=== PATIENT | female | born 1940 | race Caucasian/White ===

== ENCOUNTER 2016-11-02 18:49 | Inpatient (IN) | payer OTHER, MEDICARE ==
[2016-11-02] VITALS (8 sets, daily range): BP systolic 82–135; BP diastolic 52–63; PULSE 75–100; RESP 15–21; TEMP 98.5–98.8; O2SAT 98–100
[~2016-11-02] VITALS: Ht 153.7 cm; Wt 48.5 kg
[~2016-11-02 18:49] MED LIST: APIX2.5T PO; FOSA70TA PO; LEFL1TAB3 PO; METO-309 PO; MOBI15TA PO; PANT40TA3 PO; PRED5TAB PO; TRAM50TA PO
[2016-11-02] MEDS ORDERED: DILTIAZEM HCL 25 MG/5 ML VIAL IV ONE (19:30)
[2016-11-02] MEDS ORDERED: SODIUM CHLORID 0.9% 500 ML INJ 500 ML IV ONE (19:30)
[2016-11-02] MEDS ORDERED: SODIUM CHLORIDE 0.9% FLUSH 10 ML FLUSH IVF PRN (19:30)
--- NOTE | 2016-11-02 20:02 | RADRPT ---
EXAM DATE/TIME: 11/02/2016 19:59 [facility] COMPARISON: CHEST SINGLE AP, April 19, 2016, 10:52. INDICATIONS : Chest pain, palpitations. MEDICAL HISTORY : None. SURGICAL HISTORY : None. ENCOUNTER: Initial ACUITY: 1 day PAIN SCORE: 0/10 LOCATION: Bilateral chest FINDINGS: A single view of the chest demonstrates the lungs to be symmetrically aerated without evidence of mas s, infiltrate or effusion. The cardiomediastinal contours are unremarkable. Osseous structures are intact. There are multiple overlying electrocardiogram leads. CONCLUSION: No acute disease. Justo Simon MD on November 02, 2016 at 19:59 Board Certified Radiologist. This report was verified electronically.
[2016-11-02 20:03] LABS: APTT (PATIENT) 25.2 SEC (24.3-30.1); AUTOMATED NEUTROPHIL # 1.8 TH/MM3 (1.8-7.7); BASOPHIL % 1.1 % (0.0-2.0); EOSINOPHIL # 0.2 TH/MM3 (0-0.4); EOSINOPHIL % 4.1 % (0.0-4.0); HEMATOCRIT 32.2 % (35.0-46.0); HEMO FLAGS DIFF FINAL; INTERNATIONAL NORMALIZED RATIO 1.1 RATIO; LYMPH % 38.3 % (9.0-44.0); LYMPHOCYTE # 1.4 TH/MM3 (1.0-4.8); MEAN CELL VOLUME 89.5 FL (80.0-100.0); MEAN CORPUSCULAR HEMOGLOBIN 29.9 PG (27.0-34.0); MEAN CORPUSCULAR HGB CONC 33.4 % (32.0-36.0); NEUT % 49.5 % (16.0-70.0); PLATELET COUNT 148 TH/MM3 (150-450); RED CELL DISTRIBUTION WIDTH 14.8 % (11.6-17.2); WHITE BLOOD COUNT 3.6 TH/MM3 (4.0-11.0)
[2016-11-02] MEDS ORDERED: DILTIAZEM INJ 125 MG in SODIUM CHLORIDE 0.9% INJ 100 ML IV SCH ×2 (20:15→21:15)
[2016-11-02 20:16] LABS: ANION GAP 9 MEQ/L (5-15); BLOOD UREA NITROGEN 11 MG/DL (7-18); CHLORIDE 104 MEQ/L (98-107); GLOMERULAR FILTRATION RATE 73 ML/MIN (>89); MAGNESIUM 1.8 MG/DL (1.5-2.5); POTASSIUM 3.2 MEQ/L (3.5-5.1); SODIUM (NA) 139 MEQ/L (136-145)
[2016-11-02 20:21] LABS: CREATINE KINASE 53 U/L (26-192)
[2016-11-02] MEDS ORDERED: SODIUM CHLOR 0.9% 250 ML INJ 250 ML IV ONE ×2 (20:45→21:00)
[2016-11-02] MEDS ORDERED: DILTIAZEM HCL 90 MG TAB PO ONE (20:45)
[2016-11-02] MEDS: POTASSIUM CHLORIDE 20 MEQ CONTROLLED RELEASE TAB PO ONE ×2 (20:45→21:13)
--- NOTE | 2016-11-02 20:58 | PD ---
HPI Chief Complaint: Cardiac Complaint Time Seen by Provider: 19:10 Travel History International Travel<30 days: No Contact w/Intl Traveler<30days: No Traveled to known affect area: No History of Present Illness HPI 76-year-old female came to the emergency room with history of weakness for past couple weeks. Patient went to see her primary care today as her regular visit and it was noticed that her blood pressure was 75/45. Patient denies any chest pain, shortness of breath, lightheadedness or dizziness or any syncopal episode. Her heart rate was in 120s. Patient has history of atrial fibrillation in the past but has been off her Eliquis and medications as per her primary care. Her roommate is here with her who is giving additional history. Apparently she was asked by her primary care to go home and drink some fluid and return in the afternoon. When she came back her blood pressure was in the 80s systolic and heart rate was still high. Her primary care decided to send her to the emergency room. In triage patient's heart rate was in 120s again and blood pressure was in the 80s. Patient is awake and talking and answering questions appropriately. She looks very emaciated and upon asking the roommate said that she has lost a lot of weight in past 7-9 months. Her primary care has done significant outpatient workup including mammography, colonoscopy, endoscopy, blood test to find out the reason for her weight loss. So far everything has come back within normal limits. Patient weight 205 pounds about one year ago. Roommate says that her appetite has diminished significantly and she just survives on peanuts. [facility] Past Medical History Narrative Medical List of her past medical, surgical, social and family history is reviewed from the nursing note. Anemia: Yes Arthritis: Yes Asthma: No Autoimmune Disease: Yes (RA) Blood Disorders: No Anxiety: No Depression: No Heart Rhythm Problems: Yes (TACHYCARDIA) Cancer: No Cardiovascular Problems: No High Cholesterol: No Chest Pain: No Congestive Heart Failure: No COPD: No Cerebrovascular Accident: No Diabetes: No Diminished Hearing: No Endocrine: No GERD: Yes Glaucoma: No Genitourinary: No Headaches: No Hepatitis: No Hiatal Hernia: No Hypertension: No Immune Disorder: No Kidney Stones: No Musculoskeletal: Yes Neurologic: No Psychiatric: No Reproductive: No Respiratory: No Integumentary: Yes (ATOPIC DERMATITIS) Immunizations Current: No Myocardial Infarction: No Renal Failure: No Seizures: No Sickle Cell Disease: No Sleep Apnea: No Thyroid Disease: No Ulcer: No Menopausal: Yes Past Surgical History Abdominal Surgery: No AICD: No Cardiac Surgery: No Ear Surgery: No Endocrine Surgery: No Eye Surgery: Yes (KATLIN. CATARACT EXTR., KATLIN. MAC HOLE REP.) Genitourinary Surgery: No Gynecologic Surgery: Yes (hysterectomy) Hysterectomy: Yes Oral Surgery: No Pacemaker: No Thoracic Surgery: No Other Surgery: Yes Social History Alcohol Use: No Tobacco Use: No Substance Use: No Allergies-Medications (Allergen,Severity, Reaction): Coded Allergies: Keflex (Verified Allergy, Severe, RASH, 11/02/16) Septra (Verified Allergy, Severe, RASH, 11/02/16) Sulfa (Verified Allergy, Severe, RASH, 11/02/16) Codeine (Verified Adverse Reaction, Severe, NAUSEA, 11/02/16) Comments List of her allergies reviewed from the nursing note. Reported Meds & Prescriptions Reported Meds & Active Scripts Active Lopressor (Metoprolol Tartrate) 50 Mg Tab 50 Mg PO BID Reported Omeprazole 40 Mg Cap 40 Mg PO DAILY Tramadol (Tramadol HCl) 50 Mg Tab 50 Mg PO BID Leflunomide 20 Mg Tab 20 Mg PO DAILY Narrative Medication List of her home medications reviewed from the nurse's note Review of Systems Except as stated in HPI: all other systems reviewed are Neg Physical Exam Narrative GENERAL: Awake, alert, emaciated and cachectic, no obvious distress SKIN: Focused skin assessment warm/dry. HEAD: Atraumatic. Normocephalic. EYES: Pupils equal and round. No scleral icterus. No injection or drainage. ENT: No nasal bleeding or discharge. Mucous membranes pink and moist. NECK: Trachea midline. No JVD. CARDIOVASCULAR: Regular rate and rhythm. Tachycardia. No murmur appreciated. RESPIRATORY: No accessory muscle use. Clear to auscultation. Breath sounds equal bilaterally. GASTROINTESTINAL: Abdomen soft, non-tender, nondistended. Hepatic and splenic margins not palpable. MUSCULOSKELETAL: No obvious deformities. No clubbing. No cyanosis. 1+ pedal edema NEUROLOGICAL: Awake and alert. No obvious cranial nerve deficits. Motor grossly within normal limits. Normal speech. PSYCHIATRIC: Appropriate mood and affect; insight and judgment normal. Data Data Last Documented VS Orders Electrocardiogram (11/02/16 19:20) Basic Metabolic Panel (Bmp) (11/02/16 19:20) Ckmb (Isoenzyme) Profile (11/02/16 19:20) Complete Blood Count With Diff (11/02/16 19:20) Magnesium (Mg) (11/02/16 19:20) Prothrombin Time / Inr (Pt) (11/02/16 19:20) Act Partial Throm Time (Ptt) (11/02/16 19:20) Troponin I (11/02/16 19:20) Chest, Single Ap (11/02/16 19:20) Ecg Monitoring (11/02/16 19:20) Bilateral Bp Monitoring (11/02/16 19:20) Iv Access Insert/Monitor (11/02/16 19:20) Oximetry (11/02/16 19:20) Oxygen Administration (11/02/16 19:20) Sodium Chloride 0.9% Flush (Ns Flush) (11/02/16 19:30) Diltiazem Inj (Cardizem Inj) (11/02/16 19:30) Sodium Chlorid 0.9% 500 Ml Inj (Ns 500 M (11/02/16 19:30) Vital Signs (Adult) Q15MX4,Q4H (11/02/16 20:05) Project Account Manager / Telemetry FREDDY.Q8H (11/02/16 20:05) Cardiac Rhythm FREDDY.Q8H (11/02/16 20:05) Notify Dr: Other (11/02/16 20:05) Diltiazem Inj (Cardizem Inj) (11/02/16 20:15) Potassium Chloride (Kcl) (11/02/16 20:45) Sodium Chlor 0.9% 250 Ml Inj (Ns 250 Ml (11/02/16 20:45) Diltiazem (Cardizem) (11/02/16 20:45) Sodium Chlor 0.9% 250 Ml Inj (Ns 250 Ml (11/02/16 21:00) Admit Order (Ed Use Only) (11/02/16 20:58) Phosphorus (Po4) (11/02/16 19:20) Thyroid Stimulating Hormone (11/02/16 19:20) Labs MDM Medical Decision Making Medical Screen Exam Complete: Yes Emergency Medical Condition: Yes Medical Record Reviewed: Yes Interpretation(s) Twelve-lead EKG was reviewed by me. Low voltage, no comp tachycardia, normal axis. Heart rate of 122 bpm. Differential Diagnosis Atrial flutter, ACS, dehydration, electrolyte abnormalities Narrative Course 8:55 PM patient was given 15 mg of IV Cardizem bolus which brought her heart rate down to the 90s and at this point she was albert atrial fibrillation. In fact a repeat EKG was done which demonstrates that. However from then on her blood pressure has been between 75-85 systolic. Patient has received total of 5 cc of IV fluid bolus and I have ordered another 500. Patient continues to be awake and talking and does not have any other new symptoms. I have decided to admit her to the ICU given her hemodynamic instability. I spoke with Dr. Rodrigez who has accepted the case. Blood test results of back and within normal limit except for her potassium. I've ordered for placement. I spoke with the patient and let her know about the plan and she is agreeable to that. Critical Care Narrative Aggregate critical care time was 45 minutes. Time to perform other separately billable procedures was not included in the critical care time. My time did not include minutes spent treating any other patients simultaneously or on activities that did not directly contribute to the patient's treatment. The services I provided to this patient were to treat and/or prevent clinically significant deterioration that could result in: Atrial fibrillation with RVR, hypotension I provided critical care services requiring my management, as noted below: Chart data review, documentation time, medication orders and management, vital sign assessments/reviewing monitor data, ordering and reviewing lab tests, ordering and interpreting/reviewing x-rays and diagnostic studies, care of the patient and discussion of the patient with the admitting physicians. Procedures EKG Prior to Arrival: No Physician Communication Physician Communication Dr. Rodrigez Diagnosis Primary Impression: Atrial fibrillation with RVR Additional Impression: Hypotension Qualified Code: I95.9 - Hypotension, unspecified hypotension type Admitting Information Admitting Physician Requests: it Jeramie Mcnally MD Nov 02, 2016 20:58 CBC Comment DIFF FINAL Differential Comment Prothrombin Time 12.0 SEC Prothromb Time International 1.1 RATIO Ratio Activated Partial 25.2 SEC Thromboplast Time Sodium Level 139 MEQ/L Potassium Level 3.2 MEQ/L Chloride Level 104 MEQ/L Carbon Dioxide Level 26.0 MEQ/L Anion Gap 9 MEQ/L Blood Urea Nitrogen 11 MG/DL Creatinine 0.77 MG/DL Estimat Glomerular Filtration 73 ML/MIN Rate Random Glucose 76 MG/DL Calcium Level 8.6 MG/DL Magnesium Level 1.8 MG/DL Total Creatine Kinase 53 U/L Troponin I LESS THAN 0.02 NG/ML MDM Medical Decision Making Medical Screen Exam Complete: Yes Emergency Medical Condition: Yes Medical Record Reviewed: Yes Interpretation(s) Twelve-lead EKG was reviewed by me. Low voltage, no comp tachycardia, normal axis. Heart rate of 122 bpm. Differential Diagnosis Atrial flutter, ACS, dehydration, electrolyte abnormalities Narrative Course 8:55 PM patient was given 15 mg of IV Cardizem bolus which brought her heart rate down to the 90s and at this point she was albert atrial fibrillation. In fact a repeat EKG was done which demonstrates that. However from then on her blood pressure has been between 75-85 systolic. Patient has received total of 5 cc of IV fluid bolus and I have ordered another 500. Patient continues to be awake and talking and does not have any other new symptoms. I have decided to admit her to the ICU given her hemodynamic instability. I spoke with Dr. Rodrigez who has accepted the case. Blood test results of back and within normal limit except for her potassium. I've ordered for placement. I spoke with the patient and let her know about the plan and she is agreeable to that. Critical Care Narrative Aggregate critical care time was 45 minutes. Time to perform other separately billable procedures was not included in the critical care time. My time did not include minutes spent treating any other patients simultaneously or on activities that did not directly contribute to the patient's treatment. The services I provided to this patient were to treat and/or prevent clinically significant deterioration that could result in: Atrial fibrillation with RVR, hypotension I provided critical care services requiring my management, as noted below: Chart data review, documentation time, medication orders and management, vital sign assessments/reviewing monitor data, ordering and reviewing lab tests, ordering and interpreting/reviewing x-rays and diagnostic studies, care of the patient and discussion of the patient with the admitting physicians. Procedures EKG Prior to Arrival: No Physician Communication Physician Communication Dr. Rodrigez Diagnosis Primary Impression: Atrial fibrillation with RVR Additional Impression: Hypotension Qualified Code: I95.9 - Hypotension, unspecified hypotension type Admitting Information Admitting Physician Requests: it Jeramie Mcnally MD Nov 02, 2016 20:58
[2016-11-02] MEDS ORDERED: PHENYLEPHRINE INJ 80 MG in DEXTROSE 5% IN WATE 500 ML INJ 492 ML IV SCH ×2 (21:00)
[2016-11-02] MEDS ORDERED: LACTULOSE SYRUP 20 GM/30 ML CUP PO PRN (21:00)
[2016-11-02] MEDS ORDERED: CHLORHEXIDINE GLUCONATE 2 % 1 PACK (2 CLOTHS) TOP PRN (21:00)
[2016-11-02] MEDS ORDERED: MAGNESIUM SULFATE INJ 2 GM in SODIUM CHLORIDE 0.9% INJ 96 ML IV PRN (21:00)
[2016-11-02] MEDS ORDERED: MAGNESIUM OXIDE 400 MG TAB PO PRN (21:00)
[2016-11-02] MEDS ORDERED: POTASSIUM PHOSPHATE INJ 30 MMOL in SODIUM CHLOR 0.9% 250 ML INJ 250 ML IV PRN (21:00)
[2016-11-02] MEDS ORDERED: SENNOSIDES 8.6 MG TAB PO PRN (21:00)
[2016-11-02] MEDS ORDERED: BISACODYL 10 MG SUPP RECTAL PRN (21:00)
[2016-11-02] MEDS ORDERED: POTASSIUM CHLOR 20 MEQ PREMIX 100 ML IV PRN (21:00)
[2016-11-02] MEDS ORDERED: POTASSIUM CHLOR 40 MEQ PREMIX 100 ML IV PRN ×2 (21:00)
[2016-11-02] MEDS ORDERED: MAGNESIUM SULFATE INJ 4 GM in SODIUM CHLORIDE 0.9% INJ 92 ML IV PRN (21:00)
[2016-11-02] MEDS: DOCUSATE SODIUM 50 MG/SENNA 8.6 MG TAB PO SCH (21:00)
[2016-11-02] MEDS ORDERED: POTASSIUM PHOSPHATE MONOBASIC 500 MG TAB PO PRN (21:00)
[2016-11-02] MEDS ORDERED: TERBUTALINE INJ 1 MG/ML AMP SQ PRN (21:00)
[2016-11-02] MEDS ORDERED: POTASSIUM CHLORIDE 25 MEQ EFFERVESCENT TAB PO PRN (21:00)
[2016-11-02] MEDS ORDERED: POTASSIUM PHOSPHATE MONOBASIC 500 MG TAB PO/TUBE PRN (21:00)
[2016-11-02] MEDS ORDERED: MAGNESIUM HYDROXIDE SUSP 30 ML CUP PO PRN (21:00)
[2016-11-02] MEDS ORDERED: MISCELLANEOUS NURSING INFORMATION XX SCH (21:00)
[2016-11-02] MEDS ORDERED: ONDANSETRON HCL 4 MG/2 ML VIAL IV PRN (21:00)
[2016-11-02] MEDS ORDERED: SODIUM PHOSPHATE INJ 30 MMOL in SODIUM CHLOR 0.9% 250 ML INJ 240 ML IV PRN (21:00)
--- NOTE | 2016-11-02 21:18 | HHI.HP ---
HPI Service Critical Care Medicine Primary Care Physician Sb Wayne MD Admission Diagnosis A. fib with RVR, hypotension Diagnosis: Chief Complaint: Low BP. Travel History International Travel<30 Days: No Contact w/Intl Traveler <30 Da: No Traveled to Known Affected Are: No History of Present Illness Large weight loss over past 12 months. 205lbs -> 86. Referred in by Family Physician, presents with chronic a-fib, now with RVR and hypotension, largely refractory to volume at first.. I started neosynephrine gtt, added diltiazem gtt to control heat rate. Covered with stress steroids. Culture and treat for sepsis - though doubtful etiology. Hemocult stool for GI source. Past Family Social History Allergies: Coded Allergies: Keflex (Verified Allergy, Severe, RASH, 11/02/16) Septra (Verified Allergy, Severe, RASH, 11/02/16) Sulfa (Verified Allergy, Severe, RASH, 11/02/16) Codeine (Verified Adverse Reaction, Severe, NAUSEA, 11/02/16) Past Medical History Anemia: Yes Arthritis: Yes Asthma: No Autoimmune Disease: Yes (RA) Blood Disorders: No Anxiety: No Depression: No Heart Rhythm Problems: Yes (TACHYCARDIA) Cancer: No Cardiovascular Problems: No High Cholesterol: No Chest Pain: No Congestive Heart Failure: No COPD: No Cerebrovascular Accident: No Diabetes: No Diminished Hearing: No Endocrine: No GERD: Yes Glaucoma: No Genitourinary: No Headaches: No Hepatitis: No Hiatal Hernia: No Hypertension: No Immune Disorder: No Kidney Stones: No Musculoskeletal: Yes Neurologic: No Psychiatric: No Reproductive: No Respiratory: No Integumentary: Yes (ATOPIC DERMATITIS) Immunizations Current: No Myocardial Infarction: No Renal Failure: No Seizures: No Sickle Cell Disease: No Sleep Apnea: No Thyroid Disease: No Ulcer: No Menopausal: Yes Past Surgical History Abdominal Surgery: No AICD: No Cardiac Surgery: No Ear Surgery: No Endocrine Surgery: No Eye Surgery: Yes (KATLIN. CATARACT EXTR., KATLIN. MAC HOLE REP.) Genitourinary Surgery: No Gynecologic Surgery: Yes (hysterectomy) Hysterectomy: Yes Oral Surgery: No Pacemaker: No Thoracic Surgery: No Other Surgery: Yes Social History Alcohol Use: No Tobacco Use: No Substance Use: No Allergies-Medications Allergies-Medications (Allergen,Severity, Reaction): Coded Allergies: Keflex (Verified Allergy, Severe, RASH, 11/02/16) Septra (Verified Allergy, Severe, RASH, 11/02/16) Sulfa (Verified Allergy, Severe, RASH, 11/02/16) Codeine (Verified Adverse Reaction, Severe, NAUSEA, 11/02/16) Comments List of her allergies reviewed from the nursing note. Reported Meds & Prescriptions Reported Meds & Active Scripts Active Lopressor (Metoprolol Tartrate) 50 Mg Tab 50 Mg PO BID Eliquis (Apixaban) 2.5 Mg Tab 2.5 Mg PO BID Reported Fosamax (Alendronate Sodium) 70 Mg Tab 70 Mg PO CHAVIS Pantoprazole (Pantoprazole Sodium) 40 Mg Tab 40 Mg PO DAILY Tramadol (Tramadol HCl) 50 Mg Tab 50 Mg PO BID Prednisone 5 Mg Tab 5 Mg PO DAILY Mobic (Meloxicam) 15 Mg Tab 15 Mg PO DAILY Leflunomide 20 Mg Tab 20 Mg PO DAILY Physical Exam Vital Signs Vital Signs Date Time Temp Pulse Resp B/P Pulse Ox O2 Delivery O2 Flow Rate FiO2 11/02/16 21:08 100 Nasal Cannula 2.00 11/02/16 20:50 82/56 11/02/16 20:35 98.5 11/02/16 20:28 98 18 87/53 100 Nasal Cannula 2 11/02/16 20:13 98 Nasal Cannula 2 11/02/16 19:42 85 21 95/54 100 Room Air 11/02/16 19:16 100 Room Air 11/02/16 18:54 98.8 100 15 86/52 100 Physical Exam P 101 - 123, BP 82/57, R 12, Sats 100% RA, T 98. Head: Atraumatic. Neck: Supple, airway widely patent. Lungs: Clear, no wheezes or crackles. Heart: Irreg Irreg, no m,r. Neck veins flat. Abdomen: Scaphoid, no guarding. No Masses. Extremities: Warm, well perfused. 2+ katlin LE edema, chronic. Neuro: O X 3, alert, cooperative. Moves 4 limbs to command. Speech clear. Laboratory Laboratory Tests Test 11/02/16 19:20 White Blood Count 3.6 Red Blood Count 3.60 Hemoglobin 10.8 Hematocrit 32.2 Mean Corpuscular Volume 89.5 Mean Corpuscular Hemoglobin 29.9 Mean Corpuscular Hemoglobin 33.4 Concent Red Cell Distribution Width 14.8 Platelet Count 148 Mean Platelet Volume 10.9 Neutrophils (%) (Auto) 49.5 Lymphocytes (%) (Auto) 38.3 Monocytes (%) (Auto) 7.0 Eosinophils (%) (Auto) 4.1 Basophils (%) (Auto) 1.1 Neutrophils # (Auto) 1.8 Lymphocytes # (Auto) 1.4 Monocytes # (Auto) 0.3 Eosinophils # (Auto) 0.2 Basophils # (Auto) 0.0 CBC Comment DIFF FINAL Differential Comment Prothrombin Time 12.0 Prothromb Time International 1.1 Ratio Activated Partial 25.2 Thromboplast Time Sodium Level 139 Potassium Level 3.2 Chloride Level 104 Carbon Dioxide Level 26.0 Anion Gap 9 Blood Urea Nitrogen 11 Creatinine 0.77 Estimat Glomerular Filtration 73 Rate Random Glucose 76 Calcium Level 8.6 Magnesium Level 1.8 Total Creatine Kinase 53 Troponin I LESS THAN 0.02 Result Diagram: 11/02/16191911/02/161919 Assessment and Plan Assessment and Plan Assessment: 1. Circulatory Shock, 2. Atrial fibrillation with RVR. 3. Large recent weight loss. 5. ? sepsis. 6. ? adrenal insufficiency. (she has already received steroids). Plan: 1. Support MAP with neosynephrine. 2. Control heart rate with diltiazem gtt. 3. Hydrate aggressively. 4. Cultures. 5. Broad ABX coverage. 6. Electrolyte protocol. 7. Taper steroids rapidly. 8. Check prealbumin. 9. Lactic acid. Overall impression: Patient is critically ill with circulatory shock, possibly septic etiology. Immediate problem is rate control and BP support. The role of her recent > 100 lb weight loss is unclear but I suspect her immune status is compromised. Critical Care 43 mins Kobi Rodrigez MD Nov 02, 2016 21:18
[2016-11-02] MEDS ORDERED: OMEP40CA2 PO (21:22)
[2016-11-02] MEDS: PANTOPRAZOLE SODIUM 40 MG VIAL IV SCH (22:45)
[2016-11-02] MEDS: HYDROCORTISONE SOD SUCCINATE 100 MG VIAL IV PUSH SCH (22:46)
[2016-11-02] MEDS: AZTREONAM INJ 1,000 MG in SODIUM CHLORIDE 0.9% INJ 100 ML IV SCH (22:46)
[2016-11-02] MEDS: SODIUM CHLOR 0.9% 1000 ML INJ 1,000 ML IV SCH (22:47)
[2016-11-02] MEDS: LEVOFLOXACIN 500 MG PREMIX INJ 100 ML IV SCH (23:55)
[2016-11-03] VITALS (15 sets, daily range): BP systolic 83–108; BP diastolic 44–61; PULSE 67–111; RESP 14–22; TEMP 97.5–98.4; O2SAT 96–100
[2016-11-03] MEDS: CHLORHEXIDINE GLUCONATE 2 % 1 PACK (2 CLOTHS) TOP SCH (04:00)
[2016-11-03 05:53] LABS: AUTOMATED NEUTROPHIL # 2.5 TH/MM3 (1.8-7.7); BASOPHIL % 0.6 % (0.0-2.0); EOSINOPHIL % 0.3 % (0.0-4.0); HEMATOCRIT 27.5 % (35.0-46.0); HEMO FLAGS DIFF FINAL; LYMPH % 16.6 % (9.0-44.0); LYMPHOCYTE # 0.5 TH/MM3 (1.0-4.8); MEAN CELL VOLUME 89.9 FL (80.0-100.0); MEAN CORPUSCULAR HGB CONC 33.3 % (32.0-36.0); MONO % 2.2 % (0.0-8.0); NEUT % 80.3 % (16.0-70.0); PLATELET COUNT 156 TH/MM3 (150-450); RED BLOOD COUNT 3.06 MIL/MM3 (4.00-5.30); RED CELL DISTRIBUTION WIDTH 14.7 % (11.6-17.2); WHITE BLOOD COUNT 3.1 TH/MM3 (4.0-11.0)
[2016-11-03] MEDS: HYDROCORTISONE SOD SUCCINATE 100 MG VIAL IV PUSH SCH ×4 (05:56→18:00)
[2016-11-03] MEDS: AZTREONAM INJ 1,000 MG in SODIUM CHLORIDE 0.9% INJ 100 ML IV SCH ×3 (05:56→21:54)
[2016-11-03 06:29] LABS: ALKALINE PHOSPHATASE 68 U/L (45-117); ALT (GPT) 13 U/L (10-53); ANION GAP 8 MEQ/L (5-15); AST (GOT) 18 U/L (15-37); BICARBONATE 25.1 MEQ/L (21.0-32.0); BLOOD UREA NITROGEN 9 MG/DL (7-18); CHLORIDE 110 MEQ/L (98-107); GLOMERULAR FILTRATION RATE 97 ML/MIN (>89); MAGNESIUM 1.7 MG/DL (1.5-2.5); POTASSIUM 4.1 MEQ/L (3.5-5.1); SODIUM (NA) 143 MEQ/L (136-145); TOTAL BILIRUBIN ADULT 0.4 MG/DL (0.2-1.0)
--- NOTE | 2016-11-03 08:28 | HHI.CCPN ---
Subjective Remarks/Hospital Course Referred in by Family Physician, presents with chronic a-fib, now with RVR and hypotension, largely refractory to volume at first.. 11/03 Patient is awake and alert on Neosyn 40 mics. Jenninet reports 100lbs weight loss in 1-2 yrs and decrease PO intake. Objective Vital Signs Date Time Temp Pulse Resp B/P Pulse Ox O2 Delivery O2 Flow Rate FiO2 11/03/16 06:00 70 11/03/16 04:00 97.9 14 89/44 100 11/03/16 02:29 Nasal Cannula 2.00 Result Diagram: 11/03/16 0525 11/03/16 0525 Other Results Laboratory Tests Test 11/02/16 11/02/16 11/02/16 11/03/16 19:20 22:53 23:40 05:25 White Blood Count 3.6 TH/MM3 3.1 TH/MM3 Red Blood Count 3.60 MIL/MM3 3.06 MIL/MM3 Hemoglobin 10.8 GM/DL 9.2 GM/DL Hematocrit 32.2 % 27.5 % Mean Corpuscular Volume 89.5 FL 89.9 FL Mean Corpuscular Hemoglobin 29.9 PG 30.0 PG Mean Corpuscular Hemoglobin 33.4 % 33.3 % Concent Red Cell Distribution Width 14.8 % 14.7 % Platelet Count 148 TH/MM3 156 TH/MM3 Mean Platelet Volume 10.9 FL 10.4 FL Neutrophils (%) (Auto) 49.5 % 80.3 % Lymphocytes (%) (Auto) 38.3 % 16.6 % Monocytes (%) (Auto) 7.0 % 2.2 % Eosinophils (%) (Auto) 4.1 % 0.3 % Basophils (%) (Auto) 1.1 % 0.6 % Neutrophils # (Auto) 1.8 TH/MM3 2.5 TH/MM3 Lymphocytes # (Auto) 1.4 TH/MM3 0.5 TH/MM3 Monocytes # (Auto) 0.3 TH/MM3 0.1 TH/MM3 Eosinophils # (Auto) 0.2 TH/MM3 0.0 TH/MM3 Basophils # (Auto) 0.0 TH/MM3 0.0 TH/MM3 CBC Comment DIFF FINAL DIFF FINAL Differential Comment Prothrombin Time 12.0 SEC Prothromb Time International 1.1 RATIO Ratio Activated Partial 25.2 SEC Thromboplast Time Sodium Level 139 MEQ/L 143 MEQ/L Potassium Level 3.2 MEQ/L 4.1 MEQ/L Chloride Level 104 MEQ/L 110 MEQ/L Carbon Dioxide Level 26.0 MEQ/L 25.1 MEQ/L Anion Gap 9 MEQ/L 8 MEQ/L Blood Urea Nitrogen 11 MG/DL 9 MG/DL Creatinine 0.77 MG/DL 0.60 MG/DL Estimat Glomerular Filtration 73 ML/MIN 97 ML/MIN Rate Random Glucose 76 MG/DL 95 MG/DL Calcium Level 8.6 MG/DL 8.0 MG/DL Phosphorus Level 2.7 MG/DL 2.6 MG/DL Magnesium Level 1.8 MG/DL 1.7 MG/DL Total Creatine Kinase 53 U/L Troponin I LESS THAN 0.02 NG/ML Prealbumin 13 MG/DL Thyroid Stimulating Hormone 7.700 uIU/ML 3rd Gen Lactic Acid Level 0.9 mmol/L Nasal Screen MRSA (PCR) MRSA NOT DETECTED Total Bilirubin 0.4 MG/DL Aspartate Amino Transf 18 U/L (AST/SGOT) Alanine Aminotransferase 13 U/L (ALT/SGPT) Alkaline Phosphatase 68 U/L Total Protein 5.4 GM/DL Albumin 2.1 GM/DL Imaging Last Impressions Chest X-Ray 11/02/160 Signed Impressions: Service Date/Time: October 19:59 - CONCLUSION: No acute disease. Justo Simon MD Objective Remarks GENERAL: Patient is lyingin bed in NAD SKIN: Warm and dry. HEAD: Normocephalic. EYES: No scleral icterus. No injection or drainage. NECK: Supple, trachea midline. No JVD or lymphadenopathy. CARDIOVASCULAR: Regular rate and rhythm without murmurs, gallops, or rubs. RESPIRATORY: Breath sounds equal bilaterally. No accessory muscle use. GASTROINTESTINAL: Abdomen soft, non-tender, nondistended. MUSCULOSKELETAL: No cyanosis, or edema. Neuro: Awake and alert. A/P Assessment and Plan Imp: 1)Resp Insuff 2)Hypotension 3)Atrial fibrillation with RVR. 4) Large recent weight loss. 5)Anemia, Leukopenia 6)? adrenal insufficiency. (she has already received steroids). Plan: Neuro: Awake and alert Pulm: Continue with oxygen keep sat >92% Check CT chest r/o lung masses CV: Wean off Neosyn monitor HR and BP keep MAP>65mmHg Lactic acid: 0.9, continue with IVF, on stress dose steroids- HC 50mg IV Q6 Echo from 04/2016: EF 55-60% : Monitor renal function, electrolytes replacement per protocol. On NS@84ml/hr GI:On Protonix 40mg daily Check CT abd/pelvis for further workup of her significant weight loss ID: Continue with abx ( Aztreonam, Levaquin)monitor for isgns of infections ( Fever, WBC) BC 11/02: NGTD Heme: Monitor CBC Endo: SSI if needed for glycemic control. TSH: 7.7 GI prophylaxis- on Protonix 40mg daily DVT prophylaxis- Heparin SQ CCT 30 mins Deacon Ortega MD Nov 03, 2016 08:28
[2016-11-03] MEDS ORDERED: DEXTROSE 50% IN WATER 50 ML VIAL(D50) IV PRN (08:30)
[2016-11-03] MEDS ORDERED: GLUCAGON 1 MG/ML VIAL OTHER PRN (08:30)
[2016-11-03] MEDS ORDERED: DIATRIZOATE MEGLUM/DIATRIZOATE SOD 9 ML CUP PO ONE (09:00)
[2016-11-03] MEDS: INSULIN NovoLIN REGULAR SUPPLEMENTAL SCALE SQ SCH ×3 (09:00→20:10)
[2016-11-03] MEDS: DOCUSATE SODIUM 50 MG/SENNA 8.6 MG TAB PO SCH ×2 (09:39→20:08)
[2016-11-03] MEDS: PANTOPRAZOLE SODIUM 40 MG VIAL IV SCH (09:39)
[2016-11-03] MEDS: HEPARIN SODIUM - SQ 10,000 UNITS/ML VIAL SQ SCH ×2 (09:40→20:08)
[2016-11-03] MEDS: SODIUM CHLOR 0.9% 1000 ML INJ 1,000 ML IV SCH ×2 (09:43→21:50)
[2016-11-03] MEDS ORDERED: IOHEXOL 350 MG/ML 10 ML VIAL (for RAD DIAG) IV ONE (12:25)
--- NOTE | 2016-11-03 12:58 | RADRPT ---
EXAM DATE/TIME: 11/03/2016 12:15 [facility] COMPARISON: No previous studies available for comparison. INDICATIONS : 100 pound weight loss in 1-2 years IV CONTRAST: 71 cc Omnipaque 350 (iohexol) IV ; Cumulative dose for multiple exams. RADIATION DOSE: 6.38 CTDIvol (mGy) ; Combined studies - Thorax/Abdomen/Pelvis MEDICAL HISTORY : None SURGICAL HISTORY : Hysterectomy. ENCOUNTER: Initial ACUITY: >1 yr PAIN SCALE: 0/10 LOCATION: chest TECHNIQUE: Volumetric scanning of the chest was performed. Using automated exposure control and adjustment of t he mA and/or kV according to patient size, radiation dose was kept as low as reasonably achievable to obtain optimal diagnostic quality images. DICOM format image data is available electronically for review and comparison. FINDINGS: There are small bilateral pleural effusions. No focal lung consolidation. There is no hilar, mediasti nal axillary adenopathy. No pneumothorax. See abdomen CT for findings below the diaphragm. CONCLUSION: 1. Small bilateral pleural effusions. No focal lung consolidation. No adenopathy. Chavez Forbes MD on November 03, 2016 at 12:49 Board Certified Radiologist. This report was verified electronically.
--- NOTE | 2016-11-03 13:05 | RADRPT ---
EXAM DATE/TIME: 11/03/2016 12:15 [facility] COMPARISON: No previous studies available for comparison. INDICATIONS : 100 [place] weight loss in 1-2 years IV CONTRAST: 71 cc Omnipaque 350 (iohexol) IV ; Cumulative dose for multiple exams. ORAL CONTRAST: Prescribed oral contrast ingested. RADIATION DOSE: 6.38 CTDIvol (mGy) ; Combined studies - Thorax/Abdomen/Pelvis MEDICAL HISTORY : None SURGICAL HISTORY : Hysterectomy. ENCOUNTER: Initial ACUITY: >1 yr PAIN SCALE: 0/10 LOCATION: Abdominal TECHNIQUE: Volumetric scanning of the abdomen and pelvis was performed. Using automated exposure control and ad justment of the mA and/or kV according to patient size, radiation dose was kept as low as reasonably achievable to obtain optimal diagnostic quality images. DICOM format image data is available electro nically for review and comparison. FINDINGS: Small bilateral pleural effusions. Moderate diffuse anasarca is present. No acute findings in the liver, spleen, adrenals, left kidney or pancreas. Right renal cysts present. No calcified gallstones are identified. There is no bowel obstruction. No free air. There is colonic diverticulosis without evidence for dive rticulitis. There is a lucency in the left iliac bone measuring about 3.5 x 1.9 cm, probably benign. CONCLUSION: 1. Moderate to severe diffuse anasarca. Small bilateral pleural effusions. Trace free fluid in the ab domen and pelvis. 2. Colonic diverticulosis without diverticulitis. Chavez Forbes MD on November 03, 2016 at 12:56 Board Certified Radiologist. This report was verified electronically.
--- NOTE | 2016-11-03 16:23 | EKG ---
Date Performed: 11/02/2016 Time Performed: 19:16:00 PTAGE: 76 years EKG: SINUS TACHYCARDIA LOW QRS VOLTAGE IN EXTREMITY LEADS SEPTAL MYOCARDIAL INFARCTION ABNORMAL ECG PREVIOUS TRACING : 04/26/2016 05.21 Compared to previous tracing, there is now evidence of a se ptal myocardial infarction. DOCTOR: Vick Chacon Interpretating Date/Time 11/03/2016 16:23:36
--- NOTE | 2016-11-03 16:26 | EKG ---
Date Performed: 11/02/2016 Time Performed: 19:43:49 PTAGE: 76 years EKG: ATRIAL FIBRILLATION LOW QRS VOLTAGE IN EXTREMITY LEADS SEPTAL MYOCARDIAL INFARCTION ABNORMA L ECG Since PREVIOUS TRACING , no significant change noted PREVIOUS TRACIN11/02/2016 19.16 DOCTOR: Vick Chacon Interpretating Date/Time 11/03/2016 16:25:00
--- NOTE | 2016-11-03 19:14 | MB ---
cc: YOUSIF CAMPBELL M.D., RUBY ANNE E. M.D. DATE OF CONSULTATION 11/03/16 DATE OF [address] Campbell CHIEF COMPLAINT Dr. Campbell requested consultation for Mrs. Allen regarding unintentional weight loss and leukopenia. HISTORY OF PRESENT ILLNESS Mrs. Allen is a 76-year-old woman with multiple medical problems. She has a history of rheumatoid arthritis under the care of Dr. Lagos in the community. She has had admissions in the past for SVT. She came in to the emergency room on 11/02 with weakness for the past couple of weeks. She was hypotensive and her heart rate was in the 120s. She was found to have atrial fibrillation, rapid ventricular response. She was started on Van-Synephrine drip and added diltiazem drip to control the heart rate. Sepsis was considered. She is placed in the ICU. She reports a history of unintentional weight loss from 205 pounds to 86 pounds. For this reason the Hematology/Oncology was consulted. REVIEW OF SYSTEMS On review of systems Ms. Allen denies any pain in her rheumatoid arthritis symptoms. She has had fractures in the past from a fall, her left ankle and her shoulder. She has had arrhythmias in the past. She has no appetite. She feels full. She denies any nausea, vomiting. She denies any diarrheal symptoms. She is undergoing workup for the weight loss. She is under the care of her primary physician, Dr. Wayne, who coordinated consultation with Dr. Mcgovern, of gastroenterology. She has had endoscopic evaluation and revealed no particular etiology to explain her weight loss. Review of the electronic medical record shows that her weight loss is actually quite gradual. Her weight on February 2004 was 93 kg. And July of 2006 she was 97 kg and February 2011 she was 90 kilograms. On August 2003 she was 89 kilograms. In January of 2004 she was 86 kilograms. On December 2013 she was 81 kilograms. April 2014 she was 71 kg. On March 2016 she was 57 kilograms. In April 2016 she was 52 kilograms. On admission she was 43.5 kilograms. She has changed her dress sizes several times because of her weight loss. She feels that her rheumatoid arthritis medication has been effective. She is ____ methotrexate. She has osteoporosis and is on Fosamax. PAST MEDICAL HISTORY Rheumatoid arthritis, tachyarrhythmia, arthritis, unintentional weight loss, leukopenia, atopic dermatitis. PAST SURGICAL HISTORY Bilateral cataract surgery, left ankle surgery, left shoulder surgery, total abdominal hysterectomy and salpingo-oophorectomy. SOCIAL HISTORY Denies any tobacco, alcohol, illicit drug use. She lives at home with her daughter and her daughter's friend. FAMILY HISTORY Mother of old age in her mid 90s. Father of chronic lymphocytic leukemia in his mid 80s. PHYSICAL EXAMINATION VITAL SIGNS: Temperature afebrile, heart rate 80 irregular, saturation 96%. GENERAL: Ms. Allen is cachectic-appearing elderly woman. She has bitemporal wasting. Oropharynx is clear. NECK: Supple. LUNGS: Clear. CARDIOVASCULAR: Exam reveals a tachycardia. ABDOMEN: Abdomen is benign. EXTREMITIES: Lower extremity with mild asymmetry, left ankle more prominent than the right. The hands with chronic sausage digits and inflammation. She has ulnar deviation of the right hand, more prominent than the left. LABORATORY DATA Leukopenia. White blood cell count 3.6 on admission, down to 3.1. Differential is normal except for mild lymphopenia. Hemoglobin is decreased. MCV is normal. Platelet count in the lower limits of normal. ASSESSMENT/PLAN Ms. Allen is a 76-year-old woman with chronic rheumatoid arthritis which is fairly well-controlled. Her course was complicated by osteoporosis and unintentional weight loss. She has decrease in appetite. She denies any dysphasia or GI loss of nutrition. She has had GI evaluation on outpatient basis. She has had imaging study during her admission including a CT scan of the chest that shows bilateral pleural effusion. No focal lung consolidation or adenopathy. CT scan of the abdomen shows diffuse anasarca, bilateral effusion, chronic diverticulosis without diverticulitis. There was no evidence of malignancy. I suspect Ms. Allen's intentional weight loss is due to her chronic illness, mainly the rheumatoid arthritis. Her weight loss has been ongoing over a long period of time since 2003 as documented in the electronic medical records. She seems to remember that her weight loss had been more abrupt over the past year. We discussed referral with editing clerk to do a calorie count. Suspect that her caloric intake is not sufficient to her needs. So far there is no sign of leukemia. I will review the peripheral smear. She is mildly leukopenic. We will monitor her CBC. Bone marrow biopsy is deferred until persistent cytopenia is seen. She has more acute issues. She is also asymptomatic from the leukopenia. We will follow. Her questions were answered to her satisfaction. Caro Coy MD RAD/EO /6:23 PM /6:38 PM
[2016-11-03 19:32] LABS: FERRITIN 400 NG/ML (8-252)
[2016-11-04] VITALS (30 sets, daily range): BP systolic 91–116; BP diastolic 47–59; PULSE 74–118; RESP 12–32; TEMP 97.8–98.5; O2SAT 99–100
[2016-11-04] MEDS: HYDROCORTISONE SOD SUCCINATE 100 MG VIAL IV PUSH SCH ×5 (00:17→23:32)
[2016-11-04] MEDS: LEVOFLOXACIN 500 MG PREMIX INJ 100 ML IV SCH ×2 (00:18→23:32)
[2016-11-04] MEDS: INSULIN NovoLIN REGULAR SUPPLEMENTAL SCALE SQ SCH ×4 (03:00→20:34)
[2016-11-04] MEDS: CHLORHEXIDINE GLUCONATE 2 % 1 PACK (2 CLOTHS) TOP SCH (04:00)
[2016-11-04] MEDS: AZTREONAM INJ 1,000 MG in SODIUM CHLORIDE 0.9% INJ 100 ML IV SCH ×3 (06:08→20:35)
[2016-11-04 07:41] LABS: RETIC % 0.7 % (0.4-3.0); REVIEW FLAG FINAL
[2016-11-04 07:42] LABS: AUTOMATED NEUTROPHIL # 1.9 TH/MM3 (1.8-7.7); BASOPHIL % 0.3 % (0.0-2.0); EOSINOPHIL % 0.1 % (0.0-4.0); HEMATOCRIT 25.5 % (35.0-46.0); LYMPH % 16.1 % (9.0-44.0); LYMPHOCYTE # 0.4 TH/MM3 (1.0-4.8); MEAN CELL VOLUME 90.1 FL (80.0-100.0); MEAN CORPUSCULAR HEMOGLOBIN 29.9 PG (27.0-34.0); MEAN CORPUSCULAR HGB CONC 33.2 % (32.0-36.0); MONO % 3.4 % (0.0-8.0); NEUT % 80.1 % (16.0-70.0); PLATELET COUNT 114 TH/MM3 (150-450); RED BLOOD COUNT 2.83 MIL/MM3 (4.00-5.30); RED CELL DISTRIBUTION WIDTH 14.8 % (11.6-17.2); WHITE BLOOD COUNT 2.4 TH/MM3 (4.0-11.0)
[2016-11-04 07:59] LABS: BICARBONATE 23.2 MEQ/L (21.0-32.0); MAGNESIUM 1.7 MG/DL (1.5-2.5); POTASSIUM 3.6 MEQ/L (3.5-5.1)
[2016-11-04 08:29] LABS: HEMO FLAGS AUTO DIFF
[2016-11-04 08:30] LABS: ACANTHOCYTES OCC (NORMAL); OVALOCYTES 1+ (NORMAL); PLATELET ESTIMATE SMEAR LOW (NORMAL); PLATELET MORPHOLOGY NORMAL (NORMAL); SCAN/DIFF AUTO DIFF CONFIRMED
[2016-11-04] MEDS: HEPARIN SODIUM - SQ 10,000 UNITS/ML VIAL SQ SCH ×2 (08:59→20:35)
[2016-11-04] MEDS: PANTOPRAZOLE SODIUM 40 MG VIAL IV SCH (08:59)
[2016-11-04] MEDS: DOCUSATE SODIUM 50 MG/SENNA 8.6 MG TAB PO SCH ×2 (09:00→20:34)
--- NOTE | 2016-11-04 09:39 | HHI.CCPN ---
Subjective Remarks/Hospital Course Referred in by Family Physician, presents with chronic a-fib, now with RVR and hypotension, largely refractory to volume at first.. 11/03 Patient is awake and alert on Neosyn 40 mics. Patient reports 100lbs weight loss in 1-2 yrs and decrease PO intake. 11/04 No events overnight off Neosyn. Awake and alert. Afebrile. Objective Vital Signs Date Time Temp Pulse Resp B/P Pulse Ox O2 Delivery O2 Flow Rate FiO2 11/04/16 08:28 99 Nasal Cannula 2.00 11/04/16 08:00 94 11/04/16 08:00 98.0 18 109/59 Intake and Output 11/03/16 11/03/16 11/04/16 08:00 16:00 00:00 Intake Total 806 ml 1047 ml 798 ml Balance 806 ml 1047 ml 798 ml Result Diagram: 11/04/16 0622 11/04/16 0622 Other Results Laboratory Tests Test 11/04/16 06:22 White Blood Count 2.4 TH/MM3 Red Blood Count 2.83 MIL/MM3 Hemoglobin 8.5 GM/DL Hematocrit 25.5 % Mean Corpuscular Volume 90.1 FL Mean Corpuscular Hemoglobin 29.9 PG Mean Corpuscular Hemoglobin 33.2 % Concent Red Cell Distribution Width 14.8 % Platelet Count 114 TH/MM3 Mean Platelet Volume 11.2 FL Neutrophils (%) (Auto) 80.1 % Lymphocytes (%) (Auto) 16.1 % Monocytes (%) (Auto) 3.4 % Eosinophils (%) (Auto) 0.1 % Basophils (%) (Auto) 0.3 % Neutrophils # (Auto) 1.9 TH/MM3 Lymphocytes # (Auto) 0.4 TH/MM3 Monocytes # (Auto) 0.1 TH/MM3 Eosinophils # (Auto) 0.0 TH/MM3 Basophils # (Auto) 0.0 TH/MM3 CBC Comment AUTO DIFF Differential Comment AUTO DIFF CONFIRMED Platelet Estimate LOW Platelet Morphology Comment NORMAL Ovalocytes 1+ Acanthocytes OCC Blood Smear Pathologist Review Reticulocyte Count 0.7 % Absolute Reticulocyte Count 18.8 MIL/L Sodium Level 141 MEQ/L Potassium Level 3.6 MEQ/L Chloride Level 110 MEQ/L Carbon Dioxide Level 23.2 MEQ/L Anion Gap 8 MEQ/L Blood Urea Nitrogen 14 MG/DL Creatinine 0.78 MG/DL Estimat Glomerular Filtration 72 ML/MIN Rate Random Glucose 112 MG/DL Calcium Level 7.8 MG/DL Phosphorus Level 2.1 MG/DL Magnesium Level 1.7 MG/DL Lactate Dehydrogenase 150 U/L Imaging Last Impressions Chest CT 11/03/16 0000 Signed Impressions: Service Date/Time: Thursday, November 03, 2016 12:15 - CONCLUSION: 1. Small bilateral pleural effusions. No focal lung consolidation. No adenopathy. Chavez Forbes MD Abdomen/Pelvis CT 11/03/16 0000 Signed Impressions: Service Date/Time: Thursday, November 03, 2016 12:15 - CONCLUSION: 1. Moderate to severe diffuse anasarca. Small bilateral pleural effusions. Trace free fluid in the abdomen and pelvis. 2. Colonic diverticulosis without diverticulitis. Chavez Forbes MD Chest X-Ray 11/02/16 1920 Signed Impressions: Service Date/Time: October 19:59 - CONCLUSION: No acute disease. Justo Simon MD Objective Remarks GENERAL: Patient is lyingin bed in NAD SKIN: Warm and dry. HEAD: Normocephalic. EYES: No scleral icterus. No injection or drainage. NECK: Supple, trachea midline. No JVD or lymphadenopathy. CARDIOVASCULAR: Regular rate and rhythm without murmurs, gallops, or rubs. RESPIRATORY: Breath sounds equal bilaterally. No accessory muscle use. GASTROINTESTINAL: Abdomen soft, non-tender, nondistended. MUSCULOSKELETAL: No cyanosis, or edema. Neuro: Awake and alert. A/P Assessment and Plan Imp: 1)Resp Insuff 2)PAF 4) Large recent weight loss. 5)Anemia, Leukopenia 6)? adrenal insufficiency. (she has already received steroids). 7)Hx RA Plan: Neuro: Awake and alert Pulm: Continue with oxygen keep sat >92% CT chest no focal lung consolidation, no adenopathy, small effusion CV: Monitor HR and BP keep MAP>65mmHg, Off Neosyn Lactic acid: 0.9, continue with IVF, on stress dose steroids- HC 50mg IV Q6 Echo from 04/2016: EF 55-60% : Monitor renal function, electrolytes replacement per protocol. On NS@84ml/hr. Will need Phos replacement today GI:On Protonix 40mg daily. GI eval for anemia. Dietary consult for malnutrition and decrease PO intake. CT abd/pelvis no acute findings, diverticulosis no evidence of diverticulitis ID: Continue with abx ( Aztreonam, Levaquin)monitor for signs of infections ( Fever, WBC) BC 11/02: NGTD Heme: Monitor CBC, Heme is following Endo: SSI if needed for glycemic control. TSH: 7.7 GI prophylaxis- on Protonix 40mg daily DVT prophylaxis- Heparin SQ Will sign off and transfer care to [facility] Level 3 Deacon Ortega MD Nov 04, 2016 09:39
--- NOTE | 2016-11-04 11:33 | PD.ONC.PN ---
Subjective Subjective Remarks Afebrile overnight. Resting in bed in nad. No complaints. Objective Data Date Time Temp Pulse Resp B/P Pulse Ox O2 Delivery O2 Flow Rate FiO2 11/04/16 10:00 94 11/04/16 08:28 99 Nasal Cannula 2.00 11/04/16 08:00 94 11/04/16 08:00 98.0 98 18 109/59 100 11/04/16 06:00 76 11/04/16 04:00 88 11/04/16 04:00 98.0 88 17 99/54 100 11/04/16 02:00 83 11/04/16 00:00 97.9 80 23 91/54 100 11/04/16 00:00 80 11/03/16 22:00 83 11/03/16 20:40 100 Nasal Cannula 2.00 11/03/16 20:00 86 11/03/16 20:00 97.5 86 22 108/52 99 11/03/16 18:00 75 11/03/16 16:00 80 11/03/16 16:00 98.3 111 15 92/52 100 11/03/16 14:00 72 11/03/16 12:00 98.4 84 17 94/61 98 11/03/16 12:00 83 11/04/16 11/04/16 11/04/16 07:00 15:00 23:00 Intake Total 916 ml Balance 916 ml Result Diagram: 11/04/1662111/04/16621 Laboratory Results Laboratory Tests Test 11/04/16 06:22 White Blood Count 2.4 TH/MM3 Red Blood Count 2.83 MIL/MM3 Hemoglobin 8.5 GM/DL Hematocrit 25.5 % Mean Corpuscular Volume 90.1 FL Mean Corpuscular Hemoglobin 29.9 PG Mean Corpuscular Hemoglobin 33.2 % Concent Red Cell Distribution Width 14.8 % Platelet Count 114 TH/MM3 Mean Platelet Volume 11.2 FL Neutrophils (%) (Auto) 80.1 % Lymphocytes (%) (Auto) 16.1 % Monocytes (%) (Auto) 3.4 % Eosinophils (%) (Auto) 0.1 % Basophils (%) (Auto) 0.3 % Neutrophils # (Auto) 1.9 TH/MM3 Lymphocytes # (Auto) 0.4 TH/MM3 Monocytes # (Auto) 0.1 TH/MM3 Eosinophils # (Auto) 0.0 TH/MM3 Basophils # (Auto) 0.0 TH/MM3 CBC Comment AUTO DIFF Differential Comment AUTO DIFF CONFIRMED Platelet Estimate LOW Platelet Morphology Comment NORMAL Ovalocytes 1+ Acanthocytes OCC Blood Smear Pathologist Review Reticulocyte Count 0.7 % Absolute Reticulocyte Count 18.8 MIL/L Sodium Level 141 MEQ/L Potassium Level 3.6 MEQ/L Chloride Level 110 MEQ/L Carbon Dioxide Level 23.2 MEQ/L Anion Gap 8 MEQ/L Blood Urea Nitrogen 14 MG/DL Creatinine 0.78 MG/DL Estimat Glomerular Filtration 72 ML/MIN Rate Random Glucose 112 MG/DL Calcium Level 7.8 MG/DL Phosphorus Level 2.1 MG/DL Magnesium Level 1.7 MG/DL Lactate Dehydrogenase 150 U/L Culture Results Microbiology Date/Time Procedure Status Source Growth 11/02/16 21:25 Aerobic Blood Culture - Preliminary Resulted Blood Peripheral NO GROWTH IN 2 DAYS 11/02/16 21:25 Anaerobic Blood Culture - Preliminary Resulted Blood Peripheral NO GROWTH IN 2 DAYS 11/02/16 21:30 Aerobic Blood Culture - Preliminary Resulted Blood Peripheral NO GROWTH IN 2 DAYS 11/02/16 21:30 Anaerobic Blood Culture - Preliminary Resulted Blood Peripheral NO GROWTH IN 2 DAYS Administered Medications Medications (Trade) Dose Ordered Sig/Baljinder Route PRN Reason Start Time Stop Time Status Last Admin Dose Admin Phenylephrine HCl/ Dextrose (Neosynephrine Inj/D5W 500 ml Inj) 500 ml @ 0 mls/hr TITRATE IV 11/02/16 21:00 11/02/16 23:55 Pantoprazole Sodium (Protonix Inj) 40 mg DAILY IV 11/02/16 21:00 11/04/16 08:59 Ondansetron HCl (Zofran Inj) 4 mg Q6H PRN IV NAUSEA OR VOMITING 11/02/16 21:00 11/03/16 00:45 Miscellaneous Information 1 Q361D XX 11/02/16 21:00 11/02/16 21:00 Chlorhexidine Gluconate (Chlorhexidine 2% Cloth) 3 pack Taper DAILY@04 TOP 11/03/16 04:00 10/30/17 03:59 11/04/16 04:00 Senna/Docusate Sodium (Lakeisha-Colace) 1 tab BID PO 11/02/16 21:00 11/04/16 09:00 Hydrocortisone Sodium Succinate (SoluCORTEF INJ) 50 mg Q6HR IV PUSH 11/02/16 21:00 11/04/16 06:09 Potassium Bicarb/ Potassium Chloride 50 meq 50 meq UNSCH PRN PO For Potassium 3.3 - 3.5 mEq/L 11/02/16 21:00 11/02/16 23:55 Aztreonam 1000 mg/ Sodium Chloride 100 ml @ 200 mls/hr Q8H IV 11/02/16 22:00 11/04/16 06:08 Levofloxacin/ Dextrose (Levaquin 500 Mg Premix Inj) 100 ml @ 100 mls/hr Q24H IV 11/02/16 23:00 11/04/16 00:18 Heparin Sodium (Porcine) (Heparin Inj) 5,000 units Q12HR SQ 11/03/16 09:00 11/04/16 08:59 Objective Remarks GENERAL: Frail elderly female, supine in bed, sleeping. SKIN: Warm and dry. HEAD: Normocephalic. EYES: No injection or drainage. NECK: Supple, trachea midline. CARDIOVASCULAR: +S1/S2 RESPIRATORY: anterior pacheco clear GASTROINTESTINAL: Abdomen soft, non-tender, nondistended. EXTREMITIES: No cyanosis NEUROLOGICAL: No obvious focal deficit. Awake, alert, and oriented x3 Assessment/Plan Problem List: (1) Pancytopenia Status: Acute Plan: --vitamin studies WNL --may need bone marrow biopsy --will obtain liver ultrasound to r/u hypersplenism Assessment 76y/o female with unintentional weight loss and leukopenia admitted hypotensive with afib/RVR h/o RA Plan 1. monitor CBC 2. liver u/s 3. may need bone marrow biopsy Attending Statement The exam, history, and the medical decision-making described in the above note were completed with the assistance of the mid-level provider. I reviewed and agree with the findings presented. I attest that I had a [id number] encounter with the patient on the same day, and personally performed and documented my assessment and findings in the medical record. Discussed case w/ Dr. Kingsley. Noted pancytopenia, concern for underlying bone marrow pathology. Discussed possibility of bone marrow biopsy at bedside. HR controlled. Heidy Montoya Nov 04, 2016 11:33 Caro Coy MD Nov 04, 2016 22:23
--- NOTE | 2016-11-04 16:31 | RADRPT ---
EXAM DATE/TIME: 11/04/2016 15:11 [facility] COMPARISON: CT ABDOMEN & PELVIS W CONTRAST, November 03, 2016, 12:15. INDICATIONS : Increased lab values. MEDICAL HISTORY : Gastroesophageal reflux disease. Osteoporosis. Tachycardia. Rheumatoid arthritis. Anemia. SURGICAL HISTORY : Hysterectomy. Left shoulder surgery. Left ankle surgery. ENCOUNTER: Initial ACUITY: 1 day PAIN SCORE: 0/10 LOCATION: Bilateral upper quadrant MEASUREMENTS: LIVER: 12.0 cm length COMMON DUCT: 2 mm RIGHT KIDNEY: 10.0 x 5.1 x 5.7 cm SPLEEN: 8.2 cm length FINDINGS: The gallbladder wall is thickened. A large 2.9 cm gallstone is noted within the gallbladder lumen. If there is clinical concern for acute cholecystitis a hepatobiliary scan may be helpful to confirm c ystic duct obstruction. No pericholecystic fluid or sonographic Zavala's sign is noted. The common bile duct is normal in caliber and measures 2 mm. The liver is normal in size and echogenicity. No focal hepatic mass is noted. No biliary ductal dilatation is noted. There is hepatopetal flow withi n the portal vein. The right kidney demonstrates two cysts measuring 5.1 x 4.2 x 4.7 cm in the midpo le and 2.5 x 3.0 x 2.9 cm in the lower pole. Ascites is noted. Small pleural effusions are also not ed. The spleen is unremarkable. The pancreas is unremarkable. CONCLUSION: 1. Thick-walled gallbladder containing a large stone measuring 2.9 cm. If there is clinical concern for acute cholecystitis, a hepatobiliary scan may be helpful to confirm cystic duct obstruction. 2. Tiny bilateral pleural effusions. 3. Minimal ascites. 4. Multiple right renal cysts. Ezequiel Ohara MD on November 04, 2016 at 16:18 Board Certified Radiologist. This report was verified electronically.
[2016-11-04] MEDS: ACETAMINOPHEN 325 MG TAB PO PRN (20:49)
[2016-11-05] VITALS (14 sets, daily range): BP systolic 97–111; BP diastolic 51–57; PULSE 75–105; RESP 22–24; TEMP 98.1–98.7; O2SAT 98–100
[2016-11-05] MEDS: CHLORHEXIDINE GLUCONATE 2 % 1 PACK (2 CLOTHS) TOP SCH (03:20)
[2016-11-05] MEDS: INSULIN NovoLIN REGULAR SUPPLEMENTAL SCALE SQ SCH ×4 (03:20→20:02)
[2016-11-05 05:49] LABS: AUTOMATED NEUTROPHIL # 3.3 TH/MM3 (1.8-7.7); BASOPHIL % 0.1 % (0.0-2.0); HEMATOCRIT 23.4 % (35.0-46.0); HEMO FLAGS DIFF FINAL; LYMPH % 7.5 % (9.0-44.0); LYMPHOCYTE # 0.3 TH/MM3 (1.0-4.8); MEAN CORPUSCULAR HEMOGLOBIN 30.2 PG (27.0-34.0); MEAN CORPUSCULAR HGB CONC 33.6 % (32.0-36.0); MONO % 3.6 % (0.0-8.0); NEUT % 88.8 % (16.0-70.0); PLATELET COUNT 112 TH/MM3 (150-450); RED BLOOD COUNT 2.61 MIL/MM3 (4.00-5.30); RED CELL DISTRIBUTION WIDTH 15.2 % (11.6-17.2); WHITE BLOOD COUNT 3.7 TH/MM3 (4.0-11.0)
[2016-11-05] MEDS: HYDROCORTISONE SOD SUCCINATE 100 MG VIAL IV PUSH SCH (06:13)
[2016-11-05] MEDS: AZTREONAM INJ 1,000 MG in SODIUM CHLORIDE 0.9% INJ 100 ML IV SCH (06:13)
[2016-11-05 06:17] LABS: BICARBONATE 22.9 MEQ/L (21.0-32.0); MAGNESIUM 1.7 MG/DL (1.5-2.5); POTASSIUM 3.7 MEQ/L (3.5-5.1)
[2016-11-05] MEDS: PANTOPRAZOLE SODIUM 40 MG VIAL IV SCH (09:09)
[2016-11-05] MEDS: HEPARIN SODIUM - SQ 10,000 UNITS/ML VIAL SQ SCH ×2 (09:10→20:08)
[2016-11-05] MEDS: DOCUSATE SODIUM 50 MG/SENNA 8.6 MG TAB PO SCH ×2 (09:10→20:09)
--- NOTE | 2016-11-05 09:37 | PD.ONC.PN ---
Subjective Subjective Remarks Afebrile overnight. Eating breakfast today. No obvious bleeding. Feeling better. Objective Data Date Time Temp Pulse Resp B/P Pulse Ox O2 Delivery O2 Flow Rate FiO2 11/05/16 08:35 98 Nasal Cannula 2.00 11/05/16 08:00 98.7 105 24 104/55 100 11/05/16 08:00 103 11/05/16 06:00 103 11/05/16 04:00 82 11/05/16 04:00 98.5 82 24 102/57 100 11/05/16 02:00 88 11/05/16 00:00 89 11/05/16 00:00 98.6 89 22 108/55 100 11/04/16 22:00 99 11/04/16 20:46 100 Nasal Cannula 2.00 11/04/16 20:00 98.5 118 24 100/56 100 11/04/16 20:00 118 11/04/16 18:00 94 11/04/16 16:00 98.0 115 20 116/59 99 11/04/16 16:00 94 11/04/16 14:00 94 11/04/16 12:30 84 17 97/50 100 11/04/16 12:15 83 20 100 11/04/16 12:00 79 22 93/54 100 11/04/16 12:00 94 11/04/16 12:00 97.8 81 20 97/50 99 11/04/16 11:45 89 22 100 11/04/16 11:30 84 16 95/52 100 11/04/16 11:15 81 14 100 11/04/16 11:00 74 14 104/51 100 11/04/16 10:45 75 22 100 11/04/16 10:30 81 25 93/47 100 11/04/16 10:15 117 27 100 11/04/16 10:00 78 22 100/59 100 11/04/16 10:00 94 11/04/16 09:45 82 18 100 11/05/16 11/05/16 11/05/16 07:00 15:00 23:00 Intake Total 571 ml Balance 571 ml Result Diagram: 11/05/16 0458 11/05/16 0458 Laboratory Results Laboratory Tests Test 11/05/16 04:58 White Blood Count 3.7 TH/MM3 Red Blood Count 2.61 MIL/MM3 Hemoglobin 7.9 GM/DL Hematocrit 23.4 % Mean Corpuscular Volume 90.0 FL Mean Corpuscular Hemoglobin 30.2 PG Mean Corpuscular Hemoglobin 33.6 % Concent Red Cell Distribution Width 15.2 % Platelet Count 112 TH/MM3 Mean Platelet Volume 10.7 FL Neutrophils (%) (Auto) 88.8 % Lymphocytes (%) (Auto) 7.5 % Monocytes (%) (Auto) 3.6 % Eosinophils (%) (Auto) 0.0 % Basophils (%) (Auto) 0.1 % Neutrophils # (Auto) 3.3 TH/MM3 Lymphocytes # (Auto) 0.3 TH/MM3 Monocytes # (Auto) 0.1 TH/MM3 Eosinophils # (Auto) 0.0 TH/MM3 Basophils # (Auto) 0.0 TH/MM3 CBC Comment DIFF FINAL Differential Comment Sodium Level 144 MEQ/L Potassium Level 3.7 MEQ/L Chloride Level 114 MEQ/L Carbon Dioxide Level 22.9 MEQ/L Anion Gap 7 MEQ/L Blood Urea Nitrogen 16 MG/DL Creatinine 0.77 MG/DL Estimat Glomerular Filtration 73 ML/MIN Rate Random Glucose 114 MG/DL Calcium Level 7.6 MG/DL Phosphorus Level 2.2 MG/DL Magnesium Level 1.7 MG/DL Culture Results Microbiology Date/Time Procedure Status Source Growth 11/02/16 21:25 Aerobic Blood Culture - Preliminary Resulted Blood Peripheral NO GROWTH IN 2 DAYS 11/02/16 21:25 Anaerobic Blood Culture - Preliminary Resulted Blood Peripheral NO GROWTH IN 2 DAYS 11/02/16 21:30 Aerobic Blood Culture - Preliminary Resulted Blood Peripheral NO GROWTH IN 2 DAYS 11/02/16 21:30 Anaerobic Blood Culture - Preliminary Resulted Blood Peripheral NO GROWTH IN 2 DAYS Administered Medications Medications (Trade) Dose Ordered Sig/Baljinder Route PRN Reason Start Time Stop Time Status Last Admin Dose Admin Phenylephrine HCl/ Dextrose (Neosynephrine Inj/D5W 500 ml Inj) 500 ml @ 0 mls/hr TITRATE IV 11/02/16 21:00 11/02/16 23:55 Acetaminophen (Tylenol) 650 mg Q6H PRN PO PAIN 1-10 AND/OR FEVER >101F 11/02/16 21:00 11/04/16 20:49 Pantoprazole Sodium (Protonix Inj) 40 mg DAILY IV 11/02/16 21:00 11/05/16 09:09 Ondansetron HCl (Zofran Inj) 4 mg Q6H PRN IV NAUSEA OR VOMITING 11/02/16 21:00 11/03/16 00:45 Miscellaneous Information 1 Q361D XX 11/02/16 21:00 11/02/16 21:00 Chlorhexidine Gluconate (Chlorhexidine 2% Cloth) 3 pack Taper DAILY@04 TOP 11/03/16 04:00 10/30/17 03:59 11/05/16 03:20 Senna/Docusate Sodium (Lakeisha-Colace) 1 tab BID PO 11/02/16 21:00 11/05/16 09:10 Hydrocortisone Sodium Succinate (SoluCORTEF INJ) 50 mg Q6HR IV PUSH 11/02/16 21:00 11/05/16 06:13 Potassium Bicarb/ Potassium Chloride 50 meq 50 meq UNSCH PRN PO For Potassium 3.3 - 3.5 mEq/L 11/02/16 21:00 11/02/16 23:55 Aztreonam/Sodium Chloride (Azactam Inj/NS Inj) 100 ml @ 200 mls/hr Q8H IV 11/02/16 22:00 11/05/16 06:13 Heparin Sodium (Porcine) (Heparin Inj) 5,000 units Q12HR SQ 11/03/16 09:00 11/05/16 09:10 Insulin Human Regular (NovoLIN R SUPPLEMENTAL SCALE) 1 Q6H SQ 11/03/16 09:00 11/05/16 03:20 Objective Remarks GENERAL: Thin frail female, upright in bed in nad. SKIN: Warm and dry. HEAD: Normocephalic. EYES: no injection or drainage. NECK: Supple, trachea midline. CARDIOVASCULAR: Regular rate and rhythm RESPIRATORY: Breath sounds equal bilaterally. No accessory muscle use. GASTROINTESTINAL: Abdomen soft, non-tender, nondistended. EXTREMITIES: No cyanosis NEUROLOGICAL: No obvious focal deficit. Awake, alert, and oriented x3. Assessment/Plan Problem List: (1) Pancytopenia Status: Acute Plan: --vitamin studies WNL --may need bone marrow biopsy --liver u/s shows no hepatosplenomegaly Assessment 76y/o female with unintentional weight loss and leukopenia admitted hypotensive with afib/RVR h/o RA Plan 1. monitor CBC--check H/H this afternoon 2. may need bone marrow biopsy Attending Statement The exam, history, and the medical decision-making described in the above note were completed with the assistance of the mid-level provider. I reviewed and agree with the findings presented. I attest that I had a [id number] encounter with the patient on the same day, and personally performed and documented my assessment and findings in the medical record. Eating lunch, offers no complaints, appear to have good appetite. Discussed her Arava known to cause pancytopenia. Defer BM biopsy for now, monitor blood counts- no specific therapy. Follow CBC Heidy Montoya Nov 05, 2016 09:37 Caro Coy MD Nov 05, 2016 13:11
--- NOTE | 2016-11-05 11:24 | MB ---
cc: CHUCHO RATLIFF MD, PETER KENT MD DATE OF CONSULTATION: 11/05/2016 REASON FOR CONSULTATION: Weight loss. HISTORY This is a pleasant 76-year-old female admitted November 02, after being referred by her family physician for chronic A-fib with a new rapid ventricular response and associated hypotension. The patient was admitted to the intensive care unit and treated for stabilization. She has had weight loss of about 100 pounds but it is unclear over what period of time. She was recently referred to Dr. Cm Mcgovern as an outpatient and underwent EGD and colonoscopy around October 05 of this year with some mild gastritis. The colon was unremarkable without polyps or colitis. She has been having some occasional loose stools but random biopsies were negative for microscopic colitis. Duodenal biopsies were negative for celiac sprue and gastric biopsies were negative for H. pylori. She also had an outpatient CT of her thorax, abdomen and pelvis which showed some anasarca, diverticulosis, and small pleural effusion, otherwise negative. No sign of malignancy. The patient denies any abdominal pain, fatty food intolerance. She denies heartburn, nausea, vomiting, dysphagia. She denies any significant change in bowel habits with diarrhea or constipation. No rectal bleeding or black stools. She lives with her daughter and a friend of her daughter's. They all pitch in doing the cooking but she states that she eats very little as she does not have much of an appetite. She has never been a smoker and does not drink alcohol. SOCIAL HISTORY: The patient lives at home with a daughter and daughter's friend as described above. No history of alcohol or tobacco use. She is single. PAST MEDICAL HISTORY: Remarkable for rheumatoid arthritis. Atopic dermatitis. PAST SURGICAL HISTORY: Bilateral cataract surgery. Left ankle surgery. Left shoulder surgery. Total abdominal hysterectomy. Salpingo-oophorectomy. FAMILY HISTORY: Mother in her 90s. Father of leukemia. No family history of any GI problems according to the patient. MEDICATIONS: At home: 1. Lopressor 50 milligrams twice daily. 2. Eliquis 2.5 milligrams twice daily. 3. Fosamax 70 milligrams daily. 4. Pantoprazole 40 milligrams daily. 5. Tramadol 50 milligrams twice a day. 6. Prednisone 5 milligrams daily. 7. Mobic 15 milligrams daily. 8. Leflunomide 20 mg daily. ALLERGIES: SHE IS ALLERGIC TO KEFLEX, SEPTRA, SULFA AND CODEINE. REVIEW OF SYSTEMS: Her review of systems is remarkable for arthritis pain in her hands and knees. No current chest pain or shortness of breath. No GI symptoms as described above. No urinary tract complaints. She does have poor appetite. She denies any difficulty swallowing and denies feeling sad or depressed. She is being evaluated by Dr. Coy for leukopenia. PHYSICAL EXAMINATION: Physical exam reveals a well-developed, somewhat cachectic appearing female in no acute distress. VITAL SIGNS: Her blood pressure is 104/55, pulse 103 and irregular, respirations are 24 nonlabored, temperature is 98.7 orally. HEENT: Sclerae anicteric. Dentition is poor and she is missing her upper dentures. Neck: Supple without masses. No JVD. Lungs are clear to auscultation posteriorly. Heart sounds are irregular without appreciable murmur, gallop or rub. Abdomen is soft and nontender, nondistended. No masses. No organomegaly. Negative Zavala's sign. Rectal was deferred. She had a colonoscopy about a month ago. No peripheral edema. Skin is somewhat dry and flaky but no obvious rashes. No edema. She was alert and oriented. LABORATORY DATA: Reveals a hemoglobin of 7.9 with an MCV of 90 and a normal iron of 58 and an elevated ferritin of 400. Her liver enzymes are normal. Her albumin is 2.1 and pre-albumin was low at 13. TSH is elevated to 7.7. Renal function is normal with a BUN of 11, creatinine 0.77. Her white count is 3.7 but was as low as 2.4, platelet count also low at 112,000. INR is 1.1. IMAGING STUDIES: Repeat CT of the chest, abdomen and pelvis was essentially unchanged showing diffuse anasarca, small bilateral pleural effusion, colonic diverticulosis without diverticulitis. No sign of hepatosplenomegaly or liver disease. Liver ultrasound does show a thick walled gallbladder with a large 2.9 cm gallstone but negative Zavala sign and normal size common bile duct. IMPRESSION: 1. Weight loss. No specific etiology for weight loss other than anorexia and chronic medical disease with her rheumatoid arthritis. Suspect this is mostly due to poor oral intake. Her TSH is elevated which will need further investigation. She may benefit from nutritional consultation and also an appetite stimulant such as Megace. 2. Anemia. Recent GI workup was negative. No sign of iron deficiency. Stool hemoccult has not yet been done but her recent GI workup was negative. If there was any sign of occult bleeding or iron deficiency, could consider the pill cam as an outpatient. No sign of malabsorption such a steatorrhea or diarrhea. If her weight does not improve with documented better diet and oral intake, could consider further workup such as fecal elastase. Will follow as needed, however, the patient can follow up with Dr. Mcgovern in the office after discharge. MD JAYLON Alfonso/FILIBERTO /10:11 AM /10:36 AM MTDD
--- NOTE | 2016-11-05 11:39 | HHI.PR ---
Subjective Remarks Follow-up for hypotension and pancytopenia Patient has no complaints. She remains afebrile. She denies any shortness of breathing, headache, vision changes, lightheadedness or dizziness. Patient stated that she thinks she lost a lot of weight because she has not been eating well the past year. She stated that she lives with her daughter and her friend and that they both have a lot of medical issues that are going on that affects her. She stated that she has been stressed out a lot about that and she thinks that affected her eating habits. Objective Vitals Vital Signs Date Time Temp Pulse Resp B/P Pulse Ox O2 Delivery O2 Flow Rate FiO2 11/05/16 08:35 98 Nasal Cannula 2.00 11/05/16 08:00 98.7 105 24 104/55 100 11/05/16 08:00 103 11/05/16 06:00 103 11/05/16 04:00 82 11/05/16 04:00 98.5 82 24 102/57 100 11/05/16 02:00 88 11/05/16 00:00 89 11/05/16 00:00 98.6 89 22 108/55 100 11/04/16 22:00 99 11/04/16 20:46 100 Nasal Cannula 2.00 11/04/16 20:00 98.5 118 24 100/56 100 11/04/16 20:00 118 11/04/16 18:00 94 11/04/16 16:00 98.0 115 20 116/59 99 11/04/16 16:00 94 11/04/16 14:00 94 11/04/16 12:30 84 17 97/50 100 11/04/16 12:15 83 20 100 11/04/16 12:00 79 22 93/54 100 11/04/16 12:00 94 11/04/16 12:00 97.8 81 20 97/50 99 11/04/16 11:45 89 22 100 I/O 11/04/16 11/04/16 11/04/16 11/05/16 11/05/16 11/05/16 07:00 15:00 23:00 07:00 15:00 23:00 Intake Total 916 ml 923 ml 466 ml 571 ml Balance 916 ml 923 ml 466 ml 571 ml Intake Oral 200 ml 280 ml 200 ml IV Total 716 ml 643 ml 266 ml 571 ml # Voids 4 3 2 1 # Bowel Movements 3 1 3 0 Result Diagram: 11/05/168 11/05/168 Objective Remarks GENERAL: Patient is lying in bed in NAD CARDIOVASCULAR: Regular rate and rhythm without murmurs, gallops, or rubs. RESPIRATORY: Breath sounds equal bilaterally. No accessory muscle use. GASTROINTESTINAL: Abdomen soft, non-tender, nondistended. MUSCULOSKELETAL: No cyanosis, or edema. Neuro: Awake and alert. Medications and IVs Current Medications Sodium Chloride (NS Flush) 2 ml UNSCH PRN IVF FLUSH AFTER USING IV ACCESS; Start 11/02/16 at 19:30 Diltiazem HCl 15 mg 15 mg ONCE ONCE IV Last administered on 11/02/16 19:29; Start 11/02/16 at 19:30; Stop 11/02/16 at 19:31; Status DC Sodium Chloride 500 ml @ 500 mls/hr BOLUS ONCE IV Last administered on 19:28; Start 11/02/16 at 19:30; Stop 11/02/16 at 20:29; Status DC Diltiazem HCl/ Sodium Chloride (Cardizem Inj/NS Inj) 125 ml @ 0 mls/hr TITRATE IV ; Start 11/02/16 at 20:15; Stop 11/02/16 at 21:29; Status DC Potassium Chloride 40 meq 40 meq ONCE ONCE PO Last administered on 11/02/16 21:13; Start 11/02/16 at 20:45; Stop 11/02/16 at 20:46; Status DC Sodium Chloride (NS 250 ml Inj) 250 ml @ 250 mls/hr BOLUS ONCE IV Last administered on 11/02/16 20:51; Start 11/02/16 at 20:45; Stop 11/02/16 at 21:44 ; Status DC Diltiazem HCl 90 mg 90 mg ONCE ONCE PO Last administered on 11/02/16 21:08; Start 11/02/16 at 20:45; Stop 11/02/16 at 20:46; Status DC Sodium Chloride (NS 250 ml Inj) 250 ml @ 250 mls/hr BOLUS ONCE IV Last administered on 11/02/16 20:51; Start 11/02/16 at 21:00; Stop 11/02/16 at 21:59 ; Status DC Terbutaline Sulfate 1 mg 1 mg UNSCH PRN SQ For Extravasation; Start 11/02/16 at 21:00 Phenylephrine HCl 80 mg/Dextrose 500 ml @ 0 mls/hr TITRATE IV Last administered on 11/02/16 23:55; Start 11/02/16 at 21:00 Sodium Chloride (NS 1000 ml Inj) 1,000 ml @ 84 mls/hr [id number] IV Last administered on 11/03/16 21:50; Start 11/02/16 at 22:00; Stop 11/04/16 at 09:39 ; Status DC Acetaminophen (Tylenol) 650 mg Q6H PRN PO PAIN 1-10 AND/OR FEVER >101F Last administered on 11/04/16 20:49; Start 11/02/16 at 21:00 Pantoprazole Sodium (Protonix Inj) 40 mg DAILY IV Last administered on 09:09; Start 11/02/16 at 21:00 Ondansetron HCl (Zofran Inj) 4 mg Q6H PRN IV NAUSEA OR VOMITING Last administered on 11/03/16 00:45; Start 11/02/16 at 21:00 Miscellaneous Information 1 [id number] XX Last administered on 11/02/16 21:00; Start 11/02/16 at 21:00 Chlorhexidine Gluconate (Chlorhexidine 2% Cloth) 3 pack Taper DAILY@04 TOP Last administered on 11/05/16 03:20; Start 11/03/16 at 04:00; Stop 10/30/17 at 03:59 Chlorhexidine Gluconate (Chlorhexidine 2% Cloth) 3 pack UNSCH PRN TOP HYGIENIC CARE; Start 11/02/16 at 21:00 Senna/Docusate Sodium (Lakeisha-Colace) 1 tab BID PO Last administered on 09:10; Start 11/02/16 at 21:00 Magnesium Hydroxide (Milk Of Magnesia Liq) 30 ml Q12H PRN PO MILD - MODERATE CONSTIPATION; Start 11/02/16 at 21:00 Sennosides (Senokot) 17.2 mg Q12H PRN PO MODERATE - SEVERE CONSTIPATION; Start 11/02/16 at 21:00 Bisacodyl (Dulcolax Supp) 10 mg DAILY PRN RECTAL SEVERE CONSITIPATION; Start at 21:00 Lactulose (Lactulose Liq) 30 ml DAILY PRN PO SEVERE CONSITIPATION; Start at 21:00 Hydrocortisone Sodium Succinate 50 mg 50 mg Q6HR IV PUSH Last administered on 06:13; Start 11/02/16 at 21:00 Potassium Chloride 100 ml @ 50 mls/hr Q2H PRN IV For Potassium 2.8 - 3.2 mEq/L ; Start 11/02/16 at 21:00 Potassium Chloride (KCl 20 Meq Premix Inj) 100 ml @ 50 mls/hr Q2H PRN IV For Potassium 2.8 - 3.2 mEq/L; Start 11/02/16 at 21:00 Potassium Bicarb/ Potassium Chloride 50 meq 50 meq UNSCH PRN PO For Potassium 3.3 - 3.5 mEq/L Last administered on 11/02/16 23:55; Start 11/02/16 at 21:00 Potassium Chloride 100 ml @ 25 mls/hr UNSCH PRN IV For Potassium 3.3 - 3.5 mEq /L; Start 11/02/16 at 21:00 Potassium Chloride 100 ml @ 50 mls/hr Q2H PRN IV For Potassium 3.3 - 3.5 mEq/L ; Start 11/02/16 at 21:00 Magnesium Sulfate/ Sodium Chloride (Magnesium Sulfate Inj/NS Inj) 100 ml @ 50 mls/hr UNSCH PRN IV For Magnesium 0.9 - 1.1 mg/dL; Start 11/02/16 at 21:00 Magnesium Oxide 800 mg 800 mg UNSCH PRN PO For Magnesium 1.2 - 1.6 mg/dL; Start 11/02/16 at 21:00 Magnesium Sulfate/ Sodium Chloride (Magnesium Sulfate Inj/NS Inj) 100 ml @ 50 mls/hr UNSCH PRN IV For Magnesium 1.2 - 1.6 mg/dL; Start 11/02/16 at 21:00 Potassium Phosphate 2000 mg 2,000 mg Q4H PRN PO For Phosphorus < 2.5 mg/dL; Start 11/02/16 at 21:00 Sodium Phosphate/ Sodium Chloride (Sodium Phosphate Inj/NS 250 ml Inj) 250 ml @ 42 mls/hr UNSCH PRN IV For Phosphorus < 2.5 mg/dL; Start 11/02/16 at 21:00 Potassium Phosphate 2000 mg 2,000 mg UNSCH PRN PO/TUBE SEE LABEL COMMENTS; Start 11/02/16 at 21:00 Potassium Phosphate 30 mmol/ Sodium Chloride 260 ml @ 42 mls/hr UNSCH PRN IV SEE LABEL COMMENTS; Start 11/02/16 at 21:00 Aztreonam 1000 mg/ Sodium Chloride 100 ml @ 200 mls/hr Q8H IV Last administered on 11/05/16 06:13; Start 11/02/16 at 22:00 Levofloxacin/ Dextrose 100 ml @ 100 mls/hr Q24H IV Last administered on 23:32; Start 11/02/16 at 23:00; Stop 11/05/16 at 08:42; Status DC Diltiazem HCl/ Sodium Chloride (Cardizem Inj/NS Inj) 125 ml @ 0 mls/hr TITRATE IV ; Start 11/02/16 at 21:15 Heparin Sodium (Porcine) (Heparin Inj) 5,000 units Q12HR SQ Last administered on 11/05/16 09:10; Start 11/03/16 at 09:00 Dextrose (D50w (Vial) Inj) 50 ml UNSCH PRN IV HYPOGLYCEMIA-SEE COMMENTS; Start 11/03/16 at 08:30 Glucagon (Glucagon Inj) 1 mg UNSCH PRN OTHER HYPOGLYCEMIA-SEE COMMENTS; Start 11/03/16 at 08:30 Insulin Human Regular (NovoLIN R SUPPLEMENTAL SCALE) 1 Q6H SQ Last administered on 11/05/16 03:20; Start 11/03/16 at 09:00 Diatrizoate Meglum/ Diatrizoate Sod ( Gastroview Liq) 18 ml ONCE ONCE PO Last administered on 11/03/16 09:39; Start 11/03/16 at 09:00; Stop 11/03/16 at 09:01; Status DC Iohexol 70 ml 70 ml STK-MED ONCE IV Last administered on 11/03/16 12:25; Start 11/03/16 at 12:25; Stop 11/03/16 at 12:26; Status DC Levofloxacin/ Dextrose (Levaquin 250 Mg Premix Inj) 50 ml @ 50 mls/hr Q24H IV ; Start 11/05/16 at 23:00 A/P Assessment and Plan Hypotension -Most likely secondary to decreased by mouth intake. She was given IV fluids in which her blood pressure has improved. She was also initially on Van- Synephrine in which she was able to be weaned off of. There was question of adrenal insufficiency but no cortisol level was taken. Unlikely this is due to adrenal insufficiency and most likely due to poor intake. We will discontinue hydrocortisone since she only was given 3 days worth. Off steroids. And check a cortisol level in the a.m. -Per patient she runs low. -Due to hypotension she was also treated empirically for infection. So far infectious workup is negative. We'll discontinue IV antibiotics and monitor off IV antibiotics. -Clinically patient just looks malnourished. Malnourished -Vitamin levels were obtained and were normal. -Most likely secondary to anorexia from stress. -Will add in sure to diet. Consult dietitian. Paroxysmal atrial fibrillation Pancytopenia -Most likely secondary to anorexia and poor nutrition. -Passenger Brakeman consulted. They may do a bone marrow biopsy. Will continue to monitor. -I was also consulted due to anemia. GI thinks this is more due to anorexia and poor nutrition. No sign of any GI bleed. Workup has been negative. Elevated TSH -TSH is 7.7. Patient is fatigued but it seems to be more due to being malnourished. -We will get a free T4 and determine if patient needs to be treated. PAF -Continue her current regimen. Hx RA -Resume home medication. Discharge Planning Will monitor patient off of IV medication to see if she continues to do well. She may need a bone marrow biopsy. Ladonna Arthur MD Nov 05, 2016 11:39 CT chest no focal lung consolidation, no adenopathy, small effusion CV: Monitor HR and BP keep MAP>65mmHg, Off Neosyn Lactic acid: 0.9, continue with IVF, on stress dose steroids- HC 50mg IV Q6 Echo from 04/2016: EF 55-60% : Monitor renal function, electrolytes replacement per protocol. On NS@84ml/hr. Will need Phos replacement today GI:On Protonix 40mg daily. GI eval for anemia. Dietary consult for malnutrition and decrease PO intake. CT abd/pelvis no acute findings, diverticulosis no evidence of diverticulitis ID: Continue with abx ( Aztreonam, Levaquin)monitor for signs of infections ( Fever, WBC) BC 11/02: NGTD Heme: Monitor CBC, Heme is following Endo: SSI if needed for glycemic control. TSH: 7.7 GI prophylaxis- on Protonix 40mg daily DVT prophylaxis- Heparin SQ Will sign off and transfer care to Ladonna Walter MD Nov 05, 2016 11:39
[2016-11-05 12:15] LABS: HEMATOCRIT 24.3 % (35.0-46.0); REVIEW FLAG FINAL
[2016-11-05 12:56] LABS: AUTOMATED NEUTROPHIL # 3.4 TH/MM3 (1.8-7.7); HEMO FLAGS DIFF FINAL; LYMPH % 8.2 % (9.0-44.0); LYMPHOCYTE # 0.3 TH/MM3 (1.0-4.8); MEAN CELL VOLUME 90.1 FL (80.0-100.0); MEAN CORPUSCULAR HGB CONC 33.3 % (32.0-36.0); MONO % 3.8 % (0.0-8.0); PLATELET COUNT 127 TH/MM3 (150-450); RED BLOOD COUNT 2.72 MIL/MM3 (4.00-5.30); RED CELL DISTRIBUTION WIDTH 14.7 % (11.6-17.2); WHITE BLOOD COUNT 3.8 TH/MM3 (4.0-11.0)
[2016-11-05 12:57] LABS: HEMATOCRIT 24.3 % (35.0-46.0)
[2016-11-05] MEDS ORDERED: LEVOFLOXACIN/DEXTROSE 250 MG/50 ML IV SCH (23:00)
[2016-11-06] VITALS (22 sets, daily range): BP systolic 92–118; BP diastolic 50–67; PULSE 66–130; RESP 11–26; TEMP 97.7–98.9; O2SAT 94–100
[2016-11-06 01:14] LABS: BICARBONATE 24.8 MEQ/L (21.0-32.0); POTASSIUM 3.2 MEQ/L (3.5-5.1)
[2016-11-06 01:29] LABS: CALCIUM-PROTEIN CORRECTED 8.5 MG/DL (8.5-10.1)
[2016-11-06] MEDS: INSULIN NovoLIN REGULAR SUPPLEMENTAL SCALE SQ SCH ×2 (03:00→08:29)
[2016-11-06] MEDS: CHLORHEXIDINE GLUCONATE 2 % 1 PACK (2 CLOTHS) TOP SCH (04:00)
[2016-11-06 05:53] LABS: HEMATOCRIT 23.1 % (35.0-46.0); MEAN CELL VOLUME 89.9 FL (80.0-100.0); MEAN CORPUSCULAR HEMOGLOBIN 29.8 PG (27.0-34.0); MEAN CORPUSCULAR HGB CONC 33.2 % (32.0-36.0); PLATELET COUNT 109 TH/MM3 (150-450); RED BLOOD COUNT 2.57 MIL/MM3 (4.00-5.30); REVIEW FLAG FINAL; WHITE BLOOD COUNT 2.8 TH/MM3 (4.0-11.0)
[2016-11-06 06:59] LABS: BICARBONATE 24.2 MEQ/L (21.0-32.0)
[2016-11-06 07:24] LABS: CALCIUM-PROTEIN CORRECTED 8.6 MG/DL (8.5-10.1)
--- NOTE | 2016-11-06 08:21 | HHI.GIFU ---
GI Follow-up Note Consult Follow-up Subjective: Patient laying in bed comfortably, no new complaints. No reported dark stools. Objective: PHYSICAL EXAMINATION: Vitals signs stable No fever ABDOMEN: Soft, nondistended, nontender SKIN: warm and dry CHICKEN CATCHER: alert and oriented times three. Available Data (labs, X- Rays, Procedues) : ASSESSMENT/PLAN: 1. Malnutrition/weight loss-RD note seen. Monitor intake. Nothing to add at this point. Will sign off. Pt advised to f/u with Dr Mcgovern after discharge. It was a pleasure seeing Ashley Allen. Thank you for this consult. Entered by: Benito Spain MD Nov 06, 2016 08:21
[2016-11-06] MEDS: DOCUSATE SODIUM 50 MG/SENNA 8.6 MG TAB PO SCH ×2 (08:29→20:48)
[2016-11-06] MEDS: PANTOPRAZOLE SODIUM 40 MG VIAL IV SCH (08:29)
[2016-11-06] MEDS: LEFLUNOMIDE 20 MG TAB PO SCH (08:29)
[2016-11-06] MEDS: HEPARIN SODIUM - SQ 10,000 UNITS/ML VIAL SQ SCH ×2 (08:29→20:49)
[2016-11-06] MEDS: POTASSIUM CHLOR 20 MEQ PREMIX 100 ML IV PRN ×2 (08:30→11:56)
--- NOTE | 2016-11-06 15:03 | HHI.PR ---
Subjective Remarks f/u for pancytopenia and malnutrition Patient has no complaints. Heart rates in the 110s. Denies any chest pain, palpitation, lightheadedness or dizziness. patient's nurse Blossom at the bedside. Objective Vitals Vital Signs Date Time Temp Pulse Resp B/P Pulse Ox O2 Delivery O2 Flow Rate FiO2 11/06/16 14:07 112 18 99/57 95 11/06/16 14:00 119 21 100 11/06/16 13:00 125 25 97 11/06/16 12:00 97.7 77 22 107/58 100 11/06/16 11:00 72 13 114/59 100 11/06/16 10:00 85 23 110/58 100 11/06/16 09:08 114 21 117/67 100 11/06/16 09:00 124 22 100 11/06/16 08:08 100 Nasal Cannula 2.00 11/06/16 08:00 97.8 66 11 118/58 100 11/06/16 07:00 94 13 118/61 100 11/06/16 06:00 90 11/06/16 04:00 98.7 79 24 111/59 100 11/06/16 04:00 79 11/06/16 02:00 68 11/06/16 00:00 98.3 100 26 105/58 100 11/06/16 00:00 100 11/05/16 22:00 79 11/05/16 20:00 75 11/05/16 20:00 98.7 75 24 97/51 100 11/05/16 19:44 100 Nasal Cannula 2.00 11/05/16 18:00 77 11/05/16 16:00 98.1 77 22 100/53 100 11/05/16 16:00 77 I/O 11/05/16 11/05/16 11/05/16 11/06/16 11/06/16 11/06/16 07:00 15:00 23:00 07:00 15:00 23:00 Intake Total 571 ml 750 ml 674 ml 500 ml Output Total 400 ml Balance 571 ml 350 ml 674 ml 500 ml Intake Oral 320 ml 100 ml 500 ml IV Total 571 ml 430 ml 574 ml 0 ml Output Urine Total 400 ml # Voids 1 2 1 2 # Bowel Movements 0 0 0 Result Diagram: 11/06/1651111/06/16511 Imaging Last Impressions Liver Ultrasound 11/04/16 0000 Signed Impressions: Service Date/Time: Friday, November 04, 2016 15:11 - CONCLUSION: 1. Thick-walled gallbladder containing a large stone measuring 2.9 cm. If there is clinical concern for acute cholecystitis, a hepatobiliary scan may be helpful to confirm cystic duct obstruction. 2. Tiny bilateral pleural effusions. 3. Minimal ascites. 4. Multiple right renal cysts. Ezequiel Ohara MD Chest CT 11/03/16 0000 Signed Impressions: Service Date/Time: Thursday, November 03, 2016 12:15 - CONCLUSION: 1. Small bilateral pleural effusions. No focal lung consolidation. No adenopathy. Chavez Forbes MD Abdomen/Pelvis CT 11/03/16 0000 Signed Impressions: Service Date/Time: Thursday, November 03, 2016 12:15 - CONCLUSION: 1. Moderate to severe diffuse anasarca. Small bilateral pleural effusions. Trace free fluid in the abdomen and pelvis. 2. Colonic diverticulosis without diverticulitis. Chavez Forbes MD Chest X-Ray 11/02/16 1920 Signed Impressions: Service Date/Time: October 19:59 - CONCLUSION: No acute disease. Justo Simon MD Objective Remarks GENERAL: Patient is lying in bed in NAD CARDIOVASCULAR: Regular rate and rhythm without murmurs, gallops, or rubs. RESPIRATORY: Breath sounds equal bilaterally. No accessory muscle use. GASTROINTESTINAL: Abdomen soft, non-tender, nondistended. MUSCULOSKELETAL: No cyanosis, or edema. Neuro: Awake and alert. Medications and IVs Current Medications Sodium Chloride (NS Flush) 2 ml UNSCH PRN IVF FLUSH AFTER USING IV ACCESS; Start 11/02/16 at 19:30 Diltiazem HCl 15 mg 15 mg ONCE ONCE IV Last administered on 11/02/16 19:29; Start 11/02/16 at 19:30; Stop 11/02/16 at 19:31; Status DC Sodium Chloride 500 ml @ 500 mls/hr BOLUS ONCE IV Last administered on 19:28; Start 11/02/16 at 19:30; Stop 11/02/16 at 20:29; Status DC Diltiazem HCl/ Sodium Chloride (Cardizem Inj/NS Inj) 125 ml @ 0 mls/hr TITRATE IV ; Start 11/02/16 at 20:15; Stop 11/02/16 at 21:29; Status DC Potassium Chloride 40 meq 40 meq ONCE ONCE PO Last administered on 11/02/16 21:13; Start 11/02/16 at 20:45; Stop 11/02/16 at 20:46; Status DC Sodium Chloride (NS 250 ml Inj) 250 ml @ 250 mls/hr BOLUS ONCE IV Last administered on 11/02/16 20:51; Start 11/02/16 at 20:45; Stop 11/02/16 at 21:44 ; Status DC Diltiazem HCl 90 mg 90 mg ONCE ONCE PO Last administered on 11/02/16 21:08; Start 11/02/16 at 20:45; Stop 11/02/16 at 20:46; Status DC Sodium Chloride (NS 250 ml Inj) 250 ml @ 250 mls/hr BOLUS ONCE IV Last administered on 11/02/16 20:51; Start 11/02/16 at 21:00; Stop 11/02/16 at 21:59 ; Status DC Terbutaline Sulfate 1 mg 1 mg UNSCH PRN SQ For Extravasation; Start 11/02/16 at 21:00 Phenylephrine HCl 80 mg/Dextrose 500 ml @ 0 mls/hr TITRATE IV Last administered on 11/02/16 23:55; Start 11/02/16 at 21:00 Sodium Chloride (NS 1000 ml Inj) 1,000 ml @ 84 mls/hr [id number] IV Last administered on 11/03/16 21:50; Start 11/02/16 at 22:00; Stop 11/04/16 at 09:39 ; Status DC Acetaminophen (Tylenol) 650 mg Q6H PRN PO PAIN 1-10 AND/OR FEVER >101F Last administered on 11/04/16 20:49; Start 11/02/16 at 21:00 Pantoprazole Sodium (Protonix Inj) 40 mg DAILY IV Last administered on 08:29; Start 11/02/16 at 21:00 Ondansetron HCl (Zofran Inj) 4 mg Q6H PRN IV NAUSEA OR VOMITING Last administered on 11/03/16 00:45; Start 11/02/16 at 21:00 Miscellaneous Information 1 Q361D XX Last administered on 11/02/16 21:00; Start 11/02/16 at 21:00 Chlorhexidine Gluconate (Chlorhexidine 2% Cloth) 3 pack Taper DAILY@04 TOP Last administered on 11/06/16 04:00; Start 11/03/16 at 04:00; Stop 10/30/17 at 03:59 Chlorhexidine Gluconate (Chlorhexidine 2% Cloth) 3 pack UNSCH PRN TOP HYGIENIC CARE; Start 11/02/16 at 21:00 Senna/Docusate Sodium (Lakeisha-Colace) 1 tab BID PO Last administered on 08:29; Start 11/02/16 at 21:00 Magnesium Hydroxide (Milk Of Magnesia Liq) 30 ml Q12H PRN PO MILD - MODERATE CONSTIPATION; Start 11/02/16 at 21:00 Sennosides (Senokot) 17.2 mg Q12H PRN PO MODERATE - SEVERE CONSTIPATION; Start 11/02/16 at 21:00 Bisacodyl (Dulcolax Supp) 10 mg DAILY PRN RECTAL SEVERE CONSITIPATION; Start at 21:00 Lactulose (Lactulose Liq) 30 ml DAILY PRN PO SEVERE CONSITIPATION; Start at 21:00 Hydrocortisone Sodium Succinate 50 mg 50 mg Q6HR IV PUSH Last administered on 06:13; Start 11/02/16 at 21:00; Stop 11/05/16 at 11:37; Status DC Potassium Chloride 100 ml @ 50 mls/hr Q2H PRN IV For Potassium 2.8 - 3.2 mEq/L ; Start 11/02/16 at 21:00 Potassium Chloride (KCl 20 Meq Premix Inj) 100 ml @ 50 mls/hr Q2H PRN IV For Potassium 2.8 - 3.2 mEq/L Last administered on 11/06/16 11:56; Start 11/02/16 at 21:00 Potassium Bicarb/ Potassium Chloride 50 meq 50 meq UNSCH PRN PO For Potassium 3.3 - 3.5 mEq/L Last administered on 11/02/16 23:55; Start 11/02/16 at 21:00 Potassium Chloride 100 ml @ 25 mls/hr UNSCH PRN IV For Potassium 3.3 - 3.5 mEq /L; Start 11/02/16 at 21:00 Potassium Chloride 100 ml @ 50 mls/hr Q2H PRN IV For Potassium 3.3 - 3.5 mEq/L ; Start 11/02/16 at 21:00 Magnesium Sulfate/ Sodium Chloride (Magnesium Sulfate Inj/NS Inj) 100 ml @ 50 mls/hr UNSCH PRN IV For Magnesium 0.9 - 1.1 mg/dL; Start 11/02/16 at 21:00 Magnesium Oxide 800 mg 800 mg UNSCH PRN PO For Magnesium 1.2 - 1.6 mg/dL; Start 11/02/16 at 21:00 Magnesium Sulfate/ Sodium Chloride (Magnesium Sulfate Inj/NS Inj) 100 ml @ 50 mls/hr UNSCH PRN IV For Magnesium 1.2 - 1.6 mg/dL; Start 11/02/16 at 21:00 Potassium Phosphate 2000 mg 2,000 mg Q4H PRN PO For Phosphorus < 2.5 mg/dL; Start 11/02/16 at 21:00 Sodium Phosphate/ Sodium Chloride (Sodium Phosphate Inj/NS 250 ml Inj) 250 ml @ 42 mls/hr UNSCH PRN IV For Phosphorus < 2.5 mg/dL; Start 11/02/16 at 21:00 Potassium Phosphate 2000 mg 2,000 mg UNSCH PRN PO/TUBE SEE LABEL COMMENTS; Start 11/02/16 at 21:00 Potassium Phosphate 30 mmol/ Sodium Chloride 260 ml @ 42 mls/hr UNSCH PRN IV SEE LABEL COMMENTS; Start 11/02/16 at 21:00 Aztreonam 1000 mg/ Sodium Chloride 100 ml @ 200 mls/hr Q8H IV Last administered on 11/05/16 06:13; Start 11/02/16 at 22:00; Stop 11/05/16 at 11:32 ; Status DC Levofloxacin/ Dextrose 100 ml @ 100 mls/hr Q24H IV Last administered on 23:32; Start 11/02/16 at 23:00; Stop 11/05/16 at 08:42; Status DC Diltiazem HCl/ Sodium Chloride (Cardizem Inj/NS Inj) 125 ml @ 0 mls/hr TITRATE IV ; Start 11/02/16 at 21:15 Heparin Sodium (Porcine) (Heparin Inj) 5,000 units Q12HR SQ Last administered on 11/06/16 08:29; Start 11/03/16 at 09:00 Dextrose (D50w (Vial) Inj) 50 ml UNSCH PRN IV HYPOGLYCEMIA-SEE COMMENTS; Start 11/03/16 at 08:30 Glucagon (Glucagon Inj) 1 mg UNSCH PRN OTHER HYPOGLYCEMIA-SEE COMMENTS; Start 11/03/16 at 08:30 Insulin Human Regular (NovoLIN R SUPPLEMENTAL SCALE) 1 Q6H SQ Last administered on 11/05/16 03:20; Start 11/03/16 at 09:00; Stop 11/06/16 at 10:23 ; Status DC Diatrizoate Meglum/ Diatrizoate Sod ( Gastroview Liq) 18 ml ONCE ONCE PO Last administered on 11/03/16 09:39; Start 11/03/16 at 09:00; Stop 11/03/16 at 09:01; Status DC Iohexol 70 ml 70 ml STK-MED ONCE IV Last administered on 11/03/16 12:25; Start 11/03/16 at 12:25; Stop 11/03/16 at 12:26; Status DC Levofloxacin/ Dextrose (Levaquin 250 Mg Premix Inj) 50 ml @ 50 mls/hr Q24H IV ; Start 11/05/16 at 23:00; Stop 11/05/16 at 23:00; Status DC Leflunomide (Arava) 20 mg DAILY PO Last administered on 11/06/16 08:29; Start 11/06/16 at 09:00 A/P Assessment and Plan Hypotension -Most likely secondary to decreased by mouth intake. She was given IV fluids in which her blood pressure has improved. She was also initially on Van- Synephrine in which she was able to be weaned off of. There was question of adrenal insufficiency but no cortisol level was taken. Unlikely this is due to adrenal insufficiency and most likely due to poor intake. We will discontinue hydrocortisone since she only was given 3 days worth. Off steroids. And check a cortisol level in the a.m. -Per patient she runs low. -Due to hypotension she was also treated empirically for infection. So far infectious workup is negative.continues to do well off IV antibiotics. -Clinically patient just looks malnourished. Malnourished -Vitamin levels were obtained and were normal. -Most likely secondary to anorexia from stress. -Dietitian following. Patient is having a calorie count. Will add milky shake. Pancytopenia -Most likely secondary to anorexia and poor nutrition. -[employer] Operator consulted. They may do a bone marrow biopsy. Will continue to monitor. -GI was also consulted due to anemia. GI thinks this is more due to anorexia and poor nutrition. No sign of any GI bleed. Workup has been negative. Elevated TSH -TSH is 7.7. Patient is fatigued but it seems to be more due to being malnourished. -Free T4 is normal. PAF -Continue her current regimen. -Add metoprolol since heart rate is increasing. Hx RA -continue home medication. Discharge Planning May transfer out to the [facility]. Ladonna Arthur MD Nov 06, 2016 15:03 Ladonna Arthur MD Nov 06, 2016 15:03
[2016-11-06] MEDS: METOPROLOL TARTRATE 25 MG TAB PO SCH (20:48)
--- NOTE | 2016-11-06 23:02 | PD.ONC.PN ---
Subjective Subjective Remarks Having breakfast, good appetite. Objective Data Date Time Temp Pulse Resp B/P Pulse Ox O2 Delivery O2 Flow Rate FiO2 11/06/16 20:33 98 Nasal Cannula 3.00 11/06/16 18:49 98.9 86 20 96/50 98 11/06/16 18:49 98 Nasal Cannula 2.00 11/06/16 14:07 112 18 99/57 95 11/06/16 14:00 119 21 100 11/06/16 13:00 125 25 97 11/06/16 12:00 97.7 77 22 107/58 100 11/06/16 11:00 72 13 114/59 100 11/06/16 10:00 85 23 110/58 100 11/06/16 09:08 114 21 117/67 100 11/06/16 09:00 124 22 100 11/06/16 08:08 100 Nasal Cannula 2.00 11/06/16 08:00 97.8 66 11 118/58 100 11/06/16 07:00 94 13 118/61 100 11/06/16 06:00 90 11/06/16 04:00 98.7 79 24 111/59 100 11/06/16 04:00 79 11/06/16 02:00 68 11/06/16 00:00 98.3 100 26 105/58 100 11/06/16 00:00 100 11/06/16 11/06/16 11/06/16 07:00 15:00 23:00 Intake Total 500 ml 873 ml Balance 500 ml 873 ml Result Diagram: 11/06/16 0512 11/06/16 0512 Laboratory Results Laboratory Tests Test 11/06/16 11/06/16 00:01 05:12 Sodium Level 146 MEQ/L 147 MEQ/L Potassium Level 3.2 MEQ/L 3.0 MEQ/L Chloride Level 114 MEQ/L 115 MEQ/L Carbon Dioxide Level 24.8 MEQ/L 24.2 MEQ/L Anion Gap 7 MEQ/L 8 MEQ/L Blood Urea Nitrogen 17 MG/DL 16 MG/DL Creatinine 0.66 MG/DL 0.59 MG/DL Estimat Glomerular Filtration 87 ML/MIN 99 ML/MIN Rate Random Glucose 108 MG/DL 75 MG/DL Calcium Level 7.1 MG/DL 7.1 MG/DL Protein Corrected Calcium 8.5 MG/DL 8.6 MG/DL Phosphorus Level 2.6 MG/DL Total Protein 4.6 GM/DL 4.4 GM/DL White Blood Count 2.8 TH/MM3 Red Blood Count 2.57 MIL/MM3 Hemoglobin 7.7 GM/DL Hematocrit 23.1 % Mean Corpuscular Volume 89.9 FL Mean Corpuscular Hemoglobin 29.8 PG Mean Corpuscular Hemoglobin 33.2 % Concent Red Cell Distribution Width 15.0 % Platelet Count 109 TH/MM3 Mean Platelet Volume 10.4 FL Random Cortisol 8.7 MCG/DL Administered Medications Medications (Trade) Dose Ordered Sig/Baljinder Route PRN Reason Start Time Stop Time Status Last Admin Dose Admin Phenylephrine HCl/ Dextrose (Neosynephrine Inj/D5W 500 ml Inj) 500 ml @ 0 mls/hr TITRATE IV 11/02/16 21:00 11/02/16 23:55 Acetaminophen (Tylenol) 650 mg Q6H PRN PO PAIN 1-10 AND/OR FEVER >101F 11/02/16 21:00 11/04/16 20:49 Pantoprazole Sodium (Protonix Inj) 40 mg DAILY IV 11/02/16 21:00 11/06/16 08:29 Ondansetron HCl (Zofran Inj) 4 mg Q6H PRN IV NAUSEA OR VOMITING 11/02/16 21:00 11/03/16 00:45 Miscellaneous Information 1 Q361D XX 11/02/16 21:00 11/02/16 21:00 Chlorhexidine Gluconate (Chlorhexidine 2% Cloth) 3 pack Taper DAILY@04 TOP 11/03/16 04:00 10/30/17 03:59 11/06/16 04:00 Senna/Docusate Sodium 1 tab 1 tab BID PO 11/02/16 21:00 11/06/16 20:48 Potassium Chloride (KCl 20 Meq Premix Inj) 100 ml @ 50 mls/hr Q2H PRN IV For Potassium 2.8 - 3.2 mEq/L 11/02/16 21:00 11/06/16 11:56 Potassium Bicarb/ Potassium Chloride (K-Lyte Cl Eff) 50 meq UNSCH PRN PO For Potassium 3.3 - 3.5 mEq/L 11/02/16 21:00 11/02/16 23:55 Heparin Sodium (Porcine) (Heparin Inj) 5,000 units Q12HR SQ 11/03/16 09:00 11/06/16 20:49 Leflunomide (Arava) 20 mg DAILY PO 11/06/16 09:00 11/06/16 08:29 Metoprolol Tartrate (Lopressor) 12.5 mg Q12HR PO 11/06/16 15:15 11/06/16 20:48 Objective Remarks GENERAL: Thin frail female, upright in bed in nad. SKIN: Warm and dry. HEAD: Normocephalic. EYES: no injection or drainage. NECK: Supple, trachea midline. CARDIOVASCULAR: Regular rate and rhythm RESPIRATORY: Breath sounds equal bilaterally. No accessory muscle use. GASTROINTESTINAL: Abdomen soft, non-tender, nondistended. EXTREMITIES: No cyanosis NEUROLOGICAL: No obvious focal deficit. Awake, alert, and oriented x3. Assessment/Plan Problem List: (1) Pancytopenia Status: Acute Plan: 11/06/16. Worsening pancytopenia, WBC, HGB and Platelets lower still. Consider drug effect. Discussed with pt possible need for BM biopsy evaluation. She agree. --vitamin studies WNL --may need bone marrow biopsy --liver u/s shows no hepatosplenomegaly Assessment 76y/o female with unintentional weight loss and leukopenia admitted hypotensive with afib/RVR h/o RA Plan 1. monitor CBC- 2. Consider bone marrow biopsy at bedside Caro Coy MD Nov 06, 2016 23:02
[2016-11-07] VITALS (26 sets, daily range): BP systolic 92–107; BP diastolic 50–60; PULSE 82–130; RESP 14–20; TEMP 98.2–99.1; O2SAT 2–100
[2016-11-07] MEDS: CHLORHEXIDINE GLUCONATE 2 % 1 PACK (2 CLOTHS) TOP SCH (04:00)
[2016-11-07 07:29] LABS: HEMATOCRIT 25.7 % (35.0-46.0); MEAN CELL VOLUME 91.2 FL (80.0-100.0); MEAN CORPUSCULAR HEMOGLOBIN 29.5 PG (27.0-34.0); MEAN CORPUSCULAR HGB CONC 32.4 % (32.0-36.0); PLATELET COUNT 124 TH/MM3 (150-450); RED BLOOD COUNT 2.82 MIL/MM3 (4.00-5.30); RED CELL DISTRIBUTION WIDTH 15.6 % (11.6-17.2); REVIEW FLAG FINAL; WHITE BLOOD COUNT 4.9 TH/MM3 (4.0-11.0)
[2016-11-07 07:56] LABS: BICARBONATE 25.7 MEQ/L (21.0-32.0); MAGNESIUM 1.6 MG/DL (1.5-2.5); POTASSIUM 3.8 MEQ/L (3.5-5.1)
[2016-11-07 08:08] LABS: CALCIUM-PROTEIN CORRECTED 8.9 MG/DL (8.5-10.1)
[2016-11-07] MEDS: DOCUSATE SODIUM 50 MG/SENNA 8.6 MG TAB PO SCH (09:00)
[2016-11-07] MEDS: PANTOPRAZOLE SODIUM 40 MG VIAL IV SCH (09:19)
[2016-11-07] MEDS: METOPROLOL TARTRATE 25 MG TAB PO SCH ×2 (09:19→20:20)
[2016-11-07] MEDS: LEFLUNOMIDE 20 MG TAB PO SCH (09:19)
[2016-11-07] MEDS: HEPARIN SODIUM - SQ 10,000 UNITS/ML VIAL SQ SCH ×2 (09:19→20:21)
--- NOTE | 2016-11-07 10:17 | PD.ONC.PN ---
Subjective Subjective Remarks Afebrile overnight. Patient resting in bed in nad. No overnight events. Objective Data Date Time Temp Pulse Resp B/P Pulse Ox O2 Delivery O2 Flow Rate FiO2 11/07/16 09:00 88 11/07/16 08:00 123 11/07/16 07:00 98.7 90 18 104/50 99 11/07/16 07:00 99 Nasal Cannula 2.00 11/07/16 07:00 87 11/07/16 06:00 88 11/07/16 05:00 86 11/07/16 04:00 115 11/07/16 03:00 90 11/07/16 03:00 99.1 91 14 95/55 100 11/07/16 02:00 112 11/07/16 01:00 82 11/07/16 00:00 83 11/06/16 23:00 98.5 83 14 102/57 100 11/06/16 23:00 92 11/06/16 22:00 88 11/06/16 21:00 84 11/06/16 20:33 98 Nasal Cannula 3.00 11/06/16 20:00 84 11/06/16 19:00 97 Simple Mask 2.00 11/06/16 19:00 98.5 91 14 100/62 97 11/06/16 18:49 98.9 86 20 96/50 98 11/06/16 18:49 98 Nasal Cannula 2.00 11/06/16 14:07 112 18 99/57 95 11/06/16 14:00 119 21 100 11/06/16 13:00 125 25 97 11/06/16 12:00 97.7 77 22 107/58 100 11/06/16 11:00 72 13 114/59 100 11/07/16 11/07/16 11/07/16 07:00 15:00 23:00 Intake Total 480 ml Output Total 600 ml Balance -120 ml Result Diagram: 11/07/16 0657 11/07/1657 Laboratory Results Laboratory Tests Test 11/07/16 06:57 White Blood Count 4.9 TH/MM3 Red Blood Count 2.82 MIL/MM3 Hemoglobin 8.3 GM/DL Hematocrit 25.7 % Mean Corpuscular Volume 91.2 FL Mean Corpuscular Hemoglobin 29.5 PG Mean Corpuscular Hemoglobin 32.4 % Concent Red Cell Distribution Width 15.6 % Platelet Count 124 TH/MM3 Mean Platelet Volume 10.0 FL Sodium Level 146 MEQ/L Potassium Level 3.8 MEQ/L Chloride Level 114 MEQ/L Carbon Dioxide Level 25.7 MEQ/L Anion Gap 6 MEQ/L Blood Urea Nitrogen 14 MG/DL Creatinine 0.60 MG/DL Estimat Glomerular Filtration 97 ML/MIN Rate Random Glucose 91 MG/DL Calcium Level 7.4 MG/DL Protein Corrected Calcium 8.9 MG/DL Magnesium Level 1.6 MG/DL Total Protein 4.5 GM/DL Culture Results Microbiology Date/Time Procedure Status Source Growth 11/07/16 02:55 Stool Occult Blood (RAQUEL) - Final Complete Stool Stool HEMOCCULT NEGATIVE Administered Medications Medications (Trade) Dose Ordered Sig/Baljinder Route PRN Reason Start Time Stop Time Status Last Admin Dose Admin Phenylephrine HCl/ Dextrose (Neosynephrine Inj/D5W 500 ml Inj) 500 ml @ 0 mls/hr TITRATE IV 11/02/16 21:00 11/02/16 23:55 Acetaminophen (Tylenol) 650 mg Q6H PRN PO PAIN 1-10 AND/OR FEVER >101F 11/02/16 21:00 11/04/16 20:49 Pantoprazole Sodium (Protonix Inj) 40 mg DAILY IV 11/02/16 21:00 11/07/16 09:19 Ondansetron HCl (Zofran Inj) 4 mg Q6H PRN IV NAUSEA OR VOMITING 11/02/16 21:00 11/03/16 00:45 Miscellaneous Information 1 Q361D XX 11/02/16 21:00 11/02/16 21:00 Chlorhexidine Gluconate (Chlorhexidine 2% Cloth) 3 pack Taper DAILY@04 TOP 11/03/16 04:00 10/30/17 03:59 11/06/16 04:00 Senna/Docusate Sodium 1 tab 1 tab BID PO 11/02/16 21:00 11/06/16 20:48 Potassium Chloride (KCl 20 Meq Premix Inj) 100 ml @ 50 mls/hr Q2H PRN IV For Potassium 2.8 - 3.2 mEq/L 11/02/16 21:00 11/06/16 11:56 Potassium Bicarb/ Potassium Chloride (K-Lyte Cl Eff) 50 meq UNSCH PRN PO For Potassium 3.3 - 3.5 mEq/L 11/02/16 21:00 11/02/16 23:55 Heparin Sodium (Porcine) (Heparin Inj) 5,000 units Q12HR SQ 11/03/16 09:00 11/07/16 09:19 Leflunomide (Arava) 20 mg DAILY PO 11/06/16 09:00 11/07/16 09:19 Metoprolol Tartrate (Lopressor) 12.5 mg Q12HR PO 11/06/16 15:15 11/07/16 09:19 Objective Remarks GENERAL: Thin female, supine in bed resting. SKIN: Warm and dry. HEAD: Normocephalic. EYES: no injection or drainage. NECK: Supple, trachea midline. CARDIOVASCULAR: +S1/S2 RESPIRATORY: Breath sounds equal bilaterally. No accessory muscle use. GASTROINTESTINAL: Abdomen soft, non-tender, nondistended. EXTREMITIES: No cyanosis NEUROLOGICAL: No obvious focal deficit. Awake, alert, and oriented x3. Assessment/Plan Problem List: (1) Pancytopenia Status: Acute Plan: 11/07/16. WBC WNL, hgb improved, platelets improved --vitamin studies WNL --may need bone marrow biopsy --liver u/s shows no hepatosplenomegaly Assessment 76y/o female with unintentional weight loss and leukopenia admitted hypotensive with afib/RVR h/o RA Plan 1. check CBC tomorrow 2. fs faxed to new patient referrals 3. may need bone marrow biopsy tomorrow Attending Statement The exam, history, and the medical decision-making described in the above note were completed with the assistance of the mid-level provider. I reviewed and agree with the findings presented. I attest that I had a [id number] encounter with the patient on the same day, and personally performed and documented my assessment and findings in the medical record. Pt seen and examined. c/o worsen pain in both toes. No evidence of gout. Pulses present. Small ulcer, medial L great toe. Noted WBC recovery, possible to avoid BM. Heidy Montoya Nov 07, 2016 10:17 Caro Coy MD Nov 07, 2016 20:31
--- NOTE | 2016-11-07 13:52 | HHI.PR ---
Subjective Remarks Follow-up for pancytopenia and malnutrition. Patient stated that she likes the milkshake. She stated that she is eating a lot more. Her son is at the bedside and said that she is doing well. Patient denies any shortness of breathing or cough. She remains afebrile. She has no complaints. Objective Vitals Vital Signs Date Time Temp Pulse Resp B/P Pulse Ox O2 Delivery O2 Flow Rate FiO2 11/07/16 13:00 86 11/07/16 12:00 85 11/07/16 11:00 87 11/07/16 11:00 98.2 86 18 104/54 100 11/07/16 10:44 2 Nasal Cannula 11/07/16 10:00 90 11/07/16 09:00 88 11/07/16 08:00 123 11/07/16 07:00 98.7 90 18 104/50 99 11/07/16 07:00 99 Nasal Cannula 2.00 11/07/16 07:00 87 11/07/16 06:00 88 11/07/16 05:00 86 11/07/16 04:00 115 11/07/16 03:00 90 11/07/16 03:00 99.1 91 14 95/55 100 11/07/16 02:00 112 11/07/16 01:00 82 11/07/16 00:00 83 11/06/16 23:00 98.5 83 14 102/57 100 11/06/16 23:00 92 11/06/16 22:00 88 11/06/16 21:00 84 11/06/16 20:33 98 Nasal Cannula 3.00 11/06/16 20:00 84 11/06/16 19:00 97 Simple Mask 2.00 11/06/16 19:00 98.5 91 14 100/62 97 11/06/16 18:49 98.9 86 20 96/50 98 11/06/16 18:49 98 Nasal Cannula 2.00 11/06/16 14:07 112 18 99/57 95 11/06/16 14:00 119 21 100 I/O 11/06/16 11/06/16 11/06/16 11/07/16 11/07/16 11/07/16 07:00 15:00 23:00 07:00 15:00 23:00 Intake Total 500 ml 873 ml 480 ml Output Total 600 ml Balance 500 ml 873 ml -120 ml Intake Oral 500 ml 480 ml 480 ml IV Total 0 ml 393 ml Output Urine Total 600 ml # Voids 2 2 # Bowel Movements 0 2 2 Result Diagram: 11/07/1665611/07/16656 Objective Remarks GENERAL: Patient is lying in bed in NAD CARDIOVASCULAR: Regular rate and rhythm without murmurs, gallops, or rubs. RESPIRATORY: Breath sounds equal bilaterally. No accessory muscle use. GASTROINTESTINAL: Abdomen soft, non-tender, nondistended. MUSCULOSKELETAL: No cyanosis, or edema. Neuro: Awake and alert. Medications and IVs Current Medications Sodium Chloride (NS Flush) 2 ml UNSCH PRN IVF FLUSH AFTER USING IV ACCESS; Start 11/02/16 at 19:30 Diltiazem HCl 15 mg 15 mg ONCE ONCE IV Last administered on 11/02/16 19:29; Start 11/02/16 at 19:30; Stop 11/02/16 at 19:31; Status DC Sodium Chloride 500 ml @ 500 mls/hr BOLUS ONCE IV Last administered on 19:28; Start 11/02/16 at 19:30; Stop 11/02/16 at 20:29; Status DC Diltiazem HCl/ Sodium Chloride (Cardizem Inj/NS Inj) 125 ml @ 0 mls/hr TITRATE IV ; Start 11/02/16 at 20:15; Stop 11/02/16 at 21:29; Status DC Potassium Chloride 40 meq 40 meq ONCE ONCE PO Last administered on 11/02/16 21:13; Start 11/02/16 at 20:45; Stop 11/02/16 at 20:46; Status DC Sodium Chloride (NS 250 ml Inj) 250 ml @ 250 mls/hr BOLUS ONCE IV Last administered on 11/02/16 20:51; Start 11/02/16 at 20:45; Stop 11/02/16 at 21:44 ; Status DC Diltiazem HCl 90 mg 90 mg ONCE ONCE PO Last administered on 11/02/16 21:08; Start 11/02/16 at 20:45; Stop 11/02/16 at 20:46; Status DC Sodium Chloride (NS 250 ml Inj) 250 ml @ 250 mls/hr BOLUS ONCE IV Last administered on 11/02/16 20:51; Start 11/02/16 at 21:00; Stop 11/02/16 at 21:59 ; Status DC Terbutaline Sulfate 1 mg 1 mg UNSCH PRN SQ For Extravasation; Start 11/02/16 at 21:00 Phenylephrine HCl 80 mg/Dextrose 500 ml @ 0 mls/hr TITRATE IV Last administered on 11/02/16 23:55; Start 11/02/16 at 21:00 Sodium Chloride (NS 1000 ml Inj) 1,000 ml @ 84 mls/hr [id number] IV Last administered on 11/03/16 21:50; Start 11/02/16 at 22:00; Stop 11/04/16 at 09:39 ; Status DC Acetaminophen (Tylenol) 650 mg Q6H PRN PO PAIN 1-10 AND/OR FEVER >101F Last administered on 11/04/16 20:49; Start 11/02/16 at 21:00 Pantoprazole Sodium (Protonix Inj) 40 mg DAILY IV Last administered on 09:19; Start 11/02/16 at 21:00 Ondansetron HCl (Zofran Inj) 4 mg Q6H PRN IV NAUSEA OR VOMITING Last administered on 11/03/16 00:45; Start 11/02/16 at 21:00 Miscellaneous Information 1 Q361D XX Last administered on 11/02/16 21:00; Start 11/02/16 at 21:00 Chlorhexidine Gluconate (Chlorhexidine 2% Cloth) 3 pack Taper DAILY@04 TOP Last administered on 11/06/16 04:00; Start 11/03/16 at 04:00; Stop 10/30/17 at 03:59 Chlorhexidine Gluconate (Chlorhexidine 2% Cloth) 3 pack UNSCH PRN TOP HYGIENIC CARE; Start 11/02/16 at 21:00 Senna/Docusate Sodium (Lakeisha-Colace) 1 tab BID PO Last administered on 20:48; Start 11/02/16 at 21:00; Stop 11/07/16 at 12:04; Status DC Magnesium Hydroxide (Milk Of Magnesia Liq) 30 ml Q12H PRN PO MILD - MODERATE CONSTIPATION; Start 11/02/16 at 21:00 Sennosides (Senokot) 17.2 mg Q12H PRN PO MODERATE - SEVERE CONSTIPATION; Start 11/02/16 at 21:00 Bisacodyl (Dulcolax Supp) 10 mg DAILY PRN RECTAL SEVERE CONSITIPATION; Start at 21:00 Lactulose (Lactulose Liq) 30 ml DAILY PRN PO SEVERE CONSITIPATION; Start at 21:00 Hydrocortisone Sodium Succinate 50 mg 50 mg Q6HR IV PUSH Last administered on 06:13; Start 11/02/16 at 21:00; Stop 11/05/16 at 11:37; Status DC Potassium Chloride 100 ml @ 50 mls/hr Q2H PRN IV For Potassium 2.8 - 3.2 mEq/L ; Start 11/02/16 at 21:00 Potassium Chloride (KCl 20 Meq Premix Inj) 100 ml @ 50 mls/hr Q2H PRN IV For Potassium 2.8 - 3.2 mEq/L Last administered on 11/06/16 11:56; Start 11/02/16 at 21:00 Potassium Bicarb/ Potassium Chloride 50 meq 50 meq UNSCH PRN PO For Potassium 3.3 - 3.5 mEq/L Last administered on 11/02/16 23:55; Start 11/02/16 at 21:00 Potassium Chloride 100 ml @ 25 mls/hr UNSCH PRN IV For Potassium 3.3 - 3.5 mEq /L; Start 11/02/16 at 21:00 Potassium Chloride 100 ml @ 50 mls/hr Q2H PRN IV For Potassium 3.3 - 3.5 mEq/L ; Start 11/02/16 at 21:00 Magnesium Sulfate/ Sodium Chloride (Magnesium Sulfate Inj/NS Inj) 100 ml @ 50 mls/hr UNSCH PRN IV For Magnesium 0.9 - 1.1 mg/dL; Start 11/02/16 at 21:00 Magnesium Oxide 800 mg 800 mg UNSCH PRN PO For Magnesium 1.2 - 1.6 mg/dL; Start 11/02/16 at 21:00 Magnesium Sulfate/ Sodium Chloride (Magnesium Sulfate Inj/NS Inj) 100 ml @ 50 mls/hr UNSCH PRN IV For Magnesium 1.2 - 1.6 mg/dL; Start 11/02/16 at 21:00 Potassium Phosphate 2000 mg 2,000 mg Q4H PRN PO For Phosphorus < 2.5 mg/dL; Start 11/02/16 at 21:00 Sodium Phosphate/ Sodium Chloride (Sodium Phosphate Inj/NS 250 ml Inj) 250 ml @ 42 mls/hr UNSCH PRN IV For Phosphorus < 2.5 mg/dL; Start 11/02/16 at 21:00 Potassium Phosphate 2000 mg 2,000 mg UNSCH PRN PO/TUBE SEE LABEL COMMENTS; Start 11/02/16 at 21:00 Potassium Phosphate 30 mmol/ Sodium Chloride 260 ml @ 42 mls/hr UNSCH PRN IV SEE LABEL COMMENTS; Start 11/02/16 at 21:00 Aztreonam 1000 mg/ Sodium Chloride 100 ml @ 200 mls/hr Q8H IV Last administered on 11/05/16 06:13; Start 11/02/16 at 22:00; Stop 11/05/16 at 11:32 ; Status DC Levofloxacin/ Dextrose 100 ml @ 100 mls/hr Q24H IV Last administered on 23:32; Start 11/02/16 at 23:00; Stop 11/05/16 at 08:42; Status DC Diltiazem HCl/ Sodium Chloride (Cardizem Inj/NS Inj) 125 ml @ 0 mls/hr TITRATE IV ; Start 11/02/16 at 21:15 Heparin Sodium (Porcine) (Heparin Inj) 5,000 units Q12HR SQ Last administered on 11/07/16 09:19; Start 11/03/16 at 09:00 Dextrose (D50w (Vial) Inj) 50 ml UNSCH PRN IV HYPOGLYCEMIA-SEE COMMENTS; Start 11/03/16 at 08:30 Glucagon (Glucagon Inj) 1 mg UNSCH PRN OTHER HYPOGLYCEMIA-SEE COMMENTS; Start 11/03/16 at 08:30 Insulin Human Regular (NovoLIN R SUPPLEMENTAL SCALE) 1 Q6H SQ Last administered on 11/05/16 03:20; Start 11/03/16 at 09:00; Stop 11/06/16 at 10:23 ; Status DC Diatrizoate Meglum/ Diatrizoate Sod ( Gastroview Liq) 18 ml ONCE ONCE PO Last administered on 11/03/16 09:39; Start 11/03/16 at 09:00; Stop 11/03/16 at 09:01; Status DC Iohexol 70 ml 70 ml STK-MED ONCE IV Last administered on 11/03/16 12:25; Start 11/03/16 at 12:25; Stop 11/03/16 at 12:26; Status DC Levofloxacin/ Dextrose (Levaquin 250 Mg Premix Inj) 50 ml @ 50 mls/hr Q24H IV ; Start 11/05/16 at 23:00; Stop 11/05/16 at 23:00; Status DC Leflunomide (Arava) 20 mg DAILY PO Last administered on 11/07/16 09:19; Start 11/06/16 at 09:00 Metoprolol Tartrate (Lopressor) 12.5 mg Q12HR PO Last administered on 09:19; Start 11/06/16 at 15:15 A/P Assessment and Plan Hypotension -Most likely secondary to decreased by mouth intake. She was given IV fluids in which her blood pressure has improved. She was also initially on Van- Synephrine in which she was able to be weaned off of. There was question of adrenal insufficiency but no cortisol level was taken. Unlikely this is due to adrenal insufficiency and most likely due to poor intake. We will discontinue hydrocortisone since she only was given 3 days worth. Off steroids. And check a cortisol level in the a.m. -Per patient she runs low. -Due to hypotension she was also treated empirically for infection. So far infectious workup is negative and patient was taken off antibiotics. She continues to do well off of antibiotics. -Clinically patient just looks malnourished. Malnourished -Vitamin levels were obtained and were normal. -Most likely secondary to anorexia from stress. -Dietitian following. Patient is having a calorie count. on milky shake. Pancytopenia -Most likely secondary to anorexia and poor nutrition. Improving. -Private Investigator Surveillance consulted. They may do a bone marrow biopsy tomorrow. Will continue to monitor. -GI was also consulted due to anemia. GI thinks this is more due to anorexia and poor nutrition. No sign of any GI bleed. Workup has been negative. Elevated TSH -TSH is 7.7. Patient is fatigued but it seems to be more due to being malnourished. -Free T4 is normal. PAF -Continue her current regimen. -Add metoprolol since heart rate is increasing. Hx RA -continue home medication. Discharge Planning Patient may have a bone marrow biopsy tomorrow. Ladonna Arthur MD Nov 07, 2016 13:52
[2016-11-07] MEDS: ACETAMINOPHEN 325 MG TAB PO PRN (20:21)
[2016-11-07] MEDS ORDERED: SODIUM CHLORID 0.9% 500 ML INJ 500 ML IV ONE (23:15)
[2016-11-08] VITALS (24 sets, daily range): BP systolic 99–110; BP diastolic 54–75; PULSE 78–138; RESP 14–18; TEMP 98.2–98.5; O2SAT 95–99
[2016-11-08] MEDS: CHLORHEXIDINE GLUCONATE 2 % 1 PACK (2 CLOTHS) TOP SCH (04:00)
[2016-11-08 06:37] LABS: HEMATOCRIT 22.9 % (35.0-46.0); MEAN CORPUSCULAR HEMOGLOBIN 30.8 PG (27.0-34.0); MEAN CORPUSCULAR HGB CONC 34.2 % (32.0-36.0); PLATELET COUNT 121 TH/MM3 (150-450); RED BLOOD COUNT 2.55 MIL/MM3 (4.00-5.30); RED CELL DISTRIBUTION WIDTH 15.3 % (11.6-17.2); REVIEW FLAG FINAL; WHITE BLOOD COUNT 3.9 TH/MM3 (4.0-11.0)
[2016-11-08 06:56] LABS: BICARBONATE 26.2 MEQ/L (21.0-32.0); MAGNESIUM 1.6 MG/DL (1.5-2.5); POTASSIUM 3.6 MEQ/L (3.5-5.1)
[2016-11-08] MEDS: LEFLUNOMIDE 20 MG TAB PO SCH (08:26)
[2016-11-08] MEDS: PANTOPRAZOLE SODIUM 40 MG VIAL IV SCH (08:27)
[2016-11-08] MEDS: HEPARIN SODIUM - SQ 10,000 UNITS/ML VIAL SQ SCH ×2 (08:27→21:29)
[2016-11-08] MEDS: METOPROLOL TARTRATE 25 MG TAB PO SCH ×2 (08:27→21:28)
--- NOTE | 2016-11-08 08:52 | HHI.PR ---
Subjective Remarks Follow-up for pancytopenia and anorexia Patient has improvement in her by mouth intake. In the morning she was in the 150s went back down to the 80s. Patient stated that she is asymptomatic. She denies any chest pain, shortness of breathing, palpitation or lightheadedness dizziness. She has no complaints. Objective Vitals Vital Signs Date Time Temp Pulse Resp B/P Pulse Ox O2 Delivery O2 Flow Rate FiO2 11/08/16 06:00 78 11/08/16 05:00 114 11/08/16 04:00 113 11/08/16 03:00 82 11/08/16 03:00 98.2 81 14 101/55 98 11/08/16 02:00 80 11/08/16 01:00 90 11/08/16 00:00 84 11/07/16 23:00 98.5 130 14 92/60 94 11/07/16 23:00 126 11/07/16 22:00 126 11/07/16 21:00 126 11/07/16 20:00 93 11/07/16 19:00 96 11/07/16 19:00 98.5 124 20 107/58 99 11/07/16 19:00 99 Nasal Cannula 2.00 11/07/16 18:00 106 11/07/16 17:41 100 Nasal Cannula 2.00 11/07/16 17:00 97 11/07/16 16:00 86 11/07/16 15:02 2.00 11/07/16 15:00 98.4 86 20 104/55 100 11/07/16 15:00 82 11/07/16 14:00 98 11/07/16 13:00 86 11/07/16 12:00 85 11/07/16 11:00 87 11/07/16 11:00 98.2 86 18 104/54 100 11/07/16 10:44 2 Nasal Cannula 11/07/16 10:00 90 11/07/16 09:00 88 I/O 11/07/16 11/07/16 11/07/16 11/08/16 11/08/16 11/08/16 07:00 15:00 23:00 07:00 15:00 23:00 Intake Total 480 ml 720 ml 240 ml Output Total 600 ml 300 ml Balance -120 ml 720 ml -60 ml Intake Oral 480 ml 720 ml 240 ml Output Urine Total 600 ml 300 ml # Voids 3 # Bowel Movements 2 2 Result Diagram: 11/08/16 0548 11/08/16 0540 Objective Remarks GENERAL: Patient is lying in bed in NAD CARDIOVASCULAR: Regular rate and rhythm without murmurs, gallops, or rubs. RESPIRATORY: Breath sounds equal bilaterally. No accessory muscle use. GASTROINTESTINAL: Abdomen soft, non-tender, nondistended. MUSCULOSKELETAL: No cyanosis, or edema. Neuro: Awake and alert. Medications and IVs Current Medications Sodium Chloride (NS Flush) 2 ml UNSCH PRN IVF FLUSH AFTER USING IV ACCESS; Start 11/02/16 at 19:30 Diltiazem HCl 15 mg 15 mg ONCE ONCE IV Last administered on 11/02/16 19:29; Start 11/02/16 at 19:30; Stop 11/02/16 at 19:31; Status DC Sodium Chloride 500 ml @ 500 mls/hr BOLUS ONCE IV Last administered on 19:28; Start 11/02/16 at 19:30; Stop 11/02/16 at 20:29; Status DC Diltiazem HCl/ Sodium Chloride (Cardizem Inj/NS Inj) 125 ml @ 0 mls/hr TITRATE IV ; Start 11/02/16 at 20:15; Stop 11/02/16 at 21:29; Status DC Potassium Chloride 40 meq 40 meq ONCE ONCE PO Last administered on 11/02/16 21:13; Start 11/02/16 at 20:45; Stop 11/02/16 at 20:46; Status DC Sodium Chloride (NS 250 ml Inj) 250 ml @ 250 mls/hr BOLUS ONCE IV Last administered on 11/02/16 20:51; Start 11/02/16 at 20:45; Stop 11/02/16 at 21:44 ; Status DC Diltiazem HCl 90 mg 90 mg ONCE ONCE PO Last administered on 11/02/16 21:08; Start 11/02/16 at 20:45; Stop 11/02/16 at 20:46; Status DC Sodium Chloride (NS 250 ml Inj) 250 ml @ 250 mls/hr BOLUS ONCE IV Last administered on 11/02/16 20:51; Start 11/02/16 at 21:00; Stop 11/02/16 at 21:59 ; Status DC Terbutaline Sulfate 1 mg 1 mg UNSCH PRN SQ For Extravasation; Start 11/02/16 at 21:00 Phenylephrine HCl 80 mg/Dextrose 500 ml @ 0 mls/hr TITRATE IV Last administered on 11/02/16 23:55; Start 11/02/16 at 21:00 Sodium Chloride (NS 1000 ml Inj) 1,000 ml @ 84 mls/hr [id number] IV Last administered on 11/03/16 21:50; Start 11/02/16 at 22:00; Stop 11/04/16 at 09:39 ; Status DC Acetaminophen (Tylenol) 650 mg Q6H PRN PO PAIN 1-10 AND/OR FEVER >101F Last administered on 11/07/16 20:21; Start 11/02/16 at 21:00 Pantoprazole Sodium (Protonix Inj) 40 mg DAILY IV Last administered on 08:27; Start 11/02/16 at 21:00 Ondansetron HCl (Zofran Inj) 4 mg Q6H PRN IV NAUSEA OR VOMITING Last administered on 11/03/16 00:45; Start 11/02/16 at 21:00 Miscellaneous Information 1 Q361D XX Last administered on 11/02/16 21:00; Start 11/02/16 at 21:00 Chlorhexidine Gluconate (Chlorhexidine 2% Cloth) Taper DAILY@04 TOP Last administered on 11/06/16 04:00; Start 11/03/16 at 04:00; Stop 10/30/17 at 03:59 Chlorhexidine Gluconate (Chlorhexidine 2% Cloth) 3 pack UNSCH PRN TOP HYGIENIC CARE; Start 11/02/16 at 21:00 Senna/Docusate Sodium (Lakeisha-Colace) 1 tab BID PO Last administered on 20:48; Start 11/02/16 at 21:00; Stop 11/07/16 at 12:04; Status DC Magnesium Hydroxide (Milk Of Magnesia Liq) 30 ml Q12H PRN PO MILD - MODERATE CONSTIPATION; Start 11/02/16 at 21:00 Sennosides (Senokot) 17.2 mg Q12H PRN PO MODERATE - SEVERE CONSTIPATION; Start 11/02/16 at 21:00 Bisacodyl (Dulcolax Supp) 10 mg DAILY PRN RECTAL SEVERE CONSITIPATION; Start at 21:00 Lactulose (Lactulose Liq) 30 ml DAILY PRN PO SEVERE CONSITIPATION; Start at 21:00 Hydrocortisone Sodium Succinate 50 mg 50 mg Q6HR IV PUSH Last administered on 06:13; Start 11/02/16 at 21:00; Stop 11/05/16 at 11:37; Status DC Potassium Chloride 100 ml @ 50 mls/hr Q2H PRN IV For Potassium 2.8 - 3.2 mEq/L ; Start 11/02/16 at 21:00; Stop 11/07/16 at 13:55; Status DC Potassium Chloride (KCl 20 Meq Premix Inj) 100 ml @ 50 mls/hr Q2H PRN IV For Potassium 2.8 - 3.2 mEq/L Last administered on 11/06/16 11:56; Start 11/02/16 at 21:00; Stop 11/07/16 at 13:55; Status DC Potassium Bicarb/ Potassium Chloride 50 meq 50 meq UNSCH PRN PO For Potassium 3.3 - 3.5 mEq/L Last administered on 11/02/16t 23:55; Start 11/02/16 at 21:00; Stop 11/07/16 at 13:55; Status DC Potassium Chloride 100 ml @ 25 mls/hr UNSCH PRN IV For Potassium 3.3 - 3.5 mEq /L; Start 11/02/16 at 21:00; Stop 11/07/16 at 13:55; Status DC Potassium Chloride 100 ml @ 50 mls/hr Q2H PRN IV For Potassium 3.3 - 3.5 mEq/L ; Start 11/02/16 at 21:00; Stop 11/07/16 at 13:55; Status DC Magnesium Sulfate/ Sodium Chloride (Magnesium Sulfate Inj/NS Inj) 100 ml @ 50 mls/hr UNSCH PRN IV For Magnesium 0.9 - 1.1 mg/dL; Start 11/02/16 at 21:00; Stop 11/07/16 at 13:55; Status DC Magnesium Oxide 800 mg 800 mg UNSCH PRN PO For Magnesium 1.2 - 1.6 mg/dL; Start 11/02/16 at 21:00; Stop 11/07/16 at 13:55; Status DC Magnesium Sulfate/ Sodium Chloride (Magnesium Sulfate Inj/NS Inj) 100 ml @ 50 mls/hr UNSCH PRN IV For Magnesium 1.2 - 1.6 mg/dL; Start 11/02/16 at 21:00; Stop 11/07/16 at 13:55; Status DC Potassium Phosphate 2000 mg 2,000 mg Q4H PRN PO For Phosphorus < 2.5 mg/dL; Start 11/02/16 at 21:00; Stop 11/07/16 at 13:55; Status DC Sodium Phosphate/ Sodium Chloride (Sodium Phosphate Inj/NS 250 ml Inj) 250 ml @ 42 mls/hr UNSCH PRN IV For Phosphorus < 2.5 mg/dL; Start 11/02/16 at 21:00; Stop 11/07/16 at 13:55; Status DC Potassium Phosphate 2000 mg 2,000 mg UNSCH PRN PO/TUBE SEE LABEL COMMENTS; Start 11/02/16 at 21:00; Stop 11/07/16 at 13:55; Status DC Potassium Phosphate 30 mmol/ Sodium Chloride 260 ml @ 42 mls/hr UNSCH PRN IV SEE LABEL COMMENTS; Start 11/02/16 at 21:00; Stop 11/07/16 at 13:55; Status DC Aztreonam 1000 mg/ Sodium Chloride 100 ml @ 200 mls/hr Q8H IV Last administered on 11/05/16 06:13; Start 11/02/16 at 22:00; Stop 11/05/16 at 11:32 ; Status DC Levofloxacin/ Dextrose 100 ml @ 100 mls/hr Q24H IV Last administered on 23:32; Start 11/02/16 at 23:00; Stop 11/05/16 at 08:42; Status DC Diltiazem HCl/ Sodium Chloride (Cardizem Inj/NS Inj) 125 ml @ 0 mls/hr TITRATE IV ; Start 11/02/16 at 21:15 Heparin Sodium (Porcine) (Heparin Inj) 5,000 units Q12HR SQ Last administered on 11/08/16 08:27; Start 11/03/16 at 09:00 Dextrose (D50w (Vial) Inj) 50 ml UNSCH PRN IV HYPOGLYCEMIA-SEE COMMENTS; Start 11/03/16 at 08:30 Glucagon (Glucagon Inj) 1 mg UNSCH PRN OTHER HYPOGLYCEMIA-SEE COMMENTS; Start 11/03/16 at 08:30 Insulin Human Regular (NovoLIN R SUPPLEMENTAL SCALE) 1 Q6H SQ Last administered on 11/05/16 03:20; Start 11/03/16 at 09:00; Stop 11/06/16 at 10:23 ; Status DC Diatrizoate Meglum/ Diatrizoate Sod (Md Castillo Liq) 18 ml ONCE ONCE PO Last administered on 11/03/16 09:39; Start 11/03/16 at 09:00; Stop 11/03/16 at 09:01; Status DC Iohexol 70 ml 70 ml STK-MED ONCE IV Last administered on 11/03/16 12:25; Start 11/03/16 at 12:25; Stop 11/03/16 at 12:26; Status DC Levofloxacin/ Dextrose (Levaquin 250 Mg Premix Inj) 50 ml @ 50 mls/hr Q24H IV ; Start 11/05/16 at 23:00; Stop 11/05/16 at 23:00; Status DC Leflunomide (Arava) 20 mg DAILY PO Last administered on 11/08/16 08:26; Start 11/06/16 at 09:00 Metoprolol Tartrate 12.5 mg 12.5 mg Q12HR PO Last administered on 11/08/16 08: 27; Start 11/06/16 at 15:15 Sodium Chloride (NS 500 ml Inj) 500 ml @ 500 mls/hr BOLUS ONCE IV Last administered on 11/07/16 23:15; Start 11/07/16 at 23:15; Stop 11/08/16 at 00:14 ; Status DC A/P Assessment and Plan Hypotension (RESOLVED) -Most likely secondary to decreased by mouth intake. She was given IV fluids in which her blood pressure has improved. She was also initially on Van- Synephrine in which she was able to be weaned off of. There was question of adrenal insufficiency but no cortisol level was taken. Unlikely this is due to adrenal insufficiency and most likely due to poor intake. off hydrocortisone since she only was given 3 days worth and continues to do well. -Due to hypotension she was also treated empirically for infection. So far infectious workup is negative and patient was taken off antibiotics. She continues to do well off of antibiotics. -Clinically patient just looks malnourished. Malnourished -Vitamin levels were obtained and were normal. -Most likely secondary to anorexia from stress. -IMPROVED PO intake. -Dietitian following. calorie count completed today. on milky shake. Pancytopenia -Most likely secondary to anorexia and poor nutrition. Improving. -Bindery Machine Setter consulted and wants to try to avoid BM biopsy. -GI was also consulted due to anemia. GI thinks this is more due to anorexia and poor nutrition. No sign of any GI bleed. Workup has been negative. Elevated TSH -TSH is 7.7. Patient is fatigued but it seems to be more due to being malnourished. -Free T4 is normal. PAF -Continue her current regimen. -HR is very labile and was 150s in AM. -she is on metoprolol. consult Senior Behavioral Scientist. Roland RA -continue home medication. Discharge Planning Per official court interpreter wants to try to avoid bone biopsy. Patient's heart rate very labile in the 150s this morning. Will consult newspaper delivery driver. Ladonna Arthur MD Nov 08, 2016 08:52
--- NOTE | 2016-11-08 12:50 | PD.ONC.PN ---
Subjective Subjective Remarks Afebrile overnight. Patient resting in bed. Tachycardic HR this AM. Cardiology has been consulted d/t difficulty controlling her HR. She states she feels fine. Objective Data Date Time Temp Pulse Resp B/P Pulse Ox O2 Delivery O2 Flow Rate FiO2 11/08/16 09:27 95 Nasal Cannula 2.00 11/08/16 08:00 99 Room Air 11/08/16 08:00 98.5 125 18 110/75 99 11/08/16 06:00 78 11/08/16 05:00 114 11/08/16 04:00 113 11/08/16 03:00 82 11/08/16 03:00 98.2 81 14 101/55 98 11/08/16 02:00 80 11/08/16 01:00 90 11/08/16 00:00 84 11/07/16 23:00 98.5 130 14 92/60 94 11/07/16 23:00 126 11/07/16 22:00 126 11/07/16 21:00 126 11/07/16 20:00 93 11/07/16 19:00 96 11/07/16 19:00 98.5 124 20 107/58 99 11/07/16 19:00 99 Nasal Cannula 2.00 11/07/16 18:00 106 11/07/16 17:41 100 Nasal Cannula 2.00 11/07/16 17:00 97 11/07/16 16:00 86 11/07/16 15:02 2.00 11/07/16 15:00 98.4 86 20 104/55 100 11/07/16 15:00 82 11/07/16 14:00 98 11/07/16 13:00 86 11/08/16 11/08/16 11/08/16 07:00 15:00 23:00 Intake Total 240 ml Output Total 300 ml Balance -60 ml Result Diagram: 11/08/16 0548 11/08/16 0540 Laboratory Results Laboratory Tests Test 11/08/16 11/08/16 05:40 05:48 Sodium Level 143 MEQ/L Potassium Level 3.6 MEQ/L Chloride Level 113 MEQ/L Carbon Dioxide Level 26.2 MEQ/L Anion Gap 4 MEQ/L Blood Urea Nitrogen 15 MG/DL Creatinine 0.48 MG/DL Estimat Glomerular Filtration 125 ML/MIN Rate Random Glucose 86 MG/DL Calcium Level 7.5 MG/DL Magnesium Level 1.6 MG/DL White Blood Count 3.9 TH/MM3 Red Blood Count 2.55 MIL/MM3 Hemoglobin 7.8 GM/DL Hematocrit 22.9 % Mean Corpuscular Volume 90.0 FL Mean Corpuscular Hemoglobin 30.8 PG Mean Corpuscular Hemoglobin 34.2 % Concent Red Cell Distribution Width 15.3 % Platelet Count 121 TH/MM3 Mean Platelet Volume 10.2 FL Culture Results Microbiology Date/Time Procedure Status Source Growth 11/07/16 02:55 Stool Occult Blood (RAQUEL) - Final Complete Stool Stool HEMOCCULT NEGATIVE Administered Medications Medications (Trade) Dose Ordered Sig/Baljinder Route PRN Reason Start Time Stop Time Status Last Admin Dose Admin Phenylephrine HCl/ Dextrose (Neosynephrine Inj/D5W 500 ml Inj) 500 ml @ 0 mls/hr TITRATE IV 11/02/16 21:00 11/02/16 23:55 Acetaminophen (Tylenol) 650 mg Q6H PRN PO PAIN 1-10 AND/OR FEVER >101F 11/02/16 21:00 11/07/16 20:21 Pantoprazole Sodium (Protonix Inj) 40 mg DAILY IV 11/02/16 21:00 11/08/16 08:27 Ondansetron HCl (Zofran Inj) 4 mg Q6H PRN IV NAUSEA OR VOMITING 11/02/16 21:00 11/03/16 00:45 Miscellaneous Information 1 Q361D XX 11/02/16 21:00 11/02/16 21:00 Chlorhexidine Gluconate (Chlorhexidine 2% Cloth) Taper DAILY@04 TOP 11/03/16 04:00 10/30/17 03:59 11/06/16 04:00 Heparin Sodium (Porcine) (Heparin Inj) 5,000 units Q12HR SQ 11/03/16 09:00 11/08/16 08:27 Leflunomide (Arava) 20 mg DAILY PO 11/06/16 09:00 11/08/16 08:26 Metoprolol Tartrate (Lopressor) 12.5 mg Q12HR PO 11/06/16 15:15 11/08/16 08:27 Objective Remarks GENERAL: Thin female, lying in bed in nad. SKIN: Warm and dry. HEAD: Normocephalic. EYES: no injection or drainage. NECK: Supple, trachea midline. CARDIOVASCULAR: +S1/S2, tachy RESPIRATORY: Breath sounds equal bilaterally. No accessory muscle use. GASTROINTESTINAL: Abdomen soft, non-tender, nondistended. EXTREMITIES: No cyanosis NEUROLOGICAL: awake and alert, normal speech. moving all extremities. Assessment/Plan Problem List: (1) Pancytopenia Status: Acute Plan: 11/08/16. counts seem to be at baseline. --vitamin studies WNL --may need bone marrow biopsy --liver u/s shows no hepatosplenomegaly Assessment 76y/o female with unintentional weight loss and leukopenia admitted hypotensive with afib/RVR h/o RA Plan 1. monitor CBC 2. follow up in clinic once discharged. Attending Statement The exam, history, and the medical decision-making described in the above note were completed with the assistance of the mid-level provider. I reviewed and agree with the findings presented. I attest that I had a [id number] encounter with the patient on the same day, and personally performed and documented my assessment and findings in the medical record. Seen by podiatry. Painful toes still present. Noted some improvement in WBC. Still anemic and thrombocytopenic. Will two cell lines affected, recommend bone marrow biopsy. Discussed risks and benefits. Pt agree. Heidy Montoya Nov 08, 2016 12:50 Caro Coy MD Nov 09, 2016 08:41
[2016-11-08 13:27] LABS: BICARBONATE 27.1 MEQ/L (21.0-32.0); MAGNESIUM 1.6 MG/DL (1.5-2.5); POTASSIUM 3.8 MEQ/L (3.5-5.1)
--- NOTE | 2016-11-08 20:19 | MB ---
cc: NITO DUDLEY DPM DATE OF CONSULTATION 11/08/2016 REASON FOR CONSULTATION Bilateral hallux pain. HISTORY OF PRESENT ILLNESS This is a pleasant 76-year-old female who apparently was admitted for hypotension and atrial fibrillation with RVR. The patient is currently seen bedside. She says she is feeling much better. She admits that she has had intermittent foot pain although she is a poor historian and she is not sure how long. She is able to ambulate with only some difficulty. She is a known rheumatoid patient. PAST MEDICAL HISTORY Positive for: 1. Rheumatoid arthritis. 2. Tachy arrhythmia. 3. Arthritis. 4. Weight loss. 5. Leukopenia. 6. Atopic dermatitis. PAST SURGICAL HISTORY 1. Cataract surgery. 2. Ankle surgery. 3. Shoulder. 4. Total abdominal hysterectomy. SOCIAL HISTORY Denies tobacco or habits. She lives at home with her daughter and friend. ALLERGIES CODEINE, KEFLEX, SEPTRA, SULFA. MEDICATIONS Inpatient medications reviewed. No antibiotics listed. PHYSICAL EXAMINATION VITAL SIGNS: Temperature is 98.3, pulse 96, blood pressure 103/53. GENERAL: She is sating 96% on room air. GENERAL: This is an alert and oriented female seen bedside. She is resting comfortably. She was sleeping when I arrived to the room. EXTREMITIES: Upon examining the bilateral lower extremities she has chronic contractures of the hallux and lesser digits. There is a distinct red ruborous presentation of the distal phalanx at the bilateral hallux. This appears to be blanchable erythema. There is no obvious signs of abscess, cellulitis. There is slight tenderness upon palpating this area. The nails noted to be thickened, elongated, but no obvious signs of ingrown toenail or acute infection. Pulses are decreased however, palpable. The feet appear to be warm. Sensation is fully intact to light touch and deep pressure. There is noted to be diffuse muscle atrophy the foot and of limb, however, the patient is capable of dorsiflexion, plantar flexion, inversion and eversion. ASSESSMENT/PLAN Bilateral hallux superficial abrasion likely to poorly fitting sock wear. Upon relieving the patient's bedding to examine the feet she had double socks on. The inner layer of the sock was noted to be a home sock, her personal sock and you could tell at the distal aspect of the sock that the toe was starting to rub a hole in the cotton. I educated the patient on the need for socks that are wider in the toe box. I recommended only wearing the hospital sock which was yellow and had much more room. The patient is in need of routine foot care which is more appropriately done in the outpatient basis. I have no problem following her once discharged. No plans for debridement or procedure. Thank you for this consultation. MONICA Lira/DAVID /5:54 PM /8:10 PM
--- NOTE | 2016-11-08 22:57 | EKG ---
Date Performed: 11/08/2016 Time Performed: 08:23:04 PTAGE: 76 years EKG: Sinus rhythm Possible septal infarct - age undetermined Lateral T wave changes are nonspecific Low QRS voltages i n limb leads Abnormal ECG Compared to prior tracing no significant change DOCTOR: Pavan Damon Interpretating Date/Time 11/08/2016 22:55:35
[2016-11-09] VITALS (26 sets, daily range): BP systolic 93–117; BP diastolic 49–62; PULSE 88–126; RESP 18–20; TEMP 98.6–99.1; O2SAT 96–99
[2016-11-09] MEDS: CHLORHEXIDINE GLUCONATE 2 % 1 PACK (2 CLOTHS) TOP SCH (04:00)
[2016-11-09 08:46] LABS: AUTOMATED NEUTROPHIL # 2.8 TH/MM3 (1.8-7.7); BASOPHIL % 0.7 % (0.0-2.0); EOSINOPHIL # 0.3 TH/MM3 (0-0.4); EOSINOPHIL % 5.7 % (0.0-4.0); HEMATOCRIT 24.1 % (35.0-46.0); HEMO FLAGS DIFF FINAL; LYMPHOCYTE # 1.1 TH/MM3 (1.0-4.8); MEAN CELL VOLUME 91.5 FL (80.0-100.0); MEAN CORPUSCULAR HEMOGLOBIN 29.4 PG (27.0-34.0); MEAN CORPUSCULAR HGB CONC 32.1 % (32.0-36.0); MONO % 9.1 % (0.0-8.0); NEUT % 61.5 % (16.0-70.0); PLATELET COUNT 128 TH/MM3 (150-450); RED BLOOD COUNT 2.63 MIL/MM3 (4.00-5.30); RED CELL DISTRIBUTION WIDTH 15.4 % (11.6-17.2); WHITE BLOOD COUNT 4.6 TH/MM3 (4.0-11.0)
--- NOTE | 2016-11-09 09:25 | HHI.PR ---
Subjective Remarks Follow-up for tachycardia and malnutrition Patient did well with her calorie count. She has no complaints. No events overnight. Patient stated that she needs assistance going to the restroom. She stated that she is not able to ambulate on her own. Objective Vitals Vital Signs Date Time Temp Pulse Resp B/P Pulse Ox O2 Delivery O2 Flow Rate FiO2 11/09/16 08:00 98.7 97 20 102/54 97 11/09/16 08:00 97 Room Air 11/09/16 07:00 96 11/09/16 05:00 92 11/09/16 04:00 99.1 94 18 117/56 96 11/09/16 04:00 92 11/09/16 03:00 100 11/09/16 02:00 102 11/09/16 01:00 104 11/09/16 00:00 104 11/09/16 00:00 98.6 99 18 94/50 96 11/08/16 22:00 104 11/08/16 21:00 104 11/08/16 20:00 99 Room Air 11/08/16 20:00 102 11/08/16 20:00 98.3 98 18 104/55 98 11/08/16 19:21 98 21 11/08/16 18:00 100 11/08/16 17:00 98 11/08/16 16:00 98.3 96 18 103/54 96 11/08/16 16:00 98 11/08/16 15:00 96 11/08/16 14:00 96 11/08/16 13:00 88 11/08/16 12:00 90 11/08/16 12:00 98.2 87 18 99/55 97 11/08/16 11:00 84 11/08/16 10:00 88 11/08/16 09:27 95 Nasal Cannula 2.00 I/O 11/08/16 11/08/16 11/08/16 11/09/16 11/09/16 11/09/16 07:00 15:00 23:00 07:00 15:00 23:00 Intake Total 240 ml 600 ml 480 ml Output Total 300 ml 350 ml Balance -60 ml 600 ml 130 ml Intake Oral 240 ml 600 ml 480 ml Output Urine Total 300 ml 350 ml # Voids 4 # Bowel Movements 3 1 Result Diagram: 11/09/16 0808 11/08/16 1220 Objective Remarks GENERAL: Patient is lying in bed in NAD CARDIOVASCULAR: Regular rate and rhythm without murmurs, gallops, or rubs. RESPIRATORY: Breath sounds equal bilaterally. No accessory muscle use. GASTROINTESTINAL: Abdomen soft, non-tender, nondistended. MUSCULOSKELETAL: No cyanosis, or edema. Neuro: Awake and alert. Medications and IVs Current Medications Sodium Chloride (NS Flush) 2 ml UNSCH PRN IVF FLUSH AFTER USING IV ACCESS; Start 11/02/16 at 19:30 Diltiazem HCl 15 mg 15 mg ONCE ONCE IV Last administered on 11/02/16 19:29; Start 11/02/16 at 19:30; Stop 11/02/16 at 19:31; Status DC Sodium Chloride 500 ml @ 500 mls/hr BOLUS ONCE IV Last administered on 19:28; Start 11/02/16 at 19:30; Stop 11/02/16 at 20:29; Status DC Diltiazem HCl/ Sodium Chloride (Cardizem Inj/NS Inj) 125 ml @ 0 mls/hr TITRATE IV ; Start 11/02/16 at 20:15; Stop 11/02/16 at 21:29; Status DC Potassium Chloride 40 meq 40 meq ONCE ONCE PO Last administered on 11/02/16 21:13; Start 11/02/16 at 20:45; Stop 11/02/16 at 20:46; Status DC Sodium Chloride (NS 250 ml Inj) 250 ml @ 250 mls/hr BOLUS ONCE IV Last administered on 11/02/16 20:51; Start 11/02/16 at 20:45; Stop 11/02/16 at 21:44 ; Status DC Diltiazem HCl 90 mg 90 mg ONCE ONCE PO Last administered on 11/02/16 21:08; Start 11/02/16 at 20:45; Stop 11/02/16 at 20:46; Status DC Sodium Chloride (NS 250 ml Inj) 250 ml @ 250 mls/hr BOLUS ONCE IV Last administered on 11/02/16 20:51; Start 11/02/16 at 21:00; Stop 11/02/16 at 21:59 ; Status DC Terbutaline Sulfate 1 mg 1 mg UNSCH PRN SQ For Extravasation; Start 11/02/16 at 21:00 Phenylephrine HCl 80 mg/Dextrose 500 ml @ 0 mls/hr TITRATE IV Last administered on 11/02/16 23:55; Start 11/02/16 at 21:00 Sodium Chloride (NS 1000 ml Inj) 1,000 ml @ 84 mls/hr [id number] IV Last administered on 11/03/16 21:50; Start 11/02/16 at 22:00; Stop 11/04/16 at 09:39 ; Status DC Acetaminophen (Tylenol) 650 mg Q6H PRN PO PAIN 1-10 AND/OR FEVER >101F Last administered on 11/07/16 20:21; Start 11/02/16 at 21:00 Pantoprazole Sodium (Protonix Inj) 40 mg DAILY IV Last administered on 08:27; Start 11/02/16 at 21:00 Ondansetron HCl (Zofran Inj) 4 mg Q6H PRN IV NAUSEA OR VOMITING Last administered on 11/03/16 00:45; Start 11/02/16 at 21:00 Miscellaneous Information 1 Q361D XX Last administered on 11/02/16 21:00; Start 11/02/16 at 21:00 Chlorhexidine Gluconate (Chlorhexidine 2% Cloth) Taper DAILY@04 TOP Last administered on 11/06/16 04:00; Start 11/03/16 at 04:00; Stop 10/30/17 at 03:59 Chlorhexidine Gluconate (Chlorhexidine 2% Cloth) 3 pack UNSCH PRN TOP HYGIENIC CARE; Start 11/02/16 at 21:00 Senna/Docusate Sodium (Lakeisha-Colace) 1 tab BID PO Last administered on 20:48; Start 11/02/16 at 21:00; Stop 11/07/16 at 12:04; Status DC Magnesium Hydroxide (Milk Of Magnesia Liq) 30 ml Q12H PRN PO MILD - MODERATE CONSTIPATION; Start 11/02/16 at 21:00 Sennosides (Senokot) 17.2 mg Q12H PRN PO MODERATE - SEVERE CONSTIPATION; Start 11/02/16 at 21:00 Bisacodyl (Dulcolax Supp) 10 mg DAILY PRN RECTAL SEVERE CONSITIPATION; Start at 21:00 Lactulose (Lactulose Liq) 30 ml DAILY PRN PO SEVERE CONSITIPATION; Start at 21:00 Hydrocortisone Sodium Succinate 50 mg 50 mg Q6HR IV PUSH Last administered on 06:13; Start 11/02/16 at 21:00; Stop 11/05/16 at 11:37; Status DC Potassium Chloride 100 ml @ 50 mls/hr Q2H PRN IV For Potassium 2.8 - 3.2 mEq/L ; Start 11/02/16 at 21:00; Stop 11/07/16 at 13:55; Status DC Potassium Chloride (KCl 20 Meq Premix Inj) 100 ml @ 50 mls/hr Q2H PRN IV For Potassium 2.8 - 3.2 mEq/L Last administered on 11/06/16 11:56; Start 11/02/16 at 21:00; Stop 11/07/16 at 13:55; Status DC Potassium Bicarb/ Potassium Chloride 50 meq 50 meq UNSCH PRN PO For Potassium 3.3 - 3.5 mEq/L Last administered on 11/02/16 23:55; Start 11/02/16 at 21:00; Stop 11/07/16 at 13:55; Status DC Potassium Chloride 100 ml @ 25 mls/hr UNSCH PRN IV For Potassium 3.3 - 3.5 mEq /L; Start 11/02/16 at 21:00; Stop 11/07/16 at 13:55; Status DC Potassium Chloride 100 ml @ 50 mls/hr Q2H PRN IV For Potassium 3.3 - 3.5 mEq/L ; Start 11/02/16 at 21:00; Stop 11/07/16 at 13:55; Status DC Magnesium Sulfate/ Sodium Chloride (Magnesium Sulfate Inj/NS Inj) 100 ml @ 50 mls/hr UNSCH PRN IV For Magnesium 0.9 - 1.1 mg/dL; Start 11/02/16 at 21:00; Stop 11/07/16 at 13:55; Status DC Magnesium Oxide 800 mg 800 mg UNSCH PRN PO For Magnesium 1.2 - 1.6 mg/dL; Start 11/02/16 at 21:00; Stop 11/07/16 at 13:55; Status DC Magnesium Sulfate/ Sodium Chloride (Magnesium Sulfate Inj/NS Inj) 100 ml @ 50 mls/hr UNSCH PRN IV For Magnesium 1.2 - 1.6 mg/dL; Start 11/02/16 at 21:00; Stop 11/07/16 at 13:55; Status DC Potassium Phosphate 2000 mg 2,000 mg Q4H PRN PO For Phosphorus < 2.5 mg/dL; Start 11/02/16 at 21:00; Stop 11/07/16 at 13:55; Status DC Sodium Phosphate/ Sodium Chloride (Sodium Phosphate Inj/NS 250 ml Inj) 250 ml @ 42 mls/hr UNSCH PRN IV For Phosphorus < 2.5 mg/dL; Start 11/02/16 at 21:00; Stop 11/07/16 at 13:55; Status DC Potassium Phosphate 2000 mg 2,000 mg UNSCH PRN PO/TUBE SEE LABEL COMMENTS; Start 11/02/16 at 21:00; Stop 11/07/16 at 13:55; Status DC Potassium Phosphate 30 mmol/ Sodium Chloride 260 ml @ 42 mls/hr UNSCH PRN IV SEE LABEL COMMENTS; Start 11/02/16 at 21:00; Stop 11/07/16 at 13:55; Status DC Aztreonam 1000 mg/ Sodium Chloride 100 ml @ 200 mls/hr Q8H IV Last administered on 11/05/16 06:13; Start 11/02/16 at 22:00; Stop 11/05/16 at 11:32 ; Status DC Levofloxacin/ Dextrose 100 ml @ 100 mls/hr Q24H IV Last administered on 23:32; Start 11/02/16 at 23:00; Stop 11/05/16 at 08:42; Status DC Diltiazem HCl/ Sodium Chloride (Cardizem Inj/NS Inj) 125 ml @ 0 mls/hr TITRATE IV ; Start 11/02/16 at 21:15 Heparin Sodium (Porcine) (Heparin Inj) 5,000 units Q12HR SQ Last administered on 11/08/16 21:29; Start 11/03/16 at 09:00 Dextrose (D50w (Vial) Inj) 50 ml UNSCH PRN IV HYPOGLYCEMIA-SEE COMMENTS; Start 11/03/16 at 08:30 Glucagon (Glucagon Inj) 1 mg UNSCH PRN OTHER HYPOGLYCEMIA-SEE COMMENTS; Start 11/03/16 at 08:30 Insulin Human Regular (NovoLIN R SUPPLEMENTAL SCALE) 1 Q6H SQ Last administered on 11/05/16 03:20; Start 11/03/16 at 09:00; Stop 11/06/16 at 10:23 ; Status DC Diatrizoate Meglum/ Diatrizoate Sod ( Gastroileana Liq) 18 ml ONCE ONCE PO Last administered on 11/03/16 09:39; Start 11/03/16 at 09:00; Stop 11/03/16 at 09:01; Status DC Iohexol 70 ml 70 ml STK-MED ONCE IV Last administered on 11/03/16 12:25; Start 11/03/16 at 12:25; Stop 11/03/16 at 12:26; Status DC Levofloxacin/ Dextrose (Levaquin 250 Mg Premix Inj) 50 ml @ 50 mls/hr Q24H IV ; Start 11/05/16 at 23:00; Stop 11/05/16 at 23:00; Status DC Leflunomide (Arava) 20 mg DAILY PO Last administered on 11/08/16 08:26; Start 11/06/16 at 09:00 Metoprolol Tartrate 12.5 mg 12.5 mg Q12HR PO Last administered on 11/08/16 21: 28; Start 11/06/16 at 15:15 Sodium Chloride (NS 500 ml Inj) 500 ml @ 500 mls/hr BOLUS ONCE IV Last administered on 11/07/16 23:15; Start 11/07/16 at 23:15; Stop 11/08/16 at 00:14 ; Status DC A/P Assessment and Plan Hypotension (RESOLVED) -Most likely secondary to decreased by mouth intake. She was given IV fluids in which her blood pressure has improved. She was also initially on Van- Synephrine in which she was able to be weaned off of. There was question of adrenal insufficiency but no cortisol level was taken. Unlikely this is due to adrenal insufficiency and most likely due to poor intake. off hydrocortisone since she only was given 3 days worth and continues to do well. -Due to hypotension she was also treated empirically for infection. So far infectious workup is negative and patient was taken off antibiotics. She continues to do well off of antibiotics. -Clinically patient just looks malnourished. Malnourished -Vitamin levels were obtained and were normal. -Most likely secondary to anorexia from stress. -IMPROVED PO intake. -Dietitian following and calorie count was done. Patient is getting adequate oral intake. Recommended regular diet with milky shakes, chocolate. Pancytopenia -Most likely secondary to anorexia and poor nutrition. Improving. -Laundry Agent consulted and wants to try to avoid BM biopsy. -GI was also consulted due to anemia. GI thinks this is more due to anorexia and poor nutrition. No sign of any GI bleed. Workup has been negative. Elevated TSH -TSH is 7.7. Patient is fatigued but it seems to be more due to being malnourished. -Free T4 is normal. PAF -Continue her current regimen. -HR is very labile and was 150s in AM. -she is on metoprolol. -Pending violin maker hand consult from yesterday. Dealt with patient's nurse to call violin maker hand. Hx RA -continue home medication. Discharge Planning Pending violin maker hand consult. Patient also will need to be evaluated with physical therapist for placement. Ladonna Arthur MD Nov 09, 2016 09:25
[2016-11-09] MEDS: LEFLUNOMIDE 20 MG TAB PO SCH (09:32)
[2016-11-09] MEDS: METOPROLOL TARTRATE 25 MG TAB PO SCH ×2 (09:32→20:43)
[2016-11-09] MEDS: HEPARIN SODIUM - SQ 10,000 UNITS/ML VIAL SQ SCH ×2 (09:33→20:44)
[2016-11-09] MEDS: PANTOPRAZOLE SODIUM 40 MG VIAL IV SCH (09:33)
[2016-11-09] MEDS: ACETAMINOPHEN 325 MG TAB PO PRN (11:47)
[2016-11-09] MEDS ORDERED: LIDOCAINE HCL 2% PF SOLN 10 ML VIAL INFIL ONE (13:00)
[2016-11-09] MEDS ORDERED: LIDOCAINE HCL 1% PF 10 ML VIAL INFIL ONE (13:00)
--- NOTE | 2016-11-09 13:16 | PD.ONC.PN ---
Subjective Subjective Remarks Afebrile overnight. Patient resting in room. No complaints. Objective Data Date Time Temp Pulse Resp B/P Pulse Ox O2 Delivery O2 Flow Rate FiO2 11/09/16 11:00 99.1 91 20 93/49 96 11/09/16 09:37 96 11/09/16 08:00 98.7 97 20 102/54 97 11/09/16 08:00 97 Room Air 11/09/16 07:00 96 11/09/16 05:00 92 11/09/16 04:00 99.1 94 18 117/56 96 11/09/16 04:00 92 11/09/16 03:00 100 11/09/16 02:00 102 11/09/16 01:00 104 11/09/16 00:00 104 11/09/16 00:00 98.6 99 18 94/50 96 11/08/16 22:00 104 11/08/16 21:00 104 11/08/16 20:00 99 Room Air 11/08/16 20:00 102 11/08/16 20:00 98.3 98 18 104/55 98 11/08/16 19:21 98 21 11/08/16 18:00 100 11/08/16 17:00 98 11/08/16 16:00 98.3 96 18 103/54 96 11/08/16 16:00 98 11/08/16 15:00 96 11/08/16 14:00 96 11/09/16 11/09/16 11/09/16 07:00 15:00 23:00 Intake Total 480 ml Output Total 350 ml Balance 130 ml Result Diagram: 11/09/16 0808 11/08/16 1220 Laboratory Results Laboratory Tests Test 11/09/16 08:08 White Blood Count 4.6 TH/MM3 Red Blood Count 2.63 MIL/MM3 Hemoglobin 7.7 GM/DL Hematocrit 24.1 % Mean Corpuscular Volume 91.5 FL Mean Corpuscular Hemoglobin 29.4 PG Mean Corpuscular Hemoglobin 32.1 % Concent Red Cell Distribution Width 15.4 % Platelet Count 128 TH/MM3 Mean Platelet Volume 10.4 FL Neutrophils (%) (Auto) 61.5 % Lymphocytes (%) (Auto) 23.0 % Monocytes (%) (Auto) 9.1 % Eosinophils (%) (Auto) 5.7 % Basophils (%) (Auto) 0.7 % Neutrophils # (Auto) 2.8 TH/MM3 Lymphocytes # (Auto) 1.1 TH/MM3 Monocytes # (Auto) 0.4 TH/MM3 Eosinophils # (Auto) 0.3 TH/MM3 Basophils # (Auto) 0.0 TH/MM3 CBC Comment DIFF FINAL Differential Comment Culture Results Microbiology Date/Time Procedure Status Source Growth 11/07/16 02:55 Stool Occult Blood (RAQUEL) - Final Complete Stool Stool HEMOCCULT NEGATIVE Administered Medications Medications (Trade) Dose Ordered Sig/Baljinder Route PRN Reason Start Time Stop Time Status Last Admin Dose Admin Phenylephrine HCl/ Dextrose (Neosynephrine Inj/D5W 500 ml Inj) 500 ml @ 0 mls/hr TITRATE IV 11/02/16 21:00 11/02/16 23:55 Acetaminophen (Tylenol) 650 mg Q6H PRN PO PAIN 1-10 AND/OR FEVER >101F 11/02/16 21:00 11/09/16 11:47 Pantoprazole Sodium (Protonix Inj) 40 mg DAILY IV 11/02/16 21:00 11/09/16 09:33 Ondansetron HCl (Zofran Inj) 4 mg Q6H PRN IV NAUSEA OR VOMITING 11/02/16 21:00 11/03/16 00:45 Miscellaneous Information 1 Q361D XX 11/02/16 21:00 11/02/16 21:00 Chlorhexidine Gluconate (Chlorhexidine 2% Cloth) Taper DAILY@04 TOP 11/03/16 04:00 10/30/17 03:59 11/06/16 04:00 Heparin Sodium (Porcine) (Heparin Inj) 5,000 units Q12HR SQ 11/03/16 09:00 11/09/16 09:33 Leflunomide (Arava) 20 mg DAILY PO 11/06/16 09:00 11/09/16 09:32 Metoprolol Tartrate (Lopressor) 12.5 mg Q12HR PO 11/06/16 15:15 11/09/16 09:32 Objective Remarks GENERAL: Elderly female, lying in bed in nad. SKIN: Warm and dry. HEAD: Atraumatic. Normocephalic. NECK: Trachea midline. MUSCULOSKELETAL: Extremities without clubbing, cyanosis, or edema. No obvious deformities. NEUROLOGICAL: Awake and alert. normal speech. moving all extremities. Assessment/Plan Problem List: (1) Pancytopenia Status: Acute Plan: 11/09/16. bone marrow biopsy today. monitor CBC --vitamin studies WNL --may need bone marrow biopsy --liver u/s shows no hepatosplenomegaly Assessment 76y/o female with unintentional weight loss and leukopenia admitted hypotensive with afib/RVR h/o RA Plan 1. monitor CBC 2. clear for discharge 3. follow up in clinic once discharged Attending Statement The exam, history, and the medical decision-making described in the above note were completed with the assistance of the mid-level provider. I reviewed and agree with the findings presented. I attest that I had a [id number] encounter with the patient on the same day, and personally performed and documented my assessment and findings in the medical record. Pt seen and examined. Discussed risks and benefits of BMBx. Tolerated procedure well. Good hemostasis. Recommendations pending response. Procedure Note Procedure Procedure: Bone marrow Aspiration and Biopsy Procedure Performed by: Caro Coy MD and Heidy Montoya PA-C Risks and benefits of the procedure were discussed with the patient. Consent was obtained and signed by the patient. The patient was given Ativan 0.5mg PO as pre-medication. The patient was placed in the right lateral decubitus position. Sterile technique was followed. The site was prepped with Betadine and sterilely draped. Approximately 10 cc 2% lidocaine was used for local anesthesia. Bone marrow aspiration and biopsy were obtained from the left posterior iliac crest. The patient tolerated the procedure without complications and with minimal pain. Heidy Montoya Nov 09, 2016 13:15 Caro Coy MD Nov 09, 2016 16:27
[2016-11-09] MEDS ORDERED: LORazepam 0.5 MG TAB PO ONE (13:45)
[2016-11-09 14:17] LABS: BONE MARROW PROCESSING COMPLETE; IRON STAIN DONE; JENNER GIEMSA STAIN DONE
--- NOTE | 2016-11-09 16:02 | MB ---
cc: MAMTA COLLINS DO DATE OF CONSULTATION: 11/09/2016 REASON FOR CONSULTATION: Atrial fibrillation with rapid ventricular response. HISTORY OF PRESENT ILLNESS Ashley Allen is a pleasant 76-year-old female who originally presented on November 02, 2016 to [facility] for a history of weakness for the past couple weeks. She was seeing her primary care physician for her regular visit and she was noted to have a blood pressure of 75/45. She was asked to go home, drink plenty of fluid and then return in the afternoon. When she arrived back her blood pressure was still in the 80s systolically and her heart rate was 120 and so she was sent to the emergency room. She denies chest pain, shortness of breath, lightheadedness or dizziness at that time. She previously had ablation for atrial fibrillation was placed on Eliquis but that has since been stopped by her primary care physician. Of note the patient previously weighed 205 pounds around 1 year ago but now weighs. On 108 pounds. It appears that her primary care physician has been doing an outpatient workup to look for causes of her weight loss including a mammogram, colonoscopy, endoscopy, etc. When presenting to the emergency room she was found to have an elevated heart rate and there was a concern for atrial fibrillation with rapid ventricular response as she has a history of this. She was admitted to the ICU. Since that time her lab work has been followed, showing pancytopenia which is relatively new since her previous hospitalization in April. Because of this they were planning a bone mineral biopsy today. I was asked to see Miss Allen for her presumed atrial fibrillation. In seeing her she is currently hemodynamically stable, sitting comfortably in bed. PAST MEDICAL HISTORY: 1. Atrial fibrillation 2. AV NRT 3. Rheumatoid arthritis 4. Arthritis 5. Unintentional weight loss. 6. Leukopenia. 7. Atopic dermatitis. PAST SURGICAL HISTORY 1. Atrial fibrillation ablation (April 2016) with radiofrequency ablation including pulmonary vein isolation, posterior wall ablation, mitral line creation. 2. Bilateral cataract surgery. 3. Left ankle surgery. 4. Left shoulder surgery. 5. Total abdominal hysterectomy 6. Salpingo-oophorectomy. ALLERGIES 1. Codeine 2. Keflex 3. Septra 4. Sulfa. MEDICATIONS 1. Metoprolol tartrate 50 mg b.i.d. 2. Leflunomide 20 mg daily 3. Tramadol 50 mg b.i.d. 4. Omeprazole 40 mg daily. 5. Previously on Eliquis upon discharge in April 2016 but has since been stopped by her primary care physician most likely due to anemia and thrombocytopenia. FAMILY HISTORY Mother of old age in her 90s. Father of chronic lymphocytic leukemia in his mid 80s. SOCIAL HISTORY Denies tobacco, alcohol or illicit drug abuse. She lives at home and the daughter and daughter's friend. She has had significant weight loss as documented above. REVIEW OF SYSTEMS 14-systems were reviewed including osteopathic pertinent positives and negatives above otherwise negative. PHYSICAL EXAMINATION VITAL SIGNS: Temperature 99.1, heart rate 91, blood pressure 102/54. respirations 20, pulse ox 97% on room air. IN GENERAL: The patient appears Cachexic and frail. Alert awake and oriented x3. No acute distress. HEAD, EYES, EARS, NOSE, AND THROAT: Extraocular muscles intact. Mucous membranes moist. NECK: The neck is supple. No JVD at 45 degrees. No carotid bruits heard bilaterally. Carotid upstroke is brisk in nature. HEART: The heart is regular rate and rhythm. Positive first and second heart sounds with no murmurs, gallops or rubs. LUNGS: Clear to auscultation bilaterally. No wheezes, rales or rhonchi. ABDOMEN: Soft, nontender, nondistended. No organomegaly noted. EXTREMITIES: The extremities show no clubbing, cyanosis or edema. NEUROLOGICALLY: No focal deficits. SKIN: The skin is warm, dry and intact. OSTEOPATHICALLY: No kyphoscoliosis, Osteopathic ally, mild kyphoscoliosis, no lordosis or paraspinal tender points. RY FINDINGS bin 7.7, hematocrit 24.1, platelets 128. Potassium 3.8, BUN 13, creatinine 0.54. Electrocardiogram (November 08, 2016 at 0823) sinus rhythm, possible septal infarct age indeterminate, nonspecific ST-T wave changes. IMPRESSION 1. Possible atrial fibrillation on arrival versus other Supraventricular tachycardia. 2. Overall hypotension which is mostly resolved, possibly secondary to decreased oral intake. 3. Malnutrition. 4. Unintentional weight loss. 5. Pancytopenia. 6. Elevated thyroid stimulating hormone. 7. History rheumatoid arthritis. RECOMMENDATIONS 1. Miss Allen appeared to have presented with tachycardia which was thought to be atrial fibrillation although review of EKG shows probably some atrial activity and may be some other supraventricular tachycardia. Since that time she has been relatively stable with sinus rhythm, although she does have some episodes with tachyarrhythmia. 2. She is currently on metoprolol tartrate to try to help control these tachyarrhythmias. 3. Further workup of pancytopenia per hematology oncology including a bone marrow biopsy. 4. As far as anticoagulation for possible atrial fibrillation. It is difficult as I have no definitive evidence of atrial fibrillation as well as her current anemia which is still being worked up. Her hemoglobin is currently 7.7 and a relative thrombocytopenia I would avoid it. 5. Further recommendations will be made based on the hospital course. Thank you for allowing me to see Ashley Allen, if there are any questions please do not hesitate to call. Mamta Collins DO VGP/mh /2:07 PM /3:37 PM
--- NOTE | 2016-11-09 16:26 | PD.WCN.NOT ---
Wound Consult Description: Patient seen on 2nd floor [facility] for evaluation of possible pressure injury to buttock area. Patient turned to R side with assistance of RAMIRO Florez to reveal diffuse resolving partial thickness skin loss to R and L buttock that are moisture related. Patient also assessed with resolving partial thickness fissure to medial gluteal cleft that is also moisture related. Buttock area left open to air, and applied thick layer of Calazime barrier cream. No pressure related injuries are seen at this time. Communicated with: RAMIRO Florez and Christine PITT for Hepas. Recommendation: Recommend to leave buttock area open to air and apply thick layer of Calazime barrier cream. Please continue to turn patient every 2 hours or PRN for comfort. Additional Information: Patient is currently on alternating pressure with Manisha bed Lexi Hernandez [facility] Nov 09, 2016 16:26
[2016-11-10] VITALS (27 sets, daily range): BP systolic 99–120; BP diastolic 51–68; PULSE 87–142; RESP 20; TEMP 98.3–99.1; O2SAT 97–99
[2016-11-10] MEDS ORDERED: PILL SPLITTER OTHER PRN (00:15)
[2016-11-10] MEDS ORDERED: METOPROLOL TARTRATE 25 MG TAB PO ONE (00:15)
[2016-11-10] MEDS: CHLORHEXIDINE GLUCONATE 2 % 1 PACK (2 CLOTHS) TOP SCH (04:00)
[2016-11-10] MEDS: HEPARIN SODIUM - SQ 10,000 UNITS/ML VIAL SQ SCH ×2 (08:43→21:03)
[2016-11-10] MEDS: METOPROLOL TARTRATE 25 MG TAB PO SCH ×2 (08:44→21:02)
[2016-11-10] MEDS: LEFLUNOMIDE 20 MG TAB PO SCH (08:44)
[2016-11-10] MEDS: PANTOPRAZOLE SODIUM 40 MG VIAL IV SCH (08:44)
--- NOTE | 2016-11-10 09:49 | PD.ONC.PN ---
Subjective Subjective Remarks Afebrile overnight. Patient resting in bed in nad. She denies pain at site of bone marrow biopsy. Ate breakfast. Objective Data Date Time Temp Pulse Resp B/P Pulse Ox O2 Delivery O2 Flow Rate FiO2 11/10/16 07:45 98 Room Air 11/10/16 07:45 99.1 127 20 101/59 98 11/10/16 07:00 130 11/10/16 06:00 140 11/10/16 05:00 128 11/10/16 04:00 126 11/10/16 03:03 98.4 124 20 108/66 99 11/10/16 03:00 126 11/10/16 02:54 99 11/10/16 02:00 120 11/10/16 01:00 138 11/10/16 00:00 120 11/09/16 23:30 98.7 125 20 104/62 99 11/09/16 23:00 126 11/09/16 22:00 126 11/09/16 21:00 126 11/09/16 20:00 126 11/09/16 19:50 96 Room Air 11/09/16 19:50 98.7 98 20 104/58 99 11/09/16 19:00 96 11/09/16 18:00 104 11/09/16 17:00 96 11/09/16 16:00 98 11/09/16 15:00 96 11/09/16 15:00 98.9 99 20 98/57 99 11/09/16 14:00 92 11/09/16 13:00 94 11/09/16 12:47 18 11/09/16 12:00 88 11/09/16 11:00 94 11/09/16 11:00 99.1 91 20 93/49 96 11/09/16 10:00 92 11/10/16 11/10/16 11/10/16 07:00 15:00 23:00 Intake Total 480 ml Output Total 750 ml Balance -270 ml Result Diagram: 11/09/16 0808 11/08/16 1220 Laboratory Results Laboratory Tests Test 11/09/16 20:24 Prealbumin 19 MG/DL Administered Medications Medications (Trade) Dose Ordered Sig/Baljinder Route PRN Reason Start Time Stop Time Status Last Admin Dose Admin Phenylephrine HCl/ Dextrose (Neosynephrine Inj/D5W 500 ml Inj) 500 ml @ 0 mls/hr TITRATE IV 11/02/16 21:00 11/02/16 23:55 Acetaminophen (Tylenol) 650 mg Q6H PRN PO PAIN 1-10 AND/OR FEVER >101F 11/02/16 21:00 11/09/16 11:47 Pantoprazole Sodium (Protonix Inj) 40 mg DAILY IV 11/02/16 21:00 11/10/16 08:44 Ondansetron HCl (Zofran Inj) 4 mg Q6H PRN IV NAUSEA OR VOMITING 11/02/16 21:00 11/03/16 00:45 Miscellaneous Information 1 Q361D XX 11/02/16 21:00 11/02/16 21:00 Chlorhexidine Gluconate (Chlorhexidine 2% Cloth) Taper DAILY@04 TOP 11/03/16 04:00 10/30/17 03:59 11/06/16 04:00 Sennosides (Senokot) 17.2 mg Q12H PRN PO MODERATE - SEVERE CONSTIPATION 11/02/16 21:00 11/09/16 23:14 Heparin Sodium (Porcine) (Heparin Inj) 5,000 units Q12HR SQ 11/03/16 09:00 11/10/16 08:43 Leflunomide (Arava) 20 mg DAILY PO 11/06/16 09:00 11/10/16 08:44 Metoprolol Tartrate (Lopressor) 12.5 mg Q12HR PO 11/06/16 15:15 11/10/16 08:44 Objective Remarks GENERAL: Pleasant elderly female, supine in bed in [facility]. SKIN: Warm and dry. 3mm wound, left hip, bandage c/d/i. no hematoma or ecchymoses. HEAD: Normocephalic. EYES: no injection or drainage. NECK: Supple, trachea midline. CARDIOVASCULAR: +S1/S2 RESPIRATORY: Breath sounds equal bilaterally. No accessory muscle use. GASTROINTESTINAL: Abdomen soft, non-tender, nondistended. EXTREMITIES: No cyanosis NEUROLOGICAL: awake and alert, normal speech. moving all extremities. Assessment/Plan Problem List: (1) Pancytopenia Status: Acute Plan: 11/10/16. await pathology from bone marrow biopsy, check CBC today --vitamin studies WNL --may need bone marrow biopsy --liver u/s shows no hepatosplenomegaly fs faxed Assessment 76y/o female with unintentional weight loss and leukopenia admitted hypotensive with afib/RVR h/o RA Plan 1. monitor CBC 2. can follow up in clinic for results of bone marrow biopsy. patient clear for discharge Attending Statement Discussed above. Continue follow results BM biopsy. Heidy Montoya Nov 10, 2016 09:49 Caro Coy MD Nov 11, 2016 10:05
--- NOTE | 2016-11-10 11:37 | PD.CARD.PN ---
Subjective Subjective Remarks Some episodes of SVT, appears regular in nature No complaints, no chest pain, no shortness of breath Objective Medications Current Medications Medications (Trade) Dose Ordered Sig/Baljinder Route Start Time Stop Time Status Last Admin (NS Flush) 2 ml UNSCH PRN IVF 11/02/16 19:30 Terbutaline Sulfate 1 mg 1 mg UNSCH PRN SQ 11/02/16 21:00 (Neosynephrine Inj/D5W 500 ml Inj) 500 ml @ 0 mls/hr TITRATE IV 11/02/16 21:00 11/02/16 23:55 (Tylenol) 650 mg Q6H PRN PO 11/02/16 21:00 11/09/16 11:47 (Protonix Inj) 40 mg DAILY IV 11/02/16 21:00 11/10/16 08:44 (Zofran Inj) 4 mg Q6H PRN IV 11/02/16 21:00 11/03/16 00:45 Miscellaneous Information 1 Q361D XX 11/02/16 21:00 11/02/16 21:00 (Chlorhexidine 2% Cloth) Taper DAILY@04 TOP 11/03/16 04:00 10/30/17 03:59 11/06/16 04:00 (Chlorhexidine 2% Cloth) 3 pack UNSCH PRN TOP 11/02/16 21:00 (Milk Of Magnesia Liq) 30 ml Q12H PRN PO 11/02/16 21:00 (Senokot) 17.2 mg Q12H PRN PO 11/02/16 21:00 11/09/16 23:14 (Dulcolax Supp) 10 mg DAILY PRN RECTAL 11/02/16 21:00 Lactulose 30 ml 30 ml DAILY PRN PO 11/02/16 21:00 (Cardizem Inj/NS Inj) 125 ml @ 0 mls/hr TITRATE IV 11/02/16 21:15 (Heparin Inj) 5,000 units Q12HR SQ 11/03/16 09:00 11/10/16 08:43 (D50w (Vial) Inj) 50 ml UNSCH PRN IV 11/03/16 08:30 (Glucagon Inj) 1 mg UNSCH PRN OTHER 11/03/16 08:30 (Arava) 20 mg DAILY PO 11/06/16 09:00 11/10/16 08:44 (Lopressor) 12.5 mg Q12HR PO 11/06/16 15:15 11/10/16 08:44 (Pill Splitter) 1 ea UNSCH PRN OTHER 11/10/16 00:15 Vital Signs / I&O Vital Signs Date Time Temp Pulse Resp B/P Pulse Ox O2 Delivery O2 Flow Rate FiO2 11/10/16 11:00 87 11/10/16 11:00 98.4 89 20 99/51 99 11/10/16 10:00 90 11/10/16 09:00 106 11/10/16 08:00 126 11/10/16 07:45 98 Room Air 11/10/16 07:45 99.1 127 20 101/59 98 11/10/16 07:00 130 11/10/16 06:00 140 11/10/16 05:00 128 11/10/16 04:00 126 11/10/16 03:03 98.4 124 20 108/66 99 11/10/16 03:00 126 11/10/16 02:54 99 11/10/16 02:00 120 11/10/16 01:00 138 11/10/16 00:00 120 11/09/16 23:30 98.7 125 20 104/62 99 11/09/16 23:00 126 11/09/16 22:00 126 11/09/16 21:00 126 11/09/16 20:00 126 11/09/16 19:50 96 Room Air 11/09/16 19:50 98.7 98 20 104/58 99 11/09/16 19:00 96 11/09/16 18:00 104 11/09/16 17:00 96 11/09/16 16:00 98 11/09/16 15:00 96 11/09/16 15:00 98.9 99 20 98/57 99 11/09/16 14:00 92 11/09/16 13:00 94 11/09/16 12:47 18 11/09/16 12:00 88 I/O 11/09/16 11/09/16 11/09/16 11/10/16 11/10/16 11/10/16 07:00 15:00 23:00 07:00 15:00 23:00 Intake Total 480 ml 480 ml 480 ml Output Total 350 ml 700 ml 750 ml Balance 130 ml -220 ml -270 ml Intake Oral 480 ml 480 ml 480 ml Output Urine Total 350 ml 700 ml 750 ml # Bowel Movements 1 3 1 Physical Exam GENERAL: NAD, AAO, overall sick and cachectic appearing SKIN: Warm and dry. HEAD: Atraumatic. Normocephalic. EYES: Pupils equal and round. No scleral icterus. No injection or drainage. ENT: No nasal bleeding or discharge. Mucous membranes pink and moist. NECK: Trachea midline. No JVD. CARDIOVASCULAR: Regular rate and rhythm. RESPIRATORY: No accessory muscle use. Clear to auscultation. Breath sounds equal bilaterally. GASTROINTESTINAL: Abdomen soft, non-tender, nondistended. Hepatic and splenic margins not palpable. MUSCULOSKELETAL: Extremities without clubbing, cyanosis, or edema. No obvious deformities. NEUROLOGICAL: Awake and alert. No obvious cranial nerve deficits. Motor grossly within normal limits. Five out of 5 muscle strength in the arms and legs. Normal speech. PSYCHIATRIC: Appropriate mood and affect; insight and judgment normal. Laboratory Laboratory Tests Test 11/09/16 20:24 Prealbumin 19 MG/DL Assessment and Plan Problem List: (1) Supraventricular tachycardia (2) Hypotension (3) Pancytopenia (4) Rheumatoid arthritis Assessment and Plan 1) Regular SVT on admission... now mostly sinus tachycardia which is somewhat better after restarting her BB 2) Blood pressure is borderline, but appears from previous admission that SBP ~ 100-110 3) Will attempt to increase Lopressor to 25mg BID 4) If stable in the morning, can be discharged from a cardiovascular standpoint If concern, Dr. Younger/Blake will be covering this weekend for me Problem Qualifiers (1) Hypotension: Qualified Code: I95.9 - Hypotension, unspecified hypotension type Tremayne Moreno DO Nov 10, 2016 11:37
--- NOTE | 2016-11-10 11:57 | HHI.PR ---
Subjective Remarks Follow-up for SVT Patient heart rate this morning was 130. She is asymptomatic. Denies any chest pain, shortness of breathing, palpitation , lightheadedness dizziness. Patient stated that she did not feel steady on her feet. I d/w her nurse and per nurse patient needs assistance with all care. Objective Vitals Vital Signs Date Time Temp Pulse Resp B/P Pulse Ox O2 Delivery O2 Flow Rate FiO2 11/10/16 11:00 87 11/10/16 11:00 98.4 89 20 99/51 99 11/10/16 10:00 90 11/10/16 09:00 106 11/10/16 08:00 126 11/10/16 07:45 98 Room Air 11/10/16 07:45 99.1 127 20 101/59 98 11/10/16 07:00 130 11/10/16 06:00 140 11/10/16 05:00 128 11/10/16 04:00 126 11/10/16 03:03 98.4 124 20 108/66 99 11/10/16 03:00 126 11/10/16 02:54 99 11/10/16 02:00 120 11/10/16 01:00 138 11/10/16 00:00 120 11/09/16 23:30 98.7 125 20 104/62 99 11/09/16 23:00 126 11/09/16 22:00 126 11/09/16 21:00 126 11/09/16 20:00 126 11/09/16 19:50 96 Room Air 11/09/16 19:50 98.7 98 20 104/58 99 11/09/16 19:00 96 11/09/16 18:00 104 11/09/16 17:00 96 11/09/16 16:00 98 11/09/16 15:00 96 11/09/16 15:00 98.9 99 20 98/57 99 11/09/16 14:00 92 11/09/16 13:00 94 11/09/16 12:47 18 11/09/16 12:00 88 I/O 11/09/16 11/09/16 11/09/16 11/10/16 11/10/16 11/10/16 07:00 15:00 23:00 07:00 15:00 23:00 Intake Total 480 ml 480 ml 480 ml Output Total 350 ml 700 ml 750 ml Balance 130 ml -220 ml -270 ml Intake Oral 480 ml 480 ml 480 ml Output Urine Total 350 ml 700 ml 750 ml # Bowel Movements 1 3 1 Result Diagram: 11/09/16 0808 11/08/16 1220 Objective Remarks GENERAL: Patient is lying in bed in NAD CARDIOVASCULAR: Regular rate and rhythm without murmurs, gallops, or rubs. RESPIRATORY: Breath sounds equal bilaterally. No accessory muscle use. GASTROINTESTINAL: Abdomen soft, non-tender, nondistended. MUSCULOSKELETAL: No cyanosis, or edema. Neuro: Awake and alert. Medications and IVs Current Medications Sodium Chloride (NS Flush) 2 ml UNSCH PRN IVF FLUSH AFTER USING IV ACCESS; Start 11/02/16 at 19:30 Diltiazem HCl 15 mg 15 mg ONCE ONCE IV Last administered on 11/02/16 19:29; Start 11/02/16 at 19:30; Stop 11/02/16 at 19:31; Status DC Sodium Chloride 500 ml @ 500 mls/hr BOLUS ONCE IV Last administered on 19:28; Start 11/02/16 at 19:30; Stop 11/02/16 at 20:29; Status DC Diltiazem HCl/ Sodium Chloride (Cardizem Inj/NS Inj) 125 ml @ 0 mls/hr TITRATE IV ; Start 11/02/16 at 20:15; Stop 11/02/16 at 21:29; Status DC Potassium Chloride 40 meq 40 meq ONCE ONCE PO Last administered on 11/02/16 21:13; Start 11/02/16 at 20:45; Stop 11/02/16 at 20:46; Status DC Sodium Chloride (NS 250 ml Inj) 250 ml @ 250 mls/hr BOLUS ONCE IV Last administered on 11/02/16 20:51; Start 11/02/16 at 20:45; Stop 11/02/16 at 21:44 ; Status DC Diltiazem HCl 90 mg 90 mg ONCE ONCE PO Last administered on 11/02/16 21:08; Start 11/02/16 at 20:45; Stop 11/02/16 at 20:46; Status DC Sodium Chloride (NS 250 ml Inj) 250 ml @ 250 mls/hr BOLUS ONCE IV Last administered on 11/02/16 20:51; Start 11/02/16 at 21:00; Stop 11/02/16 at 21:59 ; Status DC Terbutaline Sulfate 1 mg 1 mg UNSCH PRN SQ For Extravasation; Start 11/02/16 at 21:00 Phenylephrine HCl 80 mg/Dextrose 500 ml @ 0 mls/hr TITRATE IV Last administered on 11/02/16 23:55; Start 11/02/16 at 21:00 Sodium Chloride (NS 1000 ml Inj) 1,000 ml @ 84 mls/hr [id number] IV Last administered on 11/03/16 21:50; Start 11/02/16 at 22:00; Stop 11/04/16 at 09:39 ; Status DC Acetaminophen (Tylenol) 650 mg Q6H PRN PO PAIN 1-10 AND/OR FEVER >101F Last administered on 11/09/16 11:47; Start 11/02/16 at 21:00 Pantoprazole Sodium (Protonix Inj) 40 mg DAILY IV Last administered on 08:44; Start 11/02/16 at 21:00 Ondansetron HCl (Zofran Inj) 4 mg Q6H PRN IV NAUSEA OR VOMITING Last administered on 11/03/16 00:45; Start 11/02/16 at 21:00 Miscellaneous Information 1 Q361D XX Last administered on 11/02/16 21:00; Start 11/02/16 at 21:00 Chlorhexidine Gluconate (Chlorhexidine 2% Cloth) Taper DAILY@04 TOP Last administered on 11/06/16 04:00; Start 11/03/16 at 04:00; Stop 10/30/17 at 03:59 Chlorhexidine Gluconate (Chlorhexidine 2% Cloth) 3 pack UNSCH PRN TOP HYGIENIC CARE; Start 11/02/16 at 21:00 Senna/Docusate Sodium ([place]akeisha-Colace) 1 tab BID PO Last administered on 20:48; Start 11/02/16 at 21:00; Stop 11/07/16 at 12:04; Status DC Magnesium Hydroxide (Milk Of Magnesia Liq) 30 ml Q12H PRN PO MILD - MODERATE CONSTIPATION; Start 11/02/16 at 21:00 Sennosides (Senokot) 17.2 mg Q12H PRN PO MODERATE - SEVERE CONSTIPATION Last administered on 11/09/16 23:14; Start 11/02/16 at 21:00 Bisacodyl (Dulcolax Supp) 10 mg DAILY PRN RECTAL SEVERE CONSITIPATION; Start at 21:00 Lactulose (Lactulose Liq) 30 ml DAILY PRN PO SEVERE CONSITIPATION; Start at 21:00 Hydrocortisone Sodium Succinate 50 mg 50 mg Q6HR IV PUSH Last administered on 06:13; Start 11/02/16 at 21:00; Stop 11/05/16 at 11:37; Status DC Potassium Chloride 100 ml @ 50 mls/hr Q2H PRN IV For Potassium 2.8 - 3.2 mEq/L ; Start 11/02/16 at 21:00; Stop 11/07/16 at 13:55; Status DC Potassium Chloride (KCl 20 Meq Premix Inj) 100 ml @ 50 mls/hr Q2H PRN IV For Potassium 2.8 - 3.2 mEq/L Last administered on 11/06/16 11:56; Start 11/02/16 at 21:00; Stop 11/07/16 at 13:55; Status DC Potassium Bicarb/ Potassium Chloride 50 meq 50 meq UNSCH PRN PO For Potassium 3.3 - 3.5 mEq/L Last administered on 11/02/16 23:55; Start 11/02/16 at 21:00; Stop 11/07/16 at 13:55; Status DC Potassium Chloride 100 ml @ 25 mls/hr UNSCH PRN IV For Potassium 3.3 - 3.5 mEq /L; Start 11/02/16 at 21:00; Stop 11/07/16 at 13:55; Status DC Potassium Chloride 100 ml @ 50 mls/hr Q2H PRN IV For Potassium 3.3 - 3.5 mEq/L ; Start 11/02/16 at 21:00; Stop 11/07/16 at 13:55; Status DC Magnesium Sulfate/ Sodium Chloride (Magnesium Sulfate Inj/NS Inj) 100 ml @ 50 mls/hr UNSCH PRN IV For Magnesium 0.9 - 1.1 mg/dL; Start 11/02/16 at 21:00; Stop 11/07/16 at 13:55; Status DC Magnesium Oxide 800 mg 800 mg UNSCH PRN PO For Magnesium 1.2 - 1.6 mg/dL; Start 11/02/16 at 21:00; Stop 11/07/16 at 13:55; Status DC Magnesium Sulfate/ Sodium Chloride (Magnesium Sulfate Inj/NS Inj) 100 ml @ 50 mls/hr UNSCH PRN IV For Magnesium 1.2 - 1.6 mg/dL; Start 11/02/16 at 21:00; Stop 11/07/16 at 13:55; Status DC Potassium Phosphate 2000 mg 2,000 mg Q4H PRN PO For Phosphorus < 2.5 mg/dL; Start 11/02/16 at 21:00; Stop 11/07/16 at 13:55; Status DC Sodium Phosphate/ Sodium Chloride (Sodium Phosphate Inj/NS 250 ml Inj) 250 ml @ 42 mls/hr UNSCH PRN IV For Phosphorus < 2.5 mg/dL; Start 11/02/16 at 21:00; Stop 11/07/16 at 13:55; Status DC Potassium Phosphate 2000 mg 2,000 mg UNSCH PRN PO/TUBE SEE LABEL COMMENTS; Start 11/02/16 at 21:00; Stop 11/07/16 at 13:55; Status DC Potassium Phosphate 30 mmol/ Sodium Chloride 260 ml @ 42 mls/hr UNSCH PRN IV SEE LABEL COMMENTS; Start 11/02/16 at 21:00; Stop 11/07/16 at 13:55; Status DC Aztreonam 1000 mg/ Sodium Chloride 100 ml @ 200 mls/hr Q8H IV Last administered on 11/05/16 06:13; Start 11/02/16 at 22:00; Stop 11/05/16 at 11:32 ; Status DC Levofloxacin/ Dextrose 100 ml @ 100 mls/hr Q24H IV Last administered on 23:32; Start 11/02/16 at 23:00; Stop 11/05/16 at 08:42; Status DC Diltiazem HCl/ Sodium Chloride (Cardizem Inj/NS Inj) 125 ml @ 0 mls/hr TITRATE IV ; Start 11/02/16 at 21:15 Heparin Sodium (Porcine) (Heparin Inj) 5,000 units Q12HR SQ Last administered on 11/10/16 08:43; Start 11/03/16 at 09:00 Dextrose (D50w (Vial) Inj) 50 ml UNSCH PRN IV HYPOGLYCEMIA-SEE COMMENTS; Start 11/03/16 at 08:30 Glucagon (Glucagon Inj) 1 mg UNSCH PRN OTHER HYPOGLYCEMIA-SEE COMMENTS; Start 11/03/16 at 08:30 Insulin Human Regular (NovoLIN R SUPPLEMENTAL SCALE) 1 Q6H SQ Last administered on 11/05/16 03:20; Start 11/03/16 at 09:00; Stop 11/06/16 at 10:23 ; Status DC Diatrizoate Meglum/ Diatrizoate Sod ( Gastroview Liq) 18 ml ONCE ONCE PO Last administered on 11/03/16 09:39; Start 11/03/16 at 09:00; Stop 11/03/16 at 09:01; Status DC Iohexol 70 ml 70 ml STK-MED ONCE IV Last administered on 11/03/16 12:25; Start 11/03/16 at 12:25; Stop 11/03/16 at 12:26; Status DC Levofloxacin/ Dextrose (Levaquin 250 Mg Premix Inj) 50 ml @ 50 mls/hr Q24H IV ; Start 11/05/16 at 23:00; Stop 11/05/16 at 23:00; Status DC Leflunomide (Arava) 20 mg DAILY PO Last administered on 11/10/16 08:44; Start 11/06/16 at 09:00 Metoprolol Tartrate 12.5 mg 12.5 mg Q12HR PO Last administered on 11/10/16 08: 44; Start 11/06/16 at 15:15; Stop 11/10/16 at 11:42; Status DC Sodium Chloride (NS 500 ml Inj) 500 ml @ 500 mls/hr BOLUS ONCE IV Last administered on 11/07/16 23:15; Start 11/07/16 at 23:15; Stop 11/08/16 at 00:14 ; Status DC Lidocaine HCl (Xylocaine-Mpf 1% Inj) 10 ml ONCE ONCE INFIL ; Start 11/09/16 at 13:00; Stop 11/09/16 at 13:01; Status DC Lidocaine HCl (Xylocaine-Mpf 2% Inj) 10 ml ONCE ONCE INFIL ; Start 11/09/16 at 13:00; Stop 11/09/16 at 13:01; Status DC Lorazepam (Ativan) 0.5 mg ONCE ONCE PO Last administered on 11/09/16 13:45; Start 11/09/16 at 13:45; Stop 11/09/16 at 13:46; Status DC Metoprolol Tartrate (Lopressor) 12.5 mg NOW ONCE PO Last administered on 00:18; Start 11/10/16 at 00:15; Stop 11/10/16 at 00:16; Status DC Miscellaneous (Pill Splitter) 1 ea UNSCH PRN OTHER SEE LABEL COMMENTS; Start at 00:15 Metoprolol Tartrate (Lopressor) 25 mg Q12HR PO ; Start 11/10/16 at 21:00 A/P Assessment and Plan SVT -Physician Obstetrician is following. -Metoprolol increased today. If patient does well on current dose of metoprolol can be discharged tomorrow. Hypotension (RESOLVED) -Most likely secondary to decreased by mouth intake. She was given IV fluids in which her blood pressure has improved. She was also initially on Van- Synephrine in which she was able to be weaned off of. There was question of adrenal insufficiency but no cortisol level was taken. Unlikely this is due to adrenal insufficiency and most likely due to poor intake. off hydrocortisone since she only was given 3 days worth and continues to do well. -Due to hypotension she was also treated empirically for infection. So far infectious workup is negative and patient was taken off antibiotics. She continues to do well off of antibiotics. -Clinically patient just looks malnourished. Malnourished -Vitamin levels were obtained and were normal. -Most likely secondary to anorexia from stress. -IMPROVED PO intake. -Dietitian following and calorie count was done. Patient is getting adequate oral intake. Recommended regular diet with milky shakes, chocolate. Pancytopenia -Most likely secondary to anorexia and poor nutrition. Improving. -Certified Performance Technologist consulted and stated patient can have bone marrow biopsy done as outpatient. Patient is cleared from a hematology standpoint. -GI was also consulted due to anemia. GI thinks this is more due to anorexia and poor nutrition. No sign of any GI bleed. Workup has been negative. Elevated TSH -TSH is 7.7. Patient is fatigued but it seems to be more due to being malnourished. -Free T4 is normal. Hx RA -continue home medication. Discharge Planning If heart rate is better controlled with changes in medication possible discharge tomorrow to SNF. d/w patient's nurse and case management. Ladonna Arthur MD Nov 10, 2016 11:57
[2016-11-10 14:02] LABS: AUTOMATED NEUTROPHIL # 2.6 TH/MM3 (1.8-7.7); BASOPHIL % 0.8 % (0.0-2.0); EOSINOPHIL # 0.2 TH/MM3 (0-0.4); EOSINOPHIL % 5.7 % (0.0-4.0); HEMATOCRIT 27.1 % (35.0-46.0); HEMO FLAGS DIFF FINAL; LYMPH % 23.6 % (9.0-44.0); MEAN CELL VOLUME 91.9 FL (80.0-100.0); MEAN CORPUSCULAR HEMOGLOBIN 30.3 PG (27.0-34.0); MEAN CORPUSCULAR HGB CONC 32.9 % (32.0-36.0); MONO % 10.7 % (0.0-8.0); NEUT % 59.2 % (16.0-70.0); PLATELET COUNT 164 TH/MM3 (150-450); RED BLOOD COUNT 2.95 MIL/MM3 (4.00-5.30); RED CELL DISTRIBUTION WIDTH 15.4 % (11.6-17.2); WHITE BLOOD COUNT 4.3 TH/MM3 (4.0-11.0)
[2016-11-11] VITALS (18 sets, daily range): BP systolic 86–102; BP diastolic 53–64; PULSE 81–125; RESP 18; TEMP 97.9–98.6; O2SAT 95–100
[2016-11-11] MEDS: CHLORHEXIDINE GLUCONATE 2 % 1 PACK (2 CLOTHS) TOP SCH (04:00)
[2016-11-11] MEDS: HEPARIN SODIUM - SQ 10,000 UNITS/ML VIAL SQ SCH (08:48)
[2016-11-11] MEDS: PANTOPRAZOLE SODIUM 40 MG VIAL IV SCH (08:48)
[2016-11-11] MEDS: LEFLUNOMIDE 20 MG TAB PO SCH (08:48)
[2016-11-11] MEDS: METOPROLOL TARTRATE 25 MG TAB PO SCH (08:49)
--- NOTE | 2016-11-11 08:53 | HHI.FF ---
Face to Face Verification Diagnosis: (1) SVT (supraventricular tachycardia) Physical Therapy Order: Evaluate and Treat I have seen patient Ashley Allen on 11/11/16. My clinical findings support the need for the requested home health care services because: Ltd mobility - disease progression Limited ability to care for self I certify that my clinical findings support that this patient is homebound because: Unsteady gait/balance Bernardo Hung MD Nov 11, 2016 08:53
[2016-11-11] MEDS ORDERED: METO25TA3 PO (09:07)
--- NOTE | 2016-11-11 09:09 | HHI.DS ---
cc: Sb Wayne MD Discharge Summary Admission Date Nov 02, 2016 at 21:02 Discharge Date: Nov 11, 2016 Admitting Diagnosis A. fib with RVR, hypotension (1) SVT (supraventricular tachycardia) ICD Code: I47.1 Diagnosis: Principal Procedures None Brief History - From Admission Per admitting physician: Large weight loss over past 12 months. 205lbs -> 86. Referred in by Family Physician, presents with chronic a-fib, now with RVR and hypotension, largely refractory to volume at first.. I started neosynephrine gtt, added diltiazem gtt to control heat rate. Covered with stress steroids. Culture and treat for sepsis - though doubtful etiology. Hemocult stool for GI source. CBC/BMP: 11/10/16 1352 11/08/16 1220 Significant Findings Laboratory Tests Test 11/08/16 11/09/16 11/09/16 11/10/16 12:20 08:08 20:24 13:52 Chloride Level 112 MEQ/L (98-107) Calcium Level 8.1 MG/DL (8.5-10.1) Red Blood Count 2.63 MIL/MM3 2.95 MIL/MM3 (4.00-5.30) (4.00-5.30) Hemoglobin 7.7 GM/DL 8.9 GM/DL (11.6-15.3) (11.6-15.3) Hematocrit 24.1 % 27.1 % (35.0-46.0) (35.0-46.0) Platelet Count 128 TH/MM3 (150-450) Monocytes (%) (Auto) 9.1 % (0.0-8.0) 10.7 % (0.0-8.0) Eosinophils (%) (Auto) 5.7 % (0.0-4.0) 5.7 % (0.0-4.0) Prealbumin 19 MG/DL (20-40) PE at Discharge Not in distress. CARDIOVASCULAR: Regular rate and rhythm without murmurs, gallops, or rubs. RESPIRATORY: Breath sounds equal bilaterally. No accessory muscle use. GASTROINTESTINAL: Abdomen soft, non-tender, nondistended. MUSCULOSKELETAL: No cyanosis, or edema. Neuro: Awake and alert. Pt update on day of discharge No overnight events, heart rate is controlled, patient is in sinus rhythm. Denies any chest pain, headache, nausea or vomiting. Hospital Course This is a 76-year-old female who presented to [facility] for weakness, weight loss , atrial fibrillation and pancytopenia. Patient was initially admitted to the intensive care unit under the deputy juvenile officer service with hypotension. Patient received pressors initially. Please refer to the notes from intensive care regarding details of patient's stay in the ICU. When patient was better, patient was transferred to regular medical surgical floor and transferred to the hospitalist service. Hypotension was thought to be secondary to hypovolemia. Patient initially received Van-Synephrine for which patient was weaned off. Patient was initially started on steroids but it did not look like patient had adrenal insufficiency hence this was discontinued. Patient also pancytopenia for which hematology was consulted. Patient also had SVT hence glass ribbon machine operator was consulted. Per cardiology, patient will continue metoprolol but dose was decreased because of hypotension. Patient was also more nor shift , vitamin levels were obtained and were normal. By mouth intake improved while patient was in the hospital. For patient's pancytopenia, likely secondary to anorexia and poor nutrition. There was also consulted but no signs of GI bleed and previous workup was negative. The plan is for bone marrow biopsy as outpatient, patient cleared by hematology for discharge to follow up with them in a week or 2. Patient will be discharged home with home health care. Pt Condition on Discharge: Good Discharge Disposition: Disch w/ Home Health Serv Discharge Time: > 30 minutes Discharge Instructions DIET: Follow Instructions for: Heart Healthy Diet Activities you can perform: Regular-No Restrictions Follow up Referrals: Oncology - 1 Week with Caro Coy MD New Medications: Metoprolol Tartrate (Metoprolol Tartrate) 25 Mg Tab 25 MG PO Q12HR SVT #60 TAB Continued Medications: Leflunomide (Leflunomide) 20 Mg Tab 20 MG PO DAILY TAB Omeprazole (Omeprazole) 40 Mg Cap 40 MG PO DAILY #30 Ref 0 CAP Tramadol (Tramadol) 50 Mg Tab 50 MG PO BID PAIN Ref 0 TAB Discontinued Medications: Metoprolol Tartrate (Lopressor) 50 Mg Tab 50 MG PO BID arrythmia #62 TAB Bernardo Hung MD Nov 11, 2016 09:09
--- NOTE | 2016-11-11 09:25 | PD.CARD.PN ---
Subjective Subjective Remarks The patient denies chest pain, shortness of breath, palpitations, GI symptoms or bleeding. Telemetry has a lot of artifact but I suspect it is atrial flutter /atrial tachycardia with 2 to one AV block and borderline rate control. Objective Medications Reviewed Vital Signs / I&O Vital Signs Date Time Temp Pulse Resp B/P Pulse Ox O2 Delivery O2 Flow Rate FiO2 11/11/16 06:00 89 11/11/16 05:00 100 11/11/16 04:00 88 11/11/16 04:00 Room Air 11/11/16 04:00 98.6 88 18 102/64 95 11/11/16 03:00 120 11/11/16 02:00 90 11/11/16 01:00 120 11/11/16 00:00 117 11/11/16 00:00 98.1 117 18 86/57 96 11/11/16 00:00 Room Air 11/10/16 23:00 110 11/10/16 22:00 97 11/10/16 21:00 142 11/10/16 20:00 Room Air 11/10/16 20:00 98.4 90 20 116/67 97 11/10/16 20:00 90 11/10/16 18:00 88 11/10/16 17:00 126 11/10/16 16:00 128 11/10/16 16:00 98.3 89 20 120/68 99 11/10/16 15:00 126 11/10/16 14:00 116 11/10/16 13:00 130 11/10/16 12:00 120 11/10/16 11:00 87 11/10/16 11:00 98.4 89 20 99/51 99 11/10/16 10:00 90 I/O 11/10/16 11/10/16 11/10/16 11/11/16 11/11/16 11/11/16 07:00 15:00 23:00 07:00 15:00 23:00 Intake Total 480 ml 600 ml 490 ml Output Total 750 ml 800 ml Balance -270 ml 600 ml -310 ml Intake Oral 480 ml 600 ml 480 ml IV Total 10 ml Output Urine Total 750 ml 800 ml # Voids 4 # Bowel Movements 1 1 2 Physical Exam GENERAL: Cachectic patient in no apparent distress. SKIN: Warm and dry. NECK: JVD normal - less than or equal to 5 cm H20. CARDIOVASCULAR: Regular rate and rhythm without murmurs, gallops, or rubs. RESPIRATORY: Normal breath sounds - equal bilaterally. No accessory muscle use. No wheezes, rales or rubs. PERIPHERY: No cyanosis, or edema. Laboratory Laboratory Tests Test 11/10/16 13:52 White Blood Count 4.3 TH/MM3 Red Blood Count 2.95 MIL/MM3 Hemoglobin 8.9 GM/DL Hematocrit 27.1 % Mean Corpuscular Volume 91.9 FL Mean Corpuscular Hemoglobin 30.3 PG Mean Corpuscular Hemoglobin 32.9 % Concent Red Cell Distribution Width 15.4 % Platelet Count 164 TH/MM3 Mean Platelet Volume 9.5 FL Neutrophils (%) (Auto) 59.2 % Lymphocytes (%) (Auto) 23.6 % Monocytes (%) (Auto) 10.7 % Eosinophils (%) (Auto) 5.7 % Basophils (%) (Auto) 0.8 % Neutrophils # (Auto) 2.6 TH/MM3 Lymphocytes # (Auto) 1.0 TH/MM3 Monocytes # (Auto) 0.5 TH/MM3 Eosinophils # (Auto) 0.2 TH/MM3 Basophils # (Auto) 0.0 TH/MM3 CBC Comment DIFF FINAL Differential Comment Imaging Reviewed Assessment and Plan Assessment and Plan Problems: Probable atrial flutter/tachycardia Hypotension Malnutrition Pancytopenia Rheumatoid arthritis Recommendations: Continue present dose of beta blockers I do not think she is a candidate for full anticoagulation. I have nothing more to add. We will be available if needed and she will need to follow-up with Dr. Moreno. Elieser Younger MD Nov 11, 2016 09:25
--- NOTE | 2016-11-11 11:47 | HHI.FF ---
Face to Face Verification Diagnosis: (1) SVT (supraventricular tachycardia) Physical Therapy Order: Evaluate and Treat Home Health Nursing Order: Signs/symptoms of disease process Nursing assessment with vital signs I have seen patient Ashley Allen on 11/11/16. My clinical findings support the need for the requested home health care services because: Limited ability to care for self I certify that my clinical findings support that this patient is homebound because: Unsteady gait/balance Bernardo Hung MD Nov 11, 2016 11:47
== END 2016-11-11 16:24 | disposition home health service (06) | DRG 641 ==
LOC: NEPE 18:49 → NEDA 21:02 → HIME 23:20 → HCIS 11-06 18:46
PROVIDERS: ADMIT Surgery Surgical Critical Care; ATTEND Hospitalist
PROC: 07DR3ZX Extraction of Iliac Bone Marrow, Percutaneous Approach, Diagnostic (ICD-10-PCS; principal; 2016-11-09)
DX: E86.1 Hypovolemia (principal); D61.818 Other pancytopenia; E46 Unspecified protein-calorie malnutrition; I95.89 Other hypotension; I48.0 Paroxysmal atrial fibrillation; R63.0 Anorexia; I47.1 Supraventricular tachycardia; I48.2 Chronic atrial fibrillation; M06.9 Rheumatoid arthritis, unspecified; R53.1 Weakness; R53.83 Other fatigue; R23.4 Changes in skin texture; R94.6 Abnormal results of thyroid function studies; S90.414A Abrasion, right lesser toe(s), initial encounter; Z68.20 Body mass index [BMI] 20.0-20.9, adult; R63.4 Abnormal weight loss; S90.415A Abrasion, left lesser toe(s), initial encounter; X58.XXXA Exposure to other specified factors, initial encounter; Z88.1 Allergy status to other antibiotic agents; Z88.5 Allergy status to narcotic agent; Z88.2 Allergy status to sulfonamides
CPT/HCPCS: 71010; 71260; 74177; 76705; 80048; 80053; 82272; 82533; 82550; 82607; 82728; 82948; 83540; 83605; 83615; 83735; 84100; 84134; 84155; 84439; 84443; 84484; 85014; 85018; 85025; 85027; 85044; 85060; 85097; 85610; 85730; 87040; 87641; 88184; 88185; 88237; 88264; 88280; 88305; 88311; 88313; 93005; 94620; 96361; 96374; C9113; G0364; J1644; J1720; J1956; J2370; J2405; J3480; J7030; J7040; J7050; J7060; Q9963; Q9967

== ENCOUNTER 2017-02-23 09:31 | Inpatient (IN) | payer OTHER, MEDICARE ==
[2017-02-23] VITALS (8 sets, daily range): BP systolic 131–138; BP diastolic 63–72; PULSE 104–125; RESP 16–18; TEMP 97.8–98.9; O2SAT 91–99
[~2017-02-23] VITALS: Ht 152.4 cm; Wt 49.7 kg
[~2017-02-23 09:31] MED LIST changes: -APIX2.5T PO; -FOSA70TA PO; -METO-309 PO; +METO25TA3 PO; -MOBI15TA PO; +OMEP40CA2 PO; -PANT40TA3 PO; -PRED5TAB PO
[2017-02-23] MEDS ORDERED: SODIUM CHLOR 0.9% 1000 ML INJ 1,000 ML IV SCH (09:56)
[2017-02-23] MEDS ORDERED: ONDANSETRON HCL 4 MG/2 ML VIAL IVP ONE (10:00)
[2017-02-23] MEDS ORDERED: SODIUM CHLORIDE 0.9% FLUSH 10 ML FLUSH IV FLUSH PRN ×2 (10:00→16:00)
[2017-02-23] MEDS ORDERED: MORPHINE SULFATE 4 MG/ML INJ IV PUSH ONE (10:00)
[2017-02-23 10:34] LABS: AUTOMATED NEUTROPHIL # 3.5 TH/MM3 (1.8-7.7); BASOPHIL # 0.1 TH/MM3 (0-0.2); BASOPHIL % 1.1 % (0.0-2.0); EOSINOPHIL # 0.1 TH/MM3 (0-0.4); EOSINOPHIL % 1.3 % (0.0-4.0); HEMATOCRIT 25.1 % (35.0-46.0); HEMO FLAGS DIFF FINAL; LYMPH % 15.5 % (9.0-44.0); LYMPHOCYTE # 0.8 TH/MM3 (1.0-4.8); MEAN CELL VOLUME 92.1 FL (80.0-100.0); MEAN CORPUSCULAR HGB CONC 32.6 % (32.0-36.0); MONO % 10.6 % (0.0-8.0); NEUT % 71.5 % (16.0-70.0); PLATELET COUNT 136 TH/MM3 (150-450); RED BLOOD COUNT 2.73 MIL/MM3 (4.00-5.30); RED CELL DISTRIBUTION WIDTH 15.5 % (11.6-17.2); WHITE BLOOD COUNT 4.9 TH/MM3 (4.0-11.0)
[2017-02-23 10:40] LABS: APTT (PATIENT) 23.1 SEC (24.3-30.1); PROTHROMBIN TIME - PATIENT 11.4 SEC (9.8-11.6)
[2017-02-23 10:59] LABS: ANION GAP 8 MEQ/L (5-15); BICARBONATE 23.2 MEQ/L (21.0-32.0); BLOOD UREA NITROGEN 12 MG/DL (7-18); CHLORIDE 106 MEQ/L (98-107); GLOMERULAR FILTRATION RATE 92 ML/MIN (>89); POTASSIUM 3.7 MEQ/L (3.5-5.1); SODIUM (NA) 137 MEQ/L (136-145)
[2017-02-23] MEDS ORDERED: IOHEXOL 350 MG/ML 10 ML VIAL (for RAD DIAG) IVCONTRAST ONE (11:45)
--- NOTE | 2017-02-23 12:02 | RADRPT ---
EXAM DATE/TIME: 02/23/2017 11:28 [facility] COMPARISON: US ABDOMEN - LIVER, November 04, 2016, 15:11. CT ABDOMEN & PELVIS W CONTRAST, November 03, 2016, 12:15. INDICATIONS : Epigastric pain. IV CONTRAST: 96 cc Omnipaque 350 (iohexol) IV ORAL CONTRAST: No oral contrast ingested. RADIATION DOSE: 9.96 CTDIvol (mGy) MEDICAL HISTORY : None SURGICAL HISTORY : Hysterectomy. ENCOUNTER: Initial ACUITY: 1 day PAIN SCALE: 4/10 LOCATION: Bilateral abdominal TECHNIQUE: Volumetric scanning of the abdomen and pelvis was performed. Using automated exposure control and ad justment of the mA and/or kV according to patient size, radiation dose was kept as low as reasonably achievable to obtain optimal diagnostic quality images. DICOM format image data is available electro nically for review and comparison. FINDINGS: LOWER LUNGS: Small bilateral pleural effusions. The right is larger than the left. The effusions are larger from t he prior study. There is associated passive atelectasis. LIVER: Homogeneous density without lesion. Periportal edema noted. There is no dilation of the biliary tree . A large rim calcified gallstone is seen within a distended gallbladder. Fluid is seen surrounding t he gallbladder. There is thickening of the wall. SPLEEN: Normal size without lesion. PANCREAS: Within normal limits. KIDNEYS: Normal in size and shape. There is no mass, stone or hydronephrosis. Right renal cyst. The largest m easures 5.4 cm in diameter. ADRENAL GLANDS: Within normal limits. VASCULAR: There is no aortic aneurysm. BOWEL/MESENTERY: The stomach, small bowel, and colon demonstrate no acute abnormality. There is no free intraperitone al air. Colonic diverticulosis most pronounced within the sigmoid colon. No acute inflammation. Trace amount ascites. ABDOMINAL WALL: Within normal limits. RETROPERITONEUM: There is no lymphadenopathy. BLADDER: No wall thickening or mass. REPRODUCTIVE: Within normal limits. INGUINAL: There is no lymphadenopathy or hernia. MUSCULOSKELETAL: A degenerative lumbar spine. CONCLUSION: 1. Distended gallbladder with thickening of the wall and pericholecystic fluid with large stone. This is worrisome for acute cholecystitis. 2. Periportal edema is seen involving the liver. This can be associated with aggressive crystalloid t herapy. 3. Sigmoid diverticulosis without acute inflammation. 4. Small volume ascites. Jay Brady Jr., MD on February 23, 2017 at 11:55 Board Certified Radiologist. This report was verified electronically.
[2017-02-23 12:43] LABS: INDIRECT BILIRUBIN 0.3 MG/DL (0.0-0.8); TOTAL BILIRUBIN ADULT 0.4 MG/DL (0.2-1.0)
[2017-02-23] MEDS ORDERED: CIPROFLOXACIN 400 MG PREMIX 200 ML IV ONE (14:15)
[2017-02-23] MEDS ORDERED: metroNIDAZOLE 500 MG INJ 100 ML IV ONE (14:15)
--- NOTE | 2017-02-23 14:17 | EKG ---
Date Performed: 02/23/2017 Time Performed: 09:43:34 PTAGE: 76 years EKG: SINUS TACHYCARDIA WITH FIRST DEGREE AV BLOCK LOW QRS VOLTAGE SEPTAL MYOCARDIAL INFARCTION A BNORMAL ECG PREVIOUS TRACING : 11/08/2016 08.23 No change from previous tracing noted DOCTOR: Zoran Beckwith Interpretating Date/Time 02/23/2017 14:16:36
--- NOTE | 2017-02-23 15:53 | PD ---
HPI Chief Complaint: Abdominal Pain Time Seen by Provider: 09:45 Travel History International Travel<30 days: No Contact w/Intl Traveler<30days: No Traveled to known affect area: No History of Present Illness HPI Patient is a 76 year old female who comes in complaining of abdominal pain. She says the pain started last night and got worse today. She's had some nausea , but no vomiting. She denies fever or chills. She localizes the pain to her epigastric area. She says she has never had pain like this before. She says she had some eggs and corn beef past yesterday afternoon, this was last thing that she has eaten. She denies chest pain or shortness of breath. She denies any dysuria. She denies any pain in her back. PFSH Past Medical History Anemia: Yes Arthritis: Yes Asthma: No Autoimmune Disease: Yes (RA) Blood Disorders: No Anxiety: No Depression: No Heart Rhythm Problems: Yes (TACHYCARDIA) Cancer: No High Cholesterol: No Chest Pain: No Congestive Heart Failure: No COPD: No Cerebrovascular Accident: No Diabetes: No Diminished Hearing: No Endocrine: No GERD: Yes Glaucoma: No Headaches: No Hepatitis: No Hiatal Hernia: No Hypertension: No Immune Disorder: No Kidney Stones: No Medical other: Yes (RA) Musculoskeletal: Yes Integumentary: Yes (ATOPIC DERMATITIS) Immunizations Current: No Myocardial Infarction: No Tetanus Vaccination: < 5 Years Influenza Vaccination: Yes ?: Not Menopausal: Yes : 2 Para: 2 Past Surgical History Abdominal Surgery: No AICD: No Cardiac Surgery: No Ear Surgery: No Endocrine Surgery: No Eye Surgery: Yes (KATLIN. CATARACT EXTR., KATLIN. MAC HOLE REP.) Genitourinary Surgery: No Gynecologic Surgery: Yes (hysterectomy) Hysterectomy: Yes Oral Surgery: No Pacemaker: No Thoracic Surgery: No Other Surgery: Yes Social History Alcohol Use: No Tobacco Use: No Substance Use: No Allergies-Medications (Allergen,Severity, Reaction): Coded Allergies: Sulfa (Sulfonamide Antibiotics) (Verified Allergy, Severe, RASH, 02/23/17) cephalexin (Verified Allergy, Severe, RASH, 02/23/17) sulfamethoxazole (Verified Allergy, Severe, RASH, 02/23/17) trimethoprim (Verified Allergy, Severe, RASH, 02/23/17) codeine (Verified Adverse Reaction, Severe, NAUSEA, 02/23/17) Reported Meds & Prescriptions Reported Meds & Active Scripts Active Metoprolol Tartrate 25 Mg Tab 25 Mg PO Q12HR Reported Omeprazole 40 Mg Cap 40 Mg PO DAILY Tramadol (Tramadol HCl) 50 Mg Tab 50 Mg PO BID Leflunomide 20 Mg Tab 20 Mg PO DAILY Review of Systems Except as stated in HPI: all other systems reviewed are Neg General / Constitutional: No: Fever, Chills Eyes: No: Blurred Vision HENT: No: Headaches, Lightheadedness Cardiovascular: No: Chest Pain or Discomfort Respiratory: No: Shortness of Breath Gastrointestinal: Positive: Nausea, Abdominal Pain, No: Vomiting Genitourinary: No: Dysuria Musculoskeletal: No: Edema, Pain Skin: No Rash, No Change in Pigmentation Neurologic: No: Weakness, Dizziness Physical Exam Narrative GENERAL: Awake and alert, in no acute distress. SKIN: Focused skin assessment warm/dry. HEAD: Atraumatic. Normocephalic. EYES: Pupils equal and round. No scleral icterus. ENT: Mucous membranes pink and moist. NECK: Trachea midline. No JVD. CARDIOVASCULAR: Tachycardia. No murmur appreciated. RESPIRATORY: No accessory muscle use. Clear to auscultation. Breath sounds equal bilaterally. GASTROINTESTINAL: Abdomen soft, nondistended. Tender to palpation of the epigastric area as well as the right upper quadrant. No rebound or guarding. MUSCULOSKELETAL: No obvious deformities. No clubbing. No cyanosis. No edema. NEUROLOGICAL: Awake and alert. No obvious cranial nerve deficits. Motor grossly within normal limits. Normal speech. PSYCHIATRIC: Appropriate mood and affect; insight and judgment normal. Data Data Last Documented VS Vital Signs Date Time Temp Pulse Resp B/P (MAP) Pulse Ox O2 Delivery O2 Flow Rate FiO2 02/23/17 14:13 97.8 107 18 137/72 (93) 98 Room Air Orders Orders Basic Metabolic Panel (Bmp) (02/23/17 09:56) Complete Blood Count With Diff (02/23/17 09:56) Lipase (02/23/17 09:56) Lactic Acid (02/23/17 09:56) Prothrombin Time / Inr (Pt) (02/23/17 09:56) Act Partial Throm Time (Ptt) (02/23/17 09:56) Urinalysis - C+S If Indicated (02/23/17 09:56) Ct Abd/Pel W Iv Contrast(Rout) (02/23/17 09:56) Iv Access Insert/Monitor (02/23/17 09:56) Ecg Monitoring (02/23/17 09:56) Oximetry (02/23/17 09:56) Morphine Inj (Morphine Inj) (02/23/17 10:00) Ondansetron Inj (Zofran Inj) (02/23/17 10:00) Sodium Chlor 0.9% 1000 Ml Inj (Ns 1000 M (02/23/17 09:56) Sodium Chloride 0.9% Flush (Ns Flush) (02/23/17 10:00) Electrocardiogram (02/23/17 09:56) Troponin I (02/23/17 09:56) Iohexol 350 Inj (Omnipaque 350 Inj) (02/23/17 11:45) Hepatic Functional Panel (02/23/17 12:06) Ciprofloxacin 400 Mg Premix (Cipro 400 M (02/23/17 14:15) Metronidazole 500 Mg Inj (Flagyl 500 Mg (02/23/17 14:15) Us Abdomen Gallbladder (02/23/17 ) Admit Order (Ed Use Only) (02/23/17 ) Vital Signs (Adult) Q4H (02/23/17 14:40) Activity Oob With Assistance (02/23/17 14:40) Labs Laboratory Tests Test 02/23/17 10:00 02/23/17 10:15 White Blood Count 4.9 TH/MM3 Red Blood Count 2.73 MIL/MM3 Hemoglobin 8.2 GM/DL Hematocrit 25.1 % Mean Corpuscular Volume 92.1 FL Mean Corpuscular Hemoglobin 30.0 PG Mean Corpuscular Hemoglobin Concent 32.6 % Red Cell Distribution Width 15.5 % Platelet Count 136 TH/MM3 Mean Platelet Volume 9.7 FL Neutrophils (%) (Auto) 71.5 % Lymphocytes (%) (Auto) 15.5 % Monocytes (%) (Auto) 10.6 % Eosinophils (%) (Auto) 1.3 % Basophils (%) (Auto) 1.1 % Neutrophils # (Auto) 3.5 TH/MM3 Lymphocytes # (Auto) 0.8 TH/MM3 Monocytes # (Auto) 0.5 TH/MM3 Eosinophils # (Auto) 0.1 TH/MM3 Basophils # (Auto) 0.1 TH/MM3 CBC Comment DIFF FINAL Differential Comment Prothrombin Time 11.4 SEC Prothromb Time International Ratio 1.0 RATIO Activated Partial Thromboplast Time 23.1 SEC Blood Urea Nitrogen 12 MG/DL Creatinine 0.63 MG/DL Random Glucose 113 MG/DL Calcium Level 8.6 MG/DL Sodium Level 137 MEQ/L Potassium Level 3.7 MEQ/L Chloride Level 106 MEQ/L Carbon Dioxide Level 23.2 MEQ/L Anion Gap 8 MEQ/L Estimat Glomerular Filtration Rate 92 ML/MIN Total Bilirubin 0.4 MG/DL Direct Bilirubin 0.1 MG/DL Indirect Bilirubin 0.3 MG/DL Aspartate Amino Transf (AST/SGOT) 20 U/L Alanine Aminotransferase (ALT/SGPT) 14 U/L Alkaline Phosphatase 93 U/L Troponin I LESS THAN 0.02 NG/ML Total Protein 6.1 GM/DL Albumin 2.8 GM/DL Lipase 56 U/L Lactic Acid Level 1.3 mmol/L MDM Medical Decision Making Medical Screen Exam Complete: Yes Emergency Medical Condition: Yes Medical Record Reviewed: Yes Interpretation(s) ECG shows atrial flutter with RVR 111. Differential Diagnosis Gastritis versus pancreatitis versus ACS versus cholecystitis versus cholelithiasis Narrative Course Patient is a 76-year-old female who comes in complaining of abdominal pain. Exam shows tenderness to the right upper quadrant epigastric area. IV established, labs sent. Labs show hemoglobin of 8.2, which is around her baseline from when she has been here before. CT abdomen and pelvis performed shows possible cholecystitis. Last 24 hours Impressions Abdomen/Pelvis CT 02/23/17 0956 Signed Impressions: Service Date/Time: Thursday, February 23, 2017 11:28 - CONCLUSION: 1. Distended gallbladder with thickening of the wall and pericholecystic fluid with large stone. This is worrisome for acute cholecystitis. 2. Periportal edema is seen involving the liver. This can be associated with aggressive crystalloid therapy. 3. Sigmoid diverticulosis without acute inflammation. 4. Small volume ascites. Jay Brady Jr., MD Patient given morphine for pain. Given IV fluids. Given Zofran. Given Cipro and Flagyl. I spoke with Dr. Weber of surgery who will consult on the patient. Patient will be admitted to medicine for further management. Diagnosis Primary Impression: Cholecystitis Additional Impression: Anemia Qualified Codes: D64.9 - Anemia, unspecified Admitting Information Admitting Physician Requests: Admit Condition: Stable Luly Lovell MD Feb 23, 2017 15:53
[2017-02-23] MEDS ORDERED: ACETAMINOPHEN 325 MG TAB PO PRN (16:00)
[2017-02-23] MEDS ORDERED: MAGNESIUM HYDROXIDE SUSP 30 ML CUP PO PRN (16:00)
[2017-02-23] MEDS ORDERED: LACTULOSE SYRUP 20 GM/30 ML CUP PO PRN (16:00)
[2017-02-23] MEDS ORDERED: ONDANSETRON HCL 4 MG/2 ML VIAL IVP PRN (16:00)
[2017-02-23] MEDS ORDERED: BISACODYL 10 MG SUPP RECTAL PRN (16:00)
[2017-02-23] MEDS ORDERED: SENNOSIDES 8.6 MG TAB PO PRN (16:00)
[2017-02-23] MEDS ORDERED: NALOXONE HCL 0.4 MG/ML AMP IV PUSH PRN (16:00)
--- NOTE | 2017-02-23 16:35 | HHI.HP ---
[facility] Service [facility] Hospitalists Primary Care Physician Sb Wayne MD Admission Diagnosis cholecystitis Diagnoses: Chief Complaint: Abdominal pain Travel History International Travel<30 Days: No Contact w/Intl Traveler <30 Da: No Traveled to Known Affected Are: No History of Present Illness This is a 76-year-old female with past medical history of atrial fibrillation not on chronic anti-correlation who presents to [facility] complaining of abdominal pain. The patient states that the abdominal pain started last night, suddenly was localized in the epigastric region. The patient states that the pain progressively got worst associated with nausea but no vomiting. The patient states that she had eaten some eggs and call me if prior to the pain starting. The patient denies any aggravating or elevating factors. The patient described the pain as constant, located in the epigastric region. The patient otherwise denies any chest pain, short of breath, area, dysuria, fevers or chills. Review of Systems As per history of present illness, other systems reviewed by me and negative Past Family Social History Past Medical History Rheumatoid arthritis Atrial fibrillation not on anticoagulation. Past Surgical History Hysterectomy Reported Medications Reported Meds & Active Scripts Active Metoprolol Tartrate 25 Mg Tab 25 Mg PO Q12HR Reported Omeprazole 40 Mg Cap 40 Mg PO DAILY Tramadol (Tramadol HCl) 50 Mg Tab 50 Mg PO BID Leflunomide 20 Mg Tab 20 Mg PO DAILY Allergies: Coded Allergies: Sulfa (Sulfonamide Antibiotics) (Verified Allergy, Severe, RASH, 02/23/17) cephalexin (Verified Allergy, Severe, RASH, 02/23/17) sulfamethoxazole (Verified Allergy, Severe, RASH, 02/23/17) trimethoprim (Verified Allergy, Severe, RASH, 02/23/17) codeine (Verified Adverse Reaction, Severe, NAUSEA, 02/23/17) Active Ordered Medications Current Medications Medications (Trade) Dose Ordered Sig/Baljinder Route Start Time Stop Time Status Last Admin (NS Flush) 2 ml UNSCH PRN IV FLUSH 02/23/17 16:00 (NS Flush) 2 ml BID IV FLUSH 02/23/17 21:00 (Tylenol) 650 mg Q4H PRN PO 02/23/17 16:00 (Zofran Inj) 4 mg Q6H PRN IVP 02/23/17 16:00 (Heparin Inj) 5,000 units Q8H SQ 02/23/17 18:00 02/23/17 17:35 (Narcan Inj) 0.4 mg UNSCH PRN IV PUSH 02/23/17 16:00 (Lakeisha-Colace) 1 tab BID PO 02/23/17 21:00 (Milk Of Magnesia Liq) 30 ml Q12H PRN PO 02/23/17 16:00 (Senokot) 17.2 mg Q12H PRN PO 02/23/17 16:00 (Dulcolax Supp) 10 mg DAILY PRN RECTAL 02/23/17 16:00 (Lactulose Liq) 30 ml DAILY PRN PO 02/23/17 16:00 Ciprofloxacin/ Dextrose 200 ml @ 200 mls/hr Q12H IV 02/24/17 03:00 Metronidazole 100 ml @ 100 mls/hr Q8H IV 02/23/17 22:00 Sodium Chloride 1,000 ml @ 84 mls/hr [id number] IV 02/23/17 17:00 02/23/17 17:36 (Morphine Inj) 2 mg Q3H PRN IM 02/23/17 16:45 (Morphine Inj) 4 mg Q3H PRN IV PUSH 02/23/17 16:45 Family History Patient states her daughter has diabetes mellitus. Social History Patient denies smoking, drinking alcohol. The patient is . Physical Exam Vital Signs Vital Signs Date Time Temp Pulse Resp B/P (MAP) Pulse Ox O2 Delivery O2 Flow Rate FiO2 02/23/17 15:43 97.8 111 18 131/68 (89) 97 Room Air 02/23/17 14:13 97.8 107 18 137/72 (93) 98 Room Air 02/23/17 11:56 97.8 104 18 134/71 (92) 97 Room Air 02/23/17 10:10 17 02/23/17 10:01 17 99 Room Air 02/23/17 09:47 16 02/23/17 09:37 97.9 111 16 136/63 (87) 98 Physical Exam GENERAL: This a very thin, well-developed, elderly frail female, nonacute distress. SKIN: No rashes, ecchymoses or lesions. Cool and dry. HEAD: Atraumatic. Normocephalic. No temporal or scalp tenderness. EYES: Pupils equal round and reactive. Extraocular motions intact. No scleral icterus. No injection or drainage. ENT: Nose without bleeding, purulent drainage or septal hematoma. Throat without erythema, tonsillar hypertrophy or exudate. Uvula midline. Airway patent. NECK: Trachea midline. No JVD or lymphadenopathy. Supple, nontender, no meningeal signs. CARDIOVASCULAR: Regular rate and rhythm without murmurs, gallops, or rubs. RESPIRATORY: Clear to auscultation. Breath sounds equal bilaterally. No wheezes , rales, or rhonchi. GASTROINTESTINAL: Abdomen soft, tender to palpation of right upper quadrant, nondistended. No hepato-splenomegaly, or palpable masses. No guarding. MUSCULOSKELETAL: Extremities without clubbing, cyanosis, or edema. No joint tenderness, effusion, or edema noted. No calf tenderness. Negative Homans sign bilaterally. NEUROLOGICAL: Awake and alert. Cranial nerves II through XII intact. Motor and sensory grossly within normal limits. Five out of 5 muscle strength in all muscle groups. Normal speech. Laboratory Laboratory Tests Test 02/23/17 10:00 02/23/17 10:15 White Blood Count 4.9 Red Blood Count 2.73 Hemoglobin 8.2 Hematocrit 25.1 Mean Corpuscular Volume 92.1 Mean Corpuscular Hemoglobin 30.0 Mean Corpuscular Hemoglobin Concent 32.6 Red Cell Distribution Width 15.5 Platelet Count 136 Mean Platelet Volume 9.7 Neutrophils (%) (Auto) 71.5 Lymphocytes (%) (Auto) 15.5 Monocytes (%) (Auto) 10.6 Eosinophils (%) (Auto) 1.3 Basophils (%) (Auto) 1.1 Neutrophils # (Auto) 3.5 Lymphocytes # (Auto) 0.8 Monocytes # (Auto) 0.5 Eosinophils # (Auto) 0.1 Basophils # (Auto) 0.1 CBC Comment DIFF FINAL Differential Comment Prothrombin Time 11.4 Prothromb Time International Ratio 1.0 Activated Partial Thromboplast Time 23.1 Blood Urea Nitrogen 12 Creatinine 0.63 Random Glucose 113 Calcium Level 8.6 Sodium Level 137 Potassium Level 3.7 Chloride Level 106 Carbon Dioxide Level 23.2 Anion Gap 8 Estimat Glomerular Filtration Rate 92 Total Bilirubin 0.4 Direct Bilirubin 0.1 Indirect Bilirubin 0.3 Aspartate Amino Transf (AST/SGOT) 20 Alanine Aminotransferase (ALT/SGPT) 14 Alkaline Phosphatase 93 Troponin I LESS THAN 0.02 Total Protein 6.1 Albumin 2.8 Lipase 56 Lactic Acid Level 1.3 Result Diagram: 02/23/17 1000 02/23/17 1000 Imaging Last Impressions Abdomen/Pelvis CT 02/23/17 0956 Signed Impressions: Service Date/Time: Thursday, February 23, 2017 11:28 - CONCLUSION: 1. Distended gallbladder with thickening of the wall and pericholecystic fluid with large stone. This is worrisome for acute cholecystitis. 2. Periportal edema is seen involving the liver. This can be associated with aggressive crystalloid therapy. 3. Sigmoid diverticulosis without acute inflammation. 4. Small volume ascites. Jay Brady Jr., MD Gall Bladder Ultrasound 02/23/17 0000 Signed Impressions: Service Date/Time: Thursday, February 23, 2017 15:05 - CONCLUSION: 1. Cholelithiasis with gallbladder wall thickening with pericholecystic characteristic of acute cholecystitis. 2. A small right sided effusion is present. Gregorio Ramirez MD Caprini VTE Risk Assessment Caprini VTE Risk Assessment: Mod/High Risk (score >= 2) Caprini Risk Assessment Model Point Value = 1 Point Value = 2 Point Value = 3 Point Value = 5 Age 41-60 Minor surgery BMI > 25 kg/m2 Swollen legs Varicose veins or History of unexplained or recurrent spontaneous Oral contraceptives or hormone replacement Sepsis (< 1 month) Serious lung disease, including pneumonia (< 1 month) Abnormal pulmonary function Acute myocardial infarction Congestive heart failure (< 1 month) History of inflammatory bowel disease Medical patient at bed rest Age 61-74 Arthroscopic surgery Major open surgery (> 45 min) Laparoscopic surgery (> 45 min) Malignancy Confined to bed (> 72 hours) Immobilizing plaster cast Central venous access Age >= 75 History of VTE Family history of VTE Factor V Leiden Prothrombin [id number] Lupus anticoagulant Anticardiolipin antibodies Elevated serum homocysteine Heparin-induced thrombocytopenia Other congenital or acquired thrombophilia Stroke (< 1 month) Elective arthroplasty Hip, pelvis, or leg fracture Acute spinal cord injury (< 1 month) Prophylaxis Regimen Total Risk Factor Score Risk Level Prophylaxis Regimen 0-1 Low Early ambulation 2 Moderate Order ONE of the following: *Sequential Compression Device (SCD) *Heparin 5000 units SQ BID 3-4 Higher Order ONE of the following medications: *Heparin 5000 units SQ TID *Enoxaparin/Lovenox 40 mg SQ daily (WT < 150 kg, CrCl > 30 mL/min) *Enoxaparin/Lovenox 30 mg SQ daily (WT < 150 kg, CrCl > 10-29 mL/min) *Enoxaparin/Lovenox 30 mg SQ BID (WT < 150 kg, CrCl > 30 mL/min) AND/OR *Sequential Compression Device (SCD) 5 or more Highest Order ONE of the following medications: *Heparin 5000 units SQ TID (Preferred with Epidurals) *Enoxaparin/Lovenox 40 mg SQ daily (WT < 150 kg, CrCl > 30 mL/min) *Enoxaparin/Lovenox 30 mg SQ daily (WT < 150 kg, CrCl > 10-29 mL/min) *Enoxaparin/Lovenox 30 mg SQ BID (WT < 150 kg, CrCl > 30 mL/min) AND *Sequential Compression Device (SCD) Assessment and Plan Problem List: (1) Acute cholecystitis ICD Code: K81.0 - Acute cholecystitis (2) Abdominal pain ICD Code: R10.9 - Unspecified abdominal pain (3) Atrial fibrillation ICD Code: I48.91 - Unspecified atrial fibrillation (4) Anemia ICD Code: D64.9 - Anemia, unspecified Status: Acute Assessment and Plan 76-year-old female who presents with abdominal pain and CT of the abdomen and pelvis with signs of acute cholecystitis. Patient is hemodynamically stable, awake and alert and afebrile. Admit the patient to the medical floor, keep nothing by mouth and patient seen by surgery We'll start the patient IV fluids in the form of normal saline Continue IV ciprofloxacin and Flagyl. 1 dose of each was given in the emergency department. Pain control with IV morphine Continue beta yehuda for atrial fibrillation Continue leflunomide for rheumatoid arthritis PPI for GI prophylaxis DVT prophylaxis: We'll not start on chemoprophylaxis until the patient is seen by surgeon. If no surgery then we'll start the patient heparin subcutaneously. Patient seems to have chronic anemia with no signs of bleeding. Continue to monitor CBC. Discussed Condition With ED physician, Dr. Weber from general surgery, patient Physician Certification 2 Midnight Certification Type: Admission for Inpatient Services Order for Inpatient Services The services are ordered in accordance with Medicare regulations or non- Medicare payer requirements, as applicable. In the case of services not specified as inpatient-only, they are appropriately provided as inpatient services in accordance with the 2-midnight benchmark. Estimated LOS (days): 3 days is the estimated time the patient will need to remain in the hospital, assuming treatment plan goals are met and no additional complications. Post-Hospital Plan: Not yet determined Problem Qualifiers (1) Anemia: Qualified Codes: D64.9 - Anemia, unspecified Pantera James MD Feb 23, 2017 16:35
--- NOTE | 2017-02-23 16:37 | RADRPT ---
EXAM DATE/TIME: 02/23/2017 15:05 [facility] COMPARISON: CT ABDOMEN & PELVIS W CONTRAST, February 23, 2017, 11:28. INDICATIONS : Right upper quadrant pain. MEDICAL HISTORY : Gastroesophageal reflux disease. Rheumatoid arthritis. Glasses. Tachycardia. Arthritis. Osteoporosi s. Anemia. SURGICAL HISTORY : Hysterectomy. Bilateral cataract surgery. Left shoulder surgery. Left ankle surgery. ENCOUNTER: Subsequent ACUITY: 1 day PAIN SCORE: 2/10 LOCATION: Right upper quadrant MEASUREMENTS: LIVER: 13.0 cm length COMMON DUCT: 3 mm RIGHT KIDNEY: 11.7 x 3.7 x 4.9 cm FINDINGS: A small right sided effusion is present. There is cholelithiasis with gallbladder wall thickening and paracolic cystic fluid characteristic of acute cholecystitis. There are simple cysts on the right th e largest measuring 5 cm. The pancreas demonstrates no evidence of mass and there is no dilatation of the pancreatic duct. CONCLUSION: 1. Cholelithiasis with gallbladder wall thickening with pericholecystic characteristic of acute radha cystitis. 2. A small right sided effusion is present. Gregorio Ramirez MD on February 23, 2017 at 15:47 Board Certified Radiologist. This report was verified electronically.
[2017-02-23] MEDS ORDERED: MORPHINE SULFATE 2 MG/ML INJ IM PRN (16:45)
[2017-02-23] MEDS ORDERED: MORPHINE SULFATE 4 MG/ML INJ IV PUSH PRN (16:45)
[2017-02-23 16:48] LABS: BLOOD, URINE NEG (NEG); COMMENT (UR) CULT NOT INDICATED; CULTURE IF INDICATED CULT NOT INDICATED; GLUCOSE,URINE NEG (NEG); KETONE, URINE NEG (NEG); NITRITE,URINE NEG (NEG); PH, URINE 7.5 (5.0-8.5); URINE COLOR LIGHT-YELLOW (YELLW/STRAW)
--- NOTE | 2017-02-23 17:10 | PD.CONS ---
HPI Service General Surgery Consult Requested By Dr. Lovell Reason for Consult Acute cholecystitis Primary Care Physician Sb Wayne MD History of Present Illness 76 yo F with epigastric and RUQ abdominal pain since last night associated with nausea. She has a large gallstone seen on imaging since at least 2003. She has had significant weight loss over the last 18 mths. She also has pancytopenia with unknown etiology as far as I can tell. She was to f/u with hematology as outpatient but has not been able to yet. CT a/p today showed very thickened gallbladder wall consistent with acute cholecystitis. She was on eliquis in the past for a fib but is not now. PSH includes hysterectomy. Review of Systems Constitutional: COMPLAINS OF: Weight loss, DENIES: Fever, Chills Eyes: DENIES: Eye inflammation, Eye pain Respiratory: DENIES: Cough, Wheezing Cardiovascular: DENIES: Chest pain, Palpitations Gastrointestinal: COMPLAINS OF: Abdominal pain, Nausea Integumentary: DENIES: Pruritus, Rash Neurologic: DENIES: Localized weakness, Seizures Past Family Social History Past Medical History Anemia Atrial fib Past Surgical History Hysterectomy Reported Medications Reported Meds & Active Scripts Active Metoprolol Tartrate 25 Mg Tab 25 Mg PO Q12HR Reported Omeprazole 40 Mg Cap 40 Mg PO DAILY Tramadol (Tramadol HCl) 50 Mg Tab 50 Mg PO BID Leflunomide 20 Mg Tab 20 Mg PO DAILY Allergies: Coded Allergies: Sulfa (Sulfonamide Antibiotics) (Verified Allergy, Severe, RASH, 02/23/17) cephalexin (Verified Allergy, Severe, RASH, 02/23/17) sulfamethoxazole (Verified Allergy, Severe, RASH, 02/23/17) trimethoprim (Verified Allergy, Severe, RASH, 02/23/17) codeine (Verified Adverse Reaction, Severe, NAUSEA, 02/23/17) Active Ordered Medications Current Medications Medications (Trade) Dose Ordered Sig/Baljinder Route Start Time Stop Time Status Last Admin (NS Flush) 2 ml UNSCH PRN IV FLUSH 02/23/17 16:00 (NS Flush) 2 ml BID IV FLUSH 02/23/17 21:00 (Tylenol) 650 mg Q4H PRN PO 02/23/17 16:00 UNV (Zofran Inj) 4 mg Q6H PRN IVP 02/23/17 16:00 (Heparin Inj) 5,000 units Q8H SQ 02/23/17 16:00 UNV (Narcan Inj) 0.4 mg UNSCH PRN IV PUSH 02/23/17 16:00 (Lakeisha-Colace) 1 tab BID PO 02/23/17 21:00 (Milk Of Magnesia Liq) 30 ml Q12H PRN PO 02/23/17 16:00 (Senokot) 17.2 mg Q12H PRN PO 02/23/17 16:00 (Dulcolax Supp) 10 mg DAILY PRN RECTAL 02/23/17 16:00 (Lactulose Liq) 30 ml DAILY PRN PO 02/23/17 16:00 Ciprofloxacin/ Dextrose 200 ml @ 200 mls/hr Q12H IV 02/23/17 16:45 UNV Metronidazole 100 ml @ 100 mls/hr Q8H IV 02/23/17 16:45 UNV Sodium Chloride 1,000 ml @ 84 mls/hr [id number] IV 02/23/17 16:45 UNV (Morphine Inj) 2 mg Q3H PRN IM 02/23/17 16:45 UNV (Morphine Inj) 4 mg Q3H PRN IV PUSH 02/23/17 16:45 UNV Family History noncontributory Social History NO ETOH tobacco or drug use. Lives at home with her daughter who she helps care for. Physical Exam Vital Signs Vital Signs Date Time Temp Pulse Resp B/P (MAP) Pulse Ox O2 Delivery O2 Flow Rate FiO2 02/23/17 15:43 97.8 111 18 131/68 (89) 97 Room Air 02/23/17 14:13 97.8 107 18 137/72 (93) 98 Room Air 02/23/17 11:56 97.8 104 18 134/71 (92) 97 Room Air 02/23/17 10:10 17 02/23/17 10:01 17 99 Room Air 02/23/17 09:47 16 02/23/17 09:37 97.9 111 16 136/63 (87) 98 Physical Exam GENERAL: Awake and alert. No acute distress. Cooperative. Thin and frail. HEAD: Normocephalic. Atraumatic. NECK: Trachea midline. CHEST: Lungs clear to auscultation bilaterally with no wheezing or rhonchi. No respiratory distress. CARDIOVASCULAR: Tachycardic ABDOMEN: Scaphoid abdomen. Mild right upper quadrant and epigastric tenderness to palpation. Positive Zavala sign. EXTREMITIES: No cyanosis or edema. SKIN: Warm, dry, nonjaundiced. Laboratory Laboratory Tests Test 02/23/17 10:00 02/23/17 10:15 02/23/17 15:40 White Blood Count 4.9 Red Blood Count 2.73 Hemoglobin 8.2 Hematocrit 25.1 Mean Corpuscular Volume 92.1 Mean Corpuscular Hemoglobin 30.0 Mean Corpuscular Hemoglobin Concent 32.6 Red Cell Distribution Width 15.5 Platelet Count 136 Mean Platelet Volume 9.7 Neutrophils (%) (Auto) 71.5 Lymphocytes (%) (Auto) 15.5 Monocytes (%) (Auto) 10.6 Eosinophils (%) (Auto) 1.3 Basophils (%) (Auto) 1.1 Neutrophils # (Auto) 3.5 Lymphocytes # (Auto) 0.8 Monocytes # (Auto) 0.5 Eosinophils # (Auto) 0.1 Basophils # (Auto) 0.1 CBC Comment DIFF FINAL Differential Comment Prothrombin Time 11.4 Prothromb Time International Ratio 1.0 Activated Partial Thromboplast Time 23.1 Blood Urea Nitrogen 12 Creatinine 0.63 Random Glucose 113 Calcium Level 8.6 Sodium Level 137 Potassium Level 3.7 Chloride Level 106 Carbon Dioxide Level 23.2 Anion Gap 8 Estimat Glomerular Filtration Rate 92 Total Bilirubin 0.4 Direct Bilirubin 0.1 Indirect Bilirubin 0.3 Aspartate Amino Transf (AST/SGOT) 20 Alanine Aminotransferase (ALT/SGPT) 14 Alkaline Phosphatase 93 Troponin I LESS THAN 0.02 Total Protein 6.1 Albumin 2.8 Lipase 56 Lactic Acid Level 1.3 Urine Color LIGHT-YELLOW Urine Turbidity CLEAR Urine pH 7.5 Urine Specific Patriot 1.038 Urine Protein NEG Urine Glucose (UA) NEG Urine Ketones NEG Urine Occult Blood NEG Urine Nitrite NEG Urine Bilirubin NEG Urine Urobilinogen LESS THAN 2.0 Urine Leukocyte Esterase NEG Urine WBC 1 Microscopic Urinalysis Comment CULT NOT INDICATED Result Diagram: 02/23/17 1000 02/23/17 1000 Imaging Last Impressions Abdomen/Pelvis CT 02/23/17 0956 Signed Impressions: Service Date/Time: Thursday, February 23, 2017 11:28 - CONCLUSION: 1. Distended gallbladder with thickening of the wall and pericholecystic fluid with large stone. This is worrisome for acute cholecystitis. 2. Periportal edema is seen involving the liver. This can be associated with aggressive crystalloid therapy. 3. Sigmoid diverticulosis without acute inflammation. 4. Small volume ascites. Jay Brady Jr., MD Gall Bladder Ultrasound 02/23/17 0000 Signed Impressions: Service Date/Time: Thursday, February 23, 2017 15:05 - CONCLUSION: 1. Cholelithiasis with gallbladder wall thickening with pericholecystic characteristic of acute cholecystitis. 2. A small right sided effusion is present. Gregorio Ramirez MD Assessment and Plan Assessment and Plan 76-year-old female with acute cholecystitis. History of pancytopenia and weight loss. She is very stable with a normal white blood count. She has mild to moderate pain. I think laparoscopic cholecystectomy would be difficult with the amount of inflammation and in addition somewhat higher risk due to her frailty and apparent malnourishment. I would like to attempt treatment with IV antibiotics only for a few days and see if she will improve and can be discharged on outpatient antibiotics. If she doesn't improve by early next week we could request a cholecystostomy tube from interventional radiology. Michael Weber MD Feb 23, 2017 17:10
[2017-02-23] MEDS: HEPARIN SODIUM - SQ 10,000 UNITS/ML VIAL SQ SCH (17:35)
[2017-02-23] MEDS: SODIUM CHLOR 0.9% 1000 ML INJ 1,000 ML IV SCH (17:36)
[2017-02-23] MEDS: SODIUM CHLORIDE 0.9% FLUSH 10 ML FLUSH IV FLUSH SCH (21:00)
[2017-02-23] MEDS: DOCUSATE SODIUM 50 MG/SENNA 8.6 MG TAB PO SCH (21:27)
[2017-02-23] MEDS: METOPROLOL TARTRATE 25 MG TAB PO SCH (21:27)
[2017-02-23] MEDS: metroNIDAZOLE 500 MG INJ 100 ML IV SCH (21:29)
[2017-02-24] VITALS (8 sets, daily range): BP systolic 100–135; BP diastolic 51–75; PULSE 82–115; RESP 15–20; TEMP 97.5–100.3; O2SAT 94–96
[2017-02-24] MEDS: HEPARIN SODIUM - SQ 10,000 UNITS/ML VIAL SQ SCH ×3 (01:23→17:57)
[2017-02-24] MEDS: CIPROFLOXACIN 400 MG PREMIX 200 ML IV SCH ×2 (03:24→14:07)
[2017-02-24] MEDS: metroNIDAZOLE 500 MG INJ 100 ML IV SCH ×3 (06:21→22:12)
[2017-02-24] MEDS: SODIUM CHLOR 0.9% 1000 ML INJ 1,000 ML IV SCH ×2 (06:24→16:50)
[2017-02-24 08:21] LABS: AUTOMATED NEUTROPHIL # 4.6 TH/MM3 (1.8-7.7); BASOPHIL % 0.8 % (0.0-2.0); EOSINOPHIL % 0.2 % (0.0-4.0); HEMATOCRIT 25.3 % (35.0-46.0); HEMO FLAGS DIFF FINAL; LYMPH % 11.7 % (9.0-44.0); LYMPHOCYTE # 0.7 TH/MM3 (1.0-4.8); MEAN CELL VOLUME 91.9 FL (80.0-100.0); MEAN CORPUSCULAR HEMOGLOBIN 30.3 PG (27.0-34.0); MEAN CORPUSCULAR HGB CONC 32.9 % (32.0-36.0); MONO % 9.9 % (0.0-8.0); NEUT % 77.4 % (16.0-70.0); PLATELET COUNT 127 TH/MM3 (150-450); RED BLOOD COUNT 2.75 MIL/MM3 (4.00-5.30); RED CELL DISTRIBUTION WIDTH 15.4 % (11.6-17.2); WHITE BLOOD COUNT 5.9 TH/MM3 (4.0-11.0)
[2017-02-24 08:56] LABS: ALKALINE PHOSPHATASE 89 U/L (45-117); ALT (GPT) 13 U/L (10-53); ANION GAP 8 MEQ/L (5-15); AST (GOT) 18 U/L (15-37); BICARBONATE 22.9 MEQ/L (21.0-32.0); BLOOD UREA NITROGEN 11 MG/DL (7-18); CHLORIDE 107 MEQ/L (98-107); GLOMERULAR FILTRATION RATE 84 ML/MIN (>89); POTASSIUM 3.5 MEQ/L (3.5-5.1); SODIUM (NA) 138 MEQ/L (136-145); TOTAL BILIRUBIN ADULT 0.6 MG/DL (0.2-1.0)
[2017-02-24] MEDS: SODIUM CHLORIDE 0.9% FLUSH 10 ML FLUSH IV FLUSH SCH ×2 (09:00→21:00)
[2017-02-24] MEDS: LEFLUNOMIDE 20 MG TAB PO SCH (09:00)
[2017-02-24] MEDS: PANTOPRAZOLE SOD 40 MG DELAYED RELEASE TAB PO SCH (09:52)
[2017-02-24] MEDS: METOPROLOL TARTRATE 25 MG TAB PO SCH ×2 (09:52→21:00)
[2017-02-24] MEDS: DOCUSATE SODIUM 50 MG/SENNA 8.6 MG TAB PO SCH ×2 (09:52→21:00)
--- NOTE | 2017-02-24 11:29 | HHI.PR ---
Subjective Remarks patient states abdominal pain is much improved denies nausea or vomiting denies cp/sob low grade fever last night - tmax 100.3 Objective Vitals Vital Signs Date Time Temp Pulse Resp B/P (MAP) Pulse Ox O2 Delivery O2 Flow Rate FiO2 02/24/17 08:00 100.3 91 15 110/63 (79) 96 02/24/17 08:00 96 02/24/17 04:45 98.0 86 17 130/75 (93) 95 02/24/17 00:15 97.5 115 18 135/65 (88) 94 02/23/17 22:30 124 02/23/17 21:00 98.1 125 17 138/70 (92) 94 02/23/17 17:42 98.9 117 16 131/63 (85) 91 02/23/17 15:43 97.8 111 18 131/68 (89) 97 Room Air 02/23/17 14:13 97.8 107 18 137/72 (93) 98 Room Air 02/23/17 11:56 97.8 104 18 134/71 (92) 97 Room Air I/O 02/23/17 02/23/17 02/23/17 02/24/17 02/24/17 02/24/17 07:00 15:00 23:00 07:00 15:00 23:00 Intake Total 1000 ml 350 ml 1600 ml Balance 1000 ml 350 ml 1600 ml Intake Oral 150 ml 400 ml IV Total 1000 ml 200 ml 1200 ml # Voids 0 1 # Bowel Movements 0 0 Result Diagram: 02/24/17 0550 02/24/17 0550 Imaging Last Impressions Abdomen/Pelvis CT 02/23/17 0956 Signed Impressions: Service Date/Time: Thursday, February 23, 2017 11:28 - CONCLUSION: 1. Distended gallbladder with thickening of the wall and pericholecystic fluid with large stone. This is worrisome for acute cholecystitis. 2. Periportal edema is seen involving the liver. This can be associated with aggressive crystalloid therapy. 3. Sigmoid diverticulosis without acute inflammation. 4. Small volume ascites. Jay Brady Jr., MD Gall Bladder Ultrasound 02/23/17 0000 Signed Impressions: Service Date/Time: Thursday, February 23, 2017 15:05 - CONCLUSION: 1. Cholelithiasis with gallbladder wall thickening with pericholecystic characteristic of acute cholecystitis. 2. A small right sided effusion is present. Gregorio Ramirez MD Objective Remarks AAOx3 Clear lungs BL NAD S1S2 irrgularly irregular, no MRG abdomen soft, mildly tender to palpation of RUQ no edema in extremities Medications and IVs Current Medications Medications (Trade) Dose Ordered Sig/Baljinder Route Start Time Stop Time Status Last Admin (NS Flush) 2 ml UNSCH PRN IV FLUSH 02/23/17 16:00 (NS Flush) 2 ml BID IV FLUSH 02/23/17 21:00 02/23/17 21:00 (Tylenol) 650 mg Q4H PRN PO 02/23/17 16:00 (Zofran Inj) 4 mg Q6H PRN IVP 02/23/17 16:00 (Heparin Inj) 5,000 units Q8H SQ 02/23/17 18:00 02/24/17 09:52 (Narcan Inj) 0.4 mg UNSCH PRN IV PUSH 02/23/17 16:00 (Lakeisha-Colace) 1 tab BID PO 02/23/17 21:00 02/24/17 09:52 (Milk Of Magnesia Liq) 30 ml Q12H PRN PO 02/23/17 16:00 (Senokot) 17.2 mg Q12H PRN PO 02/23/17 16:00 (Dulcolax Supp) 10 mg DAILY PRN RECTAL 02/23/17 16:00 (Lactulose Liq) 30 ml DAILY PRN PO 02/23/17 16:00 Ciprofloxacin/ Dextrose 200 ml @ 200 mls/hr Q12H IV 02/24/17 03:00 02/24/17 03:24 Metronidazole 100 ml @ 100 mls/hr Q8H IV 02/23/17 22:00 02/24/17 06:21 Sodium Chloride 1,000 ml @ 84 mls/hr [id number] IV 02/23/17 17:00 02/24/17 06:24 (Morphine Inj) 2 mg Q3H PRN IM 02/23/17 16:45 (Morphine Inj) 4 mg Q3H PRN IV PUSH 02/23/17 16:45 (Lopressor) 25 mg Q12HR PO 02/23/17 21:00 02/24/17 09:52 (Arava) 20 mg DAILY PO 02/24/17 09:00 02/24/17 09:00 (Protonix) 40 mg DAILY PO 02/24/17 09:00 02/24/17 09:52 A/P Problem List: (1) Acute cholecystitis ICD Code: K81.0 - Acute cholecystitis Plan: The patient was admitted to the medical floor Gen. surgery consulted, appreciate recommendations Patient started on clear liquid diet since conservative management with IV antibiotics and pain control recommended. Continue IV ciprofloxacin and IV Flagyl and continue to monitor abdominal exam Times diet as per general surgery recommendations I will discontinue IV fluids. (2) Abdominal pain ICD Code: R10.9 - Unspecified abdominal pain Plan: Continue morphine as needed for pain control. (3) Atrial fibrillation ICD Code: I48.91 - Unspecified atrial fibrillation Plan: Rate is controlled. Continue metoprolol tartrate. (4) Anemia ICD Code: D64.9 - Anemia, unspecified Status: Acute Plan: Anemia seems to be chronic. Hemoglobin stable. Continue to monitor CBC. I will check iron studies and stool Hemoccult. (5) Thrombocytopenia ICD Code: D69.6 - Thrombocytopenia, unspecified Plan: Platelets are slowly trending down. 1:30 6K on admission, today 120 7K. Likely secondary and reactive to acute infection. Continue to monitor platelets. (6) Moderate protein-calorie malnutrition ICD Code: E44.0 - Moderate protein-calorie malnutrition Plan: Patient with a BMI of 19.8. And an albumin of 2.8. I will order a dietitian consultation to optimize nutrition. Assessment and Plan GI prophylaxis: Continue PPI. DVT plexus: Continue heparin subcutaneously. Discharge Planning Pending clinical improvement and general surgery clearance. Continue to monitor in the medical floor. Patient will need home health PT. Problem Qualifiers (1) Atrial fibrillation: Qualified Codes: I48.2 - Chronic atrial fibrillation (2) Anemia: Qualified Codes: D64.9 - Anemia, unspecified Pantera James MD Feb 24, 2017 11:29
--- NOTE | 2017-02-24 11:43 | HHI.PR ---
Subjective Subjective Notes She is not having pain today. She is tolerating clears. Very low grade temp 100.3 overnight. Objective Vitals/I&O Vital Signs Date Time Temp Pulse Resp B/P (MAP) Pulse Ox O2 Delivery O2 Flow Rate FiO2 02/24/17 08:00 100.3 91 15 110/63 (79) 96 02/23/17 15:43 Room [facility] Labs Laboratory Tests Test 02/23/17 15:40 02/24/17 05:50 Urine Color LIGHT-YELLOW Urine Turbidity CLEAR Urine pH 7.5 Urine Specific [place] 1.038 Urine Protein NEG Urine Glucose (UA) NEG Urine Ketones NEG Urine Occult Blood NEG Urine Nitrite NEG Urine Bilirubin NEG Urine Urobilinogen LESS THAN 2.0 Urine Leukocyte Esterase NEG Urine WBC 1 Microscopic Urinalysis Comment CULT NOT INDICATED White Blood Count 5.9 Red Blood Count 2.75 Hemoglobin 8.3 Hematocrit 25.3 Mean Corpuscular Volume 91.9 Mean Corpuscular Hemoglobin 30.3 Mean Corpuscular Hemoglobin Concent 32.9 Red Cell Distribution Width 15.4 Platelet Count 127 Mean Platelet Volume 9.9 Neutrophils (%) (Auto) 77.4 Lymphocytes (%) (Auto) 11.7 Monocytes (%) (Auto) 9.9 Eosinophils (%) (Auto) 0.2 Basophils (%) (Auto) 0.8 Neutrophils # (Auto) 4.6 Lymphocytes # (Auto) 0.7 Monocytes # (Auto) 0.6 Eosinophils # (Auto) 0.0 Basophils # (Auto) 0.0 CBC Comment DIFF FINAL Differential Comment Blood Urea Nitrogen 11 Creatinine 0.68 Random Glucose 83 Total Protein 5.3 Albumin 2.2 Calcium Level 7.5 Alkaline Phosphatase 89 Aspartate Amino Transf (AST/SGOT) 18 Alanine Aminotransferase (ALT/SGPT) 13 Total Bilirubin 0.6 Sodium Level 138 Potassium Level 3.5 Chloride Level 107 Carbon Dioxide Level 22.9 Anion Gap 8 Estimat Glomerular Filtration Rate 84 Radiology Last Impressions Abdomen/Pelvis CT 02/23/17 0956 Signed Impressions: Service Date/Time: Thursday, February 23, 2017 11:28 - CONCLUSION: 1. Distended gallbladder with thickening of the wall and pericholecystic fluid with large stone. This is worrisome for acute cholecystitis. 2. Periportal edema is seen involving the liver. This can be associated with aggressive crystalloid therapy. 3. Sigmoid diverticulosis without acute inflammation. 4. Small volume ascites. Jay Brady Jr., MD Gall Bladder Ultrasound 02/23/17 0000 Signed Impressions: Service Date/Time: Thursday, February 23, 2017 15:05 - CONCLUSION: 1. Cholelithiasis with gallbladder wall thickening with pericholecystic characteristic of acute cholecystitis. 2. A small right sided effusion is present. Gregorio Ramirez MD Narrative Exam NAD Abd: soft, nontender, nondistended A/P Assessment and Plan 76 yo F with acute cholecystitis, malnutrition Overall pain is improved. Continue IV antibiotic treatment. Advance diet. D/w Dr. Zaragoza. Michael Weber MD Feb 24, 2017 11:43
[2017-02-25] VITALS (8 sets, daily range): BP systolic 94–118; BP diastolic 46–58; PULSE 75–119; RESP 16–24; TEMP 97.6–99.5; O2SAT 94–97
[2017-02-25] MEDS: HEPARIN SODIUM - SQ 10,000 UNITS/ML VIAL SQ SCH ×3 (02:16→16:17)
[2017-02-25] MEDS: CIPROFLOXACIN 400 MG PREMIX 200 ML IV SCH (02:17)
[2017-02-25] MEDS: SODIUM CHLOR 0.9% 1000 ML INJ 1,000 ML IV SCH ×2 (02:17→13:05)
[2017-02-25] MEDS: metroNIDAZOLE 500 MG INJ 100 ML IV SCH ×2 (06:03→13:05)
[2017-02-25] MEDS: LEFLUNOMIDE 20 MG TAB PO SCH (08:14)
[2017-02-25] MEDS: METOPROLOL TARTRATE 25 MG TAB PO SCH (08:14)
[2017-02-25] MEDS: PANTOPRAZOLE SOD 40 MG DELAYED RELEASE TAB PO SCH (08:14)
[2017-02-25] MEDS: SODIUM CHLORIDE 0.9% FLUSH 10 ML FLUSH IV FLUSH SCH ×2 (08:14→20:49)
[2017-02-25] MEDS: DOCUSATE SODIUM 50 MG/SENNA 8.6 MG TAB PO SCH ×2 (08:14→20:49)
[2017-02-25 08:37] LABS: AUTOMATED NEUTROPHIL # 5.1 TH/MM3 (1.8-7.7); BASOPHIL % 0.5 % (0.0-2.0); EOSINOPHIL # 0.1 TH/MM3 (0-0.4); EOSINOPHIL % 1.3 % (0.0-4.0); HEMATOCRIT 26.3 % (35.0-46.0); HEMO FLAGS DIFF FINAL; LYMPHOCYTE # 0.8 TH/MM3 (1.0-4.8); MEAN CELL VOLUME 91.5 FL (80.0-100.0); MEAN CORPUSCULAR HEMOGLOBIN 30.4 PG (27.0-34.0); MEAN CORPUSCULAR HGB CONC 33.2 % (32.0-36.0); MONO % 9.6 % (0.0-8.0); NEUT % 76.6 % (16.0-70.0); PLATELET COUNT 155 TH/MM3 (150-450); RED BLOOD COUNT 2.87 MIL/MM3 (4.00-5.30); RED CELL DISTRIBUTION WIDTH 15.7 % (11.6-17.2); WHITE BLOOD COUNT 6.6 TH/MM3 (4.0-11.0)
[2017-02-25 08:58] LABS: ANION GAP 9 MEQ/L (5-15); AST (GOT) 10 U/L (15-37); BICARBONATE 21.4 MEQ/L (21.0-32.0); BLOOD UREA NITROGEN 9 MG/DL (7-18); CHLORIDE 109 MEQ/L (98-107); GLOMERULAR FILTRATION RATE 92 ML/MIN (>89); MAGNESIUM 1.8 MG/DL (1.5-2.5); POTASSIUM 3.1 MEQ/L (3.5-5.1); SODIUM (NA) 139 MEQ/L (136-145)
[2017-02-25 09:00] LABS: ALT (GPT) 9 U/L (10-53)
[2017-02-25 09:02] LABS: ALKALINE PHOSPHATASE 71 U/L (45-117); TOTAL BILIRUBIN ADULT 0.5 MG/DL (0.2-1.0)
--- NOTE | 2017-02-25 13:41 | HHI.PR ---
Subjective Subjective Notes She is tolerating some diet. She has less pain. BP is a little marginal. Objective Vitals/I&O Vital Signs Date Time Temp Pulse Resp B/P (MAP) Pulse Ox O2 Delivery O2 Flow Rate FiO2 02/25/17 12:00 98.7 75 18 94/46 (62) 97 02/23/17 15:43 Room Air Labs Laboratory Tests Test 02/25/17 08:18 White Blood Count 6.6 Red Blood Count 2.87 Hemoglobin 8.7 Hematocrit 26.3 Mean Corpuscular Volume 91.5 Mean Corpuscular Hemoglobin 30.4 Mean Corpuscular Hemoglobin Concent 33.2 Red Cell Distribution Width 15.7 Platelet Count 155 Mean Platelet Volume 8.9 Neutrophils (%) (Auto) 76.6 Lymphocytes (%) (Auto) 12.0 Monocytes (%) (Auto) 9.6 Eosinophils (%) (Auto) 1.3 Basophils (%) (Auto) 0.5 Neutrophils # (Auto) 5.1 Lymphocytes # (Auto) 0.8 Monocytes # (Auto) 0.6 Eosinophils # (Auto) 0.1 Basophils # (Auto) 0.0 CBC Comment DIFF FINAL Differential Comment Blood Urea Nitrogen 9 Creatinine 0.63 Random Glucose 83 Total Protein 5.1 Albumin 2.1 Calcium Level 8.0 Phosphorus Level 1.4 Magnesium Level 1.8 Alkaline Phosphatase 71 Aspartate Amino Transf (AST/SGOT) 10 Alanine Aminotransferase (ALT/SGPT) 9 Total Bilirubin 0.5 Sodium Level 139 Potassium Level 3.1 Chloride Level 109 Carbon Dioxide Level 21.4 Anion Gap 9 Estimat Glomerular Filtration Rate 92 Radiology Last Impressions Abdomen/Pelvis CT 02/23/17 0956 Signed Impressions: Service Date/Time: Thursday, February 23, 2017 11:28 - CONCLUSION: 1. Distended gallbladder with thickening of the wall and pericholecystic fluid with large stone. This is worrisome for acute cholecystitis. 2. Periportal edema is seen involving the liver. This can be associated with aggressive crystalloid therapy. 3. Sigmoid diverticulosis without acute inflammation. 4. Small volume ascites. Jay Brady Jr., MD Gall Bladder Ultrasound 02/23/17 0000 Signed Impressions: Service Date/Time: Thursday, February 23, 2017 15:05 - CONCLUSION: 1. Cholelithiasis with gallbladder wall thickening with pericholecystic characteristic of acute cholecystitis. 2. A small right sided effusion is present. Gregorio Ramirez MD Narrative Exam NAD Abd: soft, mod RUQ ttp, nondistended A/P Assessment and Plan 76 yo F with acute cholecystitis, malnutrition. She is stable. Cont low fat diet. Change antibiotics to PO. Michael Weber MD Feb 25, 2017 13:41
[2017-02-25] MEDS: metroNIDAZOLE 500 MG TAB PO SCH ×2 (14:00→20:49)
--- NOTE | 2017-02-25 15:30 | HHI.PR ---
Subjective Remarks abdominal pain is much improved patient is tolerating diet Denies nausea or vomiting denies abdominal pain afebrile but still tachycardic Objective Vitals Vital Signs Date Time Temp Pulse Resp B/P (MAP) Pulse Ox O2 Delivery O2 Flow Rate FiO2 02/25/17 12:00 98.7 75 18 94/46 (62) 97 02/25/17 10:10 110 02/25/17 08:00 98.0 119 18 113/54 (73) 96 02/25/17 05:44 98.4 108 18 101/56 (71) 94 02/25/17 00:50 16 02/25/17 00:46 99.5 110 24 98/51 (67) 95 02/24/17 21:11 99.5 82 20 100/51 (67) 95 02/24/17 21:00 113 02/24/17 16:00 97.7 101 19 108/61 (77) 96 02/24/17 15:52 114 I/O 02/24/17 02/24/17 02/24/17 02/25/17 02/25/17 02/25/17 07:00 15:00 23:00 07:00 15:00 23:00 Intake Total 1600 ml 880 ml 200 ml 400 ml 100 ml Output Total 600 ml Balance 1600 ml 880 ml -400 ml 400 ml 100 ml Intake Oral 400 ml 780 ml IV Total 1200 ml 100 ml 200 ml 400 ml 100 ml Output Urine Total 600 ml # Voids 1 3 1 1 # Bowel Movements 0 1 3 Result Diagram: 02/25/1718 02/25/1718 Objective Remarks AAOx3 Clear lungs BL NAD S1S2 irrgularly irregular, no MRG abdomen soft, mildly tender to palpation of RUQ no edema in extremities Medications and IVs Current Medications Medications (Trade) Dose Ordered Sig/Baljinder Route Start Time Stop Time Status Last Admin (NS Flush) 2 ml UNSCH PRN IV FLUSH 02/23/17 16:00 (NS Flush) 2 ml BID IV FLUSH 02/23/17 21:00 02/25/17 20:49 (Tylenol) 650 mg Q4H PRN PO 02/23/17 16:00 (Zofran Inj) 4 mg Q6H PRN IVP 02/23/17 16:00 (Heparin Inj) 5,000 units Q8H SQ 02/23/17 18:00 02/25/17 16:17 (Narcan Inj) 0.4 mg UNSCH PRN IV PUSH 02/23/17 16:00 (Lakeisha-Colace) 1 tab BID PO 02/23/17 21:00 02/25/17 20:49 (Milk Of Magnesia Liq) 30 ml Q12H PRN PO 02/23/17 16:00 (Senokot) 17.2 mg Q12H PRN PO 02/23/17 16:00 (Dulcolax Supp) 10 mg DAILY PRN RECTAL 02/23/17 16:00 (Lactulose Liq) 30 ml DAILY PRN PO 02/23/17 16:00 Sodium Chloride 1,000 ml @ 84 mls/hr [id number] IV 02/23/17 17:00 02/25/17 13:05 (Morphine Inj) 2 mg Q3H PRN IM 02/23/17 16:45 (Morphine Inj) 4 mg Q3H PRN IV PUSH 02/23/17 16:45 (Lopressor) 25 mg Q12HR PO 02/23/17 21:00 Future Hold 02/25/17 08:14 (Arava) 20 mg DAILY PO 02/24/17 09:00 02/25/17 08:14 (Protonix) 40 mg DAILY PO 02/24/17 09:00 02/25/17 08:14 (Cipro) 500 mg Q12HR PO 02/25/17 21:00 02/25/17 20:49 (Flagyl) 500 mg Q8HR PO 02/25/17 14:00 02/25/17 20:49 A/P Problem List: (1) Acute cholecystitis ICD Code: K81.0 - Acute cholecystitis Plan: The patient was admitted to the medical floor Gen. surgery consulted, appreciate recommendations Low fat diet as per general surgery IV antibiotics discontinued and changed to po per surgery (2) Abdominal pain ICD Code: R10.9 - Unspecified abdominal pain Plan: Continue morphine as needed for pain control. (3) Atrial fibrillation ICD Code: I48.91 - Unspecified atrial fibrillation Plan: Rate is controlled. Hold metoprolol tartrate due to marginal bp. (4) Anemia ICD Code: D64.9 - Anemia, unspecified Status: Acute Plan: Anemia seems to be chronic. Hemoglobin stable. Continue to monitor CBC. I will check iron studies and stool Hemoccult. (5) Thrombocytopenia ICD Code: D69.6 - Thrombocytopenia, unspecified Plan: Platelets now within normal range. Likely reactive. (6) Moderate protein-calorie malnutrition ICD Code: E44.0 - Moderate protein-calorie malnutrition Plan: Patient with a BMI of 19.8. And an albumin of 2.8. I will order a dietitian consultation to optimize nutrition. Dietitian recommended Ensure plus TID. Assessment and Plan GI prophylaxis: Continue PPI. DVT plexus: Continue heparin subcutaneously. Discharge Planning Pending clinical improvement and general surgery clearance. Continue to monitor in the medical floor. Patient will need home health PT. Problem Qualifiers (1) Atrial fibrillation: Qualified Codes: I48.2 - Chronic atrial fibrillation (2) Anemia: Qualified Codes: D64.9 - Anemia, unspecified Pantera James MD Feb 25, 2017 15:30
[2017-02-25] MEDS: CIPROFLOXACIN 500 MG TAB PO SCH (20:49)
[2017-02-25] MEDS ORDERED: POTASSIUM CHLORIDE 10 MEQ CONTROLLED RELEASE TAB PO ONE (22:00)
[2017-02-26] VITALS (8 sets, daily range): BP systolic 110–116; BP diastolic 53–64; PULSE 69–122; RESP 16–20; TEMP 97.8–100.6; O2SAT 92–98
[2017-02-26] MEDS: SODIUM CHLOR 0.9% 1000 ML INJ 1,000 ML IV SCH (01:21)
[2017-02-26] MEDS: HEPARIN SODIUM - SQ 10,000 UNITS/ML VIAL SQ SCH ×3 (01:22→17:25)
[2017-02-26] MEDS: metroNIDAZOLE 500 MG TAB PO SCH ×3 (06:36→21:18)
[2017-02-26 07:32] LABS: FERRITIN 335 NG/ML (8-252); TRANSFERRIN IRON PROFILE 106 MG/DL (200-360)
[2017-02-26] MEDS: SODIUM CHLORIDE 0.9% FLUSH 10 ML FLUSH IV FLUSH SCH ×2 (07:56→21:18)
[2017-02-26] MEDS: DOCUSATE SODIUM 50 MG/SENNA 8.6 MG TAB PO SCH ×2 (07:57→21:18)
[2017-02-26] MEDS: PANTOPRAZOLE SOD 40 MG DELAYED RELEASE TAB PO SCH (07:57)
[2017-02-26] MEDS: CIPROFLOXACIN 500 MG TAB PO SCH ×2 (07:57→21:18)
[2017-02-26] MEDS: LEFLUNOMIDE 20 MG TAB PO SCH (07:57)
--- NOTE | 2017-02-26 10:45 | HHI.PR ---
Subjective Remarks Patient states she feels sore in the RUQ and epigastric region denies cp/sob patient tolerating diet Patient still had a low grade temp of 100.6 F Objective Vitals Vital Signs Date Time Temp Pulse Resp B/P (MAP) Pulse Ox O2 Delivery O2 Flow Rate FiO2 02/26/17 08:39 110 02/26/17 08:00 98.6 112 16 115/64 (81) 95 02/26/17 05:33 100.6 110 20 115/58 (77) 92 02/26/17 02:42 111 02/26/17 01:33 98.9 122 20 116/56 (76) 92 02/25/17 21:00 97.6 109 18 103/58 (73) 96 02/25/17 16:00 98.0 106 17 118/57 (77) 97 02/25/17 12:00 98.7 75 18 94/46 (62) 97 I/O 02/25/17 02/25/17 02/25/17 02/26/17 02/26/17 02/26/17 07:00 15:00 23:00 07:00 15:00 23:00 Intake Total 400 ml 680 ml 647 ml 1192 ml Balance 400 ml 680 ml 647 ml 1192 ml Intake Oral 580 ml IV Total 400 ml 100 ml 647 ml 1192 ml # Voids 1 2 1 # Bowel Movements 1 1 Result Diagram: 02/25/17 0818 02/25/17 0818 Imaging Last Impressions Abdomen/Pelvis CT 02/23/17 0956 Signed Impressions: Service Date/Time: Thursday, February 23, 2017 11:28 - CONCLUSION: 1. Distended gallbladder with thickening of the wall and pericholecystic fluid with large stone. This is worrisome for acute cholecystitis. 2. Periportal edema is seen involving the liver. This can be associated with aggressive crystalloid therapy. 3. Sigmoid diverticulosis without acute inflammation. 4. Small volume ascites. Jay Brady Jr., MD Gall Bladder Ultrasound 02/23/17 0000 Signed Impressions: Service Date/Time: Thursday, February 23, 2017 15:05 - CONCLUSION: 1. Cholelithiasis with gallbladder wall thickening with pericholecystic characteristic of acute cholecystitis. 2. A small right sided effusion is present. Gregorio Ramirez MD Objective Remarks AAOx3 Clear lungs BL NAD S1S2 irrgularly irregular, no MRG abdomen soft, mildly tender to palpation of RUQ no edema in extremities Medications and IVs Current Medications Medications (Trade) Dose Ordered Sig/Baljinder Route Start Time Stop Time Status Last Admin (NS Flush) 2 ml UNSCH PRN IV FLUSH 02/23/17 16:00 (NS Flush) 2 ml BID IV FLUSH 02/23/17 21:00 02/25/17 20:49 (Tylenol) 650 mg Q4H PRN PO 02/23/17 16:00 (Zofran Inj) 4 mg Q6H PRN IVP 02/23/17 16:00 (Heparin Inj) 5,000 units Q8H SQ 02/23/17 18:00 02/26/17 08:00 (Narcan Inj) 0.4 mg UNSCH PRN IV PUSH 02/23/17 16:00 (Lakeisha-Colace) 1 tab BID PO 02/23/17 21:00 02/26/17 07:57 (Milk Of Magnesia Liq) 30 ml Q12H PRN PO 02/23/17 16:00 (Senokot) 17.2 mg Q12H PRN PO 02/23/17 16:00 (Dulcolax Supp) 10 mg DAILY PRN RECTAL 02/23/17 16:00 (Lactulose Liq) 30 ml DAILY PRN PO 02/23/17 16:00 Sodium Chloride 1,000 ml @ 84 mls/hr [id number] IV 02/23/17 17:00 02/26/17 01:21 (Morphine Inj) 2 mg Q3H PRN IM 02/23/17 16:45 (Morphine Inj) 4 mg Q3H PRN IV PUSH 02/23/17 16:45 (Lopressor) 25 mg Q12HR PO 02/23/17 21:00 Future Hold 02/25/17 08:14 (Arava) 20 mg DAILY PO 02/24/17 09:00 02/26/17 07:57 (Protonix) 40 mg DAILY PO 02/24/17 09:00 02/26/17 07:57 (Cipro) 500 mg Q12HR PO 02/25/17 21:00 02/26/17 07:57 (Flagyl) 500 mg Q8HR PO 02/25/17 14:00 02/26/17 06:36 Urinary Catheter: No Vascular Central Line Catheter: No A/P Problem List: (1) Acute cholecystitis ICD Code: K81.0 - Acute cholecystitis Plan: The patient was admitted to the medical floor Gen. surgery consulted, appreciate recommendations Low fat diet as per general surgery IV antibiotics discontinued and changed to po per surgery 02/26 repeat gallbladder ultrasound to see if any improvement. Fu surgery recommendations. (2) Abdominal pain ICD Code: R10.9 - Unspecified abdominal pain Plan: Continue morphine as needed for pain control. (3) Atrial fibrillation ICD Code: I48.91 - Unspecified atrial fibrillation Plan: Rate is controlled. Hold metoprolol tartrate due to marginal bp. 02/26 resume Metorpolol at a lower dose of 1.2 mg po bid. (4) Anemia ICD Code: D64.9 - Anemia, unspecified Status: Acute Plan: Anemia seems to be chronic. Hemoglobin stable. Continue to monitor CBC. 02/26 iron studies consistent with anemia of chronic disease - however ferritin is an acute phase reactant. Will check for occult blood in the stool and will start the patient on oral iron sulfate. (5) Thrombocytopenia ICD Code: D69.6 - Thrombocytopenia, unspecified Status: Resolved Plan: Platelets now within normal range. Likely reactive. (6) Moderate protein-calorie malnutrition ICD Code: E44.0 - Moderate protein-calorie malnutrition Status: Acute Plan: Patient with a BMI of 19.8. And an albumin of 2.8. I will order a dietitian consultation to optimize nutrition. Dietitian recommended Ensure plus TID. Assessment and Plan GI prophylaxis: Continue PPI. DVT plexus: Continue heparin subcutaneously. Discharge Planning Pending clinical improvement and general surgery clearance. Continue to monitor in the medical floor. Patient will need home health PT. Problem Qualifiers (1) Atrial fibrillation: Qualified Codes: I48.2 - Chronic atrial fibrillation (2) Anemia: Qualified Codes: D64.9 - Anemia, unspecified Pantera James MD Feb 26, 2017 10:44
--- NOTE | 2017-02-26 13:34 | HHI.PR ---
Subjective Subjective Notes No complaints. She is tolerating diet. Tm 100.6. Objective Vitals/I&O Vital Signs Date Time Temp Pulse Resp B/P (MAP) Pulse Ox O2 Delivery O2 Flow Rate FiO2 02/26/17 08:39 110 02/26/17 08:00 98.6 16 115/64 (81) 95 02/23/17 15:43 Room Air Labs Laboratory Tests Test 02/26/17 05:11 Iron Level 15 Total Iron Binding Capacity 148 Percent Iron Saturation 10.1 Ferritin 335 Radiology Last Impressions Abdomen/Pelvis CT 02/23/17 0956 Signed Impressions: Service Date/Time: Thursday, February 23, 2017 11:28 - CONCLUSION: 1. Distended gallbladder with thickening of the wall and pericholecystic fluid with large stone. This is worrisome for acute cholecystitis. 2. Periportal edema is seen involving the liver. This can be associated with aggressive crystalloid therapy. 3. Sigmoid diverticulosis without acute inflammation. 4. Small volume ascites. Jay Brady Jr., MD Gall Bladder Ultrasound 02/23/17 0000 Signed Impressions: Service Date/Time: Thursday, February 23, 2017 15:05 - CONCLUSION: 1. Cholelithiasis with gallbladder wall thickening with pericholecystic characteristic of acute cholecystitis. 2. A small right sided effusion is present. Gregorio Ramirez MD Narrative Exam NAD Abd: soft, mod RUQ ttp, nondistended A/P Assessment and Plan 76 yo F with acute cholecystitis, malnutrition. She is stable. Cont low fat diet. PO antibiotics. Michael Weber MD Feb 26, 2017 13:34
[2017-02-26 14:02] LABS: AUTOMATED NEUTROPHIL # 4.4 TH/MM3 (1.8-7.7); BASOPHIL # 0.1 TH/MM3 (0-0.2); EOSINOPHIL # 0.1 TH/MM3 (0-0.4); EOSINOPHIL % 1.6 % (0.0-4.0); HEMATOCRIT 25.4 % (35.0-46.0); HEMO FLAGS DIFF FINAL; LYMPH % 11.5 % (9.0-44.0); LYMPHOCYTE # 0.7 TH/MM3 (1.0-4.8); MEAN CELL VOLUME 91.7 FL (80.0-100.0); MEAN CORPUSCULAR HEMOGLOBIN 30.1 PG (27.0-34.0); MEAN CORPUSCULAR HGB CONC 32.9 % (32.0-36.0); MONO % 12.7 % (0.0-8.0); NEUT % 73.2 % (16.0-70.0); PLATELET COUNT 149 TH/MM3 (150-450); RED BLOOD COUNT 2.76 MIL/MM3 (4.00-5.30); RED CELL DISTRIBUTION WIDTH 15.9 % (11.6-17.2)
[2017-02-26 14:25] LABS: ANION GAP 8 MEQ/L (5-15); AST (GOT) 9 U/L (15-37); BLOOD UREA NITROGEN 10 MG/DL (7-18); CHLORIDE 112 MEQ/L (98-107); GLOMERULAR FILTRATION RATE 105 ML/MIN (>89); POTASSIUM 3.3 MEQ/L (3.5-5.1); SODIUM (NA) 141 MEQ/L (136-145)
[2017-02-26 14:31] LABS: ALKALINE PHOSPHATASE 59 U/L (45-117); ALT (GPT) 7 U/L (10-53); TOTAL BILIRUBIN ADULT 0.3 MG/DL (0.2-1.0)
--- NOTE | 2017-02-26 15:25 | RADRPT ---
EXAM DATE/TIME: 02/26/2017 14:28 [facility] COMPARISON: US ABDOMEN - GALLBLADDER, February 23, 2017, 15:05. INDICATIONS : Cholecystitis, right upper quadrant pain. MEDICAL HISTORY : Gastroesophageal reflux disease. Rheumatoid arthritis. Glasses. Tachycardia. Arthritis. Osteoporosis. Anemia. SURGICAL HISTORY : Hysterectomy. Bilateral cataract surgery. Left shoulder surgery. Left ankle surgery. ENCOUNTER: Subsequent ACUITY: 1 week PAIN SCORE: 3/10 LOCATION: Right upper quadrant MEASUREMENTS: LIVER: 14.1 cm length COMMON DUCT: 5 mm RIGHT KIDNEY: 10.8 x 4.9 x 5.7 cm FINDINGS: LIVER: Normal echotexture without focal lesion or ductal dilatation. COMMON DUCT: No intraluminal mass or stone visualized. A trace amount of free fluid is seen. GALLBLADDER: Considerable wall thickening of the gallbladder observed which measures 12 mm in maximum thickness. P ericholecystic fluid is seen. A solitary large stone and multiple small stones are seen within the ga llbladder which is well distended. PANCREAS: The visualized portions are within normal limits. RIGHT KIDNEY: No evidence of hydronephrosis, stone, or mass.Right renal cysts observed. The largest measures 5.8 cm . Small right effusion. CONCLUSION: 1. Findings consistent with acute cholecystitis. 2. Trace amount ascitic fluid. 3. Small right effusion. Jay Brady Jr., MD on February 26, 2017 at 15:17 Board Certified Radiologist. This report was verified electronically.
[2017-02-27] VITALS: BP 120/59; PULSE 116; RESP 18; TEMP 99.2; O2SAT 95
[2017-02-27 02:02] VITALS: PULSE 115
[2017-02-27] MEDS: HEPARIN SODIUM - SQ 10,000 UNITS/ML VIAL SQ SCH ×2 (02:09→09:22)
[2017-02-27 04:00] VITALS: BP 128/57; PULSE 117; RESP 18; TEMP 98.7; O2SAT 95
[2017-02-27] MEDS: metroNIDAZOLE 500 MG TAB PO SCH ×2 (05:16→13:13)
[2017-02-27 07:08] LABS: AUTOMATED NEUTROPHIL # 3.7 TH/MM3 (1.8-7.7); BASOPHIL % 0.4 % (0.0-2.0); EOSINOPHIL # 0.2 TH/MM3 (0-0.4); EOSINOPHIL % 3.9 % (0.0-4.0); HEMATOCRIT 24.6 % (35.0-46.0); HEMO FLAGS DIFF FINAL; LYMPHOCYTE # 0.9 TH/MM3 (1.0-4.8); MEAN CELL VOLUME 90.3 FL (80.0-100.0); MEAN CORPUSCULAR HEMOGLOBIN 30.6 PG (27.0-34.0); MEAN CORPUSCULAR HGB CONC 33.9 % (32.0-36.0); MONO % 9.8 % (0.0-8.0); NEUT % 68.9 % (16.0-70.0); PLATELET COUNT 168 TH/MM3 (150-450); RED BLOOD COUNT 2.72 MIL/MM3 (4.00-5.30); RED CELL DISTRIBUTION WIDTH 15.6 % (11.6-17.2); WHITE BLOOD COUNT 5.3 TH/MM3 (4.0-11.0)
[2017-02-27 07:42] LABS: ALT (GPT) 8 U/L (10-53); ANION GAP 10 MEQ/L (5-15); AST (GOT) 10 U/L (15-37); BICARBONATE 19.5 MEQ/L (21.0-32.0); BLOOD UREA NITROGEN 10 MG/DL (7-18); CHLORIDE 112 MEQ/L (98-107); GLOMERULAR FILTRATION RATE 103 ML/MIN (>89); MAGNESIUM 1.7 MG/DL (1.5-2.5); POTASSIUM 3.3 MEQ/L (3.5-5.1); SODIUM (NA) 141 MEQ/L (136-145)
[2017-02-27 07:45] LABS: ALKALINE PHOSPHATASE 58 U/L (45-117); TOTAL BILIRUBIN ADULT 0.4 MG/DL (0.2-1.0)
[2017-02-27 08:00] VITALS: BP 113/61; PULSE 124; PULSE 70; RESP 20; TEMP 98.3; O2SAT 95
[2017-02-27] MEDS: LEFLUNOMIDE 20 MG TAB PO SCH (09:00)
[2017-02-27] MEDS: SODIUM CHLORIDE 0.9% FLUSH 10 ML FLUSH IV FLUSH SCH (09:23)
[2017-02-27] MEDS: PANTOPRAZOLE SOD 40 MG DELAYED RELEASE TAB PO SCH (09:23)
[2017-02-27] MEDS: DOCUSATE SODIUM 50 MG/SENNA 8.6 MG TAB PO SCH (09:23)
[2017-02-27] MEDS: CIPROFLOXACIN 500 MG TAB PO SCH (09:23)
[2017-02-27] MEDS ORDERED: POTASSIUM CHLORIDE 20 MEQ CONTROLLED RELEASE TAB PO ONE (11:00)
[2017-02-27] MEDS ORDERED: METOPROLOL TARTRATE 25 MG TAB PO SCH (11:00)
--- NOTE | 2017-02-27 11:01 | HHI.PR ---
Subjective Remarks Follow-up visit acute cholecystitis, A. fib, anemia, protein calorie malnutrition. Patient seen and examined today. Patient laying in bed. Reports she is doing well. States that she is tolerating her diet without any nausea or vomiting or any abdominal pain or discomfort. Denies SOB/ dyspnea. Denies chest pain, palpitations, headaches, dizziness. Denies fevers, chills, diarrhea. Denies dysuria. Objective Vitals Vital Signs Date Time Temp Pulse Resp B/P (MAP) Pulse Ox O2 Delivery O2 Flow Rate FiO2 02/27/17 08:00 98.3 124 20 113/61 (78) 95 02/27/17 04:00 98.7 117 18 128/57 (80) 95 02/27/17 02:02 115 02/27/17 00:00 99.2 116 18 120/59 (79) 95 02/26/17 20:00 98.2 116 18 110/53 (72) 97 02/26/17 16:00 98.9 107 16 116/58 (77) 94 02/26/17 12:00 97.9 110 16 115/57 (76) 98 I/O 02/26/17 02/26/17 02/26/17 02/27/17 02/27/17 02/27/17 07:00 15:00 23:00 07:00 15:00 23:00 Intake Total 1192 ml 334 ml Balance 1192 ml 334 ml IV Total 1192 ml 334 ml # Voids 1 2 # Bowel Movements 1 Result Diagram: 02/27/17 0524 02/27/17 0524 Imaging Last Impressions Gall Bladder Ultrasound 02/26/17 0000 Signed Impressions: Service Date/Time: Sunday, February 26, 2017 14:28 - CONCLUSION: 1. Findings consistent with acute cholecystitis. 2. Trace amount ascitic fluid. 3. Small right effusion. Jay Brady Jr., MD Abdomen/Pelvis CT 02/23/17 0956 Signed Impressions: Service Date/Time: Thursday, February 23, 2017 11:28 - CONCLUSION: 1. Distended gallbladder with thickening of the wall and pericholecystic fluid with large stone. This is worrisome for acute cholecystitis. 2. Periportal edema is seen involving the liver. This can be associated with aggressive crystalloid therapy. 3. Sigmoid diverticulosis without acute inflammation. 4. Small volume ascites. Jay Brady Jr., MD Objective Remarks GENERAL: This is a thin lady appearing, well-developed patient, in no apparent distress. SKIN: Warm and dry. Bilateral lower extremity dry skin. HEENT: Normocephalic. Pupils equal round and reactive. Nose without bleeding. Airway patent. NECK: Trachea midline. Supple. CARDIOVASCULAR: Regular rate and rhythm without murmurs, gallops, or rubs. RESPIRATORY: Clear to auscultation. Breath sounds equal bilaterally. No wheezes , rales, or rhonchi. GASTROINTESTINAL: Abdomen soft, non-tender. Bowel Sounds normoactive x4. MUSCULOSKELETAL: Extremities without clubbing, cyanosis, or edema. NEUROLOGICAL: Awake and alert. Oriented to place, person. No focal neuro deficit. Moves all extremities. Normal speech. A/P Problem List: (1) Acute cholecystitis ICD Code: K81.0 - Acute cholecystitis (2) Abdominal pain ICD Code: R10.9 - Unspecified abdominal pain (3) Atrial fibrillation ICD Code: I48.91 - Unspecified atrial fibrillation (4) Anemia ICD Code: D64.9 - Anemia, unspecified Status: Acute (5) Thrombocytopenia ICD Code: D69.6 - Thrombocytopenia, unspecified Status: Resolved (6) Moderate protein-calorie malnutrition ICD Code: E44.0 - Moderate protein-calorie malnutrition Status: Acute Assessment and Plan Patient is a 76-year-old female with primary medical history of atrial fibrillation not on chronic anticoagulation who came in to the hospital for complaints of abdominal pain. Acute cholecystitis RUQ pain - CT of the abdomen and pelvis showed 1. Distended gallbladder with thickening of the wall and pericholecystic fluid with large stone. This is worrisome for acute cholecystitis. 2. Periportal edema is seen involving the liver. This can be associated with aggressive crystalloid therapy. 3. Sigmoid diverticulosis without acute inflammation. - Repeat US of the abdomen showed 1. Findings consistent with acute cholecystitis. 2. Trace amount of ascitic fluid. 3. Small right effusion. - Repeat US consistent with prior readings. - Continue with low-fat diet as recommended by general surgery - Patient is not tolerating by mouth diet without any abdominal pain or cramping. No fevers overnight - Continue with Cipro and Flagyl by mouth - Plan to DC home today if Gen. surgery will clear patient. Atrial fibrillation, chronic - Not on any anticoagulation - Metoprolol for rate control, restart at lower dose 12.5BID, hold parameters Anemia, chronic disease - Hemoglobin stable. - Iron supplement Moderate protein calorie malnutrition - Continue ensure supplementation Hypokalemia - Replacement DVT prop heparin subcutaneous GI prop pantoprazole Status with patient, charge nurse, Dr. Zaragoza Discharge Planning Plan to DC home today pending surgical clearance. Problem Qualifiers (1) Atrial fibrillation: Qualified Codes: I48.2 - Chronic atrial fibrillation (2) Anemia: Qualified Codes: D64.9 - Anemia, unspecified Juan Reyes [facility] Feb 27, 2017 11:01
[2017-02-27] MEDS ORDERED: METO25TA3 PO (11:06)
[2017-02-27] MEDS ORDERED: CIPR-9 PO (11:06)
[2017-02-27] MEDS ORDERED: METR-1 PO (11:06)
[2017-02-27 12:00] VITALS: BP 113/53; PULSE 70; RESP 20; TEMP 97.9; O2SAT 98
--- NOTE | 2017-02-27 15:07 | HHI.DS ---
Discharge Summary Admission Date Feb 23, 2017 at 16:36 Discharge Date: Feb 27, 2017 Admitting Diagnosis cholecystitis (1) Acute cholecystitis ICD Code: K81.0 - Acute cholecystitis (2) Abdominal pain ICD Code: R10.9 - Unspecified abdominal pain (3) Atrial fibrillation ICD Code: I48.91 - Unspecified atrial fibrillation (4) Anemia ICD Code: D64.9 - Anemia, unspecified Status: Acute (5) Thrombocytopenia ICD Code: D69.6 - Thrombocytopenia, unspecified Status: Resolved (6) Moderate protein-calorie malnutrition ICD Code: E44.0 - Moderate protein-calorie malnutrition Status: Acute Brief History - From Admission This is a 76-year-old female with past medical history of atrial fibrillation not on chronic anti-correlation who presents to [facility] complaining of abdominal pain. The patient states that the abdominal pain started last night, suddenly was localized in the epigastric region. The patient states that the pain progressively got worst associated with nausea but no vomiting. The patient states that she had eaten some eggs and call me if prior to the pain starting. The patient denies any aggravating or elevating factors. The patient described the pain as constant, located in the epigastric region. The patient otherwise denies any chest pain, short of breath, area, dysuria, fevers or chills. CBC/BMP: 02/27/17 0524 02/27/17 0524 Significant Findings Laboratory Tests Test 02/25/17 08:18 02/26/17 05:11 02/26/17 13:10 02/27/17 05:24 Red Blood Count 2.87 MIL/MM3 (4.00-5.30) 2.76 MIL/MM3 (4.00-5.30) 2.72 MIL/MM3 (4.00-5.30) Hemoglobin 8.7 GM/DL (11.6-15.3) 8.3 GM/DL (11.6-15.3) 8.3 GM/DL (11.6-15.3) Hematocrit 26.3 % (35.0-46.0) 25.4 % (35.0-46.0) 24.6 % (35.0-46.0) Neutrophils (%) (Auto) 76.6 % (16.0-70.0) 73.2 % (16.0-70.0) Monocytes (%) (Auto) 9.6 % (0.0-8.0) 12.7 % (0.0-8.0) 9.8 % (0.0-8.0) Lymphocytes # (Auto) 0.8 TH/MM3 (1.0-4.8) 0.7 TH/MM3 (1.0-4.8) 0.9 TH/MM3 (1.0-4.8) Total Protein 5.1 GM/DL (6.4-8.2) 4.8 GM/DL (6.4-8.2) 5.2 GM/DL (6.4-8.2) Albumin 2.1 GM/DL (3.4-5.0) 2.1 GM/DL (3.4-5.0) 2.3 GM/DL (3.4-5.0) Calcium Level 8.0 MG/DL (8.5-10.1) 7.8 MG/DL (8.5-10.1) 7.9 MG/DL (8.5-10.1) Phosphorus Level 1.4 MG/DL (2.5-4.9) 1.0 MG/DL (2.5-4.9) Aspartate Amino Transf (AST/SGOT) 10 U/L (15-37) 9 U/L (15-37) 10 U/L (15-37) Alanine Aminotransferase (ALT/SGPT) 9 U/L (10-53) 7 U/L (10-53) 8 U/L (10-53) Potassium Level 3.1 MEQ/L (3.5-5.1) 3.3 MEQ/L (3.5-5.1) 3.3 MEQ/L (3.5-5.1) Chloride Level 109 MEQ/L (98-107) 112 MEQ/L (98-107) 112 MEQ/L (98-107) Iron Level 15 MCG/DL (50-170) Total Iron Binding Capacity 148 MCG/DL (250-450) Percent Iron Saturation 10.1 % (20-50) Ferritin 335 NG/ML (8-252) Platelet Count 149 TH/MM3 (150-450) Carbon Dioxide Level 19.5 MEQ/L (21.0-32.0) Imaging Last Impressions Gall Bladder Ultrasound 02/26/17 0000 Signed Impressions: Service Date/Time: Sunday, February 26, 2017 14:28 - CONCLUSION: 1. Findings consistent with acute cholecystitis. 2. Trace amount ascitic fluid. 3. Small right effusion. Jay Brady Jr., MD Abdomen/Pelvis CT 02/23/17 0956 Signed Impressions: Service Date/Time: Thursday, February 23, 2017 11:28 - CONCLUSION: 1. Distended gallbladder with thickening of the wall and pericholecystic fluid with large stone. This is worrisome for acute cholecystitis. 2. Periportal edema is seen involving the liver. This can be associated with aggressive crystalloid therapy. 3. Sigmoid diverticulosis without acute inflammation. 4. Small volume ascites. Jay Brady Jr., MD PE at Discharge GENERAL: This is a thin lady appearing, well-developed patient, in no apparent distress. SKIN: Warm and dry. Bilateral lower extremity dry skin. HEENT: Normocephalic. Pupils equal round and reactive. Nose without bleeding. Airway patent. NECK: Trachea midline. Supple. CARDIOVASCULAR: Regular rate and rhythm without murmurs, gallops, or rubs. RESPIRATORY: Clear to auscultation. Breath sounds equal bilaterally. No wheezes , rales, or rhonchi. GASTROINTESTINAL: Abdomen soft, non-tender. Bowel Sounds normoactive x4. MUSCULOSKELETAL: Extremities without clubbing, cyanosis, or edema. NEUROLOGICAL: Awake and alert. Oriented to place, person. No focal neuro deficit. Moves all extremities. Normal speech. Pt Condition on Discharge: Good Discharge Disposition: Discharge Home Discharge Time: <= 30 minutes Discharge Instructions DIET: Follow Instructions for: Heart Healthy Diet Activities you can perform: Regular-No Restrictions Pantera James MD Feb 27, 2017 15:07
--- NOTE | 2017-02-27 16:15 | HHI.PR ---
Subjective Subjective Notes Denies abdominal pain. No fevers. Objective Vitals/I&O Vital Signs Date Time Temp Pulse Resp B/P (MAP) Pulse Ox O2 Delivery O2 Flow Rate FiO2 02/27/17 12:00 97.9 70 20 113/53 (73) 98 02/23/17 15:43 Room Air Labs Laboratory Tests Test 02/27/17 05:24 White Blood Count 5.3 Red Blood Count 2.72 Hemoglobin 8.3 Hematocrit 24.6 Mean Corpuscular Volume 90.3 Mean Corpuscular Hemoglobin 30.6 Mean Corpuscular Hemoglobin Concent 33.9 Red Cell Distribution Width 15.6 Platelet Count 168 Mean Platelet Volume 9.6 Neutrophils (%) (Auto) 68.9 Lymphocytes (%) (Auto) 17.0 Monocytes (%) (Auto) 9.8 Eosinophils (%) (Auto) 3.9 Basophils (%) (Auto) 0.4 Neutrophils # (Auto) 3.7 Lymphocytes # (Auto) 0.9 Monocytes # (Auto) 0.5 Eosinophils # (Auto) 0.2 Basophils # (Auto) 0.0 CBC Comment DIFF FINAL Differential Comment Blood Urea Nitrogen 10 Creatinine 0.57 Random Glucose 78 Total Protein 5.2 Albumin 2.3 Calcium Level 7.9 Phosphorus Level 1.0 Magnesium Level 1.7 Alkaline Phosphatase 58 Aspartate Amino Transf (AST/SGOT) 10 Alanine Aminotransferase (ALT/SGPT) 8 Total Bilirubin 0.4 Sodium Level 141 Potassium Level 3.3 Chloride Level 112 Carbon Dioxide Level 19.5 Anion Gap 10 Estimat Glomerular Filtration Rate 103 Radiology Last Impressions Abdomen/Pelvis CT 02/23/17 0956 Signed Impressions: Service Date/Time: Thursday, February 23, 2017 11:28 - CONCLUSION: 1. Distended gallbladder with thickening of the wall and pericholecystic fluid with large stone. This is worrisome for acute cholecystitis. 2. Periportal edema is seen involving the liver. This can be associated with aggressive crystalloid therapy. 3. Sigmoid diverticulosis without acute inflammation. 4. Small volume ascites. Jay Brady Jr., MD Gall Bladder Ultrasound 02/23/17 0000 Signed Impressions: Service Date/Time: Thursday, February 23, 2017 15:05 - CONCLUSION: 1. Cholelithiasis with gallbladder wall thickening with pericholecystic characteristic of acute cholecystitis. 2. A small right sided effusion is present. Gregorio Ramirez MD Narrative Exam NAD Abd: soft, mild RUQ ttp, nondistended A/P Assessment and Plan 76 yo F with acute cholecystitis, malnutrition. Clear for dc from my standpoint. Cipro/flagyl rx. F/u with me in two weeks. I advised she call if any pain, fevers, etc. Michael Weber MD Feb 27, 2017 16:15
== END 2017-02-27 16:59 | disposition home or self-care (01) | DRG 445 ==
LOC: NEPC 09:31 → NEDA 14:43 → INTOOBSV 14:43 → OBSVTOIN 16:36 → N05A 16:38
PROVIDERS: ADMIT Hospitalist; ATTEND Hospitalist
DX: K80.00 Calculus of gallbladder with acute cholecystitis without obstruction (principal); E44.0 Moderate protein-calorie malnutrition; D69.6 Thrombocytopenia, unspecified; I48.2 Chronic atrial fibrillation; R18.8 Other ascites; D63.8 Anemia in other chronic diseases classified elsewhere; E87.6 Hypokalemia; Z68.1 Body mass index [BMI] 19.9 or less, adult; K21.9 Gastro-esophageal reflux disease without esophagitis; K57.30 Diverticulosis of large intestine without perforation or abscess without bleeding; M06.9 Rheumatoid arthritis, unspecified; K82.8 Other specified diseases of gallbladder; M19.90 Unspecified osteoarthritis, unspecified site; R00.0 Tachycardia, unspecified; L20.9 Atopic dermatitis, unspecified
CPT/HCPCS: 74177; 76705; 80048; 80053; 80076; 81001; 82728; 83540; 83550; 83605; 83690; 83735; 84100; 84484; 85025; 85610; 85730; 93005; 96361; 96365; 96375; J0744; J1644; J2270; J2405; J7030; Q9967

== ENCOUNTER 2017-03-14 11:20 | Inpatient (IN) | payer OTHER, MEDICARE ==
[~2017-03-14] VITALS: Ht 154.9 cm; Wt 41.0 kg
[~2017-03-14 11:20] MED LIST changes: +CIPR-9 PO; +METR-1 PO
[2017-03-14 11:22] VITALS: BP 95/51; TEMP 98.5
[2017-03-14 11:48] VITALS: BP 105/56; PULSE 118; RESP 16; O2SAT 100
[2017-03-14] MEDS ORDERED: SODIUM CHLOR 0.9% 1000 ML INJ 1,000 ML IV SCH (12:03)
[2017-03-14] MEDS ORDERED: ONDANSETRON HCL 4 MG/2 ML VIAL IVP ONE (12:15)
[2017-03-14] MEDS ORDERED: SODIUM CHLORIDE 0.9% FLUSH 10 ML FLUSH IV FLUSH PRN ×2 (12:15→17:15)
--- NOTE | 2017-03-14 12:18 | PD ---
HPI Chief Complaint: Abdominal Pain Time Seen by Provider: 11:43 Travel History International Travel<30 days: No Contact w/Intl Traveler<30days: No Traveled to known affect area: No History of Present Illness HPI This 76-year-old woman who presents to the emergency room complaining of abdominal pain. She has a history of anemia, and A. fib, was recently admitted to the hospital for acute cholecystitis. She is here with antibiotics only given. Age and frailty, and seemed to improve significantly. She was discharged from the hospital on 02 March doing very well. She was doing well until last night when she started getting diffuse mid mid to lower abdominal pain. No nausea no vomiting. No definite fevers. No change in her stools. History Past Medical History Narrative Medical Anemia A. fib Recent cholecystitis treated medically Menopausal: Yes : 2 Para: 2 Social History Alcohol Use: No Tobacco Use: No Allergies-Medications (Allergen,Severity, Reaction): Coded Allergies: Sulfa (Sulfonamide Antibiotics) (Verified Allergy, Severe, RASH, 03/14/17) cephalexin (Verified Allergy, Severe, RASH, 03/14/17) sulfamethoxazole (Verified Allergy, Severe, RASH, 03/14/17) trimethoprim (Verified Allergy, Severe, RASH, 03/14/17) codeine (Verified Adverse Reaction, Severe, NAUSEA, 03/14/17) Reported Meds & Prescriptions Reported Meds & Active Scripts Active Metoprolol Tartrate 25 Mg Tab 12.5 Mg PO Q12HR Reported Omeprazole 40 Mg Cap 20 Mg PO DAILY Tramadol (Tramadol HCl) 50 Mg Tab 50 Mg PO BID Leflunomide 20 Mg Tab 20 Mg PO DAILY Review of Systems Except as stated in HPI: all other systems reviewed are Neg Physical Exam Narrative GENERAL: 76 year-old woman, no acute distress. Frail and thin. SKIN: Decreased skin turgor. HEAD: Atraumatic. Normocephalic. CARDIOVASCULAR: Regular rate and rhythm. No murmur appreciated. RESPIRATORY: No accessory muscle use. Clear to auscultation. Breath sounds equal bilaterally. GASTROINTESTINAL: Abdomen flat and soft. There is mild diffuse abdominal tenderness, more in the left lower quadrant. Negative Zavala's. MUSCULOSKELETAL: No obvious deformities. No edema. NEUROLOGICAL: Awake and alert. No obvious cranial nerve deficits. Motor grossly within normal limits. Normal speech. Data Data Last Documented VS Vital Signs Date Time Temp Pulse Resp B/P (MAP) Pulse Ox O2 Delivery O2 Flow Rate FiO2 03/14/17 16:53 107 16 122/59 (80) 100 Room Air 03/14/17 11:22 98.5 Orders Orders Complete Blood Count With Diff (03/14/17 12:03) Comprehensive Metabolic Panel (03/14/17 12:03) Lipase (03/14/17 12:03) Lactic Acid (03/14/17 12:03) Urinalysis - C+S If Indicated (03/14/17 12:03) Ct Abd/Pel W Iv Contrast(Rout) (03/14/17 12:03) Iv Access Insert/Monitor (03/14/17 12:03) Ecg Monitoring (03/14/17 12:03) Oximetry (03/14/17 12:03) Ondansetron Inj (Zofran Inj) (03/14/17 12:15) Sodium Chlor 0.9% 1000 Ml Inj (Ns 1000 M (03/14/17 12:03) Sodium Chloride 0.9% Flush (Ns Flush) (03/14/17 12:15) Cath For Specimen (03/14/17 13:40) Iohexol 350 Inj (Omnipaque 350 Inj) (03/14/17 15:03) Admit Order (Ed Use Only) (03/14/17 ) Vital Signs (Adult) Q4H (03/14/17 16:58) Diet Npo (03/14/17 Dinner) Activity Bed Rest (03/14/17 16:58) Notify Dr: Other (03/14/17 16:58) Labs Laboratory Tests Test 03/14/17 12:07 03/14/17 13:45 03/14/17 14:05 White Blood Count 9.3 TH/MM3 Red Blood Count 3.24 MIL/MM3 Hemoglobin 10.0 GM/DL Hematocrit 29.5 % Mean Corpuscular Volume 91.2 FL Mean Corpuscular Hemoglobin 30.8 PG Mean Corpuscular Hemoglobin Concent 33.8 % Red Cell Distribution Width 15.1 % Platelet Count 205 TH/MM3 Mean Platelet Volume 10.5 FL Neutrophils (%) (Auto) 84.0 % Lymphocytes (%) (Auto) 10.2 % Monocytes (%) (Auto) 4.8 % Eosinophils (%) (Auto) 0.5 % Basophils (%) (Auto) 0.5 % Neutrophils # (Auto) 7.8 TH/MM3 Lymphocytes # (Auto) 0.9 TH/MM3 Monocytes # (Auto) 0.4 TH/MM3 Eosinophils # (Auto) 0.0 TH/MM3 Basophils # (Auto) 0.1 TH/MM3 CBC Comment DIFF FINAL Differential Comment Lactic Acid Level 1.1 mmol/L Urine Color YELLOW Urine Turbidity CLEAR Urine pH 5.5 Urine Specific Desdemona 1.011 Urine Protein NEG mg/dL Urine Glucose (UA) NEG mg/dL Urine Ketones NEG mg/dL Urine Occult Blood NEG Urine Nitrite NEG Urine Bilirubin NEG Urine Urobilinogen LESS THAN 2.0 MG/DL Urine Leukocyte Esterase NEG Urine RBC LESS THAN 1 /hpf Microscopic Urinalysis Comment CATH-CULT NOT IND Blood Urea Nitrogen 8 MG/DL Creatinine 0.66 MG/DL Random Glucose 69 MG/DL Total Protein 6.4 GM/DL Albumin 2.4 GM/DL Calcium Level 7.7 MG/DL Alkaline Phosphatase 61 U/L Aspartate Amino Transf (AST/SGOT) 20 U/L Alanine Aminotransferase (ALT/SGPT) 10 U/L Total Bilirubin 0.7 MG/DL Sodium Level 137 MEQ/L Potassium Level 3.9 MEQ/L Chloride Level 107 MEQ/L Carbon Dioxide Level 23.4 MEQ/L Anion Gap 7 MEQ/L Estimat Glomerular Filtration Rate 87 ML/MIN Lipase 51 U/L MDM Medical Decision Making Medical Screen Exam Complete: Yes Emergency Medical Condition: Yes Interpretation(s) LABS: CBC remarkable for mild anemia. CMP is generally unremarkable. Lactate 1.1 Lipase is [address] abdomen and pelvis: Thick walled stone containing gallbladder. Clinical correlation is recommended to rule out cholecystitis. Minimal ascites and abdomen pelvis. Uncomfortable due to diverticulosis. Differential Diagnosis Diverticulitis, colitis, cholecystitis, perforation, abscess, other Narrative Course Medical decision-making INITIAL: 76-year-old woman presents emergent department with abdominal pain. She is frail. She looks overall well. She had recent cholecystitis and was treated medically. Abdominal pain and tenderness seems to be more in the lower abdomen. We'll check labs, urine, CT, reassess. : FRAIL 76-YEAR-OLD WITH ABDOMINAL PAIN, ABNORMAL APPEARING GALLBLADDER RECENT DIAGNOSIS OF CHOLECYSTITIS. SHE IS TENDER THROUGHOUT THE ABDOMEN BUT NOT FOCALLY OVER THE GALLBLADDER. DIFFICULT TO TELL THIS IS A SOURCE OF HER SYMPTOMS ARE NOT BUT SEEMS LIKELY. I SPOKE WITH DR. REED, THE SURGEON, WILL COME AND EVALUATE THE PATIENT. WE'LL READMIT THE PATIENT TO MEDICINE. I SPOKE WITH DR. BURNETT PALPABLE ADMIT THE PATIENT. Diagnosis Primary Impression: Acute cholecystitis Jerry Woodruff MD Mar 14, 2017 12:18
[2017-03-14 13:23] LABS: AUTOMATED NEUTROPHIL # 7.8 TH/MM3 (1.8-7.7); BASOPHIL # 0.1 TH/MM3 (0-0.2); BASOPHIL % 0.5 % (0.0-2.0); EOSINOPHIL % 0.5 % (0.0-4.0); HEMATOCRIT 29.5 % (35.0-46.0); LYMPH % 10.2 % (9.0-44.0); LYMPHOCYTE # 0.9 TH/MM3 (1.0-4.8); MEAN CELL VOLUME 91.2 FL (80.0-100.0); MEAN CORPUSCULAR HEMOGLOBIN 30.8 PG (27.0-34.0); MEAN CORPUSCULAR HGB CONC 33.8 % (32.0-36.0); MEAN PLATELET VOLUME 10.5 FL (7.0-11.0); MONO % 4.8 % (0.0-8.0); MONOCYTE # 0.4 TH/MM3 (0-0.9); PLATELET COUNT 205 TH/MM3 (150-450); RED BLOOD COUNT 3.24 MIL/MM3 (4.00-5.30); RED CELL DISTRIBUTION WIDTH 15.1 % (11.6-17.2); WHITE BLOOD COUNT 9.3 TH/MM3 (4.0-11.0)
[2017-03-14 13:54] LABS: ALKALINE PHOSPHATASE 61 U/L (45-117); ALT (GPT) 10 U/L (10-53); TOTAL BILIRUBIN ADULT 0.7 MG/DL (0.2-1.0); TOTAL PROTEIN 6.4 GM/DL (6.4-8.2)
[2017-03-14 14:13] VITALS: BP 104/56; PULSE 125; RESP 16; O2SAT 99
[2017-03-14 14:29] LABS: BILIRUBIN, URINE NEG (NEG); BLOOD, URINE NEG (NEG); GLUCOSE,URINE NEG (NEG); KETONE, URINE NEG (NEG); NITRITE,URINE NEG (NEG); PH, URINE 5.5 (5.0-8.5); URINE COLOR YELLOW (YELLW/STRAW); URINE LEUKOCYTE ESTERASE NEG (NEG)
[2017-03-14 14:42] LABS: ALBUMIN 2.4 GM/DL (3.4-5.0); AST (GOT) 20 U/L (15-37); BICARBONATE 23.4 MEQ/L (21.0-32.0); BLOOD UREA NITROGEN 8 MG/DL (7-18); CALCIUM 7.7 MG/DL (8.5-10.1); CHLORIDE 107 MEQ/L (98-107); CREATININE 0.66 MG/DL (0.50-1.00); GLOMERULAR FILTRATION RATE 87 ML/MIN (>89); GLUCOSE,RANDOM 69 MG/DL (74-106); LIPASE 51 U/L (73-393); SODIUM (NA) 137 MEQ/L (136-145)
[2017-03-14] MEDS ORDERED: IOHEXOL 350 MG/ML 10 ML VIAL (for RAD DIAG) IVCONTRAST ONE (15:03)
--- NOTE | 2017-03-14 16:21 | RADRPT ---
EXAM DATE/TIME: 03/14/2017 14:50 [facility] COMPARISON: CT ABDOMEN & PELVIS W CONTRAST, March 07, 2011, 22:11. CT ABDOMEN & PELVIS W CONTRAST, November 03 17, 12:15. CT ABDOMEN & PELVIS W CONTRAST, February 23, 2017, 11:28. INDICATIONS : Left upper quadrant pain since last night, treated for cholecystitis 2 weeks ago IV CONTRAST: 85 cc Omnipaque 350 (iohexol) IV ORAL CONTRAST: No oral contrast ingested. RADIATION DOSE: 6.64 CTDIvol (mGy) MEDICAL HISTORY : Rheumatoid arthritis. Cardiovascular disease SURGICAL HISTORY : None. ENCOUNTER: Initial ACUITY: 1 day PAIN SCALE: 7/10 LOCATION: Left upper quadrant TECHNIQUE: Volumetric scanning of the abdomen and pelvis was performed. Using automated exposure control and ad justment of the mA and/or kV according to patient size, radiation dose was kept as low as reasonably achievable to obtain optimal diagnostic quality images. DICOM format image data is available electro nically for review and comparison. FINDINGS: A tiny right pleural effusion is noted. The visualized lung bases are otherwise clear. Minimal asci tip is noted throughout the abdomen and pelvis. The gallbladder contains gallstones and its wall is minimally thickened. Clinical correlation is recommended to rule out acute cholecystitis. No biliar y ductal dilatation is noted. No focal hepatic mass is noted. The spleen is normal. The pancreas i s unremarkable. The adrenal glands are normal bilaterally. There are stable right renal cysts. No solid renal mass is noted. No hydronephrosis is noted. The abdominal aorta is calcified but is not aneurysmally dilated. The inferior vena cava is normal. Uncomplicated colonic diverticulosis is not ed. No acute diverticulitis is noted. The urinary bladder is unremarkable. Degenerative changes an d scoliosis of the thoracolumbar spine are noted. Moderate compression deformity is noted involving L3 of indeterminate age. There is evidence of a lytic lesion involving the left iliac crest which is indeterminate. CONCLUSION: 1. Thick-walled, stone-containing gallbladder. Clinical correlation is recommended to rule out radha cystitis. 2. Minimal ascites throughout the abdomen and pelvis. 3. Uncomplicated colonic diverticulosis. 4. Tiny right pleural effusion. 5. Stable right renal cyst. 6. Degenerative changes and scoliosis of the thoracolumbar spine. 7. Moderate compression deformity involving the L3 of indeterminate age. 8. Lytic lesion involving the left iliac crest which is indeterminate. Ezequiel Ohara MD on March 14, 2017 at 16:04 Board Certified Radiologist. This report was verified electronically.
[2017-03-14 16:53] VITALS: BP 122/59; PULSE 107; RESP 16; O2SAT 100
--- NOTE | 2017-03-14 17:07 | HHI.HP ---
HPI Service [facility] Primary Care Physician Sb Wayne MD Admission Diagnosis acute cholecystitis Diagnoses: Chief Complaint: Abdominal pain Travel History International Travel<30 Days: No Contact w/Intl Traveler <30 Da: No Traveled to Known Affected Are: No History of Present Illness 76 Y/O female with history of afib, anemia, cholelithiasis presents to the ED with abdominal pain. Patient had a recent admission for cholecystitis and was treated medically with antibiotics. She dill well after discharge until last night when she started to experience severe diffuse abdominal pain. She denies any nausea. No fevers or chills. She had a soft bowel movement last night but no diarrhea. Review of Systems Constitutional: DENIES: Fever, Chills Gastrointestinal: COMPLAINS OF: Abdominal pain, DENIES: Black stools, Nausea, Vomiting Except as stated in HPI: all other systems reviewed are Neg Past Family Social History Past Medical History a-fib anemia cholelithiasis. Past Surgical History Hysterectomy Reported Medications Reported Meds & Active Scripts Active Metoprolol Tartrate 25 Mg Tab 12.5 Mg PO Q12HR Reported Omeprazole 40 Mg Cap 20 Mg PO DAILY Tramadol (Tramadol HCl) 50 Mg Tab 50 Mg PO BID Leflunomide 20 Mg Tab 20 Mg PO DAILY Allergies: Coded Allergies: Sulfa (Sulfonamide Antibiotics) (Verified Allergy, Severe, RASH, 03/14/17) cephalexin (Verified Allergy, Severe, RASH, 03/14/17) sulfamethoxazole (Verified Allergy, Severe, RASH, 03/14/17) trimethoprim (Verified Allergy, Severe, RASH, 03/14/17) codeine (Verified Adverse Reaction, Severe, NAUSEA, 03/14/17) Family History Reviewed and is noncontributory. Social History No tobacco or alcohol use. Physical Exam Vital Signs Vital Signs Date Time Temp Pulse Resp B/P (MAP) Pulse Ox O2 Delivery O2 Flow Rate FiO2 03/14/17 16:53 107 16 122/59 (80) 100 Room Air 03/14/17 14:13 125 16 104/56 (72) 99 Room Air 03/14/17 11:48 118 16 105/56 (72) 100 Room Air 03/14/17 11:22 98.5 95/51 (66) Room Air Physical Exam GENERAL: Elderly and frail female in no acute distress SKIN: No rashes, ecchymoses or lesions. Cool and dry. HEAD: Atraumatic. Normocephalic. EYES: Pupils equal round and reactive. No injection or drainage. ENT: Nose without drainage. Uvula midline. Airway patent. NECK: Trachea midline. No JVD or lymphadenopathy. Supple, nontender, no meningeal signs. CARDIOVASCULAR: Regular rate and rhythm without murmurs, gallops, or rubs. RESPIRATORY: Clear to auscultation. Breath sounds equal bilaterally. No wheezes , rales, or rhonchi. GASTROINTESTINAL: Abdomen soft, diffusely tender to deep palpation. No Zavala signs. MUSCULOSKELETAL: Extremities without clubbing, cyanosis, or edema. No joint tenderness, effusion, or edema noted. No calf tenderness. Negative Homans sign bilaterally. NEUROLOGICAL: Awake and alert. Cranial nerves II through XII intact. Motor and sensory grossly within normal limits. Five out of 5 muscle strength in all muscle groups. Normal speech. Laboratory Laboratory Tests Test 03/14/17 12:07 03/14/17 13:45 03/14/17 14:05 White Blood Count 9.3 Red Blood Count 3.24 Hemoglobin 10.0 Hematocrit 29.5 Mean Corpuscular Volume 91.2 Mean Corpuscular Hemoglobin 30.8 Mean Corpuscular Hemoglobin Concent 33.8 Red Cell Distribution Width 15.1 Platelet Count 205 Mean Platelet Volume 10.5 Neutrophils (%) (Auto) 84.0 Lymphocytes (%) (Auto) 10.2 Monocytes (%) (Auto) 4.8 Eosinophils (%) (Auto) 0.5 Basophils (%) (Auto) 0.5 Neutrophils # (Auto) 7.8 Lymphocytes # (Auto) 0.9 Monocytes # (Auto) 0.4 Eosinophils # (Auto) 0.0 Basophils # (Auto) 0.1 CBC Comment DIFF FINAL Differential Comment Lactic Acid Level 1.1 Urine Color YELLOW Urine Turbidity CLEAR Urine pH 5.5 Urine Specific [place] 1.011 Urine Protein NEG Urine Glucose (UA) NEG Urine Ketones NEG Urine Occult Blood NEG Urine Nitrite NEG Urine Bilirubin NEG Urine Urobilinogen LESS THAN 2.0 Urine Leukocyte Esterase NEG Urine RBC LESS THAN 1 Microscopic Urinalysis Comment CATH-CULT NOT IND Blood Urea Nitrogen 8 Creatinine 0.66 Random Glucose 69 Total Protein 6.4 Albumin 2.4 Calcium Level 7.7 Alkaline Phosphatase 61 Aspartate Amino Transf (AST/SGOT) 20 Alanine Aminotransferase (ALT/SGPT) 10 Total Bilirubin 0.7 Sodium Level 137 Potassium Level 3.9 Chloride Level 107 Carbon Dioxide Level 23.4 Anion Gap 7 Estimat Glomerular Filtration Rate 87 Lipase 51 Result Diagram: 03/14/17 1207 03/14/[address] report: 1. Thick-walled, stone-containing gallbladder. Clinical correlation is recommended to rule out cholecystitis. 2. Minimal ascites throughout the abdomen and pelvis. 3. Uncomplicated colonic diverticulosis. 4. Tiny right pleural effusion. 5. Stable right renal cyst. 6. Degenerative changes and scoliosis of the thoracolumbar spine. 7. Moderate compression deformity involving the L3 of indeterminate age. 8. Lytic lesion involving the left iliac crest which is indeterminate. Caprini VTE Risk Assessment Caprini VTE Risk Assessment: Mod/High Risk (score >= 2) Caprini Risk Assessment Model Point Value = 1 Point Value = 2 Point Value = 3 Point Value = 5 Age 41-60 Minor surgery BMI > 25 kg/m2 Swollen legs Varicose veins or History of unexplained or recurrent spontaneous Oral contraceptives or hormone replacement Sepsis (< 1 month) Serious lung disease, including pneumonia (< 1 month) Abnormal pulmonary function Acute myocardial infarction Congestive heart failure (< 1 month) History of inflammatory bowel disease Medical patient at bed rest Age 61-74 Arthroscopic surgery Major open surgery (> 45 min) Laparoscopic surgery (> 45 min) Malignancy Confined to bed (> 72 hours) Immobilizing plaster cast Central venous access Age >= 75 History of VTE Family history of VTE Factor V Leiden Prothrombin [id number] Lupus anticoagulant Anticardiolipin antibodies Elevated serum homocysteine Heparin-induced thrombocytopenia Other congenital or acquired thrombophilia Stroke (< 1 month) Elective arthroplasty Hip, pelvis, or leg fracture Acute spinal cord injury (< 1 month) Prophylaxis Regimen Total Risk Factor Score Risk Level Prophylaxis Regimen 0-1 Low Early ambulation 2 Moderate Order ONE of the following: *Sequential Compression Device (SCD) *Heparin 5000 units SQ BID 3-4 Higher Order ONE of the following medications: *Heparin 5000 units SQ TID *Enoxaparin/Lovenox 40 mg SQ daily (WT < 150 kg, CrCl > 30 mL/min) *Enoxaparin/Lovenox 30 mg SQ daily (WT < 150 kg, CrCl > 10-29 mL/min) *Enoxaparin/Lovenox 30 mg SQ BID (WT < 150 kg, CrCl > 30 mL/min) AND/OR *Sequential Compression Device (SCD) 5 or more Highest Order ONE of the following medications: *Heparin 5000 units SQ TID (Preferred with Epidurals) *Enoxaparin/Lovenox 40 mg SQ daily (WT < 150 kg, CrCl > 30 mL/min) *Enoxaparin/Lovenox 30 mg SQ daily (WT < 150 kg, CrCl > 10-29 mL/min) *Enoxaparin/Lovenox 30 mg SQ BID (WT < 150 kg, CrCl > 30 mL/min) AND *Sequential Compression Device (SCD) Assessment and Plan Problem List: (1) Cholelithiasis ICD Code: K80.20 - Calculus of gallbladder without cholecystitis without obstruction (2) Abdominal pain ICD Code: R10.9 - Unspecified abdominal pain (3) Atrial fibrillation ICD Code: I48.91 - Unspecified atrial fibrillation Assessment and Plan 76 Y/O female with history of cholecystitis a couple of weeks ago treated medically returned with abdominal pain. CT scan shows gallstone. Rule out cholecystitis. Abdominal pain/cholelithiasis: - Exam not consistent with cholecystitis. No fevers, no leukocytosis - Consult General surgery for assistance - Continue with supportive care, IVF, pain control. Afib: Continue Metoprolol. Patient is not on anticoagulation. Reasons unclear. Will need to address with her if no procedures are planned. Anemia, chronic disease - Hemoglobin stable. - Continue to follow Moderate protein calorie malnutrition - Will need supplements. Discussed Condition With Dr. Woodruff Physician Certification 2 Midnight Certification Type: Admission for Inpatient Services Order for Inpatient Services The services are ordered in accordance with Medicare regulations or non- Medicare payer requirements, as applicable. In the case of services not specified as inpatient-only, they are appropriately provided as inpatient services in accordance with the 2-midnight benchmark. Estimated LOS (days): 3 days is the estimated time the patient will need to remain in the hospital, assuming treatment plan goals are met and no additional complications. Post-Hospital Plan: Not yet determined aKtelin Weinstein MD Mar 14, 2017 17:07
[2017-03-14] MEDS ORDERED: NALOXONE HCL 0.4 MG/ML AMP IV PUSH PRN (17:15)
[2017-03-14] MEDS ORDERED: ACETAMINOPHEN 325 MG TAB PO PRN (17:15)
[2017-03-14] MEDS ORDERED: SENNOSIDES 8.6 MG TAB PO PRN (17:15)
[2017-03-14] MEDS ORDERED: LACTULOSE SYRUP 20 GM/30 ML CUP PO PRN (17:15)
[2017-03-14] MEDS ORDERED: MAGNESIUM HYDROXIDE SUSP 30 ML CUP PO PRN (17:15)
[2017-03-14] MEDS ORDERED: BISACODYL 10 MG SUPP RECTAL PRN (17:15)
[2017-03-14] MEDS ORDERED: MORPHINE SULFATE 2 MG/ML INJ IV PUSH PRN (17:15)
[2017-03-14] MEDS ORDERED: ONDANSETRON HCL 4 MG/2 ML VIAL IVP PRN (17:15)
[2017-03-14] MEDS ORDERED: DEXTROSE 50% IN WATER 50 ML VIAL(D50) ONE (17:32)
[2017-03-14] MEDS ORDERED: PILL SPLITTER OTHER PRN (17:45)
[2017-03-14] MEDS: D5-1/2 NS + KCL 20 MEQ INJ 1,000 ML IV SCH (17:55)
[2017-03-14] MEDS ORDERED: DEXTROSE 50% IN WATER 50 ML VIAL(D50) IV PUSH PRN (18:00)
[2017-03-14] MEDS ORDERED: GLUCAGON 1 MG/ML VIAL OTHER PRN (18:00)
[2017-03-14 18:49] VITALS: BP 99/52; PULSE 85; RESP 18; TEMP 96.8; O2SAT 99
[2017-03-14 19:00] VITALS: BP 116/58; PULSE 81; RESP 17; TEMP 96.5; O2SAT 100
--- NOTE | 2017-03-14 21:02 | PD.CONS ---
HPI Service General surgery Consult Requested By Dr. Weinstein Reason for Consult Cholecystitis Primary Care Physician Sb Wayne MD History of Present Illness Mrs. Allen is a 76-year-old female known to me from recent admission in mid February at which time she was treated nonoperatively with antibiotics for cholecystitis. She states that she did well after discharge until she had recurrence of abdominal pain yesterday. The pain is in the bilateral mid and lower abdomen. She actually is denying right upper quadrant pain. She denies nausea vomiting diarrhea or constipation. Really her only current complaint is the pain. During the last visit she had related significant weight loss over the last 18 months. She is thin and appears to have protein calorie malnutrition which is also consistent with her albumin is 2.4. Review of Systems Constitutional: COMPLAINS OF: Weight loss, DENIES: Fever, Chills Eyes: DENIES: Eye inflammation, Eye pain Respiratory: DENIES: Cough, Shortness of breath Cardiovascular: DENIES: Chest pain, Palpitations Gastrointestinal: COMPLAINS OF: Abdominal pain, DENIES: Diarrhea, Nausea, Vomiting Neurologic: DENIES: Paresthesias, Seizures Past Family Social History Past Medical History Anemia Atrial fibrillation Past Surgical History Hysterectomy Reported Medications Reported Meds & Active Scripts Active Metoprolol Tartrate 25 Mg Tab 12.5 Mg PO Q12HR Reported Omeprazole 40 Mg Cap 20 Mg PO DAILY Tramadol (Tramadol HCl) 50 Mg Tab 50 Mg PO BID Leflunomide 20 Mg Tab 20 Mg PO DAILY Allergies: Coded Allergies: Sulfa (Sulfonamide Antibiotics) (Verified Allergy, Severe, RASH, 03/14/17) cephalexin (Verified Allergy, Severe, RASH, 03/14/17) sulfamethoxazole (Verified Allergy, Severe, RASH, 03/14/17) trimethoprim (Verified Allergy, Severe, RASH, 03/14/17) codeine (Verified Adverse Reaction, Severe, NAUSEA, 03/14/17) Active Ordered Medications Current Medications Medications (Trade) Dose Ordered Sig/Baljinder Route Start Time Stop Time Status Last Admin (NS Flush) 2 ml UNSCH PRN IV FLUSH 03/14/17 12:15 (Lopressor) 12.5 mg Q12HR PO 03/14/17 21:00 Patient Own Medication PT OWN MED: (Leflunomide 20 ... DAILY PO 03/15/17 09:00 Future Hold (Protonix) 20 mg DAILY PO 03/15/17 09:00 Potassium Chloride/Dextrose/ Sod Cl 1,000 ml @ 100 mls/hr Q10H IV 03/14/17 18:00 03/14/17 17:55 (NS Flush) 2 ml UNSCH PRN IV FLUSH 03/14/17 17:15 (NS Flush) 2 ml BID IV FLUSH 03/14/17 21:00 (Tylenol) 650 mg Q4H PRN PO 03/14/17 17:15 (Zofran Inj) 4 mg Q6H PRN IVP 03/14/17 17:15 (Narcan Inj) 0.4 mg UNSCH PRN IV PUSH 03/14/17 17:15 (Milk Of Magnesia Liq) 30 ml Q12H PRN PO 03/14/17 17:15 (Senokot) 17.2 mg Q12H PRN PO 03/14/17 17:15 (Dulcolax Supp) 10 mg DAILY PRN RECTAL 03/14/17 17:15 (Lactulose Liq) 30 ml DAILY PRN PO 03/14/17 17:15 ([place] 5-325 Mg) 1 tab Q4H PRN PO 03/14/17 17:15 (Morphine Inj) 2 mg Q3H PRN IV PUSH 03/14/17 17:15 (Pill Splitter) 1 ea UNSCH PRN OTHER 03/14/17 17:45 (D50w (Vial) Inj) 50 ml UNSCH PRN IV PUSH 03/14/17 18:00 03/14/17 17:54 (Glucagon Inj) 1 mg UNSCH PRN OTHER 03/14/17 18:00 Family History Noncontributory Social History NO ETOH tobacco or drug use. Lives at home with her daughter who she helps care for. Physical Exam Vital Signs Vital Signs Date Time Temp Pulse Resp B/P (MAP) Pulse Ox O2 Delivery O2 Flow Rate FiO2 03/14/17 19:00 96.5 81 17 116/58 (77) 100 03/14/17 18:49 96.8 85 18 99/52 (68) 99 03/14/17 17:24 03/14/17 16:53 107 16 122/59 (80) 100 Room Air 03/14/17 14:13 125 16 104/56 (72) 99 Room Air 03/14/17 11:48 118 16 105/56 (72) 100 Room Air 03/14/17 11:22 98.5 95/51 (66) Room Air Physical Exam GENERAL: Awake and alert. No acute distress. Cooperative. Thin and frail. HEAD: Normocephalic. Atraumatic. CHEST: Nonlabored breathing. No respiratory distress. CARDIOVASCULAR: Regular rate and rhythm. ABDOMEN: Bilateral lower abdominal pain worse in the left lower quadrant. No tenderness in the right upper quadrant. Negative Zavala sign. EXTREMITIES: No cyanosis or edema. SKIN: Warm, dry, nonjaundiced. Laboratory Laboratory Tests Test 03/14/17 12:07 03/14/17 13:45 03/14/17 14:05 White Blood Count 9.3 Red Blood Count 3.24 Hemoglobin 10.0 Hematocrit 29.5 Mean Corpuscular Volume 91.2 Mean Corpuscular Hemoglobin 30.8 Mean Corpuscular Hemoglobin Concent 33.8 Red Cell Distribution Width 15.1 Platelet Count 205 Mean Platelet Volume 10.5 Neutrophils (%) (Auto) 84.0 Lymphocytes (%) (Auto) 10.2 Monocytes (%) (Auto) 4.8 Eosinophils (%) (Auto) 0.5 Basophils (%) (Auto) 0.5 Neutrophils # (Auto) 7.8 Lymphocytes # (Auto) 0.9 Monocytes # (Auto) 0.4 Eosinophils # (Auto) 0.0 Basophils # (Auto) 0.1 CBC Comment DIFF FINAL Differential Comment Lactic Acid Level 1.1 Urine Color YELLOW Urine Turbidity CLEAR Urine pH 5.5 Urine Specific [place] 1.011 Urine Protein NEG Urine Glucose (UA) NEG Urine Ketones NEG Urine Occult Blood NEG Urine Nitrite NEG Urine Bilirubin NEG Urine Urobilinogen LESS THAN 2.0 Urine Leukocyte Esterase NEG Urine RBC LESS THAN 1 Microscopic Urinalysis Comment CATH-CULT NOT IND Blood Urea Nitrogen 8 Creatinine 0.66 Random Glucose 69 Total Protein 6.4 Albumin 2.4 Calcium Level 7.7 Alkaline Phosphatase 61 Aspartate Amino Transf (AST/SGOT) 20 Alanine Aminotransferase (ALT/SGPT) 10 Total Bilirubin 0.7 Sodium Level 137 Potassium Level 3.9 Chloride Level 107 Carbon Dioxide Level 23.4 Anion Gap 7 Estimat Glomerular Filtration Rate 87 Lipase 51 Result Diagram: 03/14/17 1207 03/14/17 1405 Assessment and Plan Assessment and Plan 76-year-old male with acute onset of bilateral lower abdominal pain yesterday. Large gallstone and imaging studies consistent with acute cholecystitis. Protein calorie malnutrition and 18 month history of weight loss. Her exam actually does not appear to be consistent with acute cholecystitis despite imaging findings. I reviewed the CT images and discussed with Dr. Simon of radiology and it appears she may have some thickening of her sigmoid colon. She may have colitis although she has not had diarrhea. I have started her on Levaquin and Flagyl which will cover cholecystitis or colitis. I would like to ask gastroenterology to see her. She may benefit from repeat CT of the abdomen and pelvis with oral contrast or possibly colonoscopic evaluation. Regarding the gallbladder, if another etiology of pain is not found I'll recommend cholecystostomy tube due to the amount of gallbladder wall thickening and her overall condition. Michael Weber MD Mar 14, 2017 21:02
[2017-03-14] MEDS: METOPROLOL TARTRATE 25 MG TAB PO SCH (22:07)
[2017-03-14] MEDS: SODIUM CHLORIDE 0.9% FLUSH 10 ML FLUSH IV FLUSH SCH (22:08)
[2017-03-14] MEDS: metroNIDAZOLE 500 MG INJ 100 ML IV SCH (22:08)
[2017-03-14] MEDS ORDERED: LEVOFLOXACIN 750 MG PREMIX INJ 150 ML IV SCH (23:00)
[2017-03-15] VITALS (9 sets, daily range): BP systolic 89–110; BP diastolic 50–60; PULSE 81–109; RESP 15–20; TEMP 96.2–97.7; O2SAT 93–100
[2017-03-15] MEDS: D5-1/2 NS + KCL 20 MEQ INJ 1,000 ML IV SCH ×3 (04:00→17:04)
[2017-03-15] MEDS: metroNIDAZOLE 500 MG INJ 100 ML IV SCH ×4 (04:20→20:42)
[2017-03-15 07:58] LABS: AUTOMATED NEUTROPHIL # 5.6 TH/MM3 (1.8-7.7); BASOPHIL % 0.7 % (0.0-2.0); EOSINOPHIL # 0.2 TH/MM3 (0-0.4); EOSINOPHIL % 2.7 % (0.0-4.0); HEMATOCRIT 25.5 % (35.0-46.0); HEMOGLOBIN 8.5 GM/DL (11.6-15.3); LYMPH % 9.9 % (9.0-44.0); LYMPHOCYTE # 0.7 TH/MM3 (1.0-4.8); MEAN CELL VOLUME 90.5 FL (80.0-100.0); MEAN CORPUSCULAR HGB CONC 33.2 % (32.0-36.0); MEAN PLATELET VOLUME 9.2 FL (7.0-11.0); MONO % 5.4 % (0.0-8.0); MONOCYTE # 0.4 TH/MM3 (0-0.9); NEUT % 81.3 % (16.0-70.0); PLATELET COUNT 145 TH/MM3 (150-450); RED BLOOD COUNT 2.82 MIL/MM3 (4.00-5.30); RED CELL DISTRIBUTION WIDTH 14.9 % (11.6-17.2); WHITE BLOOD COUNT 6.8 TH/MM3 (4.0-11.0)
[2017-03-15 08:13] LABS: BICARBONATE 24.9 MEQ/L (21.0-32.0); CALCIUM 7.6 MG/DL (8.5-10.1); CREATININE 0.57 MG/DL (0.50-1.00)
[2017-03-15] MEDS: METOPROLOL TARTRATE 25 MG TAB PO SCH ×2 (08:36→20:35)
[2017-03-15] MEDS: PANTOPRAZOLE SOD 20 MG DELAYED RELEASE TAB PO SCH (08:36)
[2017-03-15] MEDS: ACETAMINOPHEN/HYDROcodone 325 MG/5 MG TAB PO PRN ×2 (08:39→17:01)
[2017-03-15] MEDS: SODIUM CHLORIDE 0.9% FLUSH 10 ML FLUSH IV FLUSH SCH ×2 (08:39→20:35)
[2017-03-15] MEDS ORDERED: LEFLUNOMIDE 20 MG PO SCH (09:00)
--- NOTE | 2017-03-15 10:01 | PD.CONS ---
HPI History of Present Illness This is a 76 year old female who presented to the emergency room for evaluation of abdominal pain. She was recently hospitalized from 02/23/17-02/27/17 for acute cholecystitis. She was evaluated by general surgery (Dr. Weber) and treated with conservative treatment- low fat diet and antibiotics and responded well to treatment and was discharged on 02/27/17. She then returned to the emergency room on 03/14/17 for abdominal pain. She reports that she started having mid/lower abdominal pain earlier this week/over the weekend. She states that it is a constant dull ache that seems to be worse on her left side. She cannot identify any aggravating or alleviating factors. She denies any nausea or vomiting, fevers or chills, or diarrhea. She does report that she has had a decreased appetite and has lost about 100 lbs over the past 2 years. She reports that she just does not get hungry like she used to and does not eat as much. She denies any melena or hematochezia. CT Scan abdomen and pelvis with contrast (03/14/17)----> thick walled, stone-containing gallbladder. Clinical correlation is recommended to rule out cholecystitis, minimal ascites throughout the abdomen and pelvis, uncomplicated colonic diverticulosis, tiny right pleural effusion, stable right renal cyst, degenerative changes and scoliosis of the thoracolumbar spine, moderate compression deformity involving the L3 of indeterminate age, lytic lesion involving the left iliac crest which is indeterminate. However, Dr. Weber and Dr. Simon from radiology then reviewed the CT imaging and it appears that she may have some thickening of her sigmoid colon. She was started on Levaquin and Flagyl and GI has been consulted for further evaluation and treatment. The patient reports that she had a colonoscopy about a year ago maybe in [place]. I did look in our outpatient records and she was scheduled for a colonoscopy in 2003, but cancelled because her mother was sick at the time. (Crystal Parks) PFSH Past Medical History Cholelithiasis Cholecystitis Atrial fibrillation Anemia Past Surgical History Hysterectomy Left ankle ORIF (Crystal Parks) Coded Allergies: Sulfa (Sulfonamide Antibiotics) (Verified Allergy, Severe, RASH, 03/14/17) cephalexin (Verified Allergy, Severe, RASH, 03/14/17) sulfamethoxazole (Verified Allergy, Severe, RASH, 03/14/17) trimethoprim (Verified Allergy, Severe, RASH, 03/14/17) codeine (Verified Adverse Reaction, Severe, NAUSEA, 03/14/17) Medications Allergies Coded Allergies Type Severity Reaction Last Updated Verified Sulfa (Sulfonamide Antibiotics) Allergy Severe RASH 03/14/17 Yes cephalexin Allergy Severe RASH 03/14/17 Yes sulfamethoxazole Allergy Severe RASH 03/14/17 Yes trimethoprim Allergy Severe RASH 03/14/17 Yes codeine Adverse Reaction Severe NAUSEA 03/14/17 Yes Active Scripts Medications Dose Route/Sig Max Daily Dose Days Date Category Metoprolol Tartrate 25 Mg Tab 12.5 Mg PO Q12HR 02/27/17 Rx Omeprazole 40 Mg Cap 20 Mg PO DAILY 11/02/16 Reported Tramadol (Tramadol HCl) 50 Mg Tab 50 Mg PO BID 04/08/16 Reported Leflunomide 20 Mg Tab 20 Mg PO DAILY 04/08/16 Reported Family History Father had leukemia Social History Denies tobacco, etoh, or illicit drug use (Crystal Parks) Review of Systems Constitutional: COMPLAINS OF: Fatigue, Weight loss, DENIES: Fever, Chills Respiratory: DENIES: Cough Cardiovascular: DENIES: Chest pain Gastrointestinal: COMPLAINS OF: Abdominal pain, Anorexia, DENIES: Black stools , Bloody stools, Constipation, Diarrhea, Nausea, Vomiting, Swelling of Abdomen, Heartburn, Hematemesis Integumentary: DENIES: Abnormal pigmentation Hematologic/lymphatic: DENIES: Bruising Neurologic: DENIES: Headache Psychiatric: DENIES: Confusion (Crystal Parks) GI Exam Vitals I&O Vital Signs Date Time Temp Pulse Resp B/P (MAP) Pulse Ox O2 Delivery O2 Flow Rate FiO2 03/15/17 04:00 96.2 85 16 89/50 (63) 100 03/15/17 00:00 97.1 106 15 103/57 (72) 100 03/14/17 19:00 96.5 81 17 116/58 (77) 100 03/14/17 18:49 96.8 85 18 99/52 (68) 99 03/14/17 17:24 03/14/17 16:53 107 16 122/59 (80) 100 Room Air 03/14/17 14:13 125 16 104/56 (72) 99 Room Air 03/14/17 11:48 118 16 105/56 (72) 100 Room Air 03/14/17 11:22 98.5 95/51 (66) Room Air I/O 03/14/17 03/14/17 03/14/17 03/15/17 03/15/17 03/15/17 07:00 15:00 23:00 07:00 15:00 23:00 Intake Total 1000 ml 480 ml 300 ml Balance 1000 ml 480 ml 300 ml Intake Oral 480 ml 300 ml IV Total 1000 ml # Voids 2 5 # Bowel Movements 0 7 Imaging Last Impressions Abdomen/Pelvis CT 03/14/17 1203 Signed Impressions: Service Date/Time: Tuesday, March 14, 2017 14:50 - CONCLUSION: 1. Thick-walled, stone-containing gallbladder. Clinical correlation is recommended to rule out cholecystitis. 2. Minimal ascites throughout the abdomen and pelvis. 3. Uncomplicated colonic diverticulosis. 4. Tiny right pleural effusion. 5. Stable right renal cyst. 6. Degenerative changes and scoliosis of the thoracolumbar spine. 7. Moderate compression deformity involving the L3 of indeterminate age. 8. Lytic lesion involving the left iliac crest which is indeterminate. Ezequiel Ohara MD Laboratory Test 03/14/17 12:07 03/14/17 13:45 03/14/17 14:05 03/15/17 07:06 White Blood Count 9.3 TH/MM3 6.8 TH/MM3 Red Blood Count 3.24 MIL/MM3 2.82 MIL/MM3 Hemoglobin 10.0 GM/DL 8.5 GM/DL Hematocrit 29.5 % 25.5 % Mean Corpuscular Volume 91.2 FL 90.5 FL Mean Corpuscular Hemoglobin 30.8 PG 30.0 PG Mean Corpuscular Hemoglobin Concent 33.8 % 33.2 % Red Cell Distribution Width 15.1 % 14.9 % Platelet Count 205 TH/MM3 145 TH/MM3 Mean Platelet Volume 10.5 FL 9.2 FL Neutrophils (%) (Auto) 84.0 % 81.3 % Lymphocytes (%) (Auto) 10.2 % 9.9 % Monocytes (%) (Auto) 4.8 % 5.4 % Eosinophils (%) (Auto) 0.5 % 2.7 % Basophils (%) (Auto) 0.5 % 0.7 % Neutrophils # (Auto) 7.8 TH/MM3 5.6 TH/MM3 Lymphocytes # (Auto) 0.9 TH/MM3 0.7 TH/MM3 Monocytes # (Auto) 0.4 TH/MM3 0.4 TH/MM3 Eosinophils # (Auto) 0.0 TH/MM3 0.2 TH/MM3 Basophils # (Auto) 0.1 TH/MM3 0.0 TH/MM3 CBC Comment DIFF FINAL DIFF FINAL Differential Comment Lactic Acid Level 1.1 mmol/L Urine Color YELLOW Urine Turbidity CLEAR Urine pH 5.5 Urine Specific [place] 1.011 Urine Protein NEG mg/dL Urine Glucose (UA) NEG mg/dL Urine Ketones NEG mg/dL Urine Occult Blood NEG Urine Nitrite NEG Urine Bilirubin NEG Urine Urobilinogen LESS THAN 2.0 MG/DL Urine Leukocyte Esterase NEG Urine RBC LESS THAN 1 /hpf Microscopic Urinalysis Comment CATH-CULT NOT IND Blood Urea Nitrogen 8 MG/DL Creatinine 0.66 MG/DL Random Glucose 69 MG/DL Total Protein 6.4 GM/DL Albumin 2.4 GM/DL Calcium Level 7.7 MG/DL Alkaline Phosphatase 61 U/L Aspartate Amino Transf (AST/SGOT) 20 U/L Alanine Aminotransferase (ALT/SGPT) 10 U/L Total Bilirubin 0.7 MG/DL Sodium Level 137 MEQ/L Potassium Level 3.9 MEQ/L Chloride Level 107 MEQ/L Carbon Dioxide Level 23.4 MEQ/L Anion Gap 7 MEQ/L Estimat Glomerular Filtration Rate 87 ML/MIN Lipase 51 U/L Test 03/15/17 07:36 Blood Urea Nitrogen 7 MG/DL Creatinine 0.57 MG/DL Random Glucose 84 MG/DL Calcium Level 7.6 MG/DL Sodium Level 138 MEQ/L Potassium Level 3.8 MEQ/L Chloride Level 106 MEQ/L Carbon Dioxide Level 24.9 MEQ/L Anion Gap 7 MEQ/L Estimat Glomerular Filtration Rate 103 ML/MIN Physical Examination HEENT:Normocephalic; atraumatic; no jaundice. CHEST: CTA CARDIAC: RRR ABDOMEN: Soft, nondistended, mild to moderate tenderness lower/mid abdomen L > R, no hepatosplenomegaly; bowel sounds are present in all four quadrants. EXTREMITIES: No clubbing, cyanosis, or edema. SKIN: Normal; no rash; no jaundice. ASH COLLECTOR: No focal deficits; alert and oriented times three. (Crystal Parks) Assessment and Plan Plan ASSESSMENT: - Abdominal pain, ? left sided colitis. Pt was recently hospitalized for cholecystitis and treated with abx (responded well) but then started having a dull ache in lower/mid abdomen, worse on left side. She denies any other symptoms such as fever, chills, n/v, or diarrhea. CT Scan abdomen and pelvis with contrast (03/14/17)----> thick walled, stone-containing gallbladder. Clinical correlation is recommended to rule out cholecystitis, minimal ascites throughout the abdomen and pelvis, uncomplicated colonic diverticulosis, tiny right pleural effusion, stable right renal cyst, degenerative changes and scoliosis of the thoracolumbar spine, moderate compression deformity involving the L3 of indeterminate age, lytic lesion involving the left iliac crest which is indeterminate. However, Dr. Weber and Dr. Simon from radiology then reviewed the CT imaging and it appears that she may have some thickening of her sigmoid colon. The patient reports that she had a colonoscopy about a year ago maybe in [place]. I did look in our outpatient records and she was scheduled for a colonoscopy in 2003, but cancelled because her mother was sick at the time. Amanda Mohr. GS following. - Anorexia, Abnormal weight loss, Malnutrition. 100 lb weight loss over past year. There is some questionable thickening sigmoid colon. - Anemia with drop in hgb. 10.0/29.5----> 9.5/25.5. No obvious active bleeding. - Cholelithiasis, recent cholecystitis. Recently hospitalized from 02/23/17- for acute cholecystitis. She was evaluated by GS and treated with conservative treatment- low fat diet and antibiotics and responded well to treatment and was discharged on 02/27/17. - Atrial fibrillation, not on blood thinners. PLAN: - Plan for egd/colonoscopy in am - Obtain consents - Clear liquids - NPO after MN - Joycelyn prep - Cont. Onur Patel - CBC, BMP in am - If any diarrhea, will need CDiff PCR sent- had loose stool, nurse sent CDiff - Supportive care - Further recommendations to follow based on results of above - Pt seen and examined by Dr. Luo and myself and this note is written on his behalf (Parks,Crystal Larisa [employer]W [employer]ER) Physician Comments Seen and examined, plan discussed with patient and agreed to proceed with EGD/ Colonoscopy. Further recommendations to follow pending above findings. (Phoenix Luo MD) Crystal Parks Mar 15, 2017 10:01 Phoenix Luo MD Mar 15, 2017 13:59
--- NOTE | 2017-03-15 10:04 | HHI.PR ---
Subjective Remarks Patient reports she is feeling okay. Abdominal pain is slightly better. No nausea or vomiting. Objective Vitals Vital Signs Date Time Temp Pulse Resp B/P (MAP) Pulse Ox O2 Delivery O2 Flow Rate FiO2 03/15/17 08:00 97.6 109 20 96/58 (71) 98 03/15/17 04:00 96.2 85 16 89/50 (63) 100 03/15/17 00:00 97.1 106 15 103/57 (72) 100 03/14/17 19:00 96.5 81 17 116/58 (77) 100 03/14/17 18:49 96.8 85 18 99/52 (68) 99 03/14/17 17:24 03/14/17 16:53 107 16 122/59 (80) 100 Room Air 03/14/17 14:13 125 16 104/56 (72) 99 Room Air 03/14/17 11:48 118 16 105/56 (72) 100 Room Air 03/14/17 11:22 98.5 95/51 (66) Room Air I/O 03/14/17 03/14/17 03/14/17 03/15/17 03/15/17 03/15/17 07:00 15:00 23:00 07:00 15:00 23:00 Intake Total 1000 ml 480 ml 300 ml Balance 1000 ml 480 ml 300 ml Intake Oral 480 ml 300 ml IV Total 1000 ml # Voids 2 5 # Bowel Movements 0 7 Result Diagram: 03/15/17 0706 03/15/17 0736 Imaging Last Impressions Abdomen/Pelvis CT 03/14/17 1203 Signed Impressions: Service Date/Time: Tuesday, March 14, 2017 14:50 - CONCLUSION: 1. Thick-walled, stone-containing gallbladder. Clinical correlation is recommended to rule out cholecystitis. 2. Minimal ascites throughout the abdomen and pelvis. 3. Uncomplicated colonic diverticulosis. 4. Tiny right pleural effusion. 5. Stable right renal cyst. 6. Degenerative changes and scoliosis of the thoracolumbar spine. 7. Moderate compression deformity involving the L3 of indeterminate age. 8. Lytic lesion involving the left iliac crest which is indeterminate. Ezequiel Ohara MD Objective Remarks GENERAL: Cachectic-looking, elderly female CARDIOVASCULAR: Normal rate and regular rhythm without murmurs, gallops, or rubs. RESPIRATORY: Good respiratory efforts. Breath sounds equal and clear to auscultation bilaterally. GASTROINTESTINAL: Abdomen soft, non-distended. Diffusely tender to palpation. Normal active bowel sounds. MUSCULOSKELETAL: Extremities without cyanosis, or edema. NEURO: Alert & Oriented x4 to person, place, time, situation. Moves all ext x4 PSYCH: Appropriate mood and affect. A/P Problem List: (1) Cholelithiasis ICD Code: K80.20 - Calculus of gallbladder without cholecystitis without obstruction (2) Abdominal pain ICD Code: R10.9 - Unspecified abdominal pain (3) Atrial fibrillation ICD Code: I48.91 - Unspecified atrial fibrillation Assessment and Plan 76 Y/O female with history of cholecystitis a couple of weeks ago treated medically returned with abdominal pain. CT scan shows gallstone. Rule out cholecystitis. Abdominal pain/cholelithiasis: - Exam not consistent with cholecystitis. No fevers, no leukocytosis -Appreciate general surgery following. Imaging was reviewed with radiologist. Per surgery, need to consider colitis. Patient was started on Levaquin and Flagyl empirically. GI consulted. -Appreciate GI assistance. Plan for colonoscopy. - Continue supportive care with IV fluid, pain control. A-fib: Continue Metoprolol. Patient is not on anticoagulation. Reasons unclear. Will need to address with her after all procedures. Anemia, chronic disease - Hemoglobin dropped.? GI source - Continue to follow - GI planning for endoscopy. Moderate protein calorie malnutrition - Will need supplements. Katelin Weinstein MD Mar 15, 2017 10:04
--- NOTE | 2017-03-15 10:54 | HHI.PR ---
Subjective Subjective Notes She feels somewhat better this am. Denies RUQ pain. Lower abdominal pain improved. Objective Vitals/I&O Vital Signs Date Time Temp Pulse Resp B/P (MAP) Pulse Ox O2 Delivery O2 Flow Rate FiO2 03/15/17 08:00 97.6 109 20 96/58 (71) 98 03/14/17 16:53 Room Air Labs Laboratory Tests Test 03/14/17 12:07 03/14/17 13:45 03/14/17 14:05 03/15/17 07:06 White Blood Count 9.3 6.8 Red Blood Count 3.24 2.82 Hemoglobin 10.0 8.5 Hematocrit 29.5 25.5 Mean Corpuscular Volume 91.2 90.5 Mean Corpuscular Hemoglobin 30.8 30.0 Mean Corpuscular Hemoglobin Concent 33.8 33.2 Red Cell Distribution Width 15.1 14.9 Platelet Count 205 145 Mean Platelet Volume 10.5 9.2 Neutrophils (%) (Auto) 84.0 81.3 Lymphocytes (%) (Auto) 10.2 9.9 Monocytes (%) (Auto) 4.8 5.4 Eosinophils (%) (Auto) 0.5 2.7 Basophils (%) (Auto) 0.5 0.7 Neutrophils # (Auto) 7.8 5.6 Lymphocytes # (Auto) 0.9 0.7 Monocytes # (Auto) 0.4 0.4 Eosinophils # (Auto) 0.0 0.2 Basophils # (Auto) 0.1 0.0 CBC Comment DIFF FINAL DIFF FINAL Differential Comment Lactic Acid Level 1.1 Urine Color YELLOW Urine Turbidity CLEAR Urine pH 5.5 Urine Specific [place] 1.011 Urine Protein NEG Urine Glucose (UA) NEG Urine Ketones NEG Urine Occult Blood NEG Urine Nitrite NEG Urine Bilirubin NEG Urine Urobilinogen LESS THAN 2.0 Urine Leukocyte Esterase NEG Urine RBC LESS THAN 1 Microscopic Urinalysis Comment CATH-CULT NOT IND Blood Urea Nitrogen 8 Creatinine 0.66 Random Glucose 69 Total Protein 6.4 Albumin 2.4 Calcium Level 7.7 Alkaline Phosphatase 61 Aspartate Amino Transf (AST/SGOT) 20 Alanine Aminotransferase (ALT/SGPT) 10 Total Bilirubin 0.7 Sodium Level 137 Potassium Level 3.9 Chloride Level 107 Carbon Dioxide Level 23.4 Anion Gap 7 Estimat Glomerular Filtration Rate 87 Lipase 51 Test 03/15/17 07:36 Blood Urea Nitrogen 7 Creatinine 0.57 Random Glucose 84 Calcium Level 7.6 Sodium Level 138 Potassium Level 3.8 Chloride Level 106 Carbon Dioxide Level 24.9 Anion Gap 7 Estimat Glomerular Filtration Rate 103 Narrative Exam NAD Abd: mild RUQ tenderness to deep palpation, moderate LLQ ttp A/P Assessment and Plan 76 yo F with abnormal gallbladder on imaging, lower abdominal pain, recent significant weight loss. Appreciate GI seeing her. Plan is for EGD/colonoscopy in am. Continue IV antibiotics. Due to minimal RUQ pain will hold off on any invasive procedure for gallbladder findings on imaging. Michael Weber MD Mar 15, 2017 10:54
[2017-03-15] MEDS ORDERED: PEG (High)/E-LYTE SOLN 4000 ML BTL PO ONE (16:00)
[2017-03-16] MEDS ORDERED: LACTATED RINGER'S 1000 ML IV PRN (01:15)
[2017-03-16] MEDS ORDERED: CHLORHEXIDINE GLUCONATE 2 % 1 PACK (2 CLOTHS) TOPICAL PRN (01:15)
[2017-03-16] MEDS ORDERED: POVIDONE IODINE 5% (ANTISEPSIS KIT) 4 APPLICATIONS EACH NARE PRN (01:15)
[2017-03-16] MEDS: metroNIDAZOLE 500 MG INJ 100 ML IV SCH ×4 (03:34→20:16)
[2017-03-16] MEDS: D5-1/2 NS + KCL 20 MEQ INJ 1,000 ML IV SCH ×3 (03:34→20:17)
[2017-03-16 04:07] VITALS: BP 106/56; PULSE 112; RESP 16; TEMP 97.5; O2SAT 98
[2017-03-16 07:22] LABS: AUTOMATED NEUTROPHIL # 2.9 TH/MM3 (1.8-7.7); BASOPHIL # 0.1 TH/MM3 (0-0.2); BASOPHIL % 1.2 % (0.0-2.0); EOSINOPHIL # 0.2 TH/MM3 (0-0.4); EOSINOPHIL % 4.2 % (0.0-4.0); HEMATOCRIT 25.7 % (35.0-46.0); HEMOGLOBIN 8.6 GM/DL (11.6-15.3); LYMPH % 19.8 % (9.0-44.0); LYMPHOCYTE # 0.8 TH/MM3 (1.0-4.8); MEAN CELL VOLUME 90.4 FL (80.0-100.0); MEAN CORPUSCULAR HEMOGLOBIN 30.3 PG (27.0-34.0); MEAN CORPUSCULAR HGB CONC 33.6 % (32.0-36.0); MONO % 8.2 % (0.0-8.0); MONOCYTE # 0.4 TH/MM3 (0-0.9); NEUT % 66.6 % (16.0-70.0); PLATELET COUNT 141 TH/MM3 (150-450); RED BLOOD COUNT 2.84 MIL/MM3 (4.00-5.30); RED CELL DISTRIBUTION WIDTH 14.6 % (11.6-17.2); WHITE BLOOD COUNT 4.3 TH/MM3 (4.0-11.0)
[2017-03-16 07:37] LABS: AST (GOT) 14 U/L (15-37); BICARBONATE 24.5 MEQ/L (21.0-32.0); BLOOD UREA NITROGEN 5 MG/DL (7-18); CALCIUM 7.8 MG/DL (8.5-10.1); CHLORIDE 110 MEQ/L (98-107); GLOMERULAR FILTRATION RATE 97 ML/MIN (>89); GLUCOSE,RANDOM 110 MG/DL (74-106); SODIUM (NA) 140 MEQ/L (136-145)
[2017-03-16 07:38] LABS: ALT (GPT) 7 U/L (10-53)
[2017-03-16 07:40] LABS: ALKALINE PHOSPHATASE 50 U/L (45-117); TOTAL BILIRUBIN ADULT 0.3 MG/DL (0.2-1.0); TOTAL PROTEIN 4.9 GM/DL (6.4-8.2)
[2017-03-16 08:00] VITALS: BP 99/57; PULSE 109; RESP 15; TEMP 97.6; O2SAT 100
[2017-03-16] MEDS: METOPROLOL TARTRATE 25 MG TAB PO SCH ×2 (09:00→20:16)
[2017-03-16] MEDS: SODIUM CHLORIDE 0.9% FLUSH 10 ML FLUSH IV FLUSH SCH ×2 (09:00→20:20)
[2017-03-16] MEDS: PANTOPRAZOLE SOD 20 MG DELAYED RELEASE TAB PO SCH ×3 (09:00→13:24)
--- NOTE | 2017-03-16 11:09 | HHI.PR ---
Subjective Subjective Notes She continues to feel better and denies RUQ pain. Awaiting colonoscopy today. Objective Vitals/I&O Vital Signs Date Time Temp Pulse Resp B/P (MAP) Pulse Ox O2 Delivery O2 Flow Rate FiO2 03/16/17 08:00 97.6 109 15 99/57 (71) 100 03/14/17 16:53 Room Air Labs Laboratory Tests Test 03/15/17 13:15 03/16/17 06:41 Stool C. difficile Toxin (PCR) POSITIVE Stl C. difficile Toxin Epiderm 027 PRESUMPTIVE POSITIVE White Blood Count 4.3 Red Blood Count 2.84 Hemoglobin 8.6 Hematocrit 25.7 Mean Corpuscular Volume 90.4 Mean Corpuscular Hemoglobin 30.3 Mean Corpuscular Hemoglobin Concent 33.6 Red Cell Distribution Width 14.6 Platelet Count 141 Mean Platelet Volume 10.0 Neutrophils (%) (Auto) 66.6 Lymphocytes (%) (Auto) 19.8 Monocytes (%) (Auto) 8.2 Eosinophils (%) (Auto) 4.2 Basophils (%) (Auto) 1.2 Neutrophils # (Auto) 2.9 Lymphocytes # (Auto) 0.8 Monocytes # (Auto) 0.4 Eosinophils # (Auto) 0.2 Basophils # (Auto) 0.1 CBC Comment DIFF FINAL Differential Comment Blood Urea Nitrogen 5 Creatinine 0.60 Random Glucose 110 Total Protein 4.9 Albumin 2.0 Calcium Level 7.8 Alkaline Phosphatase 50 Aspartate Amino Transf (AST/SGOT) 14 Alanine Aminotransferase (ALT/SGPT) 7 Total Bilirubin 0.3 Sodium Level 140 Potassium Level 3.9 Chloride Level 110 Carbon Dioxide Level 24.5 Anion Gap 6 Estimat Glomerular Filtration Rate 97 Narrative Exam NAD Abd: mild RUQ tenderness to deep palpation, mild LLQ ttp A/P Assessment and Plan 76 yo F with abnormal gallbladder on imaging, lower abdominal pain, recent significant weight loss. Plan is for EGD/colonoscopy today. Continue antibiotics. Will f/u results of endoscopy but most likely will recommend she follow up with me as outpatient with no need for inpatient procedure or surgery for gallbladder. Michael Weber MD Mar 16, 2017 11:09
[2017-03-16 12:00] VITALS: BP 112/59; PULSE 113; RESP 16; TEMP 96.7; O2SAT 98
--- NOTE | 2017-03-16 12:49 | GIPROC ---
[facility] [address] [facility]. [facility], [address] EGD PROCEDURE REPORT EXAM DATE: 03/16/2017 PATIENT NAME: Ashley Allen MR #: [id number] BIRTHDATE: 1940 ATTENDING: Phoenix Luo MD ORDER #: [id number] PULMONARY NURSE PRACTITIONER: Indira Baugh Wilcox-Hassen, Alice, and Irina Jacobs STATUS: inpatient INDICATIONS: The patient is a 76 yr old female here for an EGD due to abdominal pain PROCEDURE PERFORMED: EGD w/ biopsy MEDICATIONS: None and Per Anesthesia. TOPICAL ANESTHETIC: none CONSENT: The patient understands the risks and benefits of the procedure and understands that these risks include, but are not limited to: sedation, allergic reaction, infection, perforation and/or bleeding. Alternative means of evaluation and treatment include, among others: physical exam, x-rays, and/or surgical intervention. The patient elects to proceed with this endoscopic procedure. medical equipment was checked for proper function. Hand hygiene and appropriate measures for infection prevention was taken. After the risks, benefits and alternatives of the procedure were thoroughly explained, Informed consent was verified, confirmed and timeout was successfully executed by the treatment team. The patient was anesthetized with topical anesthesia and the EC-[id number] (Pedi C) endoscope was introduced through the mouth and advanced to the second portion of the duodenum. Retroflexion was performed and was normal The gastroscope was then slowly withdrawn and removed. ESOPHAGUS: The esophagus was otherwise normal. STOMACH: There was mild gastritis in the gastric antrum. Multiple biopsies were performed using cold forceps. Sample sent for histology. DUODENUM: The duodenal mucosa appeared normal in the 2nd part of the duodenum and duodenal bulb. ADVERSE EVENTS: There were no complications. IMPRESSIONS: 1. The esophagus was otherwise normal 2. There was mild gastritis in the gastric antrum; multiple biopsies were performed 3. Normal duodenal mucosa in the 2nd part of the duodenum and duodenal bulb 4. Retroflexion was performed and was normal RECOMMENDATIONS: Await biopsy results. Biopsy results will not be ready for 7-10 days. If you don't hear from us in two weeks, call our office for biopsy results. PATIENT CONDITION: stable DISPOSITION: Observation REPEAT EXAM: NONE Phoenix Luo MD eSigned: Phoenix Luo MD 03/16/2017 12:49 PM cc: PATIENT NAME: Ashley Allen Jessica MR#: [id number]
--- NOTE | 2017-03-16 12:49 | GIPROC ---
[facility] [address] [facility]. [facility], [address] EGD PROCEDURE REPORT EXAM DATE: 03/16/2017 PATIENT NAME: Ashley Allen MR #: [id number] BIRTHDATE: 1940 ATTENDING: Phoenix Luo MD ORDER #: [id number] WASTE MANAGEMENT ENGINEER: Indira Baugh Wilcox-Hassen, Alice, and Irina Jacobs STATUS: inpatient INDICATIONS: The patient is a 76 yr old female here for an EGD due to abdominal pain PROCEDURE PERFORMED: EGD w/ biopsy MEDICATIONS: None and Per Anesthesia. TOPICAL ANESTHETIC: none CONSENT: The patient understands the risks and benefits of the procedure and understands that these risks include, but are not limited to: sedation, allergic reaction, infection, perforation and/or bleeding. Alternative means of evaluation and treatment include, among others: physical exam, x-rays, and/or surgical intervention. The patient elects to proceed with this endoscopic procedure. medical equipment was checked for proper function. Hand hygiene and appropriate measures for infection prevention was taken. After the risks, benefits and alternatives of the procedure were thoroughly explained, Informed consent was verified, confirmed and timeout was successfully executed by the treatment team. The patient was anesthetized with topical anesthesia and the [id number] (Pedi C) endoscope was introduced through the mouth and advanced to the second portion of the duodenum. Retroflexion was performed and was normal The gastroscope was then slowly withdrawn and removed. ESOPHAGUS: The esophagus was otherwise normal. STOMACH: There was mild gastritis in the gastric antrum. Multiple biopsies were performed using cold forceps. Sample sent for histology. DUODENUM: The duodenal mucosa appeared normal in the 2nd part of the duodenum and duodenal bulb. ADVERSE EVENTS: There were no complications. IMPRESSIONS: 1. The esophagus was otherwise normal 2. There was mild gastritis in the gastric antrum; multiple biopsies were performed 3. Normal duodenal mucosa in the 2nd part of the duodenum and duodenal bulb 4. Retroflexion was performed and was normal RECOMMENDATIONS: Await biopsy results. Biopsy results will not be ready for 7-10 days. If you don't hear from us in two weeks, call our office for biopsy results. PATIENT CONDITION: stable DISPOSITION: Observation REPEAT EXAM: NONE Phoenix Luo MD eSigned: Phoenix Luo MD 03/16/2017 12:49 PM cc: PATIENT NAME: Ashley Allen Jessica MR#: [id number]
--- NOTE | 2017-03-16 12:49 | GIPROC ---
[facility] [address] [facility]. [facility] [place], [address] EGD PROCEDURE REPORT EXAM DATE: 03/16/2017 PATIENT NAME: Ashley Allen MR #: [id number] BIRTHDATE: 1940 ATTENDING: Phoenix Luo MD ORDER #: [id number] DESIGN INSERTER: Indira Baugh Wilcox-Hassen, Alice, and Irina Jacobs STATUS: inpatient INDICATIONS: The patient is a 76 yr old female here for an EGD due to abdominal pain PROCEDURE PERFORMED: EGD w/ biopsy MEDICATIONS: None and Per Anesthesia. TOPICAL ANESTHETIC: none CONSENT: The patient understands the risks and benefits of the procedure and understands that these risks include, but are not limited to: sedation, allergic reaction, infection, perforation and/or bleeding. Alternative means of evaluation and treatment include, among others: physical exam, x-rays, and/or surgical intervention. The patient elects to proceed with this endoscopic procedure. medical equipment was checked for proper function. Hand hygiene and appropriate measures for infection prevention was taken. After the risks, benefits and alternatives of the procedure were thoroughly explained, Informed consent was verified, confirmed and timeout was successfully executed by the treatment team. The patient was anesthetized with topical anesthesia and the EC-3490Li (Pedi C) endoscope was introduced through the mouth and advanced to the second portion of the duodenum. Retroflexion was performed and was normal The gastroscope was then slowly withdrawn and removed. ESOPHAGUS: The esophagus was otherwise normal. STOMACH: There was mild gastritis in the gastric antrum. Multiple biopsies were performed using cold forceps. Sample sent for histology. DUODENUM: The duodenal mucosa appeared normal in the 2nd part of the duodenum and duodenal bulb. ADVERSE EVENTS: There were no complications. IMPRESSIONS: 1. The esophagus was otherwise normal 2. There was mild gastritis in the gastric antrum; multiple biopsies were performed 3. Normal duodenal mucosa in the 2nd part of the duodenum and duodenal bulb 4. Retroflexion was performed and was normal RECOMMENDATIONS: Await biopsy results. Biopsy results will not be ready for 7-10 days. If you don't hear from us in two weeks, call our office for biopsy results. PATIENT CONDITION: stable DISPOSITION: Observation REPEAT EXAM: NONE Phoenix Luo MD eSigned: Phoenix Luo MD 03/16/2017 12:49 PM cc: PATIENT NAME: Ashley Allen Jessica MR#: [id number]
--- NOTE | 2017-03-16 12:53 | GIPROC ---
[facility] [address] [facility]. [facility], [address] COLONOSCOPY PROCEDURE REPORT EXAM DATE: 03/16/2017 PATIENT NAME: Ashley Allen MR #: [id number] BIRTHDATE: 1940 ENDOSCOPIST: Phoenix Luo MD ORDER #: [id number] RIVET TOSSER: Irina Jacobs Stienbarger, Terrie, and Tracy Lemus STATUS: inpatient INDICATIONS: The patient is a 76 yr old female here for a colonoscopy due to an abnormal imaging results PROCEDURE PERFORMED: Colonoscopy, diagnostic MEDICATIONS: None and Per Anesthesia. PREP QUALITY: fair PREP TYPE:GoLytely ESTIMATED BLOOD LOSS: None CONSENT: The patient understands the risks and benefits of the procedure and understands that these risks include, but are not limited to: sedation, allergic reaction, infection, perforation and/or bleeding. Alternative means of evaluation and treatment include, among others: physical exam, x-rays, and/or surgical intervention. The patient elects to proceed with this endoscopic procedure. medical equipment was checked for proper function. Hand hygiene and appropriate measures for infection prevention was taken. After the risks, benefits and alternatives of the procedure were thoroughly explained, Informed consent was verified, confirmed and timeout was successfully executed by the treatment team. A digital exam was performed and revealed no abnormalities of the rectum The Pentax EC-3490Li endoscope was introduced through the anus and advanced to the cecum, which was identified by both the appendix and ileocecal valve. The instrument was then slowly withdrawn as the colon was fully examined. COLON FINDINGS: There was moderate diverticulosis noted in the sigmoid colon with associated inflammatory changes, muscular hypertrophy and petechiae. Retroflexion was not performed due to a narrow rectal vault The scope was then completely withdrawn from the patient and the procedure terminated. PROCEDURE WITHDRAWAL TIME:8minutes ADVERSE EVENTS: There were no complications. IMPRESSIONS: 1. There was moderate diverticulosis with mild diverticulitis noted in the sigmoid colon 2. Otherwise normal colon exam RECOMMENDATIONS: High fiber diet RECALL: Return 5 years Colonoscopy Phoenix Luo MD eSigned: Phoenix Luo MD 03/16/2017 12:53 PM cc:
--- NOTE | 2017-03-16 12:53 | GIPROC ---
[facility] [address] [facility]. [facility], [address] COLONOSCOPY PROCEDURE REPORT EXAM DATE: 03/16/2017 PATIENT NAME: Ashley Allen MR #: [id number] BIRTHDATE: 1940 ENDOSCOPIST: Phoenix Luo MD ORDER #: [id number] TURBINE SUBASSEMBLER: Irina Jacobs Stienbarger, Terrie, and Tracy Lemus STATUS: inpatient INDICATIONS: The patient is a 76 yr old female here for a colonoscopy due to an abnormal imaging results PROCEDURE PERFORMED: Colonoscopy, diagnostic MEDICATIONS: None and Per Anesthesia. PREP QUALITY: fair PREP TYPE:GoLytely ESTIMATED BLOOD LOSS: None CONSENT: The patient understands the risks and benefits of the procedure and understands that these risks include, but are not limited to: sedation, allergic reaction, infection, perforation and/or bleeding. Alternative means of evaluation and treatment include, among others: physical exam, x-rays, and/or surgical intervention. The patient elects to proceed with this endoscopic procedure. medical equipment was checked for proper function. Hand hygiene and appropriate measures for infection prevention was taken. After the risks, benefits and alternatives of the procedure were thoroughly explained, Informed consent was verified, confirmed and timeout was successfully executed by the treatment team. A digital exam was performed and revealed no abnormalities of the rectum The Pentax EC-3490Li endoscope was introduced through the anus and advanced to the cecum, which was identified by both the appendix and ileocecal valve. The instrument was then slowly withdrawn as the colon was fully examined. COLON FINDINGS: There was moderate diverticulosis noted in the sigmoid colon with associated inflammatory changes, muscular hypertrophy and petechiae. Retroflexion was not performed due to a narrow rectal vault The scope was then completely withdrawn from the patient and the procedure terminated. PROCEDURE WITHDRAWAL TIME:8minutes ADVERSE EVENTS: There were no complications. IMPRESSIONS: 1. There was moderate diverticulosis with mild diverticulitis noted in the sigmoid colon 2. Otherwise normal colon exam RECOMMENDATIONS: High fiber diet RECALL: Return 5 years Colonoscopy Phoenix Luo MD eSigned: Phoenix Luo MD 03/16/2017 12:53 PM cc:
--- NOTE | 2017-03-16 12:53 | GIPROC ---
[facility] [address] [facility]. [facility], [address] COLONOSCOPY PROCEDURE REPORT EXAM DATE: 03/16/2017 PATIENT NAME: Ashley Allen MR #: [id number] BIRTHDATE: 1940 ENDOSCOPIST: Phoenix Luo MD ORDER #: [id number] CIRCUIT BREAKER SUPERVISOR: Irina Jacobs Stienbarger, Terrie, and Tracy Lemus STATUS: inpatient INDICATIONS: The patient is a 76 yr old female here for a colonoscopy due to an abnormal imaging results PROCEDURE PERFORMED: Colonoscopy, diagnostic MEDICATIONS: None and Per Anesthesia. PREP QUALITY: fair PREP TYPE:GoLytely ESTIMATED BLOOD LOSS: None CONSENT: The patient understands the risks and benefits of the procedure and understands that these risks include, but are not limited to: sedation, allergic reaction, infection, perforation and/or bleeding. Alternative means of evaluation and treatment include, among others: physical exam, x-rays, and/or surgical intervention. The patient elects to proceed with this endoscopic procedure. medical equipment was checked for proper function. Hand hygiene and appropriate measures for infection prevention was taken. After the risks, benefits and alternatives of the procedure were thoroughly explained, Informed consent was verified, confirmed and timeout was successfully executed by the treatment team. A digital exam was performed and revealed no abnormalities of the rectum The Pentax EC-3490Li endoscope was introduced through the anus and advanced to the cecum, which was identified by both the appendix and ileocecal valve. The instrument was then slowly withdrawn as the colon was fully examined. COLON FINDINGS: There was moderate diverticulosis noted in the sigmoid colon with associated inflammatory changes, muscular hypertrophy and petechiae. Retroflexion was not performed due to a narrow rectal vault The scope was then completely withdrawn from the patient and the procedure terminated. PROCEDURE WITHDRAWAL TIME:8minutes ADVERSE EVENTS: There were no complications. IMPRESSIONS: 1. There was moderate diverticulosis with mild diverticulitis noted in the sigmoid colon 2. Otherwise normal colon exam RECOMMENDATIONS: High fiber diet RECALL: Return 5 years Colonoscopy Phoenix Luo MD eSigned: Phoenix Luo MD 03/16/2017 12:53 PM cc:
--- NOTE | 2017-03-16 14:14 | HHI.PR ---
Subjective Remarks S/P colonoscopy. Abdominal pain is better. No nausea or vomiting. Objective Vitals Vital Signs Date Time Temp Pulse Resp B/P (MAP) Pulse Ox O2 Delivery O2 Flow Rate FiO2 03/16/17 12:00 96.7 113 16 112/59 (76) 98 03/16/17 08:00 97.6 109 15 99/57 (71) 100 03/16/17 04:07 97.5 112 16 106/56 (73) 98 03/15/17 23:46 96.3 100 16 109/57 (74) 93 03/15/17 20:24 96.5 81 17 104/50 (68) 97 03/15/17 19:40 90 03/15/17 16:00 97.5 83 20 110/60 (77) 98 I/O 03/15/17 03/15/17 03/15/17 03/16/17 03/16/17 03/16/17 07:00 15:00 23:00 07:00 15:00 23:00 Intake Total 300 ml 2483 ml 953 ml Balance 300 ml 2483 ml 953 ml Intake Oral 300 ml 240 ml IV Total 2243 ml 953 ml # Voids 5 4 5 # Bowel Movements 7 4 6 Result Diagram: 03/16/1764003/16/17640 Objective Remarks GENERAL: Cachectic-looking, elderly female CARDIOVASCULAR: Normal rate and regular rhythm without murmurs, gallops, or rubs. RESPIRATORY: Good respiratory efforts. Breath sounds equal and clear to auscultation bilaterally. GASTROINTESTINAL: Abdomen soft, non-distended. Mildly tender to palpation diffusely. Normal active bowel sounds. MUSCULOSKELETAL: Extremities without cyanosis, or edema. NEURO: Alert & Oriented x4 to person, place, time, situation. Moves all ext x4 PSYCH: Appropriate mood and affect. A/P Problem List: (1) Cholelithiasis ICD Code: K80.20 - Calculus of gallbladder without cholecystitis without obstruction (2) Abdominal pain ICD Code: R10.9 - Unspecified abdominal pain (3) Atrial fibrillation ICD Code: I48.91 - Unspecified atrial fibrillation Assessment and Plan 76 Y/O female with history of cholecystitis a couple of weeks ago treated medically returned with abdominal pain. CT scan shows gallstone however symptomatology not consistent with cholecystitis. Patient tested positive for C difficile. C difficile colitis. Abdominal pain/cholelithiasis: - Exam not consistent with cholecystitis. No fevers, no leukocytosis -Appreciate general surgery following. Imaging was reviewed with radiologist. Per surgery, need to consider colitis. Patient was started on Levaquin and Flagyl empirically. - GI following, s/p Colonoscopy which showed mild diverticulitis. - Continue supportive care with IV fluid, pain control. - DC Levaquin. Continue Flagyl for C diff. - Monitor for improvement. A-fib: Continue Metoprolol. Patient is not on anticoagulation. Reasons unclear. Will need to address with her after all procedures. Anemia, chronic disease - Hemoglobin dropped.? GI source - Continue to follow - S/P EGD/Colonoscopy. Gastritis s/p biopsy. Mild diverticulitis Moderate protein calorie malnutrition - Start supplements. Discharge Planning Pending clinical improvement. Katelin Weinstein MD Mar 16, 2017 14:14
[2017-03-16 16:00] VITALS: BP 117/62; PULSE 113; RESP 16; TEMP 96.4; O2SAT 100
[2017-03-16 20:00] VITALS: BP 104/53; PULSE 124; PULSE 85; PULSE 89; RESP 17; TEMP 98; O2SAT 100
[2017-03-17] VITALS (8 sets, daily range): BP systolic 100–121; BP diastolic 50–61; PULSE 76–122; RESP 17–20; TEMP 96.8–98.7; O2SAT 96–100
[2017-03-17] MEDS: metroNIDAZOLE 500 MG INJ 100 ML IV SCH ×3 (03:56→14:52)
[2017-03-17] MEDS: D5-1/2 NS + KCL 20 MEQ INJ 1,000 ML IV SCH ×3 (06:16→21:15)
[2017-03-17] MEDS: PANTOPRAZOLE SOD 20 MG DELAYED RELEASE TAB PO SCH (08:49)
[2017-03-17] MEDS: METOPROLOL TARTRATE 25 MG TAB PO SCH ×2 (08:49→21:16)
[2017-03-17] MEDS: SODIUM CHLORIDE 0.9% FLUSH 10 ML FLUSH IV FLUSH SCH ×2 (08:50→21:00)
[2017-03-17 10:04] LABS: HEMATOCRIT 27.2 % (35.0-46.0); HEMOGLOBIN 8.9 GM/DL (11.6-15.3); MEAN CORPUSCULAR HEMOGLOBIN 30.1 PG (27.0-34.0); MEAN CORPUSCULAR HGB CONC 32.7 % (32.0-36.0); MEAN PLATELET VOLUME 9.8 FL (7.0-11.0); PLATELET COUNT 128 TH/MM3 (150-450); RED BLOOD COUNT 2.95 MIL/MM3 (4.00-5.30); WHITE BLOOD COUNT 3.1 TH/MM3 (4.0-11.0)
[2017-03-17 10:37] LABS: CALCIUM 7.8 MG/DL (8.5-10.1); CREATININE 0.64 MG/DL (0.50-1.00)
--- NOTE | 2017-03-17 12:05 | HHI.PR ---
Subjective Remarks Patient reports she is feeling much better. No more abdominal pain. Diarrhea resolved. Still feel weak. Is not sure about how much strength she has. Objective Vitals Vital Signs Date Time Temp Pulse Resp B/P (MAP) Pulse Ox O2 Delivery O2 Flow Rate FiO2 03/17/17 08:00 98.4 89 19 105/52 (69) 97 03/17/17 04:00 97.9 86 17 106/50 (68) 97 03/17/17 00:00 97.2 76 17 100/50 (67) 100 03/16/17 20:00 124 03/16/17 20:00 98.0 89 17 104/53 (70) 100 03/16/17 16:00 96.4 113 16 117/62 (80) 100 03/16/17 13:00 90 20 110/57 (74) 100 03/16/17 12:45 97.8 89 20 113/56 (75) 100 I/O 03/16/17 03/16/17 03/16/17 03/17/17 03/17/17 03/17/17 07:00 15:00 23:00 07:00 15:00 23:00 Intake Total 953 ml 200 ml 1105 ml 2581 ml 220 ml Balance 953 ml 200 ml 1105 ml 2581 ml 220 ml Intake Oral 50 ml 240 ml 120 ml IV Total 953 ml 1055 ml 2341 ml 100 ml Other 200 ml # Voids 5 4 4 # Bowel Movements 6 0 2 Result Diagram: 03/17/1785403/17/17 08 Objective Remarks GENERAL: Cachectic-looking, elderly female CARDIOVASCULAR: Normal rate and regular rhythm without murmurs, gallops, or rubs. RESPIRATORY: Good respiratory efforts. Breath sounds equal and clear to auscultation bilaterally. GASTROINTESTINAL: Abdomen soft, non-distended. Nontender. Normal active bowel sounds. MUSCULOSKELETAL: Extremities without cyanosis, or edema. NEURO: Alert & Oriented x4 to person, place, time, situation. Moves all ext x4 PSYCH: Appropriate mood and affect. A/P Problem List: (1) Cholelithiasis ICD Code: K80.20 - Calculus of gallbladder without cholecystitis without obstruction (2) Abdominal pain ICD Code: R10.9 - Unspecified abdominal pain (3) Atrial fibrillation ICD Code: I48.91 - Unspecified atrial fibrillation Assessment and Plan 76 Y/O female with history of cholecystitis a couple of weeks ago treated medically returned with abdominal pain. CT scan shows gallstone however symptomatology not consistent with cholecystitis. Patient tested positive for C difficile. C difficile colitis. Abdominal pain/cholelithiasis: - Exam not consistent with cholecystitis. No fevers, no leukocytosis - GI following, s/p Colonoscopy which showed mild diverticulitis. - Continue supportive care with IV fluid, pain control. - DC Levaquin. Continue Flagyl for C diff. Change to oral. -Symptoms resolved. A-fib: Continue Metoprolol. Patient is not on anticoagulation. Reasons unclear. Will need to address with her after all procedures. Anemia, chronic disease - Hemoglobin dropped.? GI source - Continue to follow - S/P EGD/Colonoscopy. Gastritis s/p biopsy. Mild diverticulitis Physical deconditioning: Consult PT. May need SNF. Moderate protein calorie malnutrition -Continue supplements. Discharge Planning Consult physical therapy. Will need SNF. Plan to discharge tomorrow Katelin Weinstein MD Mar 17, 2017 12:05
--- NOTE | 2017-03-17 12:21 | HHI.GIFU ---
Subjective Remarks Pt resting in bed in NAD. No diarrhea yet today. Abd pain much improved. Tolerating diet. (Olivia Garces) Objective Vitals I&O Vital Signs Date Time Temp Pulse Resp B/P (MAP) Pulse Ox O2 Delivery O2 Flow Rate FiO2 03/17/17 08:00 98.4 89 19 105/52 (69) 97 03/17/17 04:00 97.9 86 17 106/50 (68) 97 03/17/17 00:00 97.2 76 17 100/50 (67) 100 03/16/17 20:00 124 03/16/17 20:00 98.0 89 17 104/53 (70) 100 03/16/17 16:00 96.4 113 16 117/62 (80) 100 03/16/17 13:00 90 20 110/57 (74) 100 03/16/17 12:45 97.8 89 20 113/56 (75) 100 I/O 03/16/17 03/16/17 03/16/17 03/17/17 03/17/17 03/17/17 07:00 15:00 23:00 07:00 15:00 23:00 Intake Total 953 ml 200 ml 1105 ml 2581 ml 220 ml Balance 953 ml 200 ml 1105 ml 2581 ml 220 ml Intake Oral 50 ml 240 ml 120 ml IV Total 953 ml 1055 ml 2341 ml 100 ml Other 200 ml # Voids 5 4 4 # Bowel Movements 6 0 2 Laboratory Laboratory Tests Test 03/17/17 08:55 White Blood Count 3.1 Red Blood Count 2.95 Hemoglobin 8.9 Hematocrit 27.2 Mean Corpuscular Volume 92.0 Mean Corpuscular Hemoglobin 30.1 Mean Corpuscular Hemoglobin Concent 32.7 Red Cell Distribution Width 15.0 Platelet Count 128 Mean Platelet Volume 9.8 Blood Urea Nitrogen 4 Creatinine 0.64 Random Glucose 108 Calcium Level 7.8 Sodium Level 138 Potassium Level 3.9 Chloride Level 109 Carbon Dioxide Level 22.0 Anion Gap 7 Estimat Glomerular Filtration Rate 90 Physical Exam HEENT: PERRL; normocephalic; atraumatic; no jaundice. CHEST: respirations even, unlabored CARDIAC: RRR ABDOMEN: Soft, nondistended, nontender; no hepatosplenomegaly; bowel sounds are present in all four quadrants. EXTREMITIES: No clubbing, cyanosis, or edema. SKIN: Normal; no rash; no jaundice. QUALITY CONTROL SYSTEMS MANAGER: No focal deficits; alert and oriented times three. (Olivia Garces) Assessment and Plan Plan ASSESSMENT: - Abdominal pain, ? left sided colitis. Pt was recently hospitalized for cholecystitis and treated with abx (responded well) but then started having a dull ache in lower/mid abdomen, worse on left side. She denies any other symptoms such as fever, chills, n/v, or diarrhea. CT Scan abdomen and pelvis with contrast (03/14/17)----> thick walled, stone-containing gallbladder. Clinical correlation is recommended to rule out cholecystitis, minimal ascites throughout the abdomen and pelvis, uncomplicated colonic diverticulosis, tiny right pleural effusion, stable right renal cyst, degenerative changes and scoliosis of the thoracolumbar spine, moderate compression deformity involving the L3 of indeterminate age, lytic lesion involving the left iliac crest which is indeterminate. However, Dr. Weber and Dr. Simon from radiology then reviewed the CT imaging and it appears that she may have some thickening of her sigmoid colon. The patient reports that she had a colonoscopy about a year ago maybe in [place]. I did look in our outpatient records and she was scheduled for a colonoscopy in 2003, but cancelled because her mother was sick at the time. Amanda Mohr. GS following. - Anorexia, Abnormal weight loss, Malnutrition. 100 lb weight loss over past year. There is some questionable thickening sigmoid colon. - Anemia with drop in hgb. 10.0/29.5----> 9.5/25.5. No obvious active bleeding. - Cholelithiasis, recent cholecystitis. Recently hospitalized from 02/23/17- for acute cholecystitis. She was evaluated by GS and treated with conservative treatment- low fat diet and antibiotics and responded well to treatment and was discharged on 02/27/17. - Atrial fibrillation, not on blood thinners. 03/17/17 -- s/p EGD/colonoscopy 03/16 showing diverticulosis, mild diverticulotis , gastritis. c diff pos, on flagyl. doing better today. path pending. HH stable. PLAN: - await path - AMANUEL - monitor labs - continue flagyl - Supportive care - Further recommendations to follow based on results of above - Pt seen and examined by Dr. Luo and myself and this note is written on his behalf (Olivia Garces) Physician Comments Seen and examined, plan as above. Will follow up with you after pathology results. (Phoenix Luo MD) Olivia Garces Mar 17, 2017 12:21 Phoenix Luo MD Mar 17, 2017 16:06
[2017-03-17] MEDS: metroNIDAZOLE 500 MG TAB PO SCH (21:15)
[2017-03-18] VITALS: BP 129/72; PULSE 120; RESP 17; TEMP 97.2; O2SAT 97
[2017-03-18 04:00] VITALS: BP 140/65; PULSE 95; RESP 17; TEMP 97.7; O2SAT 99
[2017-03-18] MEDS: D5-1/2 NS + KCL 20 MEQ INJ 1,000 ML IV SCH ×2 (04:28→10:07)
[2017-03-18] MEDS: metroNIDAZOLE 500 MG TAB PO SCH ×2 (04:28→09:26)
[2017-03-18 07:48] VITALS: BP 108/58; PULSE 115; RESP 14; TEMP 98.1; O2SAT 98
[2017-03-18] MEDS: PANTOPRAZOLE SOD 20 MG DELAYED RELEASE TAB PO SCH (09:25)
[2017-03-18] MEDS: METOPROLOL TARTRATE 25 MG TAB PO SCH (09:26)
[2017-03-18] MEDS ORDERED: METR-1 PO ×2 (11:35→16:03)
[2017-03-18] MEDS ORDERED: FAMO20TA2 PO ×2 (11:35→16:03)
--- NOTE | 2017-03-18 11:36 | HHI.DS ---
Discharge Summary Admission Date Mar 14, 2017 at 16:59 Discharge Date: Mar 18, 2017 Admitting Diagnosis acute cholecystitis (1) Cholelithiasis ICD Code: K80.20 - Calculus of gallbladder without cholecystitis without obstruction (2) Abdominal pain ICD Code: R10.9 - Unspecified abdominal pain (3) Atrial fibrillation ICD Code: I48.91 - Unspecified atrial fibrillation (4) C. difficile colitis ICD Code: A04.72 - Enterocolitis due to Clostridium difficile, not specified as recurrent Procedures None Brief History - From Admission 76 Y/O female with history of afib, anemia, cholelithiasis presents to the ED with abdominal pain. Patient had a recent admission for cholecystitis and was treated medically with antibiotics. She dill well after discharge until last night when she started to experience severe diffuse abdominal pain. She denies any nausea. No fevers or chills. She had a soft bowel movement last night but no diarrhea. CBC/BMP: 03/17/17 0855 03/17/17 0855 Significant Findings Laboratory Tests Test 03/15/17 13:15 03/16/17 06:41 03/17/17 08:55 Stool C. difficile Toxin (PCR) POSITIVE (NEGATIVE) Stl C. difficile Toxin Epiderm 027 PRESUMPTIVE POSITIVE Red Blood Count 2.84 MIL/MM3 (4.00-5.30) 2.95 MIL/MM3 (4.00-5.30) Hemoglobin 8.6 GM/DL (11.6-15.3) 8.9 GM/DL (11.6-15.3) Hematocrit 25.7 % (35.0-46.0) 27.2 % (35.0-46.0) Platelet Count 141 TH/MM3 (150-450) 128 TH/MM3 (150-450) Monocytes (%) (Auto) 8.2 % (0.0-8.0) Eosinophils (%) (Auto) 4.2 % (0.0-4.0) Lymphocytes # (Auto) 0.8 TH/MM3 (1.0-4.8) Blood Urea Nitrogen 5 MG/DL (7-18) 4 MG/DL (7-18) Random Glucose 110 MG/DL (74-106) 108 MG/DL (74-106) Total Protein 4.9 GM/DL (6.4-8.2) Albumin 2.0 GM/DL (3.4-5.0) Calcium Level 7.8 MG/DL (8.5-10.1) 7.8 MG/DL (8.5-10.1) Aspartate Amino Transf (AST/SGOT) 14 U/L (15-37) Alanine Aminotransferase (ALT/SGPT) 7 U/L (10-53) Chloride Level 110 MEQ/L (98-107) 109 MEQ/L (98-107) White Blood Count 3.1 TH/MM3 (4.0-11.0) Imaging Last Impressions Abdomen/Pelvis CT 03/14/17 1203 Signed Impressions: Service Date/Time: Sunday, March 14, 2017 14:50 - CONCLUSION: 1. Thick-walled, stone-containing gallbladder. Clinical correlation is recommended to rule out cholecystitis. 2. Minimal ascites throughout the abdomen and pelvis. 3. Uncomplicated colonic diverticulosis. 4. Tiny right pleural effusion. 5. Stable right renal cyst. 6. Degenerative changes and scoliosis of the thoracolumbar spine. 7. Moderate compression deformity involving the L3 of indeterminate age. 8. Lytic lesion involving the left iliac crest which is indeterminate. Ezequiel Ohara MD PE at Discharge GENERAL: Cachectic-looking, elderly female CARDIOVASCULAR: Normal rate and regular rhythm without murmurs, gallops, or rubs. RESPIRATORY: Good respiratory efforts. Breath sounds equal and clear to auscultation bilaterally. GASTROINTESTINAL: Abdomen soft, non-distended. Nontender. Normal active bowel sounds. MUSCULOSKELETAL: Extremities without cyanosis, or edema. NEURO: Alert & Oriented x4 to person, place, time, situation. Moves all ext x4 PSYCH: Appropriate mood and affect. Pt update on day of discharge Patient reports she is feeling much better. No abdominal pain. Eating well. No diarrhea. Hospital Course 76 Y/O female with history of cholecystitis a couple of weeks ago treated medically returned with abdominal pain. CT scan shows gallstone however symptomatology not consistent with cholecystitis. Patient tested positive for C difficile. Evaluation and treatment course detailed below: C difficile colitis. Abdominal pain/cholelithiasis: - Exam not consistent with cholecystitis. No fevers, no leukocytosis - GI following, s/p Colonoscopy which showed mild diverticulitis. - Continue supportive care with IV fluid, pain control. - DC Levaquin. Continue Flagyl for C diff. Change to oral. Patient to continue Flagyl to complete the treatment course. -Symptoms resolved. A-fib: Continue Metoprolol. Patient is not on anticoagulation. Reasons unclear. She reports she was previously on Eliquis but does not know why it's not on her med list. Resume Eliquis. Advised patient to follow-up with her core composer machine tender outpatient. Anemia, chronic disease - S/P EGD/Colonoscopy. Gastritis s/p biopsy. Mild diverticulitis - H&H remained stable. Physical deconditioning: Patient was evaluated by PT. Discharge home with home physical therapy. Moderate protein calorie malnutrition -Continue supplements. Pt Condition on Discharge: Good Discharge Disposition: Discharge to SNF Discharge Time: > 30 minutes Discharge Instructions DIET: Follow Instructions for: Heart Healthy Diet Activities you can perform: Regular-No Restrictions Follow up Referrals: PCP Follow-up - 2 Weeks New Medications: Apixaban (Eliquis) 5 Mg Tab 5 MG PO BID for Blood Clot Prevention, #60 TAB 0 Refills Famotidine (Famotidine) 20 Mg Tab 20 MG PO BID, #60 TAB 0 Refills Metronidazole (Flagyl) 500 Mg Tab 500 MG PO Q8HR, #24 TAB Changed Medications: Metoprolol Tartrate (Metoprolol Tartrate) 25 Mg Tab 25 MG PO Q12HR for Blood Pressure Management, #30 TAB (Changed from: 12.5 MG) Continued Medications: Leflunomide (Leflunomide) 20 Mg Tab 20 MG PO DAILY, TAB Discontinued Medications: Omeprazole (Omeprazole) 40 Mg Cap 20 MG PO DAILY, #30 CAP 0 Refills Tramadol (Tramadol) 50 Mg Tab 50 MG PO BID for PAIN, TAB 0 Refills Katelin Weinstein MD Mar 18, 2017 11:36
[2017-03-18 12:00] VITALS: BP 110/59; PULSE 113; RESP 16; TEMP 97.5; O2SAT 100
--- NOTE | 2017-03-18 14:37 | HHI.GIFU ---
Subjective Remarks Resting in bed in no apparent distress. Denies abdominal pain. No N/V. Tolerating diet. (Kayla Loza) Objective Vitals I&O Vital Signs Date Time Temp Pulse Resp B/P (MAP) Pulse Ox O2 Delivery O2 Flow Rate FiO2 03/18/17 12:00 97.5 113 16 110/59 (76) 100 03/18/17 07:48 98.1 115 14 108/58 (75) 98 03/18/17 04:00 97.7 95 17 140/65 (90) 99 03/18/17 00:00 97.2 120 17 129/72 (91) 97 03/17/17 20:30 97.0 122 17 116/60 (78) 98 03/17/17 20:00 121 03/17/17 20:00 96.8 122 17 107/57 (74) 96 03/17/17 16:00 98.7 116 20 121/61 (81) 99 I/O 03/17/17 03/17/17 03/17/17 03/18/17 03/18/17 03/18/17 07:00 15:00 23:00 07:00 15:00 23:00 Intake Total 2581 ml 220 ml 1760 ml 240 ml 1000 ml Output Total 600 ml 800 ml Balance 2581 ml 220 ml 1160 ml -560 ml 1000 ml Intake Oral 240 ml 120 ml 760 ml 240 ml IV Total 2341 ml 100 ml 1000 ml 1000 ml Output Urine Total 600 ml 800 ml # Voids 4 # Bowel Movements 2 0 Laboratory Laboratory Tests Test 03/16/17 06:41 03/17/17 08:55 White Blood Count 4.3 TH/MM3 3.1 TH/MM3 Red Blood Count 2.84 MIL/MM3 2.95 MIL/MM3 Hemoglobin 8.6 GM/DL 8.9 GM/DL Hematocrit 25.7 % 27.2 % Mean Corpuscular Volume 90.4 FL 92.0 FL Mean Corpuscular Hemoglobin 30.3 PG 30.1 PG Mean Corpuscular Hemoglobin Concent 33.6 % 32.7 % Red Cell Distribution Width 14.6 % 15.0 % Platelet Count 141 TH/MM3 128 TH/MM3 Mean Platelet Volume 10.0 FL 9.8 FL Neutrophils (%) (Auto) 66.6 % Lymphocytes (%) (Auto) 19.8 % Monocytes (%) (Auto) 8.2 % Eosinophils (%) (Auto) 4.2 % Basophils (%) (Auto) 1.2 % Neutrophils # (Auto) 2.9 TH/MM3 Lymphocytes # (Auto) 0.8 TH/MM3 Monocytes # (Auto) 0.4 TH/MM3 Eosinophils # (Auto) 0.2 TH/MM3 Basophils # (Auto) 0.1 TH/MM3 CBC Comment DIFF FINAL Differential Comment Blood Urea Nitrogen 5 MG/DL 4 MG/DL Creatinine 0.60 MG/DL 0.64 MG/DL Random Glucose 110 MG/DL 108 MG/DL Total Protein 4.9 GM/DL Albumin 2.0 GM/DL Calcium Level 7.8 MG/DL 7.8 MG/DL Alkaline Phosphatase 50 U/L Aspartate Amino Transf (AST/SGOT) 14 U/L Alanine Aminotransferase (ALT/SGPT) 7 U/L Total Bilirubin 0.3 MG/DL Sodium Level 140 MEQ/L 138 MEQ/L Potassium Level 3.9 MEQ/L 3.9 MEQ/L Chloride Level 110 MEQ/L 109 MEQ/L Carbon Dioxide Level 24.5 MEQ/L 22.0 MEQ/L Anion Gap 6 MEQ/L 7 MEQ/L Estimat Glomerular Filtration Rate 97 ML/MIN 90 ML/MIN Imaging Last Impressions Abdomen/Pelvis CT 03/14/17 1203 Signed Impressions: Service Date/Time: Tuesday, March 14, 2017 14:50 - CONCLUSION: 1. Thick-walled, stone-containing gallbladder. Clinical correlation is recommended to rule out cholecystitis. 2. Minimal ascites throughout the abdomen and pelvis. 3. Uncomplicated colonic diverticulosis. 4. Tiny right pleural effusion. 5. Stable right renal cyst. 6. Degenerative changes and scoliosis of the thoracolumbar spine. 7. Moderate compression deformity involving the L3 of indeterminate age. 8. Lytic lesion involving the left iliac crest which is indeterminate. Ezequiel Ohara MD Physical Exam HEENT: Normocephalic; atraumatic; no jaundice. CHEST: CTA CARDIAC: RRR ABDOMEN: Soft, nondistended, nontender; no hepatosplenomegaly; bowel sounds are present in all four quadrants. EXTREMITIES: No clubbing, cyanosis, or edema. SKIN: Normal; no rash; no jaundice. OPHTHALMOLOGY SURGICAL TECHNICIAN: No focal deficits; alert and oriented times three. (Kayla Loza Assessment and Plan Plan ASSESSMENT: - Abdominal pain, ? left sided colitis. Pt was recently hospitalized for cholecystitis and treated with abx (responded well) but then started having a dull ache in lower/mid abdomen, worse on left side. She denies any other symptoms such as fever, chills, n/v, or diarrhea. CT Scan abdomen and pelvis with contrast (03/14/17)----> thick walled, stone-containing gallbladder. Clinical correlation is recommended to rule out cholecystitis, minimal ascites throughout the abdomen and pelvis, uncomplicated colonic diverticulosis, tiny right pleural effusion, stable right renal cyst, degenerative changes and scoliosis of the thoracolumbar spine, moderate compression deformity involving the L3 of indeterminate age, lytic lesion involving the left iliac crest which is indeterminate. However, Dr. Weber and Dr. Simon from radiology then reviewed the CT imaging and it appears that she may have some thickening of her sigmoid colon. The patient reports that she had a colonoscopy about a year ago maybe in [place]. I did look in our outpatient records and she was scheduled for a colonoscopy in 2003, but cancelled because her mother was sick at the time. Amanda Mohr. [facility] following. - Anorexia, Abnormal weight loss, Malnutrition. 100 lb weight loss over past year. There is some questionable thickening sigmoid colon. - Anemia with drop in hgb. 10.0/29.5----> 9.5/25.5. No obvious active bleeding. - Cholelithiasis, recent cholecystitis. Recently hospitalized from 02/23/17- for acute cholecystitis. She was evaluated by [facility] and treated with conservative treatment- low fat diet and antibiotics and responded well to treatment and was discharged on 02/27/17. - Atrial fibrillation, not on blood thinners. 03/17/17 -- s/p EGD/colonoscopy 03/16 showing diverticulosis, mild diverticulotis , gastritis. c diff pos, on flagyl. doing better today. path pending. stable. 03/18/17--Patient is doing well. Denies abdominal pain. No nausea or vomiting. Tolerating diet. HH stable, 8.9/27.2 PLAN: - Patient okay to discharge from GI standpoint - Await pathology - AMANUEL - Monitor labs - Supportive care - Further recommendations to follow based on results of above Patient seen and examined by Dr. Luo and myself and this note is written on his behalf (Kayla Loza) Physician Comments Agree with the plan as above. Stable from GI point of view. (Phoenix Luo MD) Kayla Loza Mar 18, 2017 14:37 Phoenix Luo MD Mar 18, 2017 15:12
[2017-03-18] MEDS ORDERED: METO25TA3 PO (16:03)
--- NOTE | 2017-03-18 16:08 | HHI.FF ---
Face to Face Verification Diagnosis: (1) C. difficile colitis (2) Abdominal pain (3) Atrial fibrillation Physical Therapy Order: Evaluate and Treat, Strength and gait training Home Health Nursing Order: Medical education Nursing assessment with vital signs I have seen patient Ashley Allen on 03/18/17. My clinical findings support the need for the requested home health care services because: Need for psychosocial assistance I certify that my clinical findings support that this patient is homebound because: Unsteady gait/balance Need for psychosocial assistance Katelin Weinstein MD Mar 18, 2017 16:08
[2017-03-18] MEDS ORDERED: APIX5TAB PO (16:09)
== END 2017-03-18 16:23 | disposition home or self-care (01) | DRG 372 ==
LOC: NEPC 11:20 → NEDA 16:59 → N06B 17:29 → N07B 03-15 19:19
PROVIDERS: ADMIT Family Medicine; ATTEND Family Medicine
PROC: 0DB68ZX Excision of Stomach, Via Natural or Artificial Opening Endoscopic, Diagnostic (ICD-10-PCS; principal; 2017-03-16 08:30)
PROC: 0DJD8ZZ Inspection of Lower Intestinal Tract, Via Natural or Artificial Opening Endoscopic (ICD-10-PCS; 2017-03-16 08:30)
DX: A04.72 Enterocolitis due to Clostridium difficile, not specified as recurrent (principal); E44.0 Moderate protein-calorie malnutrition; I48.91 Unspecified atrial fibrillation; K51.50 Left sided colitis without complications; M48.56XA Collapsed vertebra, not elsewhere classified, lumbar region, initial encounter for fracture; N28.1 Cyst of kidney, acquired; Z68.1 Body mass index [BMI] 19.9 or less, adult; K57.32 Diverticulitis of large intestine without perforation or abscess without bleeding; K80.20 Calculus of gallbladder without cholecystitis without obstruction; K29.70 Gastritis, unspecified, without bleeding; M41.9 Scoliosis, unspecified; D63.8 Anemia in other chronic diseases classified elsewhere; Z88.1 Allergy status to other antibiotic agents; Z88.2 Allergy status to sulfonamides; Z88.5 Allergy status to narcotic agent
CPT/HCPCS: 74177; 80048; 80053; 81001; 82948; 83605; 83690; 85025; 85027; 87493; 88305; 96361; 96374; J1956; J2405; J3480; J7030; P9612; Q9967

== ENCOUNTER 2017-03-31 12:06 | Emergency (ER) | payer OTHER ==
[~2017-03-31] VITALS: Ht 152.4 cm; Wt 40.0 kg
[~2017-03-31 12:06] MED LIST changes: +APIX5TAB PO; -CIPR-9 PO; +FAMO20TA2 PO; -OMEP40CA2 PO; -TRAM50TA PO
[2017-03-31 12:18] VITALS: BP 110/57; TEMP 97.5
[2017-03-31] MEDS ORDERED: SODIUM CHLORID 0.9% 500 ML INJ 500 ML IV ONE (12:30)
[2017-03-31] MEDS ORDERED: LIDOCAINE HCL 1% 50 ML VIAL INFIL ONE (12:30)
[2017-03-31 12:31] VITALS: BP 110/57; PULSE 68; RESP 14; O2SAT 100
--- NOTE | 2017-03-31 12:34 | PD ---
HPI Chief Complaint: Fall Time Seen by Provider: 12:15 Travel History International Travel<30 days: No Contact w/Intl Traveler<30days: No Traveled to known affect area: No History of Present Illness HPI 76-year-old female presents via EMS for evaluation after a fall. The patient reports that this morning she tripped on her feet and fell, striking the back or head against the ground. She reports that she murmurs the entire episode and did not lose consciousness. Her roommate told paramedics that she had a syncopal event and fell but the patient very much disputes this. The patient is alert and oriented 3 and seems to be a reasonable historian. She reports that her primary care physician is Dr. Wayne. She reports mild soreness on the occipital scalp are she has a laceration. Denies any global headache, blurred vision, nausea or vomiting, chest pain or shortness of breath, neck or back pain, dizziness, weakness, lightheadedness. She reports that her last tetanus vaccination was within 5 years. The paramedics note that her heart rate was initially 170 and it appears to be a sinus tachycardia and not SVT. They gave her 700 mL of fluid and her heart rate normalized to 80. No other complaints at this time. PFSH Past Medical History Arthritis: Yes GERD: Yes Menopausal: Yes Past Surgical History Hysterectomy: Yes Joint Replacement: Yes (r shoulder and l ankle ) Social History Alcohol Use: No Tobacco Use: No Substance Use: No Allergies-Medications (Allergen,Severity, Reaction): Coded Allergies: Sulfa (Sulfonamide Antibiotics) (Verified Allergy, Unknown, 03/31/17) codeine (Verified Allergy, Unknown, 03/31/17) Reported Meds & Prescriptions Reported Meds & Active Scripts Active Reported Metronidazole 500 Mg Tab 500 Mg PO TID Famotidine 20 Mg Tab 20 Mg PO BID Leflunomide 20 Mg Tab 20 Mg PO DAILY Review of Systems Except as stated in HPI: all other systems reviewed are Neg Physical Exam Narrative GENERAL: Frail 76-year-old female who is in no acute distress. She is awake, alert, answering questions appropriately. SKIN: Warm and dry. 2 cm occipital scalp laceration noted. HEAD: Skin as noted above. Normocephalic. EYES: Pupils equal and round. No scleral icterus. No injection or drainage. ENT: No nasal bleeding or discharge. Mucous membranes pink and moist. NECK: Trachea midline. No JVD. CARDIOVASCULAR: Regular rate and rhythm. No murmur appreciated. RESPIRATORY: No accessory muscle use. Clear to auscultation. Breath sounds equal bilaterally. GASTROINTESTINAL: Abdomen soft, non-tender, nondistended. Hepatic and splenic margins not palpable. MUSCULOSKELETAL: No obvious deformities. No clubbing. No cyanosis. No edema. NEUROLOGICAL: Awake and alert. No obvious cranial nerve deficits. Motor grossly within normal limits. Normal speech. PSYCHIATRIC: Appropriate mood and affect; insight and judgment normal. Data Data Last Documented VS Vital Signs Date Time Temp Pulse Resp B/P (MAP) Pulse Ox O2 Delivery O2 Flow Rate FiO2 03/31/17 13:38 79 16 109/56 (73) 100 Room Air 03/31/17 12:18 97.5 Orders Orders Complete Blood Count With Diff (03/31/17 12:19) Comprehensive Metabolic Panel (03/31/17 12:19) Magnesium (Mg) (03/31/17 12:19) Urinalysis - C+S If Indicated (03/31/17 12:19) Ct Brain W/O Iv Contrast(Rout) (03/31/17 12:19) Blood Glucose (03/31/17 12:19) Ecg Monitoring (03/31/17 12:19) Lidocaine 1% Inj (50 Ml) (Xylocaine 1% I (03/31/17 12:30) Sodium Chlorid 0.9% 500 Ml Inj (Ns 500 M (03/31/17 12:30) Lidocaine Pf 1% Inj (Xylocaine-Mpf 1% In (03/31/17 12:36) Potassium Chloride (Kcl) (03/31/17 13:15) Oral Rehydration (03/31/17 13:01) Electrocardiogram (03/31/17 12:24) Urine Culture (03/31/17 13:40) Labs Laboratory Tests Test 03/31/17 12:30 03/31/17 13:40 White Blood Count 2.1 TH/MM3 Red Blood Count 3.18 MIL/MM3 Hemoglobin 9.2 GM/DL Hematocrit 28.5 % Mean Corpuscular Volume 89.5 FL Mean Corpuscular Hemoglobin 28.9 PG Mean Corpuscular Hemoglobin Concent 32.3 % Red Cell Distribution Width 14.4 % Platelet Count 135 TH/MM3 Mean Platelet Volume 9.9 FL Neutrophils (%) (Auto) 49.2 % Lymphocytes (%) (Auto) 34.8 % Monocytes (%) (Auto) 7.2 % Eosinophils (%) (Auto) 5.0 % Basophils (%) (Auto) 3.8 % Neutrophils # (Auto) 1.1 TH/MM3 Lymphocytes # (Auto) 0.7 TH/MM3 Monocytes # (Auto) 0.2 TH/MM3 Eosinophils # (Auto) 0.1 TH/MM3 Basophils # (Auto) 0.1 TH/MM3 CBC Comment DIFF FINAL Differential Comment Blood Urea Nitrogen 8 MG/DL Creatinine 0.60 MG/DL Random Glucose 70 MG/DL Total Protein 5.6 GM/DL Albumin 2.6 GM/DL Calcium Level 8.1 MG/DL Magnesium Level 1.7 MG/DL Alkaline Phosphatase 43 U/L Aspartate Amino Transf (AST/SGOT) 24 U/L Alanine Aminotransferase (ALT/SGPT) 11 U/L Total Bilirubin 0.4 MG/DL Sodium Level 142 MEQ/L Potassium Level 3.2 MEQ/L Chloride Level 109 MEQ/L Carbon Dioxide Level 23.0 MEQ/L Anion Gap 10 MEQ/L Estimat Glomerular Filtration Rate 97 ML/MIN Urine Color YELLOW Urine Turbidity CLEAR Urine pH 5.5 Urine Specific Addison 1.012 Urine Protein NEG mg/dL Urine Glucose (UA) NEG mg/dL Urine Ketones TRACE mg/dL Urine Occult Blood TRACE Urine Nitrite NEG Urine Bilirubin NEG Urine Urobilinogen LESS THAN 2.0 MG/DL Urine Leukocyte Esterase NEG Urine RBC 0-3 /hpf Urine WBC 0-2 /hpf Urine Calcium Oxalate Crystals OCC /hpf Urine Bacteria OCC /hpf Microscopic Urinalysis Comment CATH-CULTURE IND [facility] Medical Decision Making Medical Screen Exam Complete: Yes Emergency Medical Condition: Yes Medical Record Reviewed: Yes Differential Diagnosis Mechanical fall, closed head injury, scalp laceration, syncope, arrhythmia, electrolyte abnormality, dehydration, hypoglycemia Narrative Course The patient was placed on ECG monitoring pulse oximetry. A 12-lead EKG was obtained. Plan is for basic lab work, CT of the brain. The laceration will be repaired with ofelia, she verbally consents. The patient's lab work is been reviewed. WBC is 2.1, hemoglobin is 9.2, platelet count is 135, potassium is 3.2 and her glucose level 70. The patient' s son has arrived. He reports that over the past year she has had a generalized decline in health. She currently follows closely with her primary care physician and has routine lab work is an outpatient. She seems stable for outpatient follow-up, he is agreeable with taking her home. Procedures Procedure Narrative LACERATION LOCATION: Occipital scalp LENGTH: 2 cm NUMBER OF STITCHES/OFELIA: 4 REPAIR: The area of the laceration was prepped with Betadine and sterilely draped. The laceration was infiltrated with 1% lidocaine. The wound was copiously irrigated and explored without evidence of foreign body, tendon injury or neurovascular injury. The wound was closed using ofelia. This was a single layer repair. A sterile dressing was applied. The patient was advised to keep the dressing clean and dry. Patient tolerated the procedure well. Diagnosis Primary Impression: Scalp laceration Qualified Codes: S01.01XA - Laceration without foreign body of scalp, initial encounter Additional Impressions: Fall Qualified Codes: W19.XXXA - Unspecified fall, initial encounter Hypokalemia Additional Instructions: Wash the wound gently with soap and water and apply antibiotic cream daily. Return in approximately 10 days for staple removal. Follow-up closely with primary care physician. Med/Other Pt SpecificInfo: No Change to Meds Disposition: 01 DISCHARGE HOME Condition: Stable Norman Castellanos Mar 31, 2017 12:34
[2017-03-31] MEDS ORDERED: LIDOCAINE HCL 1% PF 30 ML VIAL ONE (12:36)
[2017-03-31 12:44] LABS: AUTOMATED NEUTROPHIL # 1.1 TH/MM3 (1.8-7.7); BASOPHIL # 0.1 TH/MM3 (0-0.2); BASOPHIL % 3.8 % (0.0-2.0); EOSINOPHIL # 0.1 TH/MM3 (0-0.4); HEMATOCRIT 28.5 % (35.0-46.0); HEMO FLAGS DIFF FINAL; LYMPH % 34.8 % (9.0-44.0); LYMPHOCYTE # 0.7 TH/MM3 (1.0-4.8); MEAN CELL VOLUME 89.5 FL (80.0-100.0); MEAN CORPUSCULAR HEMOGLOBIN 28.9 PG (27.0-34.0); MEAN CORPUSCULAR HGB CONC 32.3 % (32.0-36.0); MONO % 7.2 % (0.0-8.0); NEUT % 49.2 % (16.0-70.0); PLATELET COUNT 135 TH/MM3 (150-450); RED BLOOD COUNT 3.18 MIL/MM3 (4.00-5.30); RED CELL DISTRIBUTION WIDTH 14.4 % (11.6-17.2); WHITE BLOOD COUNT 2.1 TH/MM3 (4.0-11.0)
[2017-03-31 13:00] LABS: ALT (GPT) 11 U/L (10-53); ANION GAP 10 MEQ/L (5-15); AST (GOT) 24 U/L (15-37); BLOOD UREA NITROGEN 8 MG/DL (7-18); CHLORIDE 109 MEQ/L (98-107); GLOMERULAR FILTRATION RATE 97 ML/MIN (>89); MAGNESIUM 1.7 MG/DL (1.5-2.5); POTASSIUM 3.2 MEQ/L (3.5-5.1); SODIUM (NA) 142 MEQ/L (136-145)
[2017-03-31 13:02] LABS: ALKALINE PHOSPHATASE 43 U/L (45-117); TOTAL BILIRUBIN ADULT 0.4 MG/DL (0.2-1.0)
[2017-03-31] MEDS ORDERED: POTASSIUM CHLORIDE 20 MEQ CONTROLLED RELEASE TAB PO ONE (13:15)
--- NOTE | 2017-03-31 13:20 | RADRPT ---
EXAM DATE/TIME: 03/31/2017 12:59 [facility] COMPARISON: No previous studies available for comparison. INDICATIONS : Fall today, laceration to posterior head. RADIATION DOSE: 29.75 CTDIvol (mGy) MEDICAL HISTORY : None SURGICAL HISTORY : Hysterectomy. ENCOUNTER: Initial ACUITY: 1 day PAIN SCALE: 6/10 LOCATION: Bilateral occipital head TECHNIQUE: Multiple contiguous axial images were obtained of the head. Using automated exposure control and adj ustment of the mA and/or kV according to patient size, radiation dose was kept as low as reasonably a chievable to obtain optimal diagnostic quality images. DICOM format image data is available electro nically for review and comparison. FINDINGS: CEREBRUM: The ventricles are normal for age. No evidence of midline shift, mass lesion, hemorrhage or acute in farction. No extra-axial fluid collections are seen. POSTERIOR FOSSA: The cerebellum and brainstem are intact. The 4th ventricle is midline. The cerebellopontine angle i s unremarkable. EXTRACRANIAL: The visualized portion of the orbits is intact. SKULL: The calvaria is intact. No evidence of skull fracture. CONCLUSION: No acute intracranial findings. Maldonado Jacobs MD on March 31, 2017 at 13:17 Board Certified Radiologist. This report was verified electronically.
[2017-03-31] MEDS ORDERED: FAMO20TA2 PO (13:37)
[2017-03-31] MEDS ORDERED: LEFL1TAB3 PO (13:37)
[2017-03-31] MEDS ORDERED: METR1TAB76 PO (13:37)
[2017-03-31 13:38] VITALS: BP 109/56; PULSE 79; RESP 16; O2SAT 100
[2017-03-31 14:00] LABS: BLOOD, URINE TRACE (NEG); GLUCOSE,URINE NEG (NEG); KETONE, URINE TRACE mg/dL (NEG); NITRITE,URINE NEG (NEG); PH, URINE 5.5 (5.0-8.5); URINE COLOR YELLOW (YELLW/STRAW)
[2017-03-31 14:27] LABS: BACTERIA, URINE OCC /hpf; CALCIUM OXALATE CRYSTALS,URINE OCC /hpf; RBC, URINE 0-3 /hpf (0-3); WBC, URINE 0-2 /hpf (0-5)
[2017-03-31 14:28] LABS: COMMENT (UR) CATH-CULTURE IND; CULTURE IF INDICATED CATH CULTURE IND
[2017-03-31 15:30] VITALS: BP_SYST 111; BP_DIAS 59; BP_DIAS 61; PULSE 74; RESP 15; O2SAT 97
--- NOTE | 2017-03-31 16:10 | EKG ---
Date Performed: 03/31/2017 Time Performed: 12:24:30 PTAGE: 76 years EKG: Sinus rhythm WITH OCCASIONAL SUPRAVENTRICULAR PREMATURE COMPLEXES LOW QRS VOLTAGE IN EXTREMITY LEADS Nonspecific ST-T changes ABNORMAL ECG PREVIOUS TRACING : 03/31/2017 12.21 DOCTOR: Gregorio Bonilla Interpretating Date/Time 03/31/2017 16:09:59
[2017-03-31 17:00] VITALS: BP 109/63
== END 2017-03-31 17:00 | disposition home or self-care (01) ==
LOC: NEPC 12:06 → MERGE 12:06 → NEPC 17:00
DX: S01.01XA Laceration without foreign body of scalp, initial encounter (principal); E87.6 Hypokalemia; R94.31 Abnormal electrocardiogram [ECG] [EKG]; M19.90 Unspecified osteoarthritis, unspecified site; K21.9 Gastro-esophageal reflux disease without esophagitis; R82.90 Unspecified abnormal findings in urine; W01.198A Fall on same level from slipping, tripping and stumbling with subsequent striking against other object, initial encounter; Y93.89 Activity, other specified; Y92.009 Unspecified place in unspecified non-institutional (private) residence as the place of occurrence of the external cause
CPT/HCPCS: 12001; 70450; 80053; 81001; 83735; 85025; 87086; 93005; 96360; 99285; J7040

== ENCOUNTER 2017-04-11 14:17 | Inpatient (IN) | payer OTHER, MEDICARE ==
[2017-04-11] VITALS (9 sets, daily range): BP systolic 99–118; BP diastolic 56–87; PULSE 84–165; RESP 14–18; TEMP 97.8–98.3; O2SAT 95–100
[~2017-04-11] VITALS: Ht 157.5 cm; Wt 48.0 kg
[~2017-04-11 14:17] MED LIST changes: +METR1TAB76 PO
[2017-04-11] MEDS ORDERED: IOHEXOL 350 MG/ML 10 ML VIAL (for RAD DIAG) IVCONTRAST ONE (14:18)
--- NOTE | 2017-04-11 14:57 | RADRPT ---
EXAM DATE/TIME: 04/11/2017 14:39 [facility] COMPARISON: CT BRAIN W/O CONTRAST, April 08, 2016, 16:47. INDICATIONS : Altered mental status for one day. RADIATION DOSE: 56.35 CTDIvol (mGy) MEDICAL HISTORY : Cardiovascular disease. SURGICAL HISTORY : Hysterectomy. ENCOUNTER: Initial ACUITY: 1 day PAIN SCALE: 4/10 LOCATION: Bilateral cranial TECHNIQUE: Multiple contiguous axial images were obtained of the head. Using automated exposure control and adj ustment of the mA and/or kV according to patient size, radiation dose was kept as low as reasonably a chievable to obtain optimal diagnostic quality images. DICOM format image data is available electro nically for review and comparison. FINDINGS: CEREBRUM: The ventricles are normal for age. No evidence of midline shift, mass lesion, hemorrhage or acute in farction. No extra-axial fluid collections are seen. POSTERIOR FOSSA: The cerebellum and brainstem are intact. The 4th ventricle is midline. The cerebellopontine angle i s unremarkable. EXTRACRANIAL: The visualized portion of the orbits is intact. SKULL: The calvaria is intact. No evidence of skull fracture. CONCLUSION: No acute disease. Mendel Teague MD FACR on April 11, 2017 at 14:55 Board Certified Radiologist. This report was verified electronically.
--- NOTE | 2017-04-11 15:24 | RADRPT ---
EXAM DATE/TIME: 04/11/2017 14:57 [facility] COMPARISON: CHEST PA & LAT, May 07, 2014, 8:42. INDICATIONS : Weakness MEDICAL HISTORY : Cardiovascular disease. SURGICAL HISTORY : Hysterectomy. ENCOUNTER: Initial ACUITY: 1 day PAIN SCORE: 0/10 LOCATION: Bilateral chest FINDINGS: PA and lateral views of the chest demonstrate the lungs to be symmetrically aerated without evidence of mass, infiltrate or effusion. The cardiomediastinal contours are unremarkable. Osseous structure s are intact. CONCLUSION: Negative for an acute process. Mendel Teague MD FACR on April 11, 2017 at 15:21 Board Certified Radiologist. This report was verified electronically.
[2017-04-11 15:38] LABS: AUTOMATED NEUTROPHIL # 5.3 TH/MM3 (1.8-7.7); BASOPHIL % 0.6 % (0.0-2.0); EOSINOPHIL % 0.1 % (0.0-4.0); HEMATOCRIT 33.8 % (35.0-46.0); HEMO FLAGS DIFF FINAL; LYMPH % 7.8 % (9.0-44.0); LYMPHOCYTE # 0.5 TH/MM3 (1.0-4.8); MEAN CELL VOLUME 89.9 FL (80.0-100.0); MEAN CORPUSCULAR HEMOGLOBIN 29.6 PG (27.0-34.0); MONO % 9.2 % (0.0-8.0); NEUT % 82.3 % (16.0-70.0); PLATELET COUNT 145 TH/MM3 (150-450); RED BLOOD COUNT 3.77 MIL/MM3 (4.00-5.30); RED CELL DISTRIBUTION WIDTH 14.2 % (11.6-17.2); WHITE BLOOD COUNT 6.4 TH/MM3 (4.0-11.0)
[2017-04-11 15:47] LABS: APTT (PATIENT) 26.5 SEC (24.3-30.1); INTERNATIONAL NORMALIZED RATIO 1.3 RATIO; PROTHROMBIN TIME - PATIENT 14.2 SEC (9.8-11.6)
[2017-04-11 16:03] LABS: ANION GAP 10 MEQ/L (5-15); BICARBONATE 25.5 MEQ/L (21.0-32.0); BLOOD UREA NITROGEN 11 MG/DL (7-18); CHLORIDE 102 MEQ/L (98-107); GLOMERULAR FILTRATION RATE 67 ML/MIN (>89); MAGNESIUM 1.6 MG/DL (1.5-2.5); POTASSIUM 3.1 MEQ/L (3.5-5.1); SODIUM (NA) 137 MEQ/L (136-145)
[2017-04-11 16:07] LABS: CREATINE KINASE 138 U/L (26-192)
[2017-04-11] MEDS ORDERED: SODIUM CHLOR 0.9% 1000 ML INJ 1,000 ML IV SCH ×2 (16:12→17:15)
[2017-04-11] MEDS ORDERED: DILTIAZEM HCL 25 MG/5 ML VIAL IV PUSH ONE (16:15)
--- NOTE | 2017-04-11 16:18 | PD ---
HPI Chief Complaint: General Weakness Time Seen by Provider: 16:10 Travel History International Travel<30 days: No Contact w/Intl Traveler<30days: No Traveled to known affect area: No History of Present Illness HPI 76-year-old female presents with son for evaluation of generalized weakness. Symptoms started today. She feels generally tired and weak. She is noted to be in atrial fibrillation with RVR, rate 170. She has a history of atrial fibrillation, not on anticoagulant that she is on metoprolol per chart review. The patient is a poor historian. It is noted that the patient was admitted here in early March for abdominal pain with presumed cholecystitis. She was found have C. difficile and upon discharge she was given a 14 day course of Flagyl which she reports that she is completed. She does note a few episodes of diarrhea today as well as some left lower abdominal pain. Denies chest pain , shortness of breath, palpitations, cough or congestion, fevers or chills. She has no other complaints. According to the son she has not taken her metoprolol in over one week- he believes that someone told her to quit taking it although he does not recall who. PFSH Past Medical History Anemia: Yes Arthritis: Yes Asthma: No Autoimmune Disease: Yes (RA) Blood Disorders: No Anxiety: No Depression: No Heart Rhythm Problems: Yes (TACHYCARDIA, afib ) Cancer: No Cardiovascular Problems: Yes High Cholesterol: No Chest Pain: No Congestive Heart Failure: No COPD: No Cerebrovascular Accident: No Diabetes: No Diminished Hearing: No Endocrine: No GERD: Yes Glaucoma: No Genitourinary: No Headaches: No Hepatitis: No Hiatal Hernia: No Hypertension: No Immune Disorder: No Kidney Stones: No Musculoskeletal: Yes Neurologic: No Psychiatric: No Reproductive: No Respiratory: No Integumentary: Yes (ATOPIC DERMATITIS) Immunizations Current: No Myocardial Infarction: No Renal Failure: No Seizures: No Sickle Cell Disease: No Sleep Apnea: No Thyroid Disease: No Ulcer: No Menopausal: Yes : 2 Para: 2 Past Surgical History Abdominal Surgery: No AICD: No Cardiac Surgery: No Ear Surgery: No Endocrine Surgery: No Eye Surgery: Yes (KATLIN. CATARACT EXTR., KATLIN. MAC HOLE REP.) Genitourinary Surgery: No Gynecologic Surgery: Yes (hysterectomy) Hysterectomy: Yes Insulin Pump: No Oral Surgery: No Pacemaker: No Thoracic Surgery: No Other Surgery: Yes Social History Alcohol Use: No Tobacco Use: No Substance Use: No Allergies-Medications (Allergen,Severity, Reaction): Coded Allergies: Sulfa (Sulfonamide Antibiotics) (Verified Allergy, Severe, RASH, 04/11/17) cephalexin (Verified Allergy, Severe, RASH, 04/11/17) sulfamethoxazole (Verified Allergy, Severe, RASH, 04/11/17) trimethoprim (Verified Allergy, Severe, RASH, 04/11/17) codeine (Verified Adverse Reaction, Severe, NAUSEA, 04/11/17) Reported Meds & Prescriptions Reported Meds & Active Scripts Active Reported Omeprazole 20 Mg Tab 20 Mg PO DAILY Leflunomide 20 Mg Tab 20 Mg PO DAILY Review of Systems Except as stated in HPI: all other systems reviewed are Neg Physical Exam Narrative GENERAL: Frail elderly female in no acute distress SKIN: Warm and dry. HEAD: Atraumatic. Normocephalic. EYES: Pupils equal and round. No scleral icterus. No injection or drainage. ENT: No nasal bleeding or discharge. Mucous membranes pink and moist. NECK: Trachea midline. No JVD. CARDIOVASCULAR: Irregular rhythm, tachycardic. No murmur appreciated. RESPIRATORY: No accessory muscle use. Clear to auscultation. Breath sounds equal bilaterally. GASTROINTESTINAL: Abdomen soft, mild left lower quadrant tenderness no guarding. No right upper quadrant tenderness. MUSCULOSKELETAL: No obvious deformities. No clubbing. No cyanosis. No edema. NEUROLOGICAL: Awake and alert. No obvious cranial nerve deficits. Motor grossly within normal limits. Normal speech. PSYCHIATRIC: Appropriate mood and affect; insight and judgment normal. Data Data Last Documented VS Vital Signs Date Time Temp Pulse Resp B/P (MAP) Pulse Ox O2 Delivery O2 Flow Rate FiO2 04/11/17 17:57 120 15 110/67 (81) 97 Nasal Cannula 2.00 04/11/17 16:14 97.8 Orders Orders Electrocardiogram (04/11/17 14:35) Basic Metabolic Panel (Bmp) (04/11/17 14:35) Complete Blood Count With Diff (04/11/17 14:35) Magnesium (Mg) (04/11/17 14:35) Ckmb (Isoenzyme) Profile (04/11/17 14:35) Troponin I (04/11/17 14:35) Act Partial Throm Time (Ptt) (04/11/17 14:35) Prothrombin Time / Inr (Pt) (04/11/17 14:35) Urinalysis - C+S If Indicated (04/11/17 14:35) Chest, Pa & Lat (04/11/17 14:35) Ct Brain W/O Iv Contrast(Rout) (04/11/17 14:35) CKMB (04/11/17 15:18) CKMB% (04/11/17 15:18) Lactic Acid Sepsis Protocol (04/11/17 16:12) Blood Culture (04/11/17 16:12) Ct Abd/Pel W Iv Contrast(Rout) (04/11/17 16:12) Sodium Chlor 0.9% 1000 Ml Inj (Ns 1000 M (04/11/17 16:12) Diltiazem Inj (Cardizem Inj) (04/11/17 16:15) C Diff Toxin Pcr (04/11/17 16:12) Iohexol 350 Inj (Omnipaque 350 Inj) (04/11/17 14:18) Potassium Chloride (Kcl) (04/11/17 17:15) Sodium Chlor 0.9% 1000 Ml Inj (Ns 1000 M (04/11/17 17:15) Metoprolol Tartrate (Lopressor) (04/11/17 17:45) Potassium Chloride Powder (Kcl Powder) (04/11/17 18:15) Diltiazem Inj (Cardizem Inj) (04/11/17 18:30) Diltiazem Inj (Cardizem Inj) (04/11/17 18:15) Comprehensive Metabolic Panel (04/12/17 06:00) Free Thyroxine (T4) (04/12/17 06:00) Hemoglobin (Hgb) A1c (04/12/17 06:00) Magnesium (Mg) (04/12/17 06:00) Phosphorus (Po4) (04/12/17 06:00) Thyroid Stimulating Hormone (04/12/17 06:00) Complete Blood Count With Diff (04/12/17 06:00) Consult Cardiology (04/11/17 ) Admit Order (Ed Use Only) (04/11/17 18:51) Labs Laboratory Tests Test 04/11/17 15:18 04/11/17 16:25 White Blood Count 6.4 TH/MM3 Red Blood Count 3.77 MIL/MM3 Hemoglobin 11.2 GM/DL Hematocrit 33.8 % Mean Corpuscular Volume 89.9 FL Mean Corpuscular Hemoglobin 29.6 PG Mean Corpuscular Hemoglobin Concent 33.0 % Red Cell Distribution Width 14.2 % Platelet Count 145 TH/MM3 Mean Platelet Volume 10.3 FL Neutrophils (%) (Auto) 82.3 % Lymphocytes (%) (Auto) 7.8 % Monocytes (%) (Auto) 9.2 % Eosinophils (%) (Auto) 0.1 % Basophils (%) (Auto) 0.6 % Neutrophils # (Auto) 5.3 TH/MM3 Lymphocytes # (Auto) 0.5 TH/MM3 Monocytes # (Auto) 0.6 TH/MM3 Eosinophils # (Auto) 0.0 TH/MM3 Basophils # (Auto) 0.0 TH/MM3 CBC Comment DIFF FINAL Differential Comment Prothrombin Time 14.2 SEC Prothromb Time International Ratio 1.3 RATIO Activated Partial Thromboplast Time 26.5 SEC Blood Urea Nitrogen 11 MG/DL Creatinine 0.83 MG/DL Random Glucose 90 MG/DL Calcium Level 8.7 MG/DL Magnesium Level 1.6 MG/DL Sodium Level 137 MEQ/L Potassium Level 3.1 MEQ/L Chloride Level 102 MEQ/L Carbon Dioxide Level 25.5 MEQ/L Anion Gap 10 MEQ/L Estimat Glomerular Filtration Rate 67 ML/MIN Total Creatine Kinase 138 U/L Creatine Kinase MB 0.7 NG/ML Troponin I LESS THAN 0.02 NG/ML Lactic Acid Level 3.1 mmol/L MDM Medical Decision Making Medical Screen Exam Complete: Yes Emergency Medical Condition: Yes Medical Record Reviewed: Yes Interpretation(s) CT ABD PELVIS CONCLUSION: 1. There appear to be noncalcified gallstones in the gallbladder lumen. One of these appears quite large measuring almost 2.7 cm in diameter. In the appropriate clinical setting, findings could represent cholecystitis. 2. Colon is diffusely decompressed. This can be seen in a prolonged fasting state. 3. Small amount of ascites in the pelvis with diffuse anasarca about the trunk. Findings are nonspecific but can be seen in entities such as right heart insufficiency or nutritional state with hypoalbuminemia. 4. Stable, nonspecific 1.8 x 3.7 cm lytic lesion in the left iliac crest anteriorly. Differential Diagnosis Diverticulitis, C. difficile colitis, dehydration, electrolyte abnormality, atrial fibrillation with RVR Narrative Course The patient was placed on ECG monitoring pulse oximetry. A 12-lead EKG obtained in triage reveals atrial fibrillation with RVR, rate 168. Blood work and CT of the brain, chest x-ray were ordered triage. On examination she has focal mild left lower quadrant tenderness the abdomen and therefore CT abdomen and pelvis has been ordered as well as blood cultures, lactic acid. She will be given IV fluids, diltiazem bolus. The patient's pulse was rechecked multiple times, waxing and waning between 85 and 120. Discussed with my attending This patient may end required diltiazem drip. The patient was admitted to the [facility] to the hospitalist. Diagnosis Primary Impression: Atrial fibrillation with RVR Additional Impressions: Generalized weakness Hypokalemia Lactic acidosis Admitting Information Admitting Physician Requests: Norman Frazier Apr 11, 2017 16:18
[2017-04-11 16:19] LABS: CKMB 0.7 NG/ML (0.5-3.6)
[2017-04-11] MEDS ORDERED: OMEP20TA93 PO (16:48)
[2017-04-11] MEDS ORDERED: POTASSIUM CHLORIDE 20 MEQ CONTROLLED RELEASE TAB PO ONE (17:15)
--- NOTE | 2017-04-11 17:38 | RADRPT ---
EXAM DATE/TIME: 04/11/2017 16:42 [facility] COMPARISON: CT ABDOMEN & PELVIS W CONTRAST, March 14, 2017, 14:50. INDICATIONS : Diffuse abdomen pain for one day. IV CONTRAST: 75 cc Omnipaque 350 (iohexol) IV ORAL CONTRAST: No oral contrast ingested. RADIATION DOSE: 6.64 CTDIvol (mGy) MEDICAL HISTORY : Cardiovascular disease. SURGICAL HISTORY : Hysterectomy. ENCOUNTER: Initial ACUITY: 1 day PAIN SCALE: 4/10 LOCATION: Bilateral lower quadrant TECHNIQUE: Volumetric scanning of the abdomen and pelvis was performed. Using automated exposure control and ad justment of the mA and/or kV according to patient size, radiation dose was kept as low as reasonably achievable to obtain optimal diagnostic quality images. DICOM format image data is available electro nically for review and comparison. FINDINGS: LOWER LUNGS: The visualized lower lungs are clear. LIVER: Homogeneous density without lesion. There is no dilation of the biliary tree. There appear to be mul tiple noncalcified gallstones in the gallbladder lumen, the largest measuring upwards of 2.7 cm in di ameter. SPLEEN: Normal size without lesion. PANCREAS: Within normal limits. KIDNEYS: Normal in size and shape. There is no mass, stone or hydronephrosis. Stable, benign-appearing cyst i n the lower pole of the right kidney, the largest posteriorly measuring 5.1 cm in diameter ADRENAL GLANDS: Within normal limits. VASCULAR: There is no aortic aneurysm. BOWEL/MESENTERY: Colon is diffusely decompressed. Small amount of ascites in the deep pelvis. ABDOMINAL WALL: Diffuse anasarca in the soft tissues about the trunk and pelvis. RETROPERITONEUM: There is no lymphadenopathy. BLADDER: No wall thickening or mass. REPRODUCTIVE: Patient appears to be status post cholecystectomy. INGUINAL: There is no lymphadenopathy or hernia. MUSCULOSKELETAL: Stable 3.7 x 1.8 cm lytic lesion in the anterior aspect of the left iliac crest a. CONCLUSION: 1. There appear to be noncalcified gallstones in the gallbladder lumen. One of these appears quite la rge measuring almost 2.7 cm in diameter. In the appropriate clinical setting, findings could represen t cholecystitis. 2. Colon is diffusely decompressed. This can be seen in a prolonged fasting state. 3. Small amount of ascites in the pelvis with diffuse anasarca about the trunk. Findings are nonspeci fic but can be seen in entities such as right heart insufficiency or nutritional state with hypoalbum inemia. 4. Stable, nonspecific 1.8 x 3.7 cm lytic lesion in the left iliac crest anteriorly. Joon Barahona MD on April 11, 2017 at 17:23 Board Certified Radiologist. This report was verified electronically.
[2017-04-11] MEDS ORDERED: METOPROLOL TARTRATE 25 MG TAB PO ONE (17:45)
[2017-04-11] MEDS ORDERED: POTASSIUM CHLORIDE 20 MEQ PWD PACKET PO ONE (18:15)
[2017-04-11] MEDS ORDERED: DILTIAZEM INJ 125 MG in SODIUM CHLORIDE 0.9% INJ 100 ML IV PRN (18:15)
[2017-04-11] MEDS ORDERED: DILTIAZEM HCL 50 MG/10 ML VIAL IV PUSH ONE (18:30)
[2017-04-11 18:40] LABS: LACTIC ACID GHOST NOT REPORTABLE
[2017-04-11] MEDS ORDERED: NALOXONE HCL 0.4 MG/ML AMP IV PUSH PRN (20:15)
--- NOTE | 2017-04-11 21:17 | HHI.HP ---
HPI Service [facility] Primary Care Physician Sb Wayne MD Admission Diagnosis Atrial fibrillation with RVR, weakness, hypokalemia, lactic acidosis Diagnoses: Travel History International Travel<30 Days: No Contact w/Intl Traveler <30 Da: No Traveled to Known Affected Are: No History of Present Illness hx from patient, son at bedside, nursing staff, and review of med records son got call from health care consultant today pt was not getting up seems winded not getting out of bed when son went to see her, she seems having trouble speaking - more of weakness, not slurred speech sunday before thanksgiving had a fall, sutures taken out this sunday came to ER then pt thinks shoes caught onsomething and fell no sycnope, hit back of head sutures were placed in er, and dr guevara took it out on sunday at clinic dr guevara was seeing her as fu for hospital follow up for cdiff and possible cholecystitis- for possible radha son said on that day, pt was totally different, much stronger pt reports diarrhea which started a few days ago finished flagyl for cdiff rx a few days ago as well was here for cdiff early this month stool was black in color Review of Systems Except as stated in HPI: all other systems reviewed are Neg Past Family Social History Past Medical History afib- eliquis stopped recently by Dr Acosta per son, likely due to fall risk; not on metoprolol now at home because ran out of prescription; bp was low as well cdiff - early mar 2017 RA hx of scarlet fever as a kid heart murmur Past Surgical History hysterectomy shoulder sx 2013 ankle sx Reported Medications leflunamide tramadol protonix metoprolol on and off - now off Allergies: Coded Allergies: Sulfa (Sulfonamide Antibiotics) (Verified Allergy, Severe, RASH, 04/11/17) cephalexin (Verified Allergy, Severe, RASH, 04/11/17) sulfamethoxazole (Verified Allergy, Severe, RASH, 04/11/17) trimethoprim (Verified Allergy, Severe, RASH, 04/11/17) codeine (Verified Adverse Reaction, Severe, NAUSEA, 04/11/17) Family History none that she knows of Social History never smoked, no etoh abuse or drug abuse lives with daughter and her friend, was driving until a month ago now no longer driving, uses a walker used to work here at microbiology lab Physical Exam Vital Signs Vital Signs Date Time Temp Pulse Resp B/P (MAP) Pulse Ox O2 Delivery O2 Flow Rate FiO2 04/11/17 21:04 84 16 117/87 (97) 100 04/11/17 17:57 120 15 110/67 (81) 97 Nasal Cannula 2.00 04/11/17 16:46 98 14 98 Nasal Cannula 2.00 04/11/17 16:40 165 14 99 Nasal Cannula 2.00 04/11/17 16:40 98 14 111/62 (78) 99 Nasal Cannula 2.00 04/11/17 16:14 97.8 165 15 111/62 (78) 95 Room Air 04/11/17 14:18 97.9 99/58 (72) Room Air Physical Exam GENERAL: This is a thin lady, not in acute distress, looks weak and frail SKIN: some dried skin lesions in bilateral ear lobes HEAD: Atraumatic. Normocephalic. No temporal or scalp tenderness. EYES: . No scleral icterus. No injection or drainage. ENT: Nose without bleeding, purulent drainage or septal hematoma. Airway patent. NECK: Trachea midline. No JVD CARDIOVASCULAR: Regular rate and rhythm without murmurs, gallops, or rubs. RESPIRATORY: Clear to auscultation. Breath sounds equal bilaterally. No wheezes , rales, or rhonchi. GASTROINTESTINAL: Abdomen soft, non-tender, nondistended. No guarding. MUSCULOSKELETAL: Extremities without clubbing, cyanosis, or edema. No calf tenderness. NEUROLOGICAL: Awake and alert. Motor and sensory grossly within normal limits. Normal speech. Laboratory Laboratory Tests Test 04/11/17 15:18 04/11/17 16:25 White Blood Count 6.4 Red Blood Count 3.77 Hemoglobin 11.2 Hematocrit 33.8 Mean Corpuscular Volume 89.9 Mean Corpuscular Hemoglobin 29.6 Mean Corpuscular Hemoglobin Concent 33.0 Red Cell Distribution Width 14.2 Platelet Count 145 Mean Platelet Volume 10.3 Neutrophils (%) (Auto) 82.3 Lymphocytes (%) (Auto) 7.8 Monocytes (%) (Auto) 9.2 Eosinophils (%) (Auto) 0.1 Basophils (%) (Auto) 0.6 Neutrophils # (Auto) 5.3 Lymphocytes # (Auto) 0.5 Monocytes # (Auto) 0.6 Eosinophils # (Auto) 0.0 Basophils # (Auto) 0.0 CBC Comment DIFF FINAL Differential Comment Prothrombin Time 14.2 Prothromb Time International Ratio 1.3 Activated Partial Thromboplast Time 26.5 Blood Urea Nitrogen 11 Creatinine 0.83 Random Glucose 90 Calcium Level 8.7 Magnesium Level 1.6 Sodium Level 137 Potassium Level 3.1 Chloride Level 102 Carbon Dioxide Level 25.5 Anion Gap 10 Estimat Glomerular Filtration Rate 67 Total Creatine Kinase 138 Creatine Kinase MB 0.7 Troponin I LESS THAN 0.02 Lactic Acid Level 3.1 Date/Time Source Procedure Growth Status 04/11/17 16:25 Blood Peripheral Aerobic Blood Culture Pending Received 04/11/17 16:25 Blood Peripheral Anaerobic Blood Culture Pending Received Result Diagram: 04/11/17 1518 04/11/17 1518 Imaging Last 48 hours Impressions Abdomen/Pelvis CT 04/11/17 1612 Signed Impressions: Service Date/Time: Tuesday, April 11, 2017 16:42 - CONCLUSION: 1. There appear to be noncalcified gallstones in the gallbladder lumen. One of these appears quite large measuring almost 2.7 cm in diameter. In the appropriate clinical setting, findings could represent cholecystitis. 2. Colon is diffusely decompressed. This can be seen in a prolonged fasting state. 3. Small amount of ascites in the pelvis with diffuse anasarca about the trunk. Findings are nonspecific but can be seen in entities such as right heart insufficiency or nutritional state with hypoalbuminemia. 4. Stable, nonspecific 1.8 x 3.7 cm lytic lesion in the left iliac crest anteriorly. Joon Barahona MD Head CT 04/11/17 1435 Signed Impressions: Service Date/Time: Tuesday, April 11, 2017 14:39 - CONCLUSION: No acute disease. Mendel Teague MD FACR Chest X-Ray 04/11/17 1435 Signed Impressions: Service Date/Time: Tuesday, April 11, 2017 14:57 - CONCLUSION: Negative for an acute process. Mendel Teague MD FACR Caprini VTE Risk Assessment Caprini VTE Risk Assessment: Mod/High Risk (score >= 2) Caprini Risk Assessment Model Point Value = 1 Point Value = 2 Point Value = 3 Point Value = 5 Age 41-60 Minor surgery BMI > 25 kg/m2 Swollen legs Varicose veins or History of unexplained or recurrent spontaneous Oral contraceptives or hormone replacement Sepsis (< 1 month) Serious lung disease, including pneumonia (< 1 month) Abnormal pulmonary function Acute myocardial infarction Congestive heart failure (< 1 month) History of inflammatory bowel disease Medical patient at bed rest Age 61-74 Arthroscopic surgery Major open surgery (> 45 min) Laparoscopic surgery (> 45 min) Malignancy Confined to bed (> 72 hours) Immobilizing plaster cast Central venous access Age >= 75 History of VTE Family history of VTE Factor V Leiden Prothrombin [id number] Lupus anticoagulant Anticardiolipin antibodies Elevated serum homocysteine Heparin-induced thrombocytopenia Other congenital or acquired thrombophilia Stroke (< 1 month) Elective arthroplasty Hip, pelvis, or leg fracture Acute spinal cord injury (< 1 month) Prophylaxis Regimen Total Risk Factor Score Risk Level Prophylaxis Regimen 0-1 Low Early ambulation 2 Moderate Order ONE of the following: *Sequential Compression Device (SCD) *Heparin 5000 units SQ BID 3-4 Higher Order ONE of the following medications: *Heparin 5000 units SQ TID *Enoxaparin/Lovenox 40 mg SQ daily (WT < 150 kg, CrCl > 30 mL/min) *Enoxaparin/Lovenox 30 mg SQ daily (WT < 150 kg, CrCl > 10-29 mL/min) *Enoxaparin/Lovenox 30 mg SQ BID (WT < 150 kg, CrCl > 30 mL/min) AND/OR *Sequential Compression Device (SCD) 5 or more Highest Order ONE of the following medications: *Heparin 5000 units SQ TID (Preferred with Epidurals) *Enoxaparin/Lovenox 40 mg SQ daily (WT < 150 kg, CrCl > 30 mL/min) *Enoxaparin/Lovenox 30 mg SQ daily (WT < 150 kg, CrCl > 10-29 mL/min) *Enoxaparin/Lovenox 30 mg SQ BID (WT < 150 kg, CrCl > 30 mL/min) AND *Sequential Compression Device (SCD) Assessment and Plan Assessment and Plan Impression: dehydration - due to gi loss from diarrhea afib with labile HR diarrhea- likely ongoing cdiff cholelithiasis- with imaging possible for cholecystitis - clinical exam benign Comorbid conditions: afib- eliquis stopped recently by Dr Acosta per son, likely due to fall risk; not on metoprolol now at home because ran out of prescription; bp was low as well cdiff - early mar 2017 RA hx of scarlet fever as a kid heart murmur Plan: cdiff toxin stat pt is noted to have diarrhea on exam, foul smelling start on flagyl 500mg iv q6hrs will likely need po vanco ; await toxin studies consult ID for rec as pt is immunocompromised on leflunomide d/c cardizem drip- pt never needed it treat tachycardia with iv hydration resume home meds dvt prophylaxis with eliquis Discussed Condition With patient, her son at bedside, er provider Physician Certification 2 Midnight Certification Type: Admission for Inpatient Services Order for Inpatient Services The services are ordered in accordance with Medicare regulations or non- Medicare payer requirements, as applicable. In the case of services not specified as inpatient-only, they are appropriately provided as inpatient services in accordance with the 2-midnight benchmark. Estimated LOS (days): 2 days is the estimated time the patient will need to remain in the hospital, assuming treatment plan goals are met and no additional complications. Post-Hospital Plan: Home Carmelina Villanueva MD Apr 11, 2017 21:17
[2017-04-11] MEDS ORDERED: POTASSIUM CHLORIDE 25 MEQ EFFERVESCENT TAB PO ONE (21:30)
[2017-04-11] MEDS: SODIUM CHLORIDE 0.9% FLUSH 10 ML FLUSH IV FLUSH SCH (21:39)
[2017-04-11] MEDS ORDERED: NS + KCL 40 MEQ INJ 1,000 ML IV SCH (22:00)
[2017-04-11] MEDS: metroNIDAZOLE 500 MG INJ 100 ML IV SCH (22:26)
[2017-04-11 23:24] LABS: CREATINE KINASE 137 U/L (26-192)
[2017-04-11] MEDS ORDERED: CHLORHEXIDINE GLUCONATE 2 % 1 PACK (2 CLOTHS)(extra cloths) TOPICAL PRN (23:45)
[2017-04-12] VITALS (20 sets, daily range): BP systolic 94–123; BP diastolic 49–60; PULSE 79–117; RESP 14–43; TEMP 97.7–98.3; O2SAT 86–100
[2017-04-12] MEDS: CHLORHEXIDINE GLUCONATE 2 % 1 PACK (2 CLOTHS)(taper/protocol) TOPICAL SCH ×2 (01:07→23:23)
[2017-04-12 02:49] LABS: C. DIFF EPI 027 PRESUMPTIVE POSITIVE (NEGATIVE)
[2017-04-12] MEDS: metroNIDAZOLE 500 MG INJ 100 ML IV SCH (04:00)
[2017-04-12 05:14] LABS: ALT (GPT) LESS THAN 6 U/L (10-53); ANION GAP 9 MEQ/L (5-15); AST (GOT) 19 U/L (15-37); BICARBONATE 22.6 MEQ/L (21.0-32.0); BLOOD UREA NITROGEN 12 MG/DL (7-18); CHLORIDE 108 MEQ/L (98-107); GLOMERULAR FILTRATION RATE 112 ML/MIN (>89); MAGNESIUM 1.4 MG/DL (1.5-2.5); POTASSIUM 4.8 MEQ/L (3.5-5.1); SODIUM (NA) 140 MEQ/L (136-145)
[2017-04-12 05:38] LABS: ALKALINE PHOSPHATASE 47 U/L (45-117); CREATINE KINASE 137 U/L (26-192); FREE T4 1.13 NG/DL (0.76-1.46); TOTAL BILIRUBIN ADULT 0.5 MG/DL (0.2-1.0)
[2017-04-12] MEDS ORDERED: PT:LEFLUNOMIDE 20 MG PO SCH (09:00)
[2017-04-12] MEDS ORDERED: NON-FORMULARY DRUG (Leflunomide 20 MG) PO SCH (09:00)
--- NOTE | 2017-04-12 10:00 | HHI.PR ---
Subjective Remarks son got call from home care associate today pt was not getting up seems winded not getting out of bed when son went to see her, she seems having trouble speaking - more of weakness, not slurred speech sunday before thanksgiving had a fall, sutures taken out this sunday came to ER then pt thinks shoes caught onsomething and fell no sycnope, hit back of head sutures were placed in er, and dr guevara took it out on sunday at clinic dr guevara was seeing her as fu for hospital follow up for cdiff and possible cholecystitis- for possible radha son said on that day, pt was totally different, much stronger pt reports diarrhea which started a few days ago finished flagyl for cdiff rx a few days ago as well was here for cdiff early this month stool was black in color 04-12 POSITIVE C DIFF WILL RESTART ON VANCO NEEDS PT AND OT DW RN AND PT STATES WEIGHT LOSS OVER PAST YEAR PT AND OT NUTRITION CONSULT Objective Vitals Vital Signs Date Time Temp Pulse Resp B/P (MAP) Pulse Ox O2 Delivery O2 Flow Rate FiO2 04/12/17 06:00 116 04/12/17 04:00 81 04/12/17 04:00 98.0 81 15 120/58 (78) 100 04/12/17 02:00 85 04/12/17 00:00 86 04/11/17 23:52 100 Nasal Cannula 2.00 04/11/17 23:35 98.3 86 18 118/56 (76) 04/11/17 23:06 88 16 117/57 (77) 100 Nasal Cannula 2.00 04/11/17 21:04 84 16 117/87 (97) 100 04/11/17 17:57 120 15 110/67 (81) 97 Nasal Cannula 2.00 04/11/17 16:46 98 14 98 Nasal Cannula 2.00 04/11/17 16:40 165 14 99 Nasal Cannula 2.00 04/11/17 16:40 98 14 111/62 (78) 99 Nasal Cannula 2.00 04/11/17 16:14 97.8 165 15 111/62 (78) 95 Room Air 04/11/17 14:18 97.9 99/58 (72) Room Air I/O 04/11/17 04/11/17 04/11/17 04/12/17 04/12/17 04/12/17 07:00 15:00 23:00 07:00 15:00 23:00 Intake Total 2000 ml 650 ml Balance 2000 ml 650 ml Intake IV Total 2000 ml 650 ml # Voids 2 # Bowel Movements 2 Result Diagram: 04/11/17 1518 04/12/17 0426 Other Results Laboratory Tests Test 04/11/17 15:18 04/11/17 16:25 04/11/17 22:45 04/11/17 23:30 White Blood Count 6.4 TH/MM3 Red Blood Count 3.77 MIL/MM3 Hemoglobin 11.2 GM/DL Hematocrit 33.8 % Mean Corpuscular Volume 89.9 FL Mean Corpuscular Hemoglobin 29.6 PG Mean Corpuscular Hemoglobin Concent 33.0 % Red Cell Distribution Width 14.2 % Platelet Count 145 TH/MM3 Mean Platelet Volume 10.3 FL Neutrophils (%) (Auto) 82.3 % Lymphocytes (%) (Auto) 7.8 % Monocytes (%) (Auto) 9.2 % Eosinophils (%) (Auto) 0.1 % Basophils (%) (Auto) 0.6 % Neutrophils # (Auto) 5.3 TH/MM3 Lymphocytes # (Auto) 0.5 TH/MM3 Monocytes # (Auto) 0.6 TH/MM3 Eosinophils # (Auto) 0.0 TH/MM3 Basophils # (Auto) 0.0 TH/MM3 CBC Comment DIFF FINAL Differential Comment Prothrombin Time 14.2 SEC Prothromb Time International Ratio 1.3 RATIO Activated Partial Thromboplast Time 26.5 SEC Blood Urea Nitrogen 11 MG/DL Creatinine 0.83 MG/DL Random Glucose 90 MG/DL Calcium Level 8.7 MG/DL Magnesium Level 1.6 MG/DL Sodium Level 137 MEQ/L Potassium Level 3.1 MEQ/L Chloride Level 102 MEQ/L Carbon Dioxide Level 25.5 MEQ/L Anion Gap 10 MEQ/L Estimat Glomerular Filtration Rate 67 ML/MIN Total Creatine Kinase 138 U/L 137 U/L Creatine Kinase MB 0.7 NG/ML Troponin I LESS THAN 0.02 NG/ML LESS THAN 0.02 NG/ML Lactic Acid Level 3.1 mmol/L 0.8 mmol/L Nasal Screen MRSA (PCR) MRSA NOT DETECTED Test 04/12/17 01:38 04/12/17 04:26 Stool C. difficile Toxin (PCR) POSITIVE Stl C. difficile Toxin Epiderm 027 PRESUMPTIVE POSITIVE Blood Urea Nitrogen 12 MG/DL Creatinine 0.53 MG/DL Random Glucose 62 MG/DL Total Protein 5.7 GM/DL Albumin 2.5 GM/DL Calcium Level 7.9 MG/DL Phosphorus Level 2.3 MG/DL Magnesium Level 1.4 MG/DL Alkaline Phosphatase 47 U/L Aspartate Amino Transf (AST/SGOT) 19 U/L Alanine Aminotransferase (ALT/SGPT) LESS THAN 6 U/L Total Bilirubin 0.5 MG/DL Sodium Level 140 MEQ/L Potassium Level 4.8 MEQ/L Chloride Level 108 MEQ/L Carbon Dioxide Level 22.6 MEQ/L Anion Gap 9 MEQ/L Estimat Glomerular Filtration Rate 112 ML/MIN Lactic Acid Level 1.1 mmol/L Total Creatine Kinase 137 U/L Troponin I LESS THAN 0.02 NG/ML Free Thyroxine 1.13 NG/DL Thyroid Stimulating Hormone 3rd Gen 7.450 uIU/ML Imaging Last Impressions Abdomen/Pelvis CT 04/11/17 1612 Signed Impressions: Service Date/Time: Tuesday, April 11, 2017 16:42 - CONCLUSION: 1. There appear to be noncalcified gallstones in the gallbladder lumen. One of these appears quite large measuring almost 2.7 cm in diameter. In the appropriate clinical setting, findings could represent cholecystitis. 2. Colon is diffusely decompressed. This can be seen in a prolonged fasting state. 3. Small amount of ascites in the pelvis with diffuse anasarca about the trunk. Findings are nonspecific but can be seen in entities such as right heart insufficiency or nutritional state with hypoalbuminemia. 4. Stable, nonspecific 1.8 x 3.7 cm lytic lesion in the left iliac crest anteriorly. Joon Barahona MD Head CT 04/11/17 1435 Signed Impressions: Service Date/Time: Tuesday, April 11, 2017 14:39 - CONCLUSION: No acute disease. Mendel Teague MD FACR Chest X-Ray 04/11/17 1435 Signed Impressions: Service Date/Time: Tuesday, April 11, 2017 14:57 - CONCLUSION: Negative for an acute process. Mendel Teague MD FACR Objective Remarks GENERAL: SKIN: Warm and dry. HEAD: Atraumatic. Normocephalic. EYES: Pupils equal and round. No scleral icterus. No injection or drainage. ENT: No nasal bleeding or discharge. Mucous membranes pink and moist. NECK: Trachea midline. No JVD. CARDIOVASCULAR: Regular rate and rhythm. RESPIRATORY: No accessory muscle use. Clear to auscultation. Breath sounds equal bilaterally. GASTROINTESTINAL: Abdomen soft, non-tender, nondistended. Hepatic and splenic margins not palpable. MUSCULOSKELETAL: Extremities without clubbing, cyanosis, or edema. No obvious deformities. NEUROLOGICAL: Awake and alert. No obvious cranial nerve deficits. Motor grossly within normal limits. Five out of 5 muscle strength in the arms and legs. Normal speech. PSYCHIATRIC: Appropriate mood and affect; insight and judgment normal. Medications and IVs Current Medications Sodium Chloride 1,000 ml @ 1,000 mls/hr Q1H IV Last administered on 16:51; Start 04/11/17 at 16:12; Stop 04/11/17 at 17:11; Status DC Diltiazem HCl (Cardizem Inj) 10 mg BOLUS ONCE IV PUSH Last administered on 17:54; Start 04/11/17 at 16:15; Stop 04/11/17 at 16:18; Status DC Iohexol (Omnipaque 350 Inj) 75 ml STK-MED ONCE IVCONTRAST Last administered on 04/11/17 14:18; Start 04/11/17 at 14:18; Stop 04/11/17 at 16:51; Status DC Potassium Chloride (KCl) 40 meq ONCE ONCE PO ; Start 04/11/17 at 17:15; Stop 04/11/17 at 18:04; Status DC Sodium Chloride 1,000 ml @ 1,000 mls/hr Q1H IV Last administered on 17:56; Start 04/11/17 at 17:15; Stop 04/11/17 at 18:14; Status DC Metoprolol Tartrate (Lopressor) 25 mg ONCE ONCE PO ; Start 04/11/17 at 17:45; Stop 04/11/17 at 17:45; Status DC Potassium Chloride (KCl Powder) 40 meq ONCE ONCE PO ; Start 04/11/17 at 18:15 ; Stop 04/11/17 at 18:16; Status DC Diltiazem HCl (Cardizem Inj) 14 mg BOLUS ONCE IV PUSH ; Start 04/11/17 at 18: 30; Stop 04/11/17 at 18:31; Status DC Diltiazem HCl 125 mg/Sodium Chloride 125 ml @ 5 mls/hr TITRATE PRN IV tachycardia; Start 04/11/17 at 18:15; Stop 04/11/17 at 21:29; Status DC Sodium Chloride (NS Flush) 2 ml UNSCH PRN IV FLUSH FLUSH AFTER USING IV ACCESS ; Start 04/11/17 at 20:15 Sodium Chloride (NS Flush) 2 ml BID IV FLUSH Last administered on 04/11/17 21 :39; Start 04/11/17 at 21:00 Naloxone HCl (Narcan Inj) 0.4 mg UNSCH PRN IV PUSH SEE LABEL COMMENTS; Start 04/11/17 at 20:15 Potassium Chloride/Sodium Chloride 1,000 ml @ 84 mls/hr [id number] IV Last administered on 04/11/17 22:26; Start 04/11/17 at 22:00 Potassium Bicarb/ Potassium Chloride (K-Lyte Cl Eff) 50 meq ONCE ONCE PO Last administered on 04/11/17 22:18; Start 04/11/17 at 21:30; Stop 04/11/17 at 21:33; Status DC Non-Formulary Medication 20 mg DAILY PO ; Start 04/12/17 at 09:00; Status UNV Metronidazole 100 ml @ 100 mls/hr Q6H IV Last administered on 04/12/17 04:00 ; Start 04/11/17 at 22:00 Patient Own Medication PT OWN MED: LEFLUNOM... DAILY PO ; Start 04/12/17 at 09: 00; Status Future Hold Miscellaneous Information Patient in critical care unit? Ass... [id number] .XX ; Start 04/11/17 at 23:45 Chlorhexidine Gluconate (Chlorhexidine 2% Cloth) 3 pack DAILY@04 TOPICAL Last administered on 04/12/17 01:07; Start 04/12/17 at 04:00; Stop 04/16/17 at 04: 01 Chlorhexidine Gluconate (Chlorhexidine 2% Cloth) 3 pack UNSCH PRN TOPICAL HYGIENIC CARE; Start 04/11/17 at 23:45; Stop 04/16/17 at 23:52 A/P Assessment and Plan dehydration afib with labile HR diarrhea- likely ongoing cdiff WILL RESTART VANO ORALLY cholelithiasis- with imaging possible for cholecystitis WEIGHT LOSS UNINTENTIONAL?? CONSULT HEM/ONC PT AND OT ADD BOOST APPETITE STIMULANT Mendel Munoz DO Apr 12, 2017 10:00
[2017-04-12] MEDS ORDERED: MAGNESIUM SULFATE INJ 2 GM in SODIUM CHLORIDE 0.9% INJ 96 ML IV PRN (10:15)
[2017-04-12] MEDS ORDERED: POTASSIUM PHOSPHATE MONOBASIC 500 MG TAB PO/TUBE PRN (10:15)
[2017-04-12] MEDS ORDERED: POTASSIUM CHLOR 20 MEQ PREMIX 100 ML IV PRN ×2 (10:15)
[2017-04-12] MEDS ORDERED: POTASSIUM CHLORIDE 25 MEQ EFFERVESCENT TAB PO PRN (10:15)
[2017-04-12] MEDS ORDERED: POTASSIUM PHOSPHATE MONOBASIC 500 MG TAB PO PRN (10:15)
[2017-04-12] MEDS ORDERED: MEGESTROL ACETATE 40 MG TAB PO SCH (10:15)
[2017-04-12] MEDS ORDERED: POTASSIUM CHLOR 40 MEQ PREMIX 100 ML IV PRN ×2 (10:15)
[2017-04-12] MEDS ORDERED: MAGNESIUM SULFATE INJ 4 GM in SODIUM CHLORIDE 0.9% INJ 92 ML IV PRN (10:15)
[2017-04-12] MEDS ORDERED: POTASSIUM PHOSPHATE INJ 30 MMOL in SODIUM CHLOR 0.9% 250 ML INJ 250 ML IV PRN (10:15)
[2017-04-12] MEDS ORDERED: MAGNESIUM OXIDE 400 MG TAB PO PRN (10:15)
[2017-04-12] MEDS ORDERED: SODIUM PHOSPHATE INJ 30 MMOL in SODIUM CHLOR 0.9% 250 ML INJ 240 ML IV PRN (10:15)
[2017-04-12] MEDS ORDERED: PILL SPLITTER OTHER PRN (10:30)
[2017-04-12] MEDS: LEVOTHYROXINE SODIUM 25 MCG TAB PO SCH (10:53)
[2017-04-12] MEDS: SODIUM CHLOR 0.9% 1000 ML INJ 1,000 ML IV SCH ×2 (10:53→23:26)
[2017-04-12] MEDS: SODIUM CHLORIDE 0.9% FLUSH 10 ML FLUSH IV FLUSH SCH ×2 (10:56→21:00)
[2017-04-12 11:12] LABS: AUTOMATED NEUTROPHIL # 5.1 TH/MM3 (1.8-7.7); BASOPHIL % 0.5 % (0.0-2.0); EOSINOPHIL % 0.4 % (0.0-4.0); HEMATOCRIT 28.7 % (35.0-46.0); HEMO FLAGS DIFF FINAL; LYMPH % 6.9 % (9.0-44.0); LYMPHOCYTE # 0.4 TH/MM3 (1.0-4.8); MEAN CELL VOLUME 89.5 FL (80.0-100.0); MEAN CORPUSCULAR HEMOGLOBIN 28.8 PG (27.0-34.0); MEAN CORPUSCULAR HGB CONC 32.2 % (32.0-36.0); MONO % 10.7 % (0.0-8.0); NEUT % 81.5 % (16.0-70.0); PLATELET COUNT 105 TH/MM3 (150-450); RED BLOOD COUNT 3.21 MIL/MM3 (4.00-5.30); RED CELL DISTRIBUTION WIDTH 14.6 % (11.6-17.2); WHITE BLOOD COUNT 6.2 TH/MM3 (4.0-11.0)
[2017-04-12] MEDS: VANCOMYCIN 500 MG VIAL (FOR ORAL USE ONLY) PO SCH ×3 (12:50→21:00)
[2017-04-12] MEDS: MEGESTROL ACETATE SUSP 400 MG/10 ML CUP PO SCH ×2 (12:50→23:23)
--- NOTE | 2017-04-12 13:28 | MB ---
cc: ABIOLA PRITCHARD MD DATE OF CONSULTATION: 04/12/2017 REQUESTING PHYSICIAN: Dr. Villanueva REASON FOR CONSULTATION: Patient with recent C-Difficile earlier this month, now with recurrent diarrhea. Suspect recurrence on immunosuppressant therapy, Leflunomide at home for rheumatoid arthritis. Please evaluate and advise on further treatment. HISTORY OF PRESENT ILLNESS: This is a 76 year-old white female who presented to the emergency department with generalized weakness, she is also noted to be in atrial fibrillation with rapid ventricular rate. The patient is a poor historian. She was recently treated for C-Difficile infection earlier this month. She presented with abdominal pain on February 23, 2017 and she was given antibiotic in the form of ciprofloxacin and Flagyl and was discharged on February 27, 2017. She was again admitted on March 14, 2017 again with abdominal pain, versus acute cholecystitis and was put on Levaquin and Flagyl and the C-Difficile toxin came back positive and the Levaquin was discontinued and she was kept on Flagyl. The patient notes that she has continued to have history of diarrhea but the patient notes that she continues to have loose stools on this admission, C-Difficile toxins is still positive. The C-Difficile is a virulent strain. The patient notes that she gets a little abdominal pain at the left lower abdomen. She had a colonoscopy which showed diverticulosis during the recent hospitalization. There was no pseudomembranes or colitis reported. She has been afebrile and she denies chills, nausea or vomiting. The patient is emaciated, she weighs 36 kg's. She states that she has lost about 100 pounds over the past year. She states that she has not been eating much. She lives at home and has a daughter and her daughters friend in the home. A CT scan of the abdomen and pelvis was preformed and it showed what appears to be noncalcified gallstones in the gallbladder lumen A small amount of ascites is noted in the pelvis and diffuse anasarca about the trunk. There is also noted to be a stable nonspecific 1.8 x 3.7 cm Lytic lesion in the left iliac crest anteriorly. Her white count is 6.4. The patient tells me she was having about three bowel movements per day over the past couple of days. The patient was previously discharged on Flagyl 500 mg tablets every eight hours for a total of eight days on March 18, 2017. PAST MEDICAL HISTORY: 1. Rheumatoid arthritis 2. Atrial fibrillation 3. Hysterectomy 4. Shoulder surgery. 5. Ankle surgery. ALLERGIES SULFA CEPHALEXIN SULFAMETHIZOLE TRIMETHOPRIM CODEINE MEDICATIONS: 1. Vancomycin p.o. 2. Synthroid 3. Lopressor 4. Megace 5. Potassium SOCIAL HISTORY: No tobacco, no alcohol, no illicit drugs. FAMILY HISTORY: Noncontributory. REVIEW OF SYSTEMS Positive for low abdominal pain, diarrhea. PHYSICAL EXAMINATION: IN GENERAL: This is a very frail cathectic female in no acute distress. She is awake and alert. VITAL SIGNS: Temperature 98.0 degrees, blood pressure 120/58, heart rate 116. Respirations 16. HEAD, EYES, EARS, NOSE, AND THROAT: Head is Atraumatic, extraocular muscles intact, no icterus, no erythema. Oropharynx with mild mucosa without visible lesions. NECK: The neck is supple. No adenopathy, no swelling. LUNGS: Clear breath sounds bilateral. HEART: Rate regular without murmurs, rubs or gallops. ABDOMEN: Bowel sounds present, flat, soft, mild tenderness at the left lower quadrant on palpation. RECTUM: Rectal was not preformed. EXTREMITIES: Acute muscle wasting, no clubbing, cyanosis or edema. SKIN: No rash. NEUROLOGIC: The patient is alert and oriented, no gross focal findings. LABORATORY FINDINGS: White blood cell 6.4, platelets 145, hemoglobin 11.2, 82% neutrophils, 9% monocytes, creatinine 0.53, blood urea nitrogen 12, sodium 140, aspartate aminotransferase 19, ALT less then 6, albumin 2.5. IMPRESSION: 1. C-Difficile colitis, recurrent. 2. Patient with hyper virulent strain. 3. Patient has mostly symptoms of diarrhea. 4. White blood cell count is normal. RECOMMENDATIONS: Treat the patient with oral vancomycin and plan on doing a six week taper. The dose of vancomycin can be switched to 125 mg four times a day for six weeks taper can be given as per the schedule below. Vancomycin 125 mg p.o. four times a day for seven days followed by 125 mg p.o. q 12 hours times seven days, followed by 125 mg p.o. q 24 hours for seven days, followed by 125 mg p.o. every 48 hours for seven days and then 125 mg p.o. q 72 hours times 14 days. Please call for further infectious disease recommendations if the patient's condition worsens or further input is needed. Thank you for this consultation. Abiola Pritchard MD FD/ernestine /10:46 AM /11:06 AM
[2017-04-12] MEDS ORDERED: CYANOCOBALAMIN 1000 MCG/ML VIAL SQ ONE (15:00)
--- NOTE | 2017-04-12 15:43 | PQ ---
Physician Query Response Document PATIENT: DYANA MCKNIGHT : 1940 ADMIT DATE: 04/11/2017 6:47 PM DISCH DATE: RESPONDING PROVIDER #: ISABELA QUERY TEXT: Nutritional Deficiency Clarification There are clinical indicators and dietary consult noted in the Medical Record regarding nutritional s tatus. Please provide a nutritional diagnosis if able to further specify. such as: 1) MILD MALNUTRITION 2) MODERATE MALNUTRITION 3) SEVERE MALNUTRITION 4) NO MALNUTRITION 5) OTHER, PLEASE CLARIFY The patient's Clinical Indicators include: PER PROGRESS NOTE: WEIGHT LOSS UNINTENTIONAL?? CONSULT HEM/ONC NUTRITION CONSULT PT AND OT ADD BOOST APPETITE STIMULANT BMI=14.5 04/12/17 TOTAL PROTIEN=5.7, ALBUMIN= 2.5 Query created by: Charleen Murphy on 04/12/2017 3:06 PM RESPONSE TEXT: Severe protein calorie malnutrition with weight loss Electronically signed by: Mendel Munoz 04/12/2017 3:39 PM
[2017-04-12] MEDS ORDERED: IRON SUCROSE INJ 100 MG in SODIUM CHLORIDE 0.9% INJ 100 ML IV ONE (16:00)
[2017-04-12] MEDS: FOLIC ACID 1 MG TAB PO SCH (16:08)
--- NOTE | 2017-04-12 16:38 | MB ---
cc: GORGE RAMIREZ,LISA Tipton M.D. DATE OF CONSULTATION: 04/12/2017 DATE OF : [address] Ramirez. CHIEF COMPLAINT Dr. Ramirez requests a consultation for Mrs. Allen with pancytopenia and failure to thrive. HISTORY OF PRESENT ILLNESS Mrs. Allen is a 76-year-old woman well-known patient from a previous consultation on November 03, 2016. She had unintentional weight loss and leukopenia. She came into the emergency room hypotensive with atrial fibrillation, rapid ventricular response. Review of the electronic medical record showed gradual weight loss dating back to 2003 where she was 93 kg. On her admission in October 2016 she was 43.5 kg. Her current weight on April 12, 2017 is 36 kg. She presented to the emergency room with complaints of generalized weakness. She is noted to have atrial fibrillation, heart rate in the 170s. She was treated with Diltiazem bolus. She converted to sinus rhythm. Her course was complicated by abdominal pain in March presumed to be cholecystitis. She was diagnosed with C. difficile and was given a 14-day course of Flagyl. On admission she had a few episodes of diarrhea as well as left lower quadrant abdominal pain. On April 12, 2017 she is again C. difficile toxin positive by PCR. She is under isolation. Infectious Disease was consulted. Oral vancomycin was started. She has a hyper virulent strain. On admission her white blood cell count was normal at 9.3, hemoglobin of 10 and platelet count 205 on March 14, 2017. During the course of her hospitalization she has had progressive decrease in her platelet count to 145,000 on March 15, 105,000 on April 12, 2017, the day of the consultation. Her hemoglobin drifted down to 9.2. Differential shows mild lymphopenia. Chemistry April 12 shows a normal BUN and creatinine but her calcium is low at 7.9. Magnesium is decreased to 1.4. TSH is elevated. Her last serum B12 level was normal on November 03, 2016. Mrs. Allen reports having no appetite. She cannot get herself to eat. This is worsened by the fact that she has diarrhea from her C. difficile infection diagnosed in March. However, her weight loss predates even the C. Difficile infection. Evaluation for her anemia included bone marrow biopsy on November 09, 2016. 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 Flow cytometric analysis was negative and the cytogenetics was negative. The differential includes hypocellular myelodysplasia versus aplastic anemia. She reports things are well at home. She spends less than half the time in bed. She is able to get around at home. She lives with her daughter and her daughter's friend. She denies any headaches. No urinary complaints. She has the diarrhea as described above. She denies feeling depressed. She denies any bleeding. The rest of her review of systems is negative. PAST MEDICAL HISTORY 1. Chronic anemia. 2. Atrial fibrillation. 3. C. difficile. 4. Rheumatoid arthritis. 5. History of scarlet fever. 6. Heart murmur. 7. Hypothyroidism. PAST SURGICAL HISTORY 1. Hysterectomy. 2. Shoulder surgery. 3. Ankle surgery. FAMILY HISTORY Mother of old age at 94. Father at age 74. SOCIAL HISTORY She is a never smoker. She denies any alcohol or illicit drug use. ALLERGIES 1. SULFA. 2. KEFLEX. 3. SULFAMETHOXAZOLE. 4. TRIMETHOPRIM. 5. CODEINE. PHYSICAL EXAMINATION VITAL SIGNS: Temperature 98.3, heart rate 79, respiratory rate 43, blood pressure 117/56, saturation 100%. GENERAL: Ms. Allen is a cachectic-appearing elderly woman. HEENT: Pupils are round and reactive to light and accommodation. She has bitemporal wasting. She has very dry skin. She has red, erythematous plaques over both ears extending down to her chin and lower jaw. NECK: Supple with no adenopathy. AXILLAE: No axillary adenopathy. LUNGS: Clear anteriorly. CARDIOVASCULAR: Irregularly irregular rhythm. ABDOMEN: Scaphoid. Some tenderness to deep palpation in the lower quadrant. EXTREMITIES: Lower extremities with trace edema. LABORATORY Labs as described above. Phosphorus is low. ASSESSMENT AND PLAN Mrs. Allen is a 76-year-old woman with multiple medical problems. She has chronic inflammation from rheumatoid arthritis. She has chronic changes in both hands with ulnar deviation and all the joints. She is on chronic immunosuppressive therapy. Her course is complicated by osteoporosis. She is seen in consultation for failure to thrive and pancytopenia. She has had anemia for quite some time. We discussed the bone marrow biopsy results. Aplastic anemia is a diagnosis of exclusion. Normal cytogenetics argues against a myelodysplastic syndrome. We considered repeating a bone marrow biopsy evaluation, however, I would consider repletion of her nutritional deficiency. B12, folic acid and iron is offered first. We will see if she responds to this. We discussed an appetite stimulant with Marinol. She was agreeable to that. We will monitor closely for toxicity related to Marinol. We hope that this would improve her appetite. She reports that the problem with her weight loss and gradual one is her not wanting to eat. She denies any overt problem with eating or swallowing. She has no dysphagia or nausea. Peripheral smear will be reviewed with pathology. Serum protein electrophoresis will be checked. She does a lytic lesion in the right anterior iliac crest. Her total protein is decreased which argues against multiple myeloma. Furthermore her kidney function is normal. We will check as part of the differential. Her questions were answered to her satisfaction. Lisa Coy MD RAD/BT /3:04 PM /4:17 PM
[2017-04-12 17:33] LABS: HEMOGLOBIN A1a 1.7 %; HEMOGLOBIN A1b 1.4 %; HEMOGLOBIN Ao 86.3 %; HEMOGLOBIN LA1C 2.1 %; HEMOGLOBIN P3 3.6 %
--- NOTE | 2017-04-12 17:38 | EKG ---
Date Performed: 04/11/2017 Time Performed: 15:27:13 PTAGE: 76 years EKG: ATRIAL FIBRILLATION WITH RAPID VENTRICULAR RESPONSE MARKED LEFT AXIS DEVIATION LOW QRS VOLT AGE IN EXTREMITY LEADS ANTEROSEPTAL MYOCARDIAL INFARCTION MODERATE T-WAVE ABNORMALITY, CONSIDER LATER AL ISCHEMIA MODERATE T-WAVE ABNORMALITY, CONSIDER INFERIOR ISCHEMIA When compared to previous tracing , patient is now in a atrial Fibrillation with a rapid ventricular response. ABNORMAL ECG PREVIOUS TRACING : 02/23/2017 09.43 DOCTOR: Vick Chacon Interpretating Date/Time 04/12/2017 17:37:09
--- NOTE | 2017-04-12 17:39 | EKG ---
Date Performed: 04/11/2017 Time Performed: 21:47:29 PTAGE: 76 years EKG: ATRIAL FIBRILLATION WITH RAPID VENTRICULAR RESPONSE MARKED LEFT AXIS DEVIATION INTRAVENTRIC ULAR CONDUCTION DELAY ANTEROSEPTAL MYOCARDIAL INFARCTION When compared to previous tracing, patient c ontinues in atrial Fibrillation with a rapid ventricular response. Heart rate has slowed significantl y. ABNORMAL ECG PREVIOUS TRACING : 04/11/2017 15.27 DOCTOR: Vick Chacon Interpretating Date/Time 04/12/2017 17:38:56
[2017-04-12] MEDS: DRONABINOL 2.5 MG CAP PO SCH (21:00)
[2017-04-12] MEDS: METOPROLOL TARTRATE 25 MG TAB PO SCH (23:22)
[2017-04-13] VITALS (19 sets, daily range): BP systolic 89–119; BP diastolic 49–79; PULSE 68–120; RESP 12–47; TEMP 97.5–98.8; O2SAT 98–100
[2017-04-13 04:27] LABS: RETIC % 0.5 % (0.4-3.0); REVIEW FLAG FINAL
[2017-04-13 04:32] LABS: AUTOMATED NEUTROPHIL # 4.3 TH/MM3 (1.8-7.7); BASOPHIL % 0.6 % (0.0-2.0); EOSINOPHIL # 0.2 TH/MM3 (0-0.4); HEMATOCRIT 26.6 % (35.0-46.0); HEMO FLAGS DIFF FINAL; LYMPH % 11.8 % (9.0-44.0); LYMPHOCYTE # 0.7 TH/MM3 (1.0-4.8); MEAN CELL VOLUME 89.2 FL (80.0-100.0); MEAN CORPUSCULAR HEMOGLOBIN 29.3 PG (27.0-34.0); MEAN CORPUSCULAR HGB CONC 32.9 % (32.0-36.0); MONO % 7.8 % (0.0-8.0); NEUT % 75.8 % (16.0-70.0); PLATELET COUNT 127 TH/MM3 (150-450); RED BLOOD COUNT 2.98 MIL/MM3 (4.00-5.30); RED CELL DISTRIBUTION WIDTH 14.5 % (11.6-17.2); WHITE BLOOD COUNT 5.6 TH/MM3 (4.0-11.0)
[2017-04-13 05:07] LABS: ALKALINE PHOSPHATASE 44 U/L (45-117); ALT (GPT) LESS THAN 6 U/L (10-53); ANION GAP 7 MEQ/L (5-15); AST (GOT) 17 U/L (15-37); BICARBONATE 24.7 MEQ/L (21.0-32.0); BLOOD UREA NITROGEN 11 MG/DL (7-18); CHLORIDE 110 MEQ/L (98-107); FREE T4 1.27 NG/DL (0.76-1.46); GLOMERULAR FILTRATION RATE 122 ML/MIN (>89); LDH SERUM 97 U/L (84-246); MAGNESIUM 1.4 MG/DL (1.5-2.5); POTASSIUM 3.4 MEQ/L (3.5-5.1); SODIUM (NA) 142 MEQ/L (136-145); TOTAL BILIRUBIN ADULT 0.4 MG/DL (0.2-1.0); TOTAL PROTEIN SPE 5.1 GM/DL (6.0-7.6)
[2017-04-13] MEDS: LEVOTHYROXINE SODIUM 25 MCG TAB PO SCH (06:00)
[2017-04-13] MEDS: SODIUM CHLOR 0.9% 1000 ML INJ 1,000 ML IV SCH ×2 (06:47→21:51)
[2017-04-13] MEDS: FOLIC ACID 1 MG TAB PO SCH (08:43)
[2017-04-13] MEDS: VANCOMYCIN 500 MG VIAL (FOR ORAL USE ONLY) PO SCH ×4 (08:43→21:52)
[2017-04-13] MEDS: SODIUM CHLORIDE 0.9% FLUSH 10 ML FLUSH IV FLUSH PRN (08:43)
[2017-04-13] MEDS: METOPROLOL TARTRATE 25 MG TAB PO SCH ×2 (08:43→21:00)
[2017-04-13] MEDS: SODIUM CHLORIDE 0.9% FLUSH 10 ML FLUSH IV FLUSH SCH ×2 (08:43→21:53)
[2017-04-13 11:06] LABS: HEMOGLOBIN A1a 2.1 %; HEMOGLOBIN A1b 1.4 %; HEMOGLOBIN Ao 85.7 %; HEMOGLOBIN LA1C 2.3 %; HEMOGLOBIN P3 3.6 %
[2017-04-13] MEDS: MEGESTROL ACETATE SUSP 400 MG/10 ML CUP PO SCH (12:06)
--- NOTE | 2017-04-13 17:06 | HHI.PR ---
Subjective Remarks Patient complains of feeling tired. Mild cramping abdominal pain. She had 3 very small loose bowel movements this morning. Discussed with RN. Objective Vitals Vital Signs Date Time Temp Pulse Resp B/P (MAP) Pulse Ox O2 Delivery O2 Flow Rate FiO2 04/13/17 16:34 97.8 80 16 96/49 (65) 100 04/13/17 14:20 97.8 101 16 105/58 (74) 100 04/13/17 13:00 97 12 108/58 (75) 100 04/13/17 12:00 68 04/13/17 12:00 97.6 68 47 119/56 (77) 100 04/13/17 11:00 75 16 93/54 (67) 98 04/13/17 10:00 77 18 110/55 (73) 100 04/13/17 10:00 77 04/13/17 09:00 111 21 104/79 (87) 100 04/13/17 08:00 97.5 72 23 113/54 (73) 100 04/13/17 08:00 77 04/13/17 07:00 105 17 116/58 (77) 100 04/13/17 06:00 76 04/13/17 04:00 72 04/13/17 04:00 97.7 72 18 105/53 (70) 100 04/13/17 02:00 68 04/13/17 00:00 80 04/13/17 00:00 98.0 80 18 108/54 (72) 100 04/12/17 22:00 117 04/12/17 20:27 100 Nasal Cannula 2.00 04/12/17 20:00 85 04/12/17 20:00 97.8 85 18 111/57 (75) 100 04/12/17 18:00 88 04/12/17 17:00 83 16 112/58 (76) 100 I/O 04/12/17 04/12/17 04/12/17 04/13/17 04/13/17 04/13/17 07:00 15:00 23:00 07:00 15:00 23:00 Intake Total 650 ml 384 ml 1784 ml 1049 ml 749 ml Balance 650 ml 384 ml 1784 ml 1049 ml 749 ml Intake Oral 944 ml 120 ml IV Total 650 ml 384 ml 840 ml 929 ml 749 ml # Voids 2 4 3 2 # Bowel Movements 2 4 3 3 Result Diagram: 04/13/1732404/13/17324 Objective Remarks GENERAL: Petite cachectic appearing elderly female patient. SKIN: Warm and dry. HEAD: Normocephalic. EYES: No scleral icterus. No injection or drainage. NECK: Supple, trachea midline. No JVD or lymphadenopathy. CARDIOVASCULAR: Regular rate and rhythm without murmurs, gallops, or rubs. RESPIRATORY: Breath sounds equal bilaterally. No accessory muscle use. GASTROINTESTINAL: Abdomen soft, non-tender, nondistended. EXTREMITIES: No cyanosis, or edema. Deformities of hands due to RA. NEUROLOGICAL: Awake, alert, and oriented x 3. Non-focal. A/P Assessment and Plan -Recurrent C. difficile colitis. On vancomycin taper per infectious disease. Continue IV fluids. -Chronic pancytopenia. Has had bone marrow biopsy in the past. Unlikely to have MDS or malignancy. She is on leflunomide for rheumatoid arthritis. Receiving iron, B-12 and folate supplementation per hematology/Dr. Coy. -Rheumatoid arthritis on leflunomide, followed by Dr. Lagos as an outpatient -Severe malnutrition due to poor appetite and chronic inflammation. Continue Marinol, Megace and boost. -Atrial fibrillation. Had rapid ventricular rate in the ER, Rate is now controlled after IV fluid hydration.. Eliquis was stopped by Dr. Goldberg recently. Blood pressure trends toward low. Monitor on telemetry. -Hypothyroidism. Continue Synthroid. TSH is elevated however free T4 is normal. -Recent cholecystitis. Following with general surgery as an outpatient for possible cholecystectomy. -DVT prophylaxis with SCDs. Brii Francis MD Apr 13, 2017 17:06
--- NOTE | 2017-04-13 18:54 | PD.ONC.PN ---
Subjective Subjective Remarks Eating dinner, seem to have appetite this evening. Denies any problem swallowing. Objective Data Date Time Temp Pulse Resp B/P (MAP) Pulse Ox O2 Delivery O2 Flow Rate FiO2 04/13/17 17:40 84 04/13/17 16:34 97.8 80 16 96/49 (65) 100 04/13/17 16:00 78 04/13/17 15:00 76 04/13/17 14:20 97.8 101 16 105/58 (74) 100 04/13/17 13:00 97 12 108/58 (75) 100 04/13/17 12:00 68 04/13/17 12:00 97.6 68 47 119/56 (77) 100 04/13/17 11:00 75 16 93/54 (67) 98 04/13/17 10:00 77 18 110/55 (73) 100 04/13/17 10:00 77 04/13/17 09:00 111 21 104/79 (87) 100 04/13/17 08:00 97.5 72 23 113/54 (73) 100 04/13/17 08:00 77 04/13/17 07:00 105 17 116/58 (77) 100 04/13/17 06:00 76 04/13/17 04:00 72 04/13/17 04:00 97.7 72 18 105/53 (70) 100 04/13/17 02:00 68 04/13/17 00:00 80 04/13/17 00:00 98.0 80 18 108/54 (72) 100 04/12/17 22:00 117 04/12/17 20:27 100 Nasal Cannula 2.00 04/12/17 20:00 85 04/12/17 20:00 97.8 85 18 111/57 (75) 100 04/13/17 04/13/17 04/13/17 06:59 14:59 22:59 Intake Total 1049 ml 749 ml Balance 1049 ml 749 ml Result Diagram: 04/13/1732404/13/17 032 Laboratory Results Laboratory Tests Test 04/13/17 03:25 White Blood Count 5.6 TH/MM3 Red Blood Count 2.98 MIL/MM3 Hemoglobin 8.7 GM/DL Hematocrit 26.6 % Mean Corpuscular Volume 89.2 FL Mean Corpuscular Hemoglobin 29.3 PG Mean Corpuscular Hemoglobin Concent 32.9 % Red Cell Distribution Width 14.5 % Platelet Count 127 TH/MM3 Mean Platelet Volume 10.0 FL Neutrophils (%) (Auto) 75.8 % Lymphocytes (%) (Auto) 11.8 % Monocytes (%) (Auto) 7.8 % Eosinophils (%) (Auto) 4.0 % Basophils (%) (Auto) 0.6 % Neutrophils # (Auto) 4.3 TH/MM3 Lymphocytes # (Auto) 0.7 TH/MM3 Monocytes # (Auto) 0.4 TH/MM3 Eosinophils # (Auto) 0.2 TH/MM3 Basophils # (Auto) 0.0 TH/MM3 CBC Comment DIFF FINAL Differential Comment Blood Smear Pathologist Review Reticulocyte Count 0.5 % Absolute Reticulocyte Count 13.8 MIL/L Blood Urea Nitrogen 11 MG/DL Creatinine 0.49 MG/DL Random Glucose 91 MG/DL Total Protein 5.1 GM/DL Albumin 2.2 GM/DL Calcium Level 7.8 MG/DL Phosphorus Level 2.3 MG/DL Magnesium Level 1.4 MG/DL Alkaline Phosphatase 44 U/L Aspartate Amino Transf (AST/SGOT) 17 U/L Alanine Aminotransferase (ALT/SGPT) LESS THAN 6 U/L Lactate Dehydrogenase 97 U/L Total Bilirubin 0.4 MG/DL Sodium Level 142 MEQ/L Potassium Level 3.4 MEQ/L Chloride Level 110 MEQ/L Carbon Dioxide Level 24.7 MEQ/L Anion Gap 7 MEQ/L Estimat Glomerular Filtration Rate 122 ML/MIN Hemoglobin A1c 4.6 % Free Thyroxine 1.27 NG/DL Thyroid Stimulating Hormone 3rd Gen 8.180 uIU/ML Immunoglobulin G Total 1030 MG/DL Immunoglobulin A 246 MG/DL Immunoglobulin M 49 MG/DL Culture Results Microbiology Date/Time Source Procedure Growth Status 04/11/17 22:30 Blood Peripheral Aerobic Blood Culture - Preliminary NO GROWTH IN 2 DAYS Resulted 04/11/17 22:30 Blood Peripheral Anaerobic Blood Culture - Preliminary NO GROWTH IN 2 DAYS Resulted 04/11/17 16:25 Blood Peripheral Aerobic Blood Culture - Preliminary NO GROWTH IN 2 DAYS Resulted 04/11/17 16:25 Blood Peripheral Anaerobic Blood Culture - Preliminary NO GROWTH IN 2 DAYS Resulted Administered Medications Medications (Trade) Dose Ordered Sig/Baljinder Route PRN Reason Start Time Stop Time Status Last Admin Dose Admin Sodium Chloride (NS Flush) 2 ml UNSCH PRN IV FLUSH FLUSH AFTER USING IV ACCESS 04/11/17 20:15 04/13/17 08:43 Sodium Chloride (NS Flush) 2 ml BID IV FLUSH 04/11/17 21:00 04/13/17 08:43 Chlorhexidine Gluconate (Chlorhexidine 2% Cloth) 3 pack DAILY@04 TOPICAL 04/12/17 04:00 04/16/17 04:01 04/12/17 23:23 Vancomycin HCl (VANCOMYCIN for oral use only) 250 mg QID PO 04/12/17 13:00 04/13/17 12:06 Metoprolol Tartrate (Lopressor) 12.5 mg Q12HR PO 04/12/17 21:00 04/13/17 08:43 Levothyroxine Sodium (Synthroid) 25 mcg DAILY@0600 PO 04/12/17 10:30 04/13/17 06:00 Sodium Chloride 1,000 ml @ 84 mls/hr [id number] IV 04/12/17 10:15 04/13/17 06:47 Megestrol Acetate (Megace Liq) 400 mg Q12H PO 04/12/17 13:00 04/13/17 12:06 Folic Acid (Folate) 1 mg DAILY PO 04/12/17 15:00 04/13/17 08:43 Objective Remarks GENERAL: Cachectic elderly woman, well-developed patient. SKIN: Warm and dry. HEAD: Normocephalic. Bi temporal wasting. EYES: No scleral icterus. No injection or drainage. NECK: Supple, trachea midline. No JVD or lymphadenopathy. LYMPHATIC: No adenopathy. CARDIOVASCULAR: Regular rate and rhythm without murmurs. RESPIRATORY: Breath sounds equal bilaterally. No accessory muscle use. GASTROINTESTINAL: Abdomen soft, scaphoid non-tender. EXTREMITIES: No cyanosis, or trace ankle edema. MUSCULOSKELETAL: Atrophy muscles. NEUROLOGICAL: No obvious focal deficit. Awake, alert, and oriented x3. Assessment/Plan Problem List: (1) Pancytopenia ICD Codes: D61.818 - Other pancytopenia Status: Chronic Plan: Anemia and thrombocytopenia persist. Trial of iron, B12, folic acid. Retic count is low, inappropriately low. Consider in differential aplastic anemia vs hypoplastic myelodysplastic syndrome. No transfusion needed. Defer BM biopsy repeat until recovery from C-diff. FU as out patient regarding cytopenia. (2) Unintentional weight loss ICD Codes: R63.4 - Abnormal weight loss Status: Chronic Plan: Progressive over years. Appetite stimulant and supplement in place. Manager Water consulted for calorie count. Main complaint no appetite. Over malignancy not identified. Possible bone marrow disorder. Assessment 76 y/o woman with progressive unintentional weight loss associated with pancytopenia admitted for A fib with rapid ventricular response, complicated by C diff infection. Plan Continue support and tx for Cdiff. Rhythm back to sinus and rate controlled. Follow CBC, no transfusions needed. Repeat Bm bx as out patient. Caro Coy MD Apr 13, 2017 18:54
[2017-04-13] MEDS: DRONABINOL 2.5 MG CAP PO SCH (21:52)
[2017-04-14] VITALS (21 sets, daily range): BP systolic 90–106; BP diastolic 47–64; PULSE 72–120; RESP 14–18; TEMP 97.9–98.7; O2SAT 98–99
[2017-04-14] MEDS: MEGESTROL ACETATE SUSP 400 MG/10 ML CUP PO SCH ×2 (01:43→14:07)
[2017-04-14] MEDS: CHLORHEXIDINE GLUCONATE 2 % 1 PACK (2 CLOTHS)(taper/protocol) TOPICAL SCH (04:00)
[2017-04-14] MEDS: LEVOTHYROXINE SODIUM 25 MCG TAB PO SCH (05:42)
[2017-04-14] MEDS: SODIUM CHLORIDE 0.9% FLUSH 10 ML FLUSH IV FLUSH SCH ×2 (09:00→20:05)
[2017-04-14] MEDS: METOPROLOL TARTRATE 25 MG TAB PO SCH ×3 (09:00→20:05)
--- NOTE | 2017-04-14 09:40 | PD.ONC.PN ---
Subjective Subjective Remarks Afebrile Denies pain or shortness of breath No other acute complaints Objective Data Date Time Temp Pulse Resp B/P (MAP) Pulse Ox O2 Delivery O2 Flow Rate FiO2 04/14/17 07:00 84 04/14/17 07:00 97.9 89 14 102/50 (67) 99 04/14/17 05:00 82 04/14/17 04:00 80 04/14/17 04:00 98.4 79 16 90/47 (61) 98 04/14/17 02:00 85 04/14/17 01:00 101 04/14/17 00:00 120 04/14/17 00:00 98.6 87 16 100/51 (67) 99 04/13/17 22:00 81 04/13/17 21:00 120 04/13/17 20:00 118 04/13/17 20:00 98.8 119 16 89/51 (64) 100 04/13/17 17:40 84 04/13/17 16:34 97.8 80 16 96/49 (65) 100 04/13/17 16:00 78 04/13/17 15:00 76 04/13/17 14:20 97.8 101 16 105/58 (74) 100 04/13/17 13:00 97 12 108/58 (75) 100 04/13/17 12:00 68 04/13/17 12:00 97.6 68 47 119/56 (77) 100 04/13/17 11:00 75 16 93/54 (67) 98 04/13/17 10:00 77 18 110/55 (73) 100 04/13/17 10:00 77 04/14/17 04/14/17 04/14/17 07:00 15:00 23:00 Intake Total 480 ml Balance 480 ml Result Diagram: 04/13/17 0325 04/13/17 0325 Culture Results Microbiology Date/Time Source Procedure Growth Status 04/11/17 22:30 Blood Peripheral Aerobic Blood Culture - Preliminary NO GROWTH IN 2 DAYS Resulted 04/11/17 22:30 Blood Peripheral Anaerobic Blood Culture - Preliminary NO GROWTH IN 2 DAYS Resulted 04/11/17 16:25 Blood Peripheral Aerobic Blood Culture - Preliminary NO GROWTH IN 2 DAYS Resulted 04/11/17 16:25 Blood Peripheral Anaerobic Blood Culture - Preliminary NO GROWTH IN 2 DAYS Resulted Administered Medications Medications (Trade) Dose Ordered Sig/Baljinder Route PRN Reason Start Time Stop Time Status Last Admin Dose Admin Sodium Chloride (NS Flush) 2 ml UNSCH PRN IV FLUSH FLUSH AFTER USING IV ACCESS 04/11/17 20:15 04/13/17 08:43 Sodium Chloride (NS Flush) 2 ml BID IV FLUSH 04/11/17 21:00 04/13/17 21:53 Chlorhexidine Gluconate (Chlorhexidine 2% Cloth) 3 pack DAILY@04 TOPICAL 04/12/17 04:00 04/16/17 04:01 04/14/17 04:00 Vancomycin HCl (VANCOMYCIN for oral use only) 250 mg QID PO 04/12/17 13:00 04/13/17 21:52 Metoprolol Tartrate (Lopressor) 12.5 mg Q12HR PO 04/12/17 21:00 04/13/17 08:43 Levothyroxine Sodium (Synthroid) 25 mcg DAILY@0600 PO 04/12/17 10:30 04/14/17 05:42 Sodium Chloride 1,000 ml @ 84 mls/hr [id number] IV 04/12/17 10:15 04/13/17 21:51 Megestrol Acetate (Megace Liq) 400 mg Q12H PO 04/12/17 13:00 04/13/17 12:06 Folic Acid (Folate) 1 mg DAILY PO 04/12/17 15:00 04/13/17 08:43 Dronabinol (Marinol) 2.5 mg HS PO 04/12/17 21:00 04/13/17 21:52 Objective Remarks GENERAL: Thin elderly female resting in bed eating breakfast in no acute distress SKIN: Warm and dry. HEAD: Normocephalic. EYES: No injection or drainage. NECK: Supple, trachea midline. CARDIOVASCULAR: +S1/S2. Tachycardia RESPIRATORY: Breath sounds equal bilaterally. No accessory muscle use. GASTROINTESTINAL: Abdomen soft, non-tender, nondistended. EXTREMITIES: No cyanosis, or edema. MUSCULOSKELETAL: Adequate muscle tone. NEUROLOGICAL: No obvious focal deficit. Awake, alert, and oriented x3. Assessment/Plan Problem List: (1) Pancytopenia ICD Codes: D61.818 - Other pancytopenia Status: Chronic Plan: Anemia and thrombocytopenia persist. Trial of iron, B12, folic acid. Retic count is low, inappropriately low. Consider in differential aplastic anemia vs hypoplastic myelodysplastic syndrome. No transfusion needed. Defer BM biopsy repeat until recovery from C-diff. FU as out patient regarding cytopenia. (2) Unintentional weight loss ICD Codes: R63.4 - Abnormal weight loss Status: Chronic Plan: Progressive over years. Appetite stimulant and supplement in place. Scientific Laboratory Supervisor consulted for calorie count. Main complaint no appetite. Over malignancy not identified. Possible bone marrow disorder. Assessment 76 y/o woman with progressive unintentional weight loss associated with pancytopenia admitted for A fib with rapid ventricular response, complicated by C diff infection. Plan 1. CBC pending for today 2. No transfusion unless hemoglobin less than 7.5 or symptomatic 3. Plan for bone marrow biopsy outpatient once she has recovered from C. difficile infection Attending Statement The exam, history, and the medical decision-making described in the above note were completed with the assistance of the mid-level provider. I reviewed and agree with the findings presented. I attest that I had a [id number] encounter with the patient on the same day, and personally performed and documented my assessment and findings in the medical record. Still weak. diarrhea improved. Still has pancytopenia but no need for transfusion at this time. Consider bone marrow biopsy if blood counts does not improved after infection resolved. Betsy Fang Apr 14, 2017 09:40 Raul Orellana MD Apr 14, 2017 15:23
[2017-04-14] MEDS: FOLIC ACID 1 MG TAB PO SCH (09:48)
[2017-04-14] MEDS: VANCOMYCIN 500 MG VIAL (FOR ORAL USE ONLY) PO SCH ×4 (09:48→20:05)
[2017-04-14] MEDS: SODIUM CHLOR 0.9% 1000 ML INJ 1,000 ML IV SCH ×2 (09:55→20:06)
[2017-04-14 13:04] LABS: AUTOMATED NEUTROPHIL # 2.3 TH/MM3 (1.8-7.7); BASOPHIL % 0.8 % (0.0-2.0); EOSINOPHIL # 0.1 TH/MM3 (0-0.4); EOSINOPHIL % 2.6 % (0.0-4.0); HEMATOCRIT 24.9 % (35.0-46.0); HEMO FLAGS DIFF FINAL; LYMPH % 20.6 % (9.0-44.0); LYMPHOCYTE # 0.7 TH/MM3 (1.0-4.8); MEAN CELL VOLUME 88.9 FL (80.0-100.0); MEAN CORPUSCULAR HEMOGLOBIN 30.4 PG (27.0-34.0); MEAN CORPUSCULAR HGB CONC 34.1 % (32.0-36.0); MONO % 11.5 % (0.0-8.0); NEUT % 64.5 % (16.0-70.0); PLATELET COUNT 123 TH/MM3 (150-450); RED BLOOD COUNT 2.81 MIL/MM3 (4.00-5.30); RED CELL DISTRIBUTION WIDTH 14.2 % (11.6-17.2); WHITE BLOOD COUNT 3.6 TH/MM3 (4.0-11.0)
--- NOTE | 2017-04-14 13:57 | HHI.PR ---
Subjective Remarks Still in A. fib on monitor her heart rate fluctuates from 90 up to 120. Patient without palpitations. Patient states she was taken off Eliquis but she cannot remember which doctor took her off. Objective Vitals Vital Signs Date Time Temp Pulse Resp B/P (MAP) Pulse Ox O2 Delivery O2 Flow Rate FiO2 04/14/17 12:24 98.5 98 14 101/54 (70) 99 04/14/17 07:00 84 04/14/17 07:00 97.9 89 14 102/50 (67) 99 04/14/17 05:00 82 04/14/17 04:00 80 04/14/17 04:00 98.4 79 16 90/47 (61) 98 04/14/17 02:00 85 04/14/17 01:00 101 04/14/17 00:00 120 04/14/17 00:00 98.6 87 16 100/51 (67) 99 04/13/17 22:00 81 04/13/17 21:00 120 04/13/17 20:00 118 04/13/17 20:00 98.8 119 16 89/51 (64) 100 04/13/17 17:40 84 04/13/17 16:34 97.8 80 16 96/49 (65) 100 04/13/17 16:00 78 04/13/17 15:00 76 04/13/17 14:20 97.8 101 16 105/58 (74) 100 I/O 04/13/17 04/13/17 04/13/17 04/14/17 04/14/17 04/14/17 07:00 15:00 23:00 07:00 15:00 23:00 Intake Total 1049 ml 749 ml 480 ml Balance 1049 ml 749 ml 480 ml Intake Oral 120 ml 480 ml IV Total 929 ml 749 ml # Voids 3 2 0 2 # Bowel Movements 3 3 2 Result Diagram: 04/14/17 1225 04/13/17 0325 Objective Remarks GENERAL: Petite cachectic appearing elderly female patient. SKIN: Warm and dry. HEAD: Normocephalic. EYES: No scleral icterus. No injection or drainage. NECK: Supple, trachea midline. No JVD or lymphadenopathy. CARDIOVASCULAR: Regular rate and rhythm without murmurs, gallops, or rubs. RESPIRATORY: Breath sounds equal bilaterally. No accessory muscle use. GASTROINTESTINAL: Abdomen soft, non-tender, nondistended. EXTREMITIES: No cyanosis, or edema. Deformities of hands due to RA. NEUROLOGICAL: Awake, alert, and oriented x 3. Non-focal. A/P Problem List: (1) Rheumatoid arthritis ICD Code: M06.9 - Rheumatoid arthritis Status: Chronic (2) Atrial fibrillation ICD Code: I48.91 - Unspecified atrial fibrillation Status: Chronic (3) C. difficile colitis ICD Code: A04.72 - Enterocolitis due to Clostridium difficile, not specified as recurrent Status: Acute (4) Pancytopenia ICD Code: D61.818 - Other pancytopenia Status: Chronic (5) Atrial fibrillation with RVR ICD Code: I48.91 - Unspecified atrial fibrillation Status: Acute (6) Severe protein-calorie malnutrition ICD Code: E43 - Unspecified severe protein-calorie malnutrition Assessment and Plan -Recurrent C. difficile colitis. On vancomycin taper per infectious disease. Continue IV fluids. -Chronic pancytopenia. Has had bone marrow biopsy in the past. Unlikely to have MDS or malignancy. She is on leflunomide for rheumatoid arthritis. Receiving iron, B-12 and folate supplementation per hematology/Dr. Coy. -Rheumatoid arthritis on leflunomide, followed by Dr. Lagos as an outpatient -Severe malnutrition due to poor appetite and chronic inflammation. Continue Marinol, Megace and boost. -Atrial fibrillation. Had rapid ventricular rate in the ER, Rate is now controlled after IV fluid hydration.. Eliquis was stopped recently per the patient. Patient is followed by Dr. Acosta as an outpatient. Unclear whether Eliquis., Possibly due to the anemia however she's had negative Hemoccult in the past year. Blood pressure trends toward low. Monitor on telemetry. I will start aspirin for now, touch base with Dr. Acosta on Sunday regarding the Eliquis. -Hypothyroidism. Continue Synthroid. TSH is elevated however free T4 is normal. -Recent cholecystitis. Following with general surgery as an outpatient for possible cholecystectomy. -DVT prophylaxis with SCDs. Brii Francis MD Apr 14, 2017 13:57
[2017-04-14] MEDS: ASPIRIN EC 81 MG TABEC PO SCH (14:17)
[2017-04-14] MEDS: DRONABINOL 2.5 MG CAP PO SCH (20:05)
[2017-04-15] VITALS (27 sets, daily range): BP systolic 90–107; BP diastolic 49–60; PULSE 76–134; RESP 17–18; TEMP 97.8–98.7; O2SAT 97–100
[2017-04-15] MEDS: MEGESTROL ACETATE SUSP 400 MG/10 ML CUP PO SCH ×3 (00:54→23:18)
[2017-04-15] MEDS: LEVOTHYROXINE SODIUM 25 MCG TAB PO SCH (05:32)
[2017-04-15] MEDS: CHLORHEXIDINE GLUCONATE 2 % 1 PACK (2 CLOTHS)(taper/protocol) TOPICAL SCH (05:33)
[2017-04-15] MEDS: FOLIC ACID 1 MG TAB PO SCH (09:15)
[2017-04-15] MEDS: METOPROLOL TARTRATE 25 MG TAB PO SCH ×2 (09:15→19:44)
[2017-04-15] MEDS: ASPIRIN EC 81 MG TABEC PO SCH (09:16)
[2017-04-15] MEDS: VANCOMYCIN 500 MG VIAL (FOR ORAL USE ONLY) PO SCH ×4 (09:18→19:44)
[2017-04-15] MEDS: SODIUM CHLORIDE 0.9% FLUSH 10 ML FLUSH IV FLUSH SCH ×2 (09:19→19:45)
[2017-04-15] MEDS: SODIUM CHLOR 0.9% 1000 ML INJ 1,000 ML IV SCH ×2 (11:31→19:45)
[2017-04-15] MEDS: SODIUM CHLORIDE 0.9% FLUSH 10 ML FLUSH IV FLUSH PRN ×2 (13:16→18:31)
--- NOTE | 2017-04-15 15:08 | HHI.PR ---
Subjective Remarks Patient denies abdominal pain or other complaint. Has had 2 small loose stools today. Objective Vitals Vital Signs Date Time Temp Pulse Resp B/P (MAP) Pulse Ox O2 Delivery O2 Flow Rate FiO2 04/15/17 11:34 98.2 88 17 101/49 (66) 100 04/15/17 09:07 Room Air 04/15/17 09:05 98.0 97 18 102/51 (68) 100 04/15/17 06:00 88 04/15/17 05:00 85 04/15/17 04:00 Room Air 04/15/17 04:00 98.7 83 18 98/49 (65) 97 04/15/17 04:00 83 04/15/17 03:00 91 04/15/17 02:00 98 04/15/17 01:00 89 04/15/17 00:00 Room Air 04/15/17 00:00 98.2 76 18 90/54 (66) 98 04/15/17 00:00 76 04/14/17 23:00 89 04/14/17 22:00 91 04/14/17 21:00 116 04/14/17 20:00 97.9 120 18 106/64 (78) 99 04/14/17 20:00 120 04/14/17 17:00 88 04/14/17 16:02 84 04/14/17 16:00 98.7 92 18 102/59 (73) 99 I/O 04/14/17 04/14/17 04/14/17 04/15/17 04/15/17 04/15/17 06:59 14:59 22:59 06:59 14:59 22:59 Intake Total 480 ml 480 ml 940 ml 500 ml Balance 480 ml 480 ml 940 ml 500 ml Intake Oral 480 ml 480 ml 100 ml IV Total 840 ml 500 ml # Voids 2 2 3 # Bowel Movements 2 3 3 Result Diagram: 04/14/17 1225 04/13/17 0325 Objective Remarks GENERAL: Petite cachectic appearing elderly female patient. SKIN: Warm and dry. HEAD: Normocephalic. EYES: No scleral icterus. No injection or drainage. NECK: Supple, trachea midline. No JVD or lymphadenopathy. CARDIOVASCULAR: Regular rate and rhythm without murmurs, gallops, or rubs. RESPIRATORY: Breath sounds equal bilaterally. No accessory muscle use. GASTROINTESTINAL: Abdomen soft, non-tender, nondistended. EXTREMITIES: No cyanosis, or edema. Deformities of hands due to RA. NEUROLOGICAL: Awake, alert, and oriented x 3. Non-focal. A/P Problem List: (1) Rheumatoid arthritis ICD Code: M06.9 - Rheumatoid arthritis Status: Chronic (2) Atrial fibrillation ICD Code: I48.91 - Unspecified atrial fibrillation Status: Chronic (3) C. difficile colitis ICD Code: A04.72 - Enterocolitis due to Clostridium difficile, not specified as recurrent Status: Acute (4) Pancytopenia ICD Code: D61.818 - Other pancytopenia Status: Chronic (5) Atrial fibrillation with RVR ICD Code: I48.91 - Unspecified atrial fibrillation Status: Acute (6) Severe protein-calorie malnutrition ICD Code: E43 - Unspecified severe protein-calorie malnutrition Assessment and Plan -Recurrent C. difficile colitis. On vancomycin taper per infectious disease. Continue IV fluids. -Chronic pancytopenia. Patient had a negative colonoscopy earlier this year, EGD with mild gastritis. Has had bone marrow biopsy in the past. Unlikely to have MDS or malignancy. She is on leflunomide for rheumatoid arthritis. Receiving iron, B-12 and folate supplementation per hematology/Dr. Coy. -Rheumatoid arthritis on leflunomide, followed by Dr. Lagos as an outpatient -Severe malnutrition due to poor appetite and chronic inflammation. Continue Marinol, Megace and boost. -Atrial fibrillation. Had rapid ventricular rate in the ER, Rate is now controlled after IV fluid hydration.. Eliquis was stopped recently per the patient. Patient is followed by Dr. Acosta as an outpatient. Unclear whether Eliquis was stopped due to the anemia however she's had negative Hemoccult and colonoscopy in the past year. Blood pressure trends toward low. Monitor on telemetry. I am checking another Hemoccult. I will start aspirin for now, touch base with Dr. Acosta tomorrow regarding the Eliquis. -Hypothyroidism. Continue Synthroid. TSH is elevated however free T4 is normal. -Recent cholecystitis. Following with general surgery as an outpatient for possible cholecystectomy. -DVT prophylaxis with SCDs. Brii Francis MD Apr 15, 2017 15:08
[2017-04-15] MEDS: DRONABINOL 2.5 MG CAP PO SCH (19:44)
[2017-04-15] MEDS ORDERED: SODIUM CHLORID 0.9% 500 ML INJ 500 ML IV ONE (21:00)
[2017-04-15] MEDS ORDERED: POTASSIUM CHLORIDE 25 MEQ EFFERVESCENT TAB PO ONE (21:15)
[2017-04-15] MEDS ORDERED: MAGNESIUM SULFATE 1 GM PREMIX 100 ML IV ONE (21:15)
[2017-04-15] MEDS ORDERED: POTASSIUM CHLOR 10 MEQ PREMIX 100 ML IV SCH (22:30)
[2017-04-15] MEDS ORDERED: METOPROLOL TARTRATE 5 MG/5 ML VIAL IV PUSH ONE (22:30)
[2017-04-15 22:31] LABS: BICARBONATE 23.7 MEQ/L (21.0-32.0); MAGNESIUM 2.1 MG/DL (1.5-2.5); POTASSIUM 4.1 MEQ/L (3.5-5.1)
[2017-04-15 23:41] LABS: AUTOMATED NEUTROPHIL # 1.6 TH/MM3 (1.8-7.7); EOSINOPHIL # 0.1 TH/MM3 (0-0.4); EOSINOPHIL % 2.4 % (0.0-4.0); HEMATOCRIT 25.6 % (35.0-46.0); HEMO FLAGS DIFF FINAL; LYMPH % 27.1 % (9.0-44.0); LYMPHOCYTE # 0.9 TH/MM3 (1.0-4.8); MEAN CELL VOLUME 89.1 FL (80.0-100.0); MEAN CORPUSCULAR HEMOGLOBIN 30.4 PG (27.0-34.0); MEAN CORPUSCULAR HGB CONC 34.2 % (32.0-36.0); MONO % 21.4 % (0.0-8.0); NEUT % 48.1 % (16.0-70.0); PLATELET COUNT 140 TH/MM3 (150-450); RED BLOOD COUNT 2.88 MIL/MM3 (4.00-5.30); RED CELL DISTRIBUTION WIDTH 14.2 % (11.6-17.2); WHITE BLOOD COUNT 3.3 TH/MM3 (4.0-11.0)
[2017-04-16] VITALS (27 sets, daily range): BP systolic 91–114; BP diastolic 48–69; PULSE 70–120; RESP 16–18; TEMP 97.8–98.4; O2SAT 98–100
[2017-04-16] MEDS ORDERED: DIGOXIN 0.5 MG/2 ML VIAL IVS STA (00:35)
[2017-04-16] MEDS: CHLORHEXIDINE GLUCONATE 2 % 1 PACK (2 CLOTHS)(taper/protocol) TOPICAL SCH (05:42)
[2017-04-16] MEDS: LEVOTHYROXINE SODIUM 25 MCG TAB PO SCH (05:42)
[2017-04-16] MEDS: DIGOXIN 0.5 MG/2 ML VIAL IVS SCH ×2 (06:23→13:20)
[2017-04-16 06:33] LABS: BASOPHIL % 0.6 % (0.0-2.0); EOSINOPHIL # 0.1 TH/MM3 (0-0.4); EOSINOPHIL % 2.8 % (0.0-4.0); HEMATOCRIT 25.9 % (35.0-46.0); HEMO FLAGS DIFF FINAL; LYMPH % 39.9 % (9.0-44.0); LYMPHOCYTE # 1.1 TH/MM3 (1.0-4.8); MEAN CELL VOLUME 92.4 FL (80.0-100.0); MEAN CORPUSCULAR HEMOGLOBIN 29.5 PG (27.0-34.0); MONO % 21.6 % (0.0-8.0); NEUT % 35.1 % (16.0-70.0); PLATELET COUNT 132 TH/MM3 (150-450); RED BLOOD COUNT 2.81 MIL/MM3 (4.00-5.30); RED CELL DISTRIBUTION WIDTH 14.9 % (11.6-17.2); WHITE BLOOD COUNT 2.8 TH/MM3 (4.0-11.0)
[2017-04-16 07:03] LABS: BICARBONATE 21.7 MEQ/L (21.0-32.0); POTASSIUM 4.2 MEQ/L (3.5-5.1)
[2017-04-16] MEDS: ASPIRIN EC 81 MG TABEC PO SCH (08:49)
[2017-04-16] MEDS: FOLIC ACID 1 MG TAB PO SCH (08:49)
[2017-04-16] MEDS: VANCOMYCIN 500 MG VIAL (FOR ORAL USE ONLY) PO SCH ×4 (08:49→22:18)
[2017-04-16] MEDS: SODIUM CHLORIDE 0.9% FLUSH 10 ML FLUSH IV FLUSH SCH ×2 (08:50→22:17)
[2017-04-16] MEDS: METOPROLOL TARTRATE 25 MG TAB PO SCH ×2 (08:50→22:18)
[2017-04-16] MEDS: SODIUM CHLOR 0.9% 1000 ML INJ 1,000 ML IV SCH ×2 (09:35→20:32)
[2017-04-16 11:24] LABS: ALBUMIN SPE 2.88 GM/DL (3.50-5.00); ALPHA 1 GLOBULIN 0.25 GM/DL (0.11-0.29); ALPHA 2 GLOBULIN 0.62 GM/DL (0.22-1.00)
[2017-04-16 11:25] LABS: BETA GLOBULINS (SPE) 0.38 GM/DL (0.53-1.03)
--- NOTE | 2017-04-16 11:49 | MB ---
cc: SRINATH SALINAS M.D. DATE OF CONSULTATION 04/16/2017 REASON FOR CONSULTATION Atrial fibrillation. HISTORY OF PRESENT ILLNESS Mrs. Allen is a 76-year-old female with a history of atrial fibrillation on anticoagulation who was having diarrhea and coughing. She had a fall around [facility]. She required suture at the ER. She was at home. The son reported the caregiver could not get her up. She apparently was dehydrated. She has a "C-diff" Diagnosis and she was admitted for management. She was found during the night with atrial fibrillation and fast ventricular response. I was consulted for evaluation and management. The chart was reviewed. The patient was evaluated. ALLERGIES SULFA. CEPHALEXIN. SULFAMETHOXAZOLE. TRIMETHOPRIM. CODEINE. SOCIAL HISTORY Negative for smoking and drinking. FAMILY HISTORY Noncontributory to her current medical condition. MEDICATIONS Mrs. Maxwell is currently on - 1. Magnesium. 2. Potassium. 3. Aspirin 81 mg a day. 4. Digoxin 0.125 mg a day. 5. Marinol 2.5 mg at bedtime. 6. Folic acid. 7. Synthroid 25 mcg a day. 8. Megace 400 mg q.12 hours. 9. Metoprolol 12.5 mg twice a day. 10. Vancomycin IV. REVIEW OF SYSTEMS She refers feeling better. No diarrhea. No palpitation. No fever. PHYSICAL EXAMINATION GENERAL: On physical exam, alert, fully oriented. VITAL SIGNS: Her blood pressure 106/55, pulse on the monitor is around 70, respiratory rate 18. LUNGS: Ventilated. CARDIOVASCULAR: S1-S2 is apparently regular. No gallop, no murmur. ABDOMEN: Soft. No mass. EXTREMITIES: With no edema. ELECTROCARDIOGRAM On hospitalization indicated atrial fibrillation with fast ventricular response. LABORATORY DATA Hemoglobin is 8.3, white blood cell count 2.8, platelets 132. Potassium 4.2, creatinine 0.50. TSH 8.18, free T4 127. Troponin less than 0.02. ASSESSMENT AND RECOMMENDATIONS Mrs. Allen is currently stable. She is receiving IV antibiotic and hydration. Heart rate is controlled. She is in atrial fibrillation, possible junctional rhythm, rate in the 70s. Anticoagulation initiated. At this point my recommendation is continue with current management. I will follow her during the hospitalization. Case discussed with the patient. MD IBETH Govea/SSB /10:50 AM /11:34 AM
[2017-04-16] MEDS: MEGESTROL ACETATE SUSP 400 MG/10 ML CUP PO SCH (13:20)
--- NOTE | 2017-04-16 13:54 | HHI.PR ---
Subjective Remarks HR controlled. no abd pain or fever. Objective Vitals Vital Signs Date Time Temp Pulse Resp B/P (MAP) Pulse Ox O2 Delivery O2 Flow Rate FiO2 04/16/17 13:25 85 04/16/17 11:32 98.0 100 16 105/63 (77) 100 04/16/17 11:00 71 04/16/17 10:00 70 04/16/17 09:00 86 04/16/17 08:36 87 16 114/69 (84) 99 04/16/17 08:36 Room Air 04/16/17 08:00 120 04/16/17 07:00 119 04/16/17 06:00 106/55 (72) 04/16/17 06:00 87 04/16/17 05:00 88 04/16/17 04:00 84 04/16/17 04:00 97.8 84 18 95/48 (64) 98 04/16/17 03:00 87 04/16/17 02:00 80 04/16/17 01:41 87 04/16/17 01:00 90 04/16/17 00:00 112 04/16/17 00:00 98.1 112 18 91/57 (68) 98 04/16/17 00:00 Room Air 04/15/17 23:00 126 04/15/17 22:22 130 107/60 (76) 04/15/17 22:00 122 04/15/17 21:00 130 04/15/17 20:00 Room Air 04/15/17 20:00 98.0 134 18 93/53 (66) 99 04/15/17 20:00 134 04/15/17 18:00 90 04/15/17 17:00 92 04/15/17 16:04 97.8 93 18 97/49 (65) 98 04/15/17 16:00 94 04/15/17 15:00 92 04/15/17 14:00 86 I/O 04/15/17 04/15/17 04/15/17 04/16/17 04/16/17 04/16/17 07:00 15:00 23:00 07:00 15:00 23:00 Intake Total 940 ml 500 ml 1560 ml 1300 ml Balance 940 ml 500 ml 1560 ml 1300 ml Intake Oral 100 ml 960 ml 50 ml IV Total 840 ml 500 ml 600 ml 1250 ml # Voids 3 2 3 # Bowel Movements 3 2 3 Result Diagram: 04/16/1761004/16/17610 Objective Remarks GENERAL: Petite cachectic appearing elderly female patient. SKIN: Warm and dry. HEAD: Normocephalic. EYES: No scleral icterus. No injection or drainage. NECK: Supple, trachea midline. No JVD or lymphadenopathy. CARDIOVASCULAR: Regular rate and rhythm without murmurs, gallops, or rubs. RESPIRATORY: Breath sounds equal bilaterally. No accessory muscle use. GASTROINTESTINAL: Abdomen soft, non-tender, nondistended. EXTREMITIES: No cyanosis, or edema. Deformities of hands due to RA. NEUROLOGICAL: Awake, alert, and oriented x 3. Non-focal. A/P Problem List: (1) Rheumatoid arthritis ICD Code: M06.9 - Rheumatoid arthritis Status: Chronic (2) Atrial fibrillation ICD Code: I48.91 - Unspecified atrial fibrillation Status: Chronic (3) C. difficile colitis ICD Code: A04.72 - Enterocolitis due to Clostridium difficile, not specified as recurrent Status: Acute (4) Pancytopenia ICD Code: D61.818 - Other pancytopenia Status: Chronic (5) Atrial fibrillation with RVR ICD Code: I48.91 - Unspecified atrial fibrillation Status: Acute (6) Severe protein-calorie malnutrition ICD Code: E43 - Unspecified severe protein-calorie malnutrition Assessment and Plan -Recurrent C. difficile colitis. appears improved, less BM. On vancomycin taper per infectious disease. -Chronic pancytopenia. Patient had a negative colonoscopy earlier this year, EGD with mild gastritis. Has had bone marrow biopsy in the past. Unlikely to have MDS or malignancy. She is on leflunomide for rheumatoid arthritis. Receiving iron, B-12 and folate supplementation per hematology/Dr. Coy. -Rheumatoid arthritis on leflunomide, followed by Dr. Lagos as an outpatient -Severe malnutrition due to poor appetite and chronic inflammation. Continue Marinol, Megace and boost. -Atrial fibrillation. Had rapid ventricular rate in the ER, Rate is now controlled after IV fluid hydration.. Eliquis was stopped recently per the patient. Patient is followed by Dr. Acosta as an outpatient. Unclear whether Eliquis was stopped due to the anemia however she's had negative Hemoccult and colonoscopy in the past year. Blood pressure trends toward low. Monitor on telemetry. On aspirin for now, Dr. Acosta consulted for recs. -Hypothyroidism. Continue Synthroid. TSH is elevated however free T4 is normal. -Recent cholecystitis. Following with general surgery as an outpatient for possible cholecystectomy. Not symptomatic currently. -DVT prophylaxis with SCDs. Brii Francis MD Apr 16, 2017 13:54
--- NOTE | 2017-04-16 14:24 | PD.ONC.PN ---
Subjective Subjective Remarks Afebrile overnight. Patient resting in bed. Continuing to have loose stool. No bleeding. Objective Data Date Time Temp Pulse Resp B/P (MAP) Pulse Ox O2 Delivery O2 Flow Rate FiO2 04/16/17 14:03 86 04/16/17 13:25 85 04/16/17 11:32 98.0 100 16 105/63 (77) 100 04/16/17 11:00 71 04/16/17 10:00 70 04/16/17 09:00 86 04/16/17 08:36 87 16 114/69 (84) 99 04/16/17 08:36 Room Air 04/16/17 08:00 120 04/16/17 07:00 119 04/16/17 06:00 106/55 (72) 04/16/17 06:00 87 04/16/17 05:00 88 04/16/17 04:00 84 04/16/17 04:00 97.8 84 18 95/48 (64) 98 04/16/17 03:00 87 04/16/17 02:00 80 04/16/17 01:41 87 04/16/17 01:00 90 04/16/17 00:00 112 04/16/17 00:00 98.1 112 18 91/57 (68) 98 04/16/17 00:00 Room Air 04/15/17 23:00 126 04/15/17 22:22 130 107/60 (76) 04/15/17 22:00 122 04/15/17 21:00 130 04/15/17 20:00 Room Air 04/15/17 20:00 98.0 134 18 93/53 (66) 99 04/15/17 20:00 134 04/15/17 18:00 90 04/15/17 17:00 92 04/15/17 16:04 97.8 93 18 97/49 (65) 98 04/15/17 16:00 94 04/15/17 15:00 92 04/16/17 04/16/17 04/16/17 07:00 15:00 23:00 Intake Total 1300 ml Balance 1300 ml Result Diagram: 04/16/17 0611 04/16/17 0611 Laboratory Results Laboratory Tests Test 04/15/17 21:54 04/15/17 23:08 04/16/17 06:11 Blood Urea Nitrogen 16 MG/DL 13 MG/DL Creatinine 0.45 MG/DL 0.50 MG/DL Random Glucose 110 MG/DL 73 MG/DL Calcium Level 8.0 MG/DL 7.4 MG/DL Magnesium Level 2.1 MG/DL Sodium Level 139 MEQ/L 138 MEQ/L Potassium Level 4.1 MEQ/L 4.2 MEQ/L Chloride Level 108 MEQ/L 111 MEQ/L Carbon Dioxide Level 23.7 MEQ/L 21.7 MEQ/L Anion Gap 7 MEQ/L 5 MEQ/L Estimat Glomerular Filtration Rate 135 ML/MIN 120 ML/MIN White Blood Count 3.3 TH/MM3 2.8 TH/MM3 Red Blood Count 2.88 MIL/MM3 2.81 MIL/MM3 Hemoglobin 8.8 GM/DL 8.3 GM/DL Hematocrit 25.6 % 25.9 % Mean Corpuscular Volume 89.1 FL 92.4 FL Mean Corpuscular Hemoglobin 30.4 PG 29.5 PG Mean Corpuscular Hemoglobin Concent 34.2 % 32.0 % Red Cell Distribution Width 14.2 % 14.9 % Platelet Count 140 TH/MM3 132 TH/MM3 Mean Platelet Volume 10.1 FL 9.1 FL Neutrophils (%) (Auto) 48.1 % 35.1 % Lymphocytes (%) (Auto) 27.1 % 39.9 % Monocytes (%) (Auto) 21.4 % 21.6 % Eosinophils (%) (Auto) 2.4 % 2.8 % Basophils (%) (Auto) 1.0 % 0.6 % Neutrophils # (Auto) 1.6 TH/MM3 1.0 TH/MM3 Lymphocytes # (Auto) 0.9 TH/MM3 1.1 TH/MM3 Monocytes # (Auto) 0.7 TH/MM3 0.6 TH/MM3 Eosinophils # (Auto) 0.1 TH/MM3 0.1 TH/MM3 Basophils # (Auto) 0.0 TH/MM3 0.0 TH/MM3 CBC Comment DIFF FINAL DIFF FINAL Differential Comment Total Protein 4.4 GM/DL Protein Corrected Calcium 9.0 MG/DL Culture Results Microbiology Date/Time Source Procedure Growth Status 04/15/17 14:30 Stool Stool Stool Occult Blood (RAQUEL) - Final HEMOCCULT NEGATIVE Complete Administered Medications Medications (Trade) Dose Ordered Sig/Baljinder Route PRN Reason Start Time Stop Time Status Last Admin Dose Admin Sodium Chloride (NS Flush) 2 ml UNSCH PRN IV FLUSH FLUSH AFTER USING IV ACCESS 04/11/17 20:15 04/15/17 18:31 Sodium Chloride (NS Flush) 2 ml BID IV FLUSH 04/11/17 21:00 04/16/17 08:50 Vancomycin HCl (VANCOMYCIN for oral use only) 250 mg QID PO 04/12/17 13:00 04/16/17 13:20 Metoprolol Tartrate (Lopressor) 12.5 mg Q12HR PO 04/12/17 21:00 04/16/17 08:50 Levothyroxine Sodium (Synthroid) 25 mcg DAILY@0600 PO 04/12/17 10:30 04/16/17 05:42 Sodium Chloride 1,000 ml @ 84 mls/hr [id number] IV 04/12/17 10:15 04/16/17 09:35 Megestrol Acetate (Megace Liq) 400 mg Q12H PO 04/12/17 13:00 04/16/17 13:20 Folic Acid (Folate) 1 mg DAILY PO 04/12/17 15:00 04/16/17 08:49 Dronabinol (Marinol) 2.5 mg HS PO 04/12/17 21:00 04/15/17 19:44 Aspirin (Ecotrin Ec) 81 mg DAILY PO 04/14/17 14:00 04/16/17 08:49 Objective Remarks GENERAL: Elderly frail female lying in bed. SKIN: Warm and dry. HEAD: Normocephalic. EYES: No injection or drainage. NECK: Supple, trachea midline. CARDIOVASCULAR: Regular rate and rhythm RESPIRATORY: anterior pacheco clear GASTROINTESTINAL: Abdomen soft, non-tender, nondistended. EXTREMITIES: No cyanosis NEUROLOGICAL: awake and alert, normal speech. Assessment/Plan Problem List: (1) Pancytopenia ICD Codes: D61.818 - Other pancytopenia Status: Chronic Plan: Anemia and thrombocytopenia persist. Trial of iron, B12, folic acid. Retic count is low, inappropriately low. Consider in differential aplastic anemia vs hypoplastic myelodysplastic syndrome. No transfusion needed. Defer BM biopsy repeat until recovery from C-diff. FU as out patient regarding cytopenia. (2) Unintentional weight loss ICD Codes: R63.4 - Abnormal weight loss Status: Chronic Plan: Progressive over years. Appetite stimulant and supplement in place. Hydropulper Operator consulted for calorie count. Main complaint no appetite. Over malignancy not identified. Possible bone marrow disorder. Assessment 76 y/o woman with progressive unintentional weight loss associated with pancytopenia admitted for A fib with rapid ventricular response, complicated by C diff infection. Plan 1. face sheet faxed to new patient referrals for follow up 2. no transfusion today 3. once discharged will arrange bone marrow biopsy outpatient. Attending Statement The exam, history, and the medical decision-making described in the above note were completed with the assistance of the mid-level provider. I reviewed and agree with the findings presented. I attest that I had a [id number] encounter with the patient on the same day, and personally performed and documented my assessment and findings in the medical record. Pt seen and examined, more formed stool. Noted neutropenia during time trying to recover from C diff infection. Discussed risks and benefit of neupogen. Trial x 3 days. Heidy Montoya Apr 16, 2017 14:24 Caro Coy MD Apr 16, 2017 20:01
[2017-04-16] MEDS: FILGRASTIM 300 MCG/ML VIAL SQ SCH (22:17)
[2017-04-16] MEDS: DRONABINOL 2.5 MG CAP PO SCH (22:18)
[2017-04-17] VITALS (27 sets, daily range): BP systolic 101–121; BP diastolic 41–65; PULSE 74–124; RESP 16–18; TEMP 97.7–99.1; O2SAT 98–100
[2017-04-17] MEDS: MEGESTROL ACETATE SUSP 400 MG/10 ML CUP PO SCH ×2 (00:33→13:24)
[2017-04-17] MEDS: LEVOTHYROXINE SODIUM 25 MCG TAB PO SCH (06:00)
[2017-04-17] MEDS: SODIUM CHLORIDE 0.9% FLUSH 10 ML FLUSH IV FLUSH SCH ×2 (09:00→21:00)
[2017-04-17] MEDS: DIGOXIN 0.125 MG TAB PO SCH (09:16)
[2017-04-17] MEDS: ASPIRIN EC 81 MG TABEC PO SCH (09:16)
[2017-04-17] MEDS: FOLIC ACID 1 MG TAB PO SCH (09:16)
[2017-04-17] MEDS: METOPROLOL TARTRATE 25 MG TAB PO SCH ×2 (09:16→21:39)
[2017-04-17] MEDS: VANCOMYCIN 500 MG VIAL (FOR ORAL USE ONLY) PO SCH ×4 (09:17→21:39)
[2017-04-17] MEDS: SODIUM CHLOR 0.9% 1000 ML INJ 1,000 ML IV SCH ×2 (09:25→21:40)
--- NOTE | 2017-04-17 11:03 | PD.ONC.PN ---
Subjective Subjective Remarks Afebrile overnight. Continuing to have multiple loose stools. Slept ok overnight. No complaints. Denies bleeding. Objective Data Date Time Temp Pulse Resp B/P (MAP) Pulse Ox O2 Delivery O2 Flow Rate FiO2 04/17/17 07:01 91 04/17/17 06:00 91 04/17/17 05:00 96 04/17/17 04:00 118 04/17/17 04:00 98.6 121 16 106/65 (79) 99 04/17/17 03:00 121 04/17/17 02:00 114 04/17/17 01:00 78 04/17/17 00:00 99.1 99 16 109/54 (72) 98 04/17/17 00:00 118 04/16/17 23:00 120 04/16/17 22:00 98 04/16/17 21:00 94 04/16/17 20:00 96 04/16/17 20:00 99 Room Air 04/16/17 20:00 98.4 93 16 105/51 (69) 99 04/16/17 19:00 92 04/16/17 18:16 90 04/16/17 17:34 92 04/16/17 16:36 89 04/16/17 15:41 98.4 84 16 105/50 (68) 100 04/16/17 15:00 87 04/16/17 14:03 86 04/16/17 13:25 85 04/16/17 11:32 98.0 100 16 105/63 (77) 100 04/16/17 11:00 71 04/17/17 04/17/17 04/17/17 07:00 15:00 23:00 Intake Total 1248 ml Balance 1248 ml Result Diagram: 04/16/17 0611 04/16/17 0611 Laboratory Results Laboratory Tests Test 04/17/17 05:24 Digoxin Level 2.8 NG/ML Culture Results Microbiology Date/Time Source Procedure Growth Status 04/17/17 00:40 Stool Stool Stool Occult Blood (RAQUEL) - Final HEMOCCULT NEGATIVE Complete 04/15/17 14:30 Stool Stool Stool Occult Blood (RAQUEL) - Final HEMOCCULT NEGATIVE Complete Administered Medications Medications (Trade) Dose Ordered Sig/Baljinder Route PRN Reason Start Time Stop Time Status Last Admin Dose Admin Sodium Chloride (NS Flush) 2 ml UNSCH PRN IV FLUSH FLUSH AFTER USING IV ACCESS 04/11/17 20:15 04/15/17 18:31 Sodium Chloride (NS Flush) 2 ml BID IV FLUSH 04/11/17 21:00 04/17/17 09:00 Vancomycin HCl (VANCOMYCIN for oral use only) 250 mg QID PO 04/12/17 13:00 04/17/17 09:17 Metoprolol Tartrate (Lopressor) 12.5 mg Q12HR PO 04/12/17 21:00 04/17/17 09:16 Levothyroxine Sodium (Synthroid) 25 mcg DAILY@0600 PO 04/12/17 10:30 04/16/17 05:42 Sodium Chloride 1,000 ml @ 84 mls/hr [id number] IV 04/12/17 10:15 04/16/17 20:32 Megestrol Acetate (Megace Liq) 400 mg Q12H PO 04/12/17 13:00 04/17/17 00:33 Folic Acid (Folate) 1 mg DAILY PO 04/12/17 15:00 04/17/17 09:16 Dronabinol (Marinol) 2.5 mg HS PO 04/12/17 21:00 04/16/17 22:18 Aspirin (Ecotrin Ec) 81 mg DAILY PO 04/14/17 14:00 04/17/17 09:16 Digoxin (Lanoxin) 0.125 mg DAILY PO 04/17/17 09:00 04/17/17 09:16 Filgrastim (Neupogen Inj) 300 mcg DAILY@14 SQ 04/16/17 20:00 04/19/17 19:59 04/16/17 22:17 Objective Remarks GENERAL: Frail female, lying in bed in nad. SKIN: Warm and dry. HEAD: Normocephalic. EYES: No injection or drainage. NECK: Supple, trachea midline. CARDIOVASCULAR: +S1/S2, tachy RESPIRATORY: anterior pacheco clear GASTROINTESTINAL: Abdomen soft, non-tender, nondistended. EXTREMITIES: No cyanosis NEUROLOGICAL: normal speech. answers questions appropriately. awake and alert. Assessment/Plan Problem List: (1) Pancytopenia ICD Codes: D61.818 - Other pancytopenia Status: Chronic Plan: fs faxed to new patient referrals for follow up, will obtain bone marrow biopsy outpatient. differential includes aplastic anemia vs hypoplastic myelodysplastic syndrome. Defer BM biopsy repeat until recovery from C-diff. (2) Unintentional weight loss ICD Codes: R63.4 - Abnormal weight loss Status: Chronic Plan: Progressive over years. Appetite stimulant and supplement in place. Industrial Economics Teacher consulted for calorie count. Main complaint no appetite. Over malignancy not identified. Possible bone marrow disorder. Assessment 76 y/o woman with progressive unintentional weight loss associated with pancytopenia admitted for A fib with rapid ventricular response, complicated by C diff infection. Plan 1. check CBC 2. once discharged, follow up in clinic Attending Statement The exam, history, and the medical decision-making described in the above note were completed with the assistance of the mid-level provider. I reviewed and agree with the findings presented. I attest that I had a [id number] encounter with the patient on the same day, and personally performed and documented my assessment and findings in the medical record. Robust response to one dose GCSF. WBC elevated predominantly neutrophils. DC GCSF. No transfusion needed. Stool more formed, denies diarrhea this AM. Follow up as out pt when DC. Heidy Montoya Apr 17, 2017 11:02 Caro Coy MD Apr 17, 2017 18:09
[2017-04-17] MEDS: FILGRASTIM 300 MCG/ML VIAL SQ SCH (13:26)
--- NOTE | 2017-04-17 15:15 | HHI.PR ---
Subjective Remarks Denies abd pain or complaints. Still loose stools. Very weak with PT. Objective Vitals Vital Signs Date Time Temp Pulse Resp B/P (MAP) Pulse Ox O2 Delivery O2 Flow Rate FiO2 04/17/17 13:01 82 04/17/17 12:00 74 04/17/17 11:45 98.0 78 18 103/44 (63) 100 04/17/17 11:00 85 04/17/17 10:00 94 04/17/17 09:00 94 04/17/17 08:45 100 Room Air 04/17/17 08:45 97.7 124 18 121/41 (67) 100 04/17/17 08:00 98 04/17/17 07:01 91 04/17/17 06:00 91 04/17/17 05:00 96 04/17/17 04:00 118 04/17/17 04:00 98.6 121 16 106/65 (79) 99 04/17/17 03:00 121 04/17/17 02:00 114 04/17/17 01:00 78 04/17/17 00:00 99.1 99 16 109/54 (72) 98 04/17/17 00:00 118 04/16/17 23:00 120 04/16/17 22:00 98 04/16/17 21:00 94 04/16/17 20:00 96 04/16/17 20:00 99 Room Air 04/16/17 20:00 98.4 93 16 105/51 (69) 99 04/16/17 19:00 92 04/16/17 18:16 90 04/16/17 17:34 92 04/16/17 16:36 89 04/16/17 15:41 98.4 84 16 105/50 (68) 100 I/O 04/16/17 04/16/17 04/16/17 04/17/17 04/17/17 04/17/17 07:00 15:00 23:00 07:00 15:00 23:00 Intake Total 1300 ml 951 ml 1248 ml Balance 1300 ml 951 ml 1248 ml Intake Oral 50 ml 951 ml 240 ml IV Total 1250 ml 1008 ml # Voids 3 3 3 # Bowel Movements 3 2 3 Result Diagram: 04/16/1711 12/4/17 0611 Objective Remarks GENERAL: Petite cachectic appearing elderly female patient. SKIN: Warm and dry. HEAD: Normocephalic. EYES: No scleral icterus. No injection or drainage. NECK: Supple, trachea midline. No JVD or lymphadenopathy. CARDIOVASCULAR: Regular rate and rhythm without murmurs, gallops, or rubs. RESPIRATORY: Breath sounds equal bilaterally. No accessory muscle use. GASTROINTESTINAL: Abdomen soft, non-tender, nondistended. EXTREMITIES: No cyanosis, or edema. Deformities of hands due to RA. NEUROLOGICAL: Awake, alert, and oriented x 3. Non-focal. A/P Problem List: (1) Rheumatoid arthritis ICD Code: M06.9 - Rheumatoid arthritis Status: Chronic (2) Atrial fibrillation ICD Code: I48.91 - Unspecified atrial fibrillation Status: Chronic (3) C. difficile colitis ICD Code: A04.72 - Enterocolitis due to Clostridium difficile, not specified as recurrent Status: Acute (4) Pancytopenia ICD Code: D61.818 - Other pancytopenia Status: Chronic (5) Atrial fibrillation with RVR ICD Code: I48.91 - Unspecified atrial fibrillation Status: Acute (6) Severe protein-calorie malnutrition ICD Code: E43 - Unspecified severe protein-calorie malnutrition Assessment and Plan -Recurrent C. difficile colitis. appears improved, less BM. On vancomycin taper per infectious disease. -Chronic pancytopenia. Patient had a negative colonoscopy earlier this year, EGD with mild gastritis. Has had bone marrow biopsy in the past. Unlikely to have MDS or malignancy. She is on leflunomide for rheumatoid arthritis. Receiving iron, B-12 and folate supplementation per hematology/Dr. Coy. -Rheumatoid arthritis on leflunomide, followed by Dr. Lagos as an outpatient -Severe malnutrition due to poor appetite and chronic inflammation. Continue Marinol, Megace and boost. -Atrial fibrillation. Had rapid ventricular rate in the ER, Rate is now controlled after IV fluid hydration. Continue eliquis and digoxin. Eliquis was stopped recently per the patient. Patient is followed by Dr. Acosta as an outpatient. Dr. Acosta consulted and continued patient on ASA. -Hypothyroidism. Continue Synthroid. TSH is elevated however free T4 is normal. -Recent cholecystitis. Following with general surgery as an outpatient for possible cholecystectomy. Not symptomatic currently. -Deconditioning - very weak with PT. Discussed SNF with patient - she will discuss with daughter. -DVT prophylaxis with SCDs. Brii Francis MD Apr 17, 2017 15:15
[2017-04-17 16:00] LABS: AUTOMATED NEUTROPHIL # 22.1 TH/MM3 (1.8-7.7); BASOPHIL # 0.3 TH/MM3 (0-0.2); EOSINOPHIL # 0.1 TH/MM3 (0-0.4); EOSINOPHIL % 0.5 % (0.0-4.0); HEMATOCRIT 25.7 % (35.0-46.0); HEMO FLAGS DIFF FINAL; LYMPH % 6.3 % (9.0-44.0); LYMPHOCYTE # 1.6 TH/MM3 (1.0-4.8); MEAN CELL VOLUME 89.6 FL (80.0-100.0); MEAN CORPUSCULAR HEMOGLOBIN 30.1 PG (27.0-34.0); MEAN CORPUSCULAR HGB CONC 33.6 % (32.0-36.0); NEUT % 85.2 % (16.0-70.0); PLATELET COUNT 149 TH/MM3 (150-450); RED BLOOD COUNT 2.87 MIL/MM3 (4.00-5.30); RED CELL DISTRIBUTION WIDTH 14.3 % (11.6-17.2); WHITE BLOOD COUNT 25.9 TH/MM3 (4.0-11.0)
--- NOTE | 2017-04-17 16:12 | HHI.PR ---
Subjective Remarks feeling ok Objective Vital Signs Date Time Temp Pulse Resp B/P (MAP) Pulse Ox O2 Delivery O2 Flow Rate FiO2 04/17/17 15:42 97.9 89 18 101/49 (66) 100 04/17/17 13:01 82 04/17/17 12:00 74 04/17/17 11:45 98.0 78 18 103/44 (63) 100 04/17/17 11:00 85 04/17/17 10:00 94 04/17/17 09:00 94 04/17/17 08:45 100 Room Air 04/17/17 08:45 97.7 124 18 121/41 (67) 100 04/17/17 08:00 98 04/17/17 07:01 91 04/17/17 06:00 91 04/17/17 05:00 96 04/17/17 04:00 118 04/17/17 04:00 98.6 121 16 106/65 (79) 99 04/17/17 03:00 121 04/17/17 02:00 114 04/17/17 01:00 78 04/17/17 00:00 99.1 99 16 109/54 (72) 98 04/17/17 00:00 118 04/16/17 23:00 120 04/16/17 22:00 98 04/16/17 21:00 94 04/16/17 20:00 96 04/16/17 20:00 99 Room Air 04/16/17 20:00 98.4 93 16 105/51 (69) 99 04/16/17 19:00 92 04/16/17 18:16 90 04/16/17 17:34 92 04/16/17 16:36 89 I/O 04/16/17 04/16/17 04/16/17 04/17/17 04/17/17 04/17/17 07:00 15:00 23:00 07:00 15:00 23:00 Intake Total 1300 ml 951 ml 1248 ml Balance 1300 ml 951 ml 1248 ml Intake Oral 50 ml 951 ml 240 ml IV Total 1250 ml 1008 ml # Voids 3 3 3 # Bowel Movements 3 2 3 Result Diagram: 04/17/17 1525 04/16/17 0611 Imaging Alert, fully oriented Lungs: ventilated Heart: s1, S2 regular, no gallop abdomen: soft, no mass ext: no edema Last Impressions Abdomen/Pelvis CT 04/11/17 1612 Signed Impressions: Service Date/Time: Tuesday, April 11, 2017 16:42 - CONCLUSION: 1. There appear to be noncalcified gallstones in the gallbladder lumen. One of these appears quite large measuring almost 2.7 cm in diameter. In the appropriate clinical setting, findings could represent cholecystitis. 2. Colon is diffusely decompressed. This can be seen in a prolonged fasting state. 3. Small amount of ascites in the pelvis with diffuse anasarca about the trunk. Findings are nonspecific but can be seen in entities such as right heart insufficiency or nutritional state with hypoalbuminemia. 4. Stable, nonspecific 1.8 x 3.7 cm lytic lesion in the left iliac crest anteriorly. Joon Barahona MD Head CT 04/11/17 1435 Signed Impressions: Service Date/Time: Tuesday, April 11, 2017 14:39 - CONCLUSION: No acute disease. Mendel Teague MD FACR Chest X-Ray 04/11/17 1435 Signed Impressions: Service Date/Time: Tuesday, April 11, 2017 14:57 - CONCLUSION: Negative for an acute process. Mendel Teague MD FACR Current Medications Medications (Trade) Dose Ordered Sig/Baljinder Route Start Time Stop Time Status Last Admin (NS Flush) 2 ml UNSCH PRN IV FLUSH 04/11/17 20:15 04/15/17 18:31 (NS Flush) 2 ml BID IV FLUSH 04/11/17 21:00 04/17/17 09:00 (Narcan Inj) 0.4 mg UNSCH PRN IV PUSH 04/11/17 20:15 Patient Own Medication PT OWN MED: LEFLUNOM... DAILY PO 04/12/17 09:00 Future Hold Miscellaneous Information Patient in critical care unit? Ass... [id number] 04/11/17 23:45 (VANCOMYCIN for oral use only) 250 mg QID PO 04/12/17 13:00 04/17/17 13:26 (Lopressor) 12.5 mg Q12HR PO 04/12/17 21:00 04/17/17 09:16 (Synthroid) 25 mcg DAILY@0600 PO 04/12/17 10:30 04/16/17 05:42 Sodium Chloride 1,000 ml @ 84 mls/hr [id number] IV 04/12/17 10:15 04/16/17 20:32 (Pill Splitter) 1 ea UNSCH PRN OTHER 04/12/17 10:30 (Megace Liq) 400 mg Q12H PO 04/12/17 13:00 04/17/17 13:24 (Folate) 1 mg DAILY PO 04/12/17 15:00 04/17/17 09:16 (Marinol) 2.5 mg HS PO 04/12/17 21:00 04/16/17 22:18 (Ecotrin Ec) 81 mg DAILY PO 04/14/17 14:00 04/17/17 09:16 (Lanoxin) 0.125 mg DAILY PO 04/17/17 09:00 04/17/17 09:16 (Neupogen Inj) 300 mcg DAILY@14 SQ 04/16/17 20:00 04/19/17 19:59 04/17/17 13:26 Assessment and Plan Problem List: (1) SVT (supraventricular tachycardia) ICD Codes: I47.1 - Supraventricular tachycardia Status: Acute Plan: In sinus rhythm (2) New onset a-fib ICD Codes: I48.91 - Unspecified atrial fibrillation Status: Acute Plan: In sinus rhythm Hr control No diarrhea Doing better Continue with current management I will be available on a PRN basis. Bud Acosta MD Apr 17, 2017 16:12
[2017-04-17] MEDS: DRONABINOL 2.5 MG CAP PO SCH (21:39)
[2017-04-18] VITALS (19 sets, daily range): BP systolic 94–109; BP diastolic 44–55; PULSE 74–117; RESP 16–18; TEMP 97.2–99.1; O2SAT 97–100
[2017-04-18] MEDS: MEGESTROL ACETATE SUSP 400 MG/10 ML CUP PO SCH ×2 (01:05→13:00)
[2017-04-18] MEDS: LEVOTHYROXINE SODIUM 25 MCG TAB PO SCH (06:20)
[2017-04-18] MEDS: SODIUM CHLOR 0.9% 1000 ML INJ 1,000 ML IV SCH (06:21)
[2017-04-18] MEDS: SODIUM CHLORIDE 0.9% FLUSH 10 ML FLUSH IV FLUSH SCH (08:57)
[2017-04-18] MEDS: VANCOMYCIN 500 MG VIAL (FOR ORAL USE ONLY) PO SCH ×2 (08:57→13:00)
[2017-04-18] MEDS: ASPIRIN EC 81 MG TABEC PO SCH (08:57)
[2017-04-18] MEDS: DIGOXIN 0.125 MG TAB PO SCH (08:57)
[2017-04-18] MEDS: METOPROLOL TARTRATE 25 MG TAB PO SCH (08:57)
[2017-04-18] MEDS: FOLIC ACID 1 MG TAB PO SCH (08:57)
[2017-04-18] MEDS ORDERED: Megestrol Liq PO (10:18)
[2017-04-18] MEDS ORDERED: LEVO25TA4 PO (10:18)
[2017-04-18] MEDS ORDERED: ECASA81 PO (10:18)
[2017-04-18] MEDS ORDERED: DRON2.5 PO (10:18)
[2017-04-18] MEDS ORDERED: FOLI1TAB6 PO (10:18)
[2017-04-18] MEDS ORDERED: METO25TA3 PO (10:18)
[2017-04-18] MEDS ORDERED: VANC500I3 PO (10:21)
--- NOTE | 2017-04-18 10:22 | HHI.DS ---
Discharge Summary Admission Date Apr 11, 2017 at 18:47 Discharge Date: Apr 18, 2017 Admitting Diagnosis Atrial fibrillation with RVR, weakness, hypokalemia, lactic acidosis (1) Rheumatoid arthritis ICD Code: M06.9 - Rheumatoid arthritis Status: Chronic (2) Atrial fibrillation ICD Code: I48.91 - Unspecified atrial fibrillation Status: Chronic (3) C. difficile colitis ICD Code: A04.72 - Enterocolitis due to Clostridium difficile, not specified as recurrent Status: Acute (4) Pancytopenia ICD Code: D61.818 - Other pancytopenia Status: Chronic (5) Atrial fibrillation with RVR ICD Code: I48.91 - Unspecified atrial fibrillation Status: Acute (6) Severe protein-calorie malnutrition ICD Code: E43 - Unspecified severe protein-calorie malnutrition (7) Subclinical hypothyroidism ICD Code: E03.9 - Hypothyroidism, unspecified Procedures None Brief History - From Admission hx from patient, son at bedside, nursing staff, and review of med records son got call from director of home care hospice today pt was not getting up seems winded not getting out of bed when son went to see her, she seems having trouble speaking - more of weakness, not slurred speech sunday before thanksgiving had a fall, sutures taken out this sunday came to ER then pt thinks shoes caught onsomething and fell no sycnope, hit back of head sutures were placed in er, and dr guevara took it out on sunday at clinic dr guevara was seeing her as fu for hospital follow up for cdiff and possible cholecystitis- for possible radha son said on that day, pt was totally different, much stronger pt reports diarrhea which started a few days ago finished flagyl for cdiff rx a few days ago as well was here for cdiff early this month stool was black in color CBC/BMP: 04/17/17 1525 04/16/17 0611 Significant Findings Laboratory Tests Test 04/15/17 21:54 04/15/17 23:08 04/16/17 06:11 04/17/17 05:24 Creatinine 0.45 MG/DL (0.50-1.00) Random Glucose 110 MG/DL (74-106) 73 MG/DL (74-106) Calcium Level 8.0 MG/DL (8.5-10.1) 7.4 MG/DL (8.5-10.1) Chloride Level 108 MEQ/L (98-107) 111 MEQ/L (98-107) White Blood Count 3.3 TH/MM3 (4.0-11.0) 2.8 TH/MM3 (4.0-11.0) Red Blood Count 2.88 MIL/MM3 (4.00-5.30) 2.81 MIL/MM3 (4.00-5.30) Hemoglobin 8.8 GM/DL (11.6-15.3) 8.3 GM/DL (11.6-15.3) Hematocrit 25.6 % (35.0-46.0) 25.9 % (35.0-46.0) Platelet Count 140 TH/MM3 (150-450) 132 TH/MM3 (150-450) Monocytes (%) (Auto) 21.4 % (0.0-8.0) 21.6 % (0.0-8.0) Neutrophils # (Auto) 1.6 TH/MM3 (1.8-7.7) 1.0 TH/MM3 (1.8-7.7) Lymphocytes # (Auto) 0.9 TH/MM3 (1.0-4.8) Total Protein 4.4 GM/DL (6.4-8.2) Digoxin Level 2.8 NG/ML (0.8-2.0) Test 04/17/17 15:25 White Blood Count 25.9 TH/MM3 (4.0-11.0) Red Blood Count 2.87 MIL/MM3 (4.00-5.30) Hemoglobin 8.6 GM/DL (11.6-15.3) Hematocrit 25.7 % (35.0-46.0) Platelet Count 149 TH/MM3 (150-450) Neutrophils (%) (Auto) 85.2 % (16.0-70.0) Lymphocytes (%) (Auto) 6.3 % (9.0-44.0) Neutrophils # (Auto) 22.1 TH/MM3 (1.8-7.7) Monocytes # (Auto) 1.8 TH/MM3 (0-0.9) Basophils # (Auto) 0.3 TH/MM3 (0-0.2) PE at Discharge GENERAL: Petite cachectic appearing elderly female patient. SKIN: Warm and dry. HEAD: Normocephalic. EYES: No scleral icterus. No injection or drainage. NECK: Supple, trachea midline. No JVD or lymphadenopathy. CARDIOVASCULAR: Regular rate and rhythm without murmurs, gallops, or rubs. RESPIRATORY: Breath sounds equal bilaterally. No accessory muscle use. GASTROINTESTINAL: Abdomen soft, non-tender, nondistended. EXTREMITIES: No cyanosis, or edema. Deformities of hands due to RA. NEUROLOGICAL: Awake, alert, and oriented x 3. Non-focal. Hospital Course The patient was admitted to the hospital. 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 Hematology oncology was consulted for her pancytopenia. Hemoccult was negative and patient had had a negative colonoscopy in EGD within the past year. Patient was started on Megace post and Marinol for severe malnutrition. Heart rate control improved. She was continued on metoprolol. She was started on digoxin however level was 2.4 today with only a small dose of digoxin so this will be discontinued. Her bridge carpenter Dr. Goldberg was consulted. Patient continued on aspirin for stroke prophylaxis. Patient remained very deconditioned and weak. She will be discharged to long term facility today. Pt Condition on Discharge: Stable Discharge Disposition: Discharge Home Discharge Time: > 30 minutes Discharge Instructions DIET: Follow Instructions for: As Tolerated, No Restrictions Activities you can perform: Regular-No Restrictions Follow up Referrals: Oncology/Hematology - 3 Weeks with Caro Coy MD New Medications: Aspirin (Aspirin DR) 81 Mg Tabdr 81 MG PO DAILY for prevent stroke, #30 TAB Dronabinol (Marinol) 2.5 Mg Cap 2.5 MG PO HS for increase appetite, #30 CAP Folic Acid (Folic Acid) 1 Mg Tablet 1 MG PO DAILY for Build Red Blood Cells, #30 TAB Levothyroxine (Levothyroxine) 25 Mcg Tab 25 MCG PO DAILY@0600 for Thyroid, #30 TAB Metoprolol Tartrate (Metoprolol Tartrate) 25 Mg Tab 12.5 MG PO Q12HR for Regulate Heart Beat, #60 TAB Vancomycin Inj (Vancomycin Inj) 500 Mg Inj 250 MG PO QID for colitis for 70 Days, INJECTION 125 mg p.o. q 12 hours times seven days, followed by 125 mg p.o. q 24 hours for seven days, followed by 125 mg p.o, every 48 hours for seven days and then 125 mg p.o. q 72 hours times 14 days. [Megestrol Liq] () 400 MG/10 ML SUSP 400 MG PO Q12H for appetite stimulant for 30 Days Continued Medications: Famotidine (Famotidine) 20 Mg Tab 20 MG PO BID, #60 TAB 0 Refills Leflunomide (Leflunomide) 20 Mg Tab 20 MG PO DAILY, TAB Omeprazole (Omeprazole) 20 Mg Tab 20 MG PO DAILY, #30 TAB 0 Refills Discontinued Medications: Leflunomide (Leflunomide) 20 Mg Tab 20 MG PO DAILY, TAB Metronidazole (Metronidazole) 500 Mg Tab 500 MG PO TID for Infection, TAB 0 Refills Brii Francis MD Apr 18, 2017 10:22
--- NOTE | 2017-04-18 15:17 | PD.ONC.PN ---
Subjective Subjective Remarks Afebrile Excited to be discharged today Reports feeling fatigued but no other acute complaints Objective Data Date Time Temp Pulse Resp B/P (MAP) Pulse Ox O2 Delivery O2 Flow Rate FiO2 04/18/17 11:30 97.4 89 18 106/55 (72) 100 04/18/17 08:30 100 Room Air 04/18/17 08:30 97.2 85 18 108/44 (65) 100 04/18/17 07:01 82 04/18/17 06:00 100 04/18/17 05:00 89 04/18/17 04:00 78 04/18/17 03:00 99.0 117 16 94/47 (63) 97 04/18/17 03:00 117 04/18/17 02:00 115 04/18/17 01:00 114 04/18/17 00:00 84 04/18/17 00:00 99.1 86 16 98/45 (62) 99 04/17/17 23:00 82 04/17/17 22:00 92 04/17/17 21:00 98 04/17/17 20:00 120 04/17/17 20:00 100 Room Air 04/17/17 20:00 97.7 102 16 101/51 (68) 100 04/17/17 19:00 94 04/17/17 18:08 96 04/17/17 17:00 92 04/17/17 16:01 92 04/17/17 15:42 97.9 89 18 101/49 (66) 100 04/18/17 04/18/17 04/18/17 07:00 15:00 23:00 Intake Total 866 ml Balance 866 ml Result Diagram: 04/17/17 1525 04/16/17 0611 Laboratory Results Laboratory Tests Test 04/17/17 15:25 White Blood Count 25.9 TH/MM3 Red Blood Count 2.87 MIL/MM3 Hemoglobin 8.6 GM/DL Hematocrit 25.7 % Mean Corpuscular Volume 89.6 FL Mean Corpuscular Hemoglobin 30.1 PG Mean Corpuscular Hemoglobin Concent 33.6 % Red Cell Distribution Width 14.3 % Platelet Count 149 TH/MM3 Mean Platelet Volume 10.5 FL Neutrophils (%) (Auto) 85.2 % Lymphocytes (%) (Auto) 6.3 % Monocytes (%) (Auto) 7.0 % Eosinophils (%) (Auto) 0.5 % Basophils (%) (Auto) 1.0 % Neutrophils # (Auto) 22.1 TH/MM3 Lymphocytes # (Auto) 1.6 TH/MM3 Monocytes # (Auto) 1.8 TH/MM3 Eosinophils # (Auto) 0.1 TH/MM3 Basophils # (Auto) 0.3 TH/MM3 CBC Comment DIFF FINAL Differential Comment Culture Results Microbiology Date/Time Source Procedure Growth Status 04/17/17 00:40 Stool Stool Stool Occult Blood (RAQUEL) - Final HEMOCCULT NEGATIVE Complete Administered Medications Medications (Trade) Dose Ordered Sig/Baljinder Route PRN Reason Start Time Stop Time Status Last Admin Dose Admin Sodium Chloride (NS Flush) 2 ml UNSCH PRN IV FLUSH FLUSH AFTER USING IV ACCESS 04/11/17 20:15 04/15/17 18:31 Sodium Chloride (NS Flush) 2 ml BID IV FLUSH 04/11/17 21:00 04/18/17 08:57 Vancomycin HCl (VANCOMYCIN for oral use only) 250 mg QID PO 04/12/17 13:00 04/18/17 13:00 Metoprolol Tartrate (Lopressor) 12.5 mg Q12HR PO 04/12/17 21:00 04/18/17 08:57 Levothyroxine Sodium (Synthroid) 25 mcg DAILY@0600 PO 04/12/17 10:30 04/18/17 06:20 Megestrol Acetate (Megace Liq) 400 mg Q12H PO 04/12/17 13:00 04/18/17 13:00 Folic Acid (Folate) 1 mg DAILY PO 04/12/17 15:00 04/18/17 08:57 Dronabinol (Marinol) 2.5 mg HS PO 04/12/17 21:00 04/17/17 21:39 Aspirin (Ecotrin Ec) 81 mg DAILY PO 04/14/17 14:00 04/18/17 08:57 Objective Remarks GENERAL: Thin elderly female resting in bed in no acute distress SKIN: Warm and dry. HEAD: Normocephalic. EYES: No injection or drainage. NECK: Supple, trachea midline. CARDIOVASCULAR: +S1/S2. RESPIRATORY: Breath sounds equal bilaterally. No accessory muscle use. GASTROINTESTINAL: Abdomen soft, non-tender, nondistended. EXTREMITIES: No cyanosis, or edema. MUSCULOSKELETAL: Generalized weakness NEUROLOGICAL: No obvious focal deficit. Awake, alert, and oriented x3. Assessment/Plan Problem List: (1) Pancytopenia ICD Codes: D61.818 - Other pancytopenia Status: Chronic Plan: fs faxed to new patient referrals for follow up, will obtain bone marrow biopsy outpatient. differential includes aplastic anemia vs hypoplastic myelodysplastic syndrome. Defer BM biopsy repeat until recovery from C-diff. (2) Unintentional weight loss ICD Codes: R63.4 - Abnormal weight loss Status: Chronic Plan: Progressive over years. Appetite stimulant and supplement in place. Orthopedic Shoes Salesperson consulted for calorie count. Main complaint no appetite. Over malignancy not identified. Possible bone marrow disorder. Assessment 76 y/o woman with progressive unintentional weight loss associated with pancytopenia admitted for A fib with rapid ventricular response, complicated by C diff infection. Plan 1. Okay for discharge from hematology standpoint 2. Follow-up in clinic for outpatient bone marrow biopsy Attending Statement The exam, history, and the medical decision-making described in the above note were completed with the assistance of the mid-level provider. I reviewed and agree with the findings presented. I attest that I had a [id number] encounter with the patient on the same day, and personally performed and documented my assessment and findings in the medical record. No complaints. Pending transfer to [facility]. Discussed plan to follow up in clinic for cytopenia. Ok for DC from heme/onc standpoint. Betsy Fang Apr 18, 2017 15:17 Caro Coy MD Apr 18, 2017 17:09
== END 2017-04-18 17:14 | DRG 371 ==
LOC: NEPC 14:17 → NEDA 18:47 → HIMW 23:20 → HCIS 04-13 14:08
PROVIDERS: ADMIT Family Medicine; ATTEND Family Medicine
DX: A04.71 Enterocolitis due to Clostridium difficile, recurrent (principal); E43 Unspecified severe protein-calorie malnutrition; E87.2 Acidosis; D61.818 Other pancytopenia; L20.9 Atopic dermatitis, unspecified; R18.8 Other ascites; I48.91 Unspecified atrial fibrillation; E86.0 Dehydration; R64 Cachexia; I47.1 Supraventricular tachycardia; M06.9 Rheumatoid arthritis, unspecified; E87.6 Hypokalemia; E03.9 Hypothyroidism, unspecified; M19.90 Unspecified osteoarthritis, unspecified site; K21.9 Gastro-esophageal reflux disease without esophagitis; K29.70 Gastritis, unspecified, without bleeding; K57.90 Diverticulosis of intestine, part unspecified, without perforation or abscess without bleeding; K80.20 Calculus of gallbladder without cholecystitis without obstruction; M81.0 Age-related osteoporosis without current pathological fracture; R62.7 Adult failure to thrive; Z79.01 Long term (current) use of anticoagulants; Z79.899 Other long term (current) drug therapy; Z90.710 Acquired absence of both cervix and uterus
CPT/HCPCS: 70450; 71020; 74177; 80048; 80053; 80162; 82272; 82306; 82550; 82552; 82784; 83036; 83605; 83615; 83735; 84100; 84155; 84165; 84439; 84443; 84484; 85025; 85044; 85060; 85610; 85730; 87040; 87493; 87641; 93005; 96361; 96374; J1160; J1442; J1756; J3420; J3475; J3480; J7030; J7040; J7050; Q0167; Q9967

== ENCOUNTER 2017-05-11 14:47 | Inpatient (IN) | payer OTHER, MEDICARE ==
[~2017-05-11] VITALS: Ht 154.9 cm; Wt 49.3 kg
[~2017-05-11 14:47] MED LIST changes: -APIX5TAB PO; +DRON2.5 PO; +ECASA81 PO; +FOLI1TAB6 PO; +LEVO25TA4 PO; -METR-1 PO; -METR1TAB76 PO; +Megestrol Liq PO; +OMEP20TA93 PO; +VANC500I3 PO
[2017-05-11 14:49] VITALS: BP 155/103; PULSE 112; RESP 18; TEMP 98.9; O2SAT 96
--- NOTE | 2017-05-11 16:38 | RADRPT ---
EXAM DATE/TIME: 05/11/2017 16:04 [facility] COMPARISON: CHEST PA & LAT, April 11, 2017, 14:57. INDICATIONS : Short of breath for one day. MEDICAL HISTORY : Cardiovascular disease. SURGICAL HISTORY : Hysterectomy. ENCOUNTER: Initial ACUITY: 1 day PAIN SCORE: 0/10 LOCATION: Bilateral chest FINDINGS: PA and lateral views of the chest demonstrate the lungs to be symmetrically aerated without evidence of mass, infiltrate or effusion. The cardiomediastinal contours are unremarkable. Internal fixation hardware left proximal humerus. Mild curvature of the thoracolumbar spine convex to the right. CONCLUSION: The lungs are clear. Jay West MD on May 11, 2017 at 16:33 Board Certified Radiologist. This report was verified electronically.
[2017-05-11 16:44] LABS: AUTOMATED NEUTROPHIL # 5.7 TH/MM3 (1.8-7.7); BASOPHIL % 0.3 % (0.0-2.0); EOSINOPHIL % 0.1 % (0.0-4.0); HEMATOCRIT 28.5 % (35.0-46.0); HEMOGLOBIN 9.2 GM/DL (11.6-15.3); LYMPH % 4.6 % (9.0-44.0); LYMPHOCYTE # 0.3 TH/MM3 (1.0-4.8); MEAN CELL VOLUME 97.9 FL (80.0-100.0); MEAN CORPUSCULAR HEMOGLOBIN 31.4 PG (27.0-34.0); MEAN CORPUSCULAR HGB CONC 32.1 % (32.0-36.0); MEAN PLATELET VOLUME 8.3 FL (7.0-11.0); MONO % 7.4 % (0.0-8.0); MONOCYTE # 0.5 TH/MM3 (0-0.9); NEUT % 87.6 % (16.0-70.0); PLATELET COUNT 167 TH/MM3 (150-450); RED BLOOD COUNT 2.91 MIL/MM3 (4.00-5.30); RED CELL DISTRIBUTION WIDTH 19.6 % (11.6-17.2); WHITE BLOOD COUNT 6.5 TH/MM3 (4.0-11.0)
[2017-05-11 17:03] VITALS: BP 99/59; PULSE 118; RESP 16; TEMP 97.8; O2SAT 100
[2017-05-11] MEDS ORDERED: VANCOMYCIN INJ 1,000 MG in SODIUM CHLOR 0.9% 250 ML INJ 250 ML IV STA (17:15)
[2017-05-11] MEDS ORDERED: SODIUM CHLOR 0.9% 1000 ML INJ 1,000 ML IV ONE (17:15)
[2017-05-11] MEDS ORDERED: SODIUM CHLOR 0.9% 1000 ML INJ 800 ML IV ONE (17:15)
[2017-05-11] MEDS ORDERED: PIPERACIL-TAZO 4.5 GM PREMIX 100 ML IV STA (17:15)
[2017-05-11 17:17] LABS: AST (GOT) 19 U/L (15-37); BICARBONATE 19.2 MEQ/L (21.0-32.0); BLOOD UREA NITROGEN 19 MG/DL (7-18); CALCIUM 8.3 MG/DL (8.5-10.1); CHLORIDE 109 MEQ/L (98-107); CREATININE 0.96 MG/DL (0.50-1.00); GLOMERULAR FILTRATION RATE 56 ML/MIN (>89); GLUCOSE,RANDOM 101 MG/DL (74-106); LIPASE 63 U/L (73-393); SODIUM (NA) 140 MEQ/L (136-145)
[2017-05-11 17:20] LABS: ALKALINE PHOSPHATASE 56 U/L (45-117); ALT (GPT) 18 U/L (10-53); TOTAL BILIRUBIN ADULT 0.5 MG/DL (0.2-1.0); TOTAL PROTEIN 6.6 GM/DL (6.4-8.2)
[2017-05-11 17:22] VITALS: RESP 17; O2SAT 100
[2017-05-11] MEDS ORDERED: IOHEXOL 350 MG/ML 10 ML VIAL (for RAD DIAG) IVCONTRAST ONE (17:47)
--- NOTE | 2017-05-11 17:49 | RADRPT ---
EXAM DATE/TIME: 05/11/2017 17:28 [facility] COMPARISON: CHEST PA & LAT, May 11, 2017, 16:04. CHEST SINGLE AP, November 02, 2016, 19:59. INDICATIONS : Right side chest pain. MEDICAL HISTORY : Rheumatoid arthritis. SURGICAL HISTORY : Hysterectomy. ORIF left humerus. ENCOUNTER: Initial ACUITY: 1 day PAIN SCORE: 6/10 LOCATION: Right chest FINDINGS: Minimal airspace disease at the right lung base. Slight interstitial prominence exaggerated by the po rtable technique. Cardiomediastinal contours are stable. Remainder of the exam is unchanged. CONCLUSION: 1. Minimal right lung base atelectasis. Damián Jarrett MD on May 11, 2017 at 17:46 Board Certified Radiologist. This report was verified electronically.
--- NOTE | 2017-05-11 17:58 | PD ---
HPI Chief Complaint: General Weakness Time Seen by Provider: 16:44 Travel History International Travel<30 days: No Contact w/Intl Traveler<30days: No Traveled to known affect area: No History of Present Illness HPI 76-year-old female came to the emergency room for generalized weakness and right lower quadrant pain. Patient was tachycardic upon arrival. She says she has not been feeling well for past couple days. Denies any fever or chills. She has history of rheumatoid arthritis and is on immunosuppressant therapy, Leflunomide. She's been seen by the conduit reamer operator Dr. Lagos. Heart rate was in 120s in triage. She was started on the sepsis workup. There is no radiation of her pain. No aggravating or relieving factors identified. She was afebrile in triage. [facility] Past Medical History Narrative Medical List of her past medical, surgical, social and family history is reviewed from the nursing note. Anemia: Yes Arthritis: Yes Asthma: No Autoimmune Disease: Yes (RA) Blood Disorders: No Anxiety: No Depression: No Heart Rhythm Problems: Yes (TACHYCARDIA, afib ) Cancer: No Cardiovascular Problems: Yes (AFIB ) High Cholesterol: No Chest Pain: No Congestive Heart Failure: No COPD: No Cerebrovascular Accident: No Diabetes: No Diminished Hearing: No Endocrine: No GERD: Yes Glaucoma: No Genitourinary: No Headaches: No Hepatitis: No Hiatal Hernia: No Hypertension: No Immune Disorder: No Kidney Stones: No Medical other: Yes (RA) Musculoskeletal: Yes Neurologic: No Psychiatric: No Reproductive: No Respiratory: No Integumentary: Yes (ATOPIC DERMATITIS) Immunizations Current: No Myocardial Infarction: No Renal Failure: No Seizures: No Sickle Cell Disease: No Sleep Apnea: No Thyroid Disease: No Ulcer: No Tetanus Vaccination: < 5 Years Influenza Vaccination: Yes ?: Not Menopausal: Yes : 2 Para: 2 Past Surgical History Abdominal Surgery: No AICD: No Cardiac Surgery: No Ear Surgery: No Endocrine Surgery: No Eye Surgery: Yes (KATLIN. CATARACT EXTR., KATLIN. MAC HOLE REP.) Genitourinary Surgery: No Gynecologic Surgery: Yes (hysterectomy) Hysterectomy: Yes Insulin Pump: No Joint Replacement: Yes (r shoulder and l ankle ) Oral Surgery: No Pacemaker: No Thoracic Surgery: No Other Surgery: Yes Social History Alcohol Use: No Tobacco Use: No Substance Use: No Allergies-Medications (Allergen,Severity, Reaction): Coded Allergies: Sulfa (Sulfonamide Antibiotics) (Verified Allergy, Severe, RASH, 04/11/17) cephalexin (Verified Allergy, Severe, RASH, 04/11/17) sulfamethoxazole (Verified Allergy, Severe, RASH, 04/11/17) trimethoprim (Verified Allergy, Severe, RASH, 04/11/17) codeine (Verified Adverse Reaction, Severe, NAUSEA, 04/11/17) Comments List of her allergies reviewed from the nursing note. Reported Meds & Prescriptions Reported Meds & Active Scripts Active Levothyroxine (Levothyroxine Sodium) 25 Mcg Tab 25 Mcg PO DAILY@0600 [Megestrol Liq] 400 MG/10 ML Susp 400 Mg PO Q12H 30 Days Metoprolol Tartrate 25 Mg Tab 12.5 Mg PO Q12HR Folic Acid 1 Mg Tablet 1 Mg PO DAILY Aspirin DR (Aspirin) 81 Mg Tabdr 81 Mg PO DAILY Marinol (Dronabinol) 2.5 Mg Cap 2.5 Mg PO HS Reported Omeprazole 20 Mg Tab 20 Mg PO DAILY Famotidine 20 Mg Tab 20 Mg PO BID Leflunomide 20 Mg Tab 20 Mg PO DAILY Narrative Medication List of her home medications reviewed from the nursing note. Review of Systems Except as stated in HPI: all other systems reviewed are Neg Gastrointestinal: Positive: Abdominal Pain Physical Exam Narrative GENERAL: Awake, alert, emaciated, moderate distress SKIN: Focused skin assessment warm/dry. Pale HEAD: Atraumatic. Normocephalic. EYES: Pupils equal and round. No scleral icterus. No injection or drainage. ENT: No nasal bleeding or discharge. Mucous membranes pink and moist. NECK: Trachea midline. No JVD. CARDIOVASCULAR: Regular rate and rhythm. Tachycardia. No murmur appreciated. RESPIRATORY: No accessory muscle use. Clear to auscultation. Breath sounds equal bilaterally. GASTROINTESTINAL: Abdomen soft, non-tender, nondistended. Hepatic and splenic margins not palpable. MUSCULOSKELETAL: No obvious deformities. No clubbing. No cyanosis. No edema. NEUROLOGICAL: Awake and alert. No obvious cranial nerve deficits. Motor grossly within normal limits. Normal speech. PSYCHIATRIC: Appropriate mood and affect; insight and judgment normal. Data Data Last Documented VS Vital Signs Date Time Temp Pulse Resp B/P (MAP) Pulse Ox O2 Delivery O2 Flow Rate FiO2 05/11/17 17:22 17 100 Room Air 05/11/17 17:03 97.8 118 Orders Orders Complete Blood Count With Diff (05/11/17 15:24) Comprehensive Metabolic Panel (05/11/17 15:24) Lipase (05/11/17 15:24) Lactic Acid (05/11/17 15:24) Chest, Pa & Lat (05/11/17 ) Electrocardiogram (05/11/17 ) Sepsis Workup Initiated (05/11/17 ) Urinalysis - C+S If Indicated (05/11/17 17:15) Blood Culture (05/11/17 17:15) Chest, Single Ap (05/11/17 17:15) Blood Glucose (05/11/17 17:15) Ecg Monitoring (05/11/17 17:15) Iv Access Insert/Monitor (05/11/17 17:15) Oximetry (05/11/17 17:15) Oxygen Administration (05/11/17 17:15) Vancomycin Inj (Vancomycin Inj) (05/11/17 17:15) Piperacil-Tazo 4.5 Gm Premix (Zosyn 4.5 (05/11/17 17:15) Sodium Chlor 0.9% 1000 Ml Inj (Ns 1000 M (05/11/17 17:15) Sodium Chlor 0.9% 1000 Ml Inj (Ns 1000 M (05/11/17 17:15) Ct Abd/Pel W Iv Contrast(Rout) (05/11/17 ) ^ Straight Catheter (05/11/17 17:15) Iohexol 350 Inj (Omnipaque 350 Inj) (05/11/17 17:47) Lactic Acid (05/11/17 18:32) Admit Order (Ed Use Only) (05/11/17 18:34) Labs Laboratory Tests Test 05/11/17 16:30 05/11/17 17:20 05/11/17 18:35 White Blood Count 6.5 TH/MM3 Red Blood Count 2.91 MIL/MM3 Hemoglobin 9.2 GM/DL Hematocrit 28.5 % Mean Corpuscular Volume 97.9 FL Mean Corpuscular Hemoglobin 31.4 PG Mean Corpuscular Hemoglobin Concent 32.1 % Red Cell Distribution Width 19.6 % Platelet Count 167 TH/MM3 Mean Platelet Volume 8.3 FL Neutrophils (%) (Auto) 87.6 % Lymphocytes (%) (Auto) 4.6 % Monocytes (%) (Auto) 7.4 % Eosinophils (%) (Auto) 0.1 % Basophils (%) (Auto) 0.3 % Neutrophils # (Auto) 5.7 TH/MM3 Lymphocytes # (Auto) 0.3 TH/MM3 Monocytes # (Auto) 0.5 TH/MM3 Eosinophils # (Auto) 0.0 TH/MM3 Basophils # (Auto) 0.0 TH/MM3 CBC Comment DIFF FINAL Differential Comment Blood Urea Nitrogen 19 MG/DL Creatinine 0.96 MG/DL Random Glucose 101 MG/DL Total Protein 6.6 GM/DL Albumin 3.0 GM/DL Calcium Level 8.3 MG/DL Alkaline Phosphatase 56 U/L Aspartate Amino Transf (AST/SGOT) 19 U/L Alanine Aminotransferase (ALT/SGPT) 18 U/L Total Bilirubin 0.5 MG/DL Sodium Level 140 MEQ/L Potassium Level 4.1 MEQ/L Chloride Level 109 MEQ/L Carbon Dioxide Level 19.2 MEQ/L Anion Gap 12 MEQ/L Estimat Glomerular Filtration Rate 56 ML/MIN Lactic Acid Level 5.0 mmol/L 2.7 mmol/L Lipase 63 U/L Urine Color YELLOW Urine Turbidity CLEAR Urine pH 5.5 Urine Specific [place] 1.020 Urine Protein 30 mg/dL Urine Glucose (UA) NEG mg/dL Urine Ketones NEG mg/dL Urine Occult Blood NEG Urine Nitrite NEG Urine Bilirubin NEG Urine Urobilinogen LESS THAN 2.0 MG/DL Urine Leukocyte Esterase NEG Urine WBC 2 /hpf Urine Hyaline Casts 9 /lpf Urine Mucus FEW /lpf Microscopic Urinalysis Comment CATH-CULT NOT IND MDM Medical Decision Making Medical Screen Exam Complete: Yes Emergency Medical Condition: Yes Medical Record Reviewed: Yes Interpretation(s) Twelve-lead EKG was reviewed by me. Normal sinus rhythm, left axis deviation, tachycardia, questionable old anterior and inferior [place]. Heart rate of 139 bpm. Differential Diagnosis Sepsis, UTI, pneumonia, acute appendicitis Narrative Course 6:39 PM blood test results were back by the time patient was in the emergency room and I went to see her. Lab called for a critical lactic acid of 5. I ordered a CT scan of her abdomen and pelvis and patient was started on fluids and antibiotic as per sepsis protocol. CT scan report is back and does not show any acute issues that would explain her sepsis. Admitted the patient to the hospitalist service. Patient was explained about the reason for the admission and the antibiotic. She understands. Critical Care Narrative Aggregate critical care time was 30 minutes. Time to perform other separately billable procedures was not included in the critical care time. My time did not include minutes spent treating any other patients simultaneously or on activities that did not directly contribute to the patient's treatment. The services I provided to this patient were to treat and/or prevent clinically significant deterioration that could result in: Sepsis, sepsis protocol I provided critical care services requiring my management, as noted below: Chart data review, documentation time, medication orders and management, vital sign assessments/reviewing monitor data, ordering and reviewing lab tests, ordering and interpreting/reviewing x-rays and diagnostic studies, care of the patient and discussion of the patient with the admitting physicians. Procedures EKG Prior to Arrival: No Diagnosis Primary Impression: Sepsis Qualified Codes: A41.9 - Sepsis, unspecified organism Additional Impression: Lactic acid acidosis Admitting Information Admitting Physician Requests: it Jeramie Mcnally MD May 11, 2017 17:58
[2017-05-11 18:00] LABS: BILIRUBIN, URINE NEG (NEG); BLOOD, URINE NEG (NEG); GLUCOSE,URINE NEG (NEG); HYALINE CAST, URINE 9 /lpf (RARE); KETONE, URINE NEG (NEG); MUCUS URINE FEW /lpf (OCC); NITRITE,URINE NEG (NEG); PH, URINE 5.5 (5.0-8.5); URINE COLOR YELLOW (YELLW/STRAW); URINE LEUKOCYTE ESTERASE NEG (NEG)
--- NOTE | 2017-05-11 18:32 | RADRPT ---
EXAM DATE/TIME: 05/11/2017 17:43 [facility] COMPARISON: CT ABDOMEN & PELVIS W CONTRAST, April 11, 2017, 16:42. INDICATIONS : Abdominal pain, diarrhea. IV CONTRAST: 97 cc Omnipaque 350 (iohexol) IV ORAL CONTRAST: No oral contrast ingested. RADIATION DOSE: 5.13 CTDIvol (mGy) MEDICAL HISTORY : Cardiovascular disease. Gastroesophageal reflux disease. A Fib,RA,C Diff SURGICAL HISTORY : Hysterectomy. ENCOUNTER: Initial ACUITY: 1 day PAIN SCALE: 6/10 LOCATION: abdominal TECHNIQUE: Volumetric scanning of the abdomen and pelvis was performed. Using automated exposure control and ad justment of the mA and/or kV according to patient size, radiation dose was kept as low as reasonably achievable to obtain optimal diagnostic quality images. DICOM format image data is available electro nically for review and comparison. FINDINGS: The study is degraded by motion artifact. LOWER LUNGS: There are small bilateral pleural effusions right greater than left. LIVER: Homogeneous density without lesion. There is no dilation of the biliary tree. The gallbladder remain s abnormal in appearance with internal high density and apparent gallstones. This is unchanged in deisy earance. SPLEEN: Normal size without lesion. PANCREAS: Within normal limits. KIDNEYS: Normal in size and shape. There is no solid mass, stone or hydronephrosis. A right renal cyst is aga in noted. ADRENAL GLANDS: Within normal limits. VASCULAR: There is no aortic aneurysm. BOWEL/MESENTERY: No oral contrast was given limiting the sensitivity. There is poor delineation of the bowel loops. Th ere is a mildly nonspecific, nonobstructive bowel gas pattern with several loops of nondilated air-co ntaining small bowel with small air-fluid levels. ABDOMINAL WALL: Within normal limits. RETROPERITONEUM: There is no lymphadenopathy. BLADDER: No wall thickening or mass. REPRODUCTIVE: Within normal limits. INGUINAL: There is no lymphadenopathy or hernia. MUSCULOSKELETAL: A pectus excavatum deformity is again noted. Anasarca is noted with increased density the subcutaneou s fat. A moderate scoliosis lumbar spine is noted. There are degenerative changes and mild compressio n fracture deformities. CONCLUSION: 1. Nonspecific, nonobstructive bowel gas pattern which may represent gastroenteritis and/or ileus. 2. Anasarca. 3. Small bilateral pleural effusions right greater than left. 4. Mild motion artifact degrading the images. Justo Simon MD on May 11, 2017 at 18:26 Board Certified Radiologist. This report was verified electronically.
[2017-05-11] MEDS ORDERED: PIPERACIL-TAZO 3.375 GM PREMIX 50 ML IV SCH ×2 (19:15→23:00)
[2017-05-11] MEDS ORDERED: ACETAMINOPHEN 325 MG TAB PO PRN (19:15)
[2017-05-11] MEDS ORDERED: LACTULOSE SYRUP 20 GM/30 ML CUP PO PRN (19:15)
[2017-05-11] MEDS ORDERED: SODIUM CHLORIDE 0.9% FLUSH 10 ML FLUSH IV FLUSH PRN (19:15)
[2017-05-11] MEDS ORDERED: SENNOSIDES 8.6 MG TAB PO PRN (19:15)
[2017-05-11] MEDS ORDERED: NALOXONE HCL 0.4 MG/ML AMP IV PUSH PRN (19:15)
[2017-05-11] MEDS ORDERED: MAGNESIUM HYDROXIDE SUSP 30 ML CUP PO PRN (19:15)
[2017-05-11] MEDS ORDERED: VANCOMYCIN INJ 1,000 MG in SODIUM CHLOR 0.9% 250 ML INJ 250 ML IV SCH (19:15)
[2017-05-11] MEDS ORDERED: BISACODYL 10 MG SUPP RECTAL PRN (19:15)
[2017-05-11] MEDS ORDERED: PILL SPLITTER OTHER PRN (19:30)
[2017-05-11] MEDS ORDERED: Vancomycin Consult Pharmacy 1 EA OTHER SCH (19:45)
[2017-05-11] MEDS ORDERED: MORPHINE SULFATE 2 MG/ML INJ IV PUSH PRN (19:45)
--- NOTE | 2017-05-11 19:45 | HHI.HP ---
HPI Service [facility] Primary Care Physician Sb Wayne MD Admission Diagnosis sepsis, Diagnoses: (1) Gastroenteritis Diagnosis: Principal (2) Lactic acidosis Diagnosis: Principal (3) Dehydration Diagnosis: Principal (4) C. difficile colitis Diagnosis: Principal (5) A-fib Diagnosis: Principal Travel History International Travel<30 Days: No Contact w/Intl Traveler <30 Da: No Traveled to Known Affected Are: No History of Present Illness This is a 76-year-old female with a PMH of Rheumatoid Arthritis, A. fib, HTN and C. difficile Colitis who presented to the ER with complaints of generalized weakness, abdominal pain and diarrhea starting this morning. No associated nausea or vomiting. Denies fever or chills. No alleviating/exacerbating factors. Recent admit 04/11-04/18/17, found to have Pancytopenia s/p eval by Heme/Onc and C Diff + w/ improvement in labs. D/c'd to SNF on Vanc PO. Digoxin discontinued secondary to supratherapeutic levels, s/p eval by Dr. Acosta. Returns now w/ generalized weakness and recurrent diarrhea. On arrival , BP 155/103, HR 112, O2 sat 96% on RA. Afebrile. CBC at baseline. Chemistry unremarkable except for GFR 56, previously 120 on 04/16/17. Lactic Acid 5.0. CXR with minimal right lung base atelectasis. CT Abd/Pelvis w/ nonobstructive bowel gas pattern may represent gastroenteritis and or ileus. Small bilateral pleural effusions. S/p Blood Cultures, Vanc/Zosyn in ER. Review of Systems Except as stated in HPI: all other systems reviewed are Neg ROS: 14 point review of systems otherwise negative. Past Family Social History Past Medical History PMH: Rheumatoid Arthritis, A. fib, HTN and C. difficile Colitis Past Surgical History PAST SURGICAL HISTORY: Bilateral Cataract Surgery, Hysterectomy, Right Shoulder Surgery, Left Ankle Surgery Allergies: Coded Allergies: Sulfa (Sulfonamide Antibiotics) (Verified Allergy, Severe, RASH, 04/11/17) cephalexin (Verified Allergy, Severe, RASH, 04/11/17) sulfamethoxazole (Verified Allergy, Severe, RASH, 04/11/17) trimethoprim (Verified Allergy, Severe, RASH, 04/11/17) codeine (Verified Adverse Reaction, Severe, NAUSEA, 04/11/17) Family History PAST FAMILY HISTORY: Reviewed. No h/o DM or CAD Social History PAST SOCIAL HISTORY: Negative for alcohol, tobacco or drugs. Physical Exam Vital Signs Vital Signs Date Time Temp Pulse Resp B/P (MAP) Pulse Ox O2 Delivery O2 Flow Rate FiO2 05/11/17 17:22 17 100 Room Air 05/11/17 17:22 100 Room Air 05/11/17 17:03 97.8 118 16 99/59 (72) 100 Room Air 05/11/17 16:55 118 17 100 Room Air 05/11/17 14:49 98.9 112 18 155/103 (120) 96 Room Air Physical Exam PE: GENERAL: Elderly female in no acute distress, appears weak/tired. HEENT: PERRLA, EOMI. No scleral icterus or conjunctival pallor. No lid lag or facial droop. CARDIOVASCULAR: Regular rate and rhythm. No obvious murmurs to auscultation. No chest tenderness to palpation. RESPIRATORY: No obvious rhonchi or wheezing. Clear to auscultation. Breath sounds equal bilaterally. GASTROINTESTINAL: Abdomen soft, non-tender, nondistended. BS normal. MUSCULOSKELETAL: Extremities without clubbing, cyanosis, or edema. No obvious deformities. NEUROLOGICAL: Awake, alert and oriented x4. No focal neurologic deficits. Moving both upper and lower extremities spontaneously. Laboratory Laboratory Tests Test 05/11/17 16:30 05/11/17 17:20 05/11/17 18:35 05/11/17 19:20 White Blood Count 6.5 Red Blood Count 2.91 Hemoglobin 9.2 Hematocrit 28.5 Mean Corpuscular Volume 97.9 Mean Corpuscular Hemoglobin 31.4 Mean Corpuscular Hemoglobin Concent 32.1 Red Cell Distribution Width 19.6 Platelet Count 167 Mean Platelet Volume 8.3 Neutrophils (%) (Auto) 87.6 Lymphocytes (%) (Auto) 4.6 Monocytes (%) (Auto) 7.4 Eosinophils (%) (Auto) 0.1 Basophils (%) (Auto) 0.3 Neutrophils # (Auto) 5.7 Lymphocytes # (Auto) 0.3 Monocytes # (Auto) 0.5 Eosinophils # (Auto) 0.0 Basophils # (Auto) 0.0 CBC Comment DIFF FINAL Differential Comment Blood Urea Nitrogen 19 Creatinine 0.96 Random Glucose 101 Total Protein 6.6 Albumin 3.0 Calcium Level 8.3 Alkaline Phosphatase 56 Aspartate Amino Transf (AST/SGOT) 19 Alanine Aminotransferase (ALT/SGPT) 18 Total Bilirubin 0.5 Sodium Level 140 Potassium Level 4.1 Chloride Level 109 Carbon Dioxide Level 19.2 Anion Gap 12 Estimat Glomerular Filtration Rate 56 Lactic Acid Level 5.0 2.7 Lipase 63 Urine Color YELLOW Urine Turbidity CLEAR Urine pH 5.5 Urine Specific [place] 1.020 Urine Protein 30 Urine Glucose (UA) NEG Urine Ketones NEG Urine Occult Blood NEG Urine Nitrite NEG Urine Bilirubin NEG Urine Urobilinogen LESS THAN 2.0 Urine Leukocyte Esterase NEG Urine WBC 2 Urine Hyaline Casts 9 Urine Mucus FEW Microscopic Urinalysis Comment CATH-CULT NOT IND Date/Time Source Procedure Growth Status 05/11/17 17:20 Blood Peripheral Aerobic Blood Culture Pending Received 05/11/17 17:20 Blood Peripheral Anaerobic Blood Culture Pending Received Result Diagram: 05/11/17 1630 05/11/17 1630 Caprini VTE Risk Assessment Caprini VTE Risk Assessment: No/Low Risk (score <= 1) Caprini Risk Assessment Model Point Value = 1 Point Value = 2 Point Value = 3 Point Value = 5 Age 41-60 Minor surgery BMI > 25 kg/m2 Swollen legs Varicose veins or History of unexplained or recurrent spontaneous Oral contraceptives or hormone replacement Sepsis (< 1 month) Serious lung disease, including pneumonia (< 1 month) Abnormal pulmonary function Acute myocardial infarction Congestive heart failure (< 1 month) History of inflammatory bowel disease Medical patient at bed rest Age 61-74 Arthroscopic surgery Major open surgery (> 45 min) Laparoscopic surgery (> 45 min) Malignancy Confined to bed (> 72 hours) Immobilizing plaster cast Central venous access Age >= 75 History of VTE Family history of VTE Factor V Leiden Prothrombin [id number] Lupus anticoagulant Anticardiolipin antibodies Elevated serum homocysteine Heparin-induced thrombocytopenia Other congenital or acquired thrombophilia Stroke (< 1 month) Elective arthroplasty Hip, pelvis, or leg fracture Acute spinal cord injury (< 1 month) Prophylaxis Regimen Total Risk Factor Score Risk Level Prophylaxis Regimen 0-1 Low Early ambulation 2 Moderate Order ONE of the following: *Sequential Compression Device (SCD) *Heparin 5000 units SQ BID 3-4 Higher Order ONE of the following medications: *Heparin 5000 units SQ TID *Enoxaparin/Lovenox 40 mg SQ daily (WT < 150 kg, CrCl > 30 mL/min) *Enoxaparin/Lovenox 30 mg SQ daily (WT < 150 kg, CrCl > 10-29 mL/min) *Enoxaparin/Lovenox 30 mg SQ BID (WT < 150 kg, CrCl > 30 mL/min) AND/OR *Sequential Compression Device (SCD) 5 or more Highest Order ONE of the following medications: *Heparin 5000 units SQ TID (Preferred with Epidurals) *Enoxaparin/Lovenox 40 mg SQ daily (WT < 150 kg, CrCl > 30 mL/min) *Enoxaparin/Lovenox 30 mg SQ daily (WT < 150 kg, CrCl > 10-29 mL/min) *Enoxaparin/Lovenox 30 mg SQ BID (WT < 150 kg, CrCl > 30 mL/min) AND *Sequential Compression Device (SCD) Assessment and Plan Problem List: (1) Gastroenteritis ICD Code: K52.9 - Noninfective gastroenteritis and colitis, unspecified (2) Lactic acidosis ICD Code: E87.2 - Acidosis (3) Dehydration ICD Code: E86.0 - Dehydration (4) C. difficile colitis ICD Code: A04.72 - Enterocolitis due to Clostridium difficile, not specified as recurrent (5) A-fib ICD Code: I48.91 - Unspecified atrial fibrillation Assessment and Plan A/P: 1. Gastroenteritis: acute onset of abdominal pain/diarrhea, recent admit for C Diff. CT Abd/Pelvis w/ gastroenteritis vs ileus, images reviewed by me. IVF for hydration, analgesics/antiemetics as needed. S/p Vanc/Zosyn in ER, continue w/ Cipro/Flagyl, resume home Vanc PO for C Diff, check C Diff PCR. Repeat labs in am. 2. Lactic Acidosis: Lactate 5.0, unclear if secondary to sepsis or dehydration. Repeat Lactic Acid 2.7, check Lactic Acid for trend. Continue w/ IVF 3. Dehydration: GFR 56, significantly reduced from 120 on 04/16/17. IVF for hydration. U/a negative for UTI. Repeat labs in am. 4. C Diff Colitis: PCR + on 04/12/17, d/c'd on Vanc PO, will resume, recheck C Diff for recurrence as pt w/ diarrhea. Follow up results. 5. A-fib: HR 112 on arrival, however NSR, monitor on telemetry. Resume home medications, Cardizem if needed for A-fib. 6. DVT Prophylaxis: SCD/Teds. 7. Social work for d/c planning as needed. 8. Previous records/labs reviewed by me, case discussed at length w/ ER physician . Physician Certification 2 Midnight Certification Type: Admission for Inpatient Services Order for Inpatient Services The services are ordered in accordance with Medicare regulations or non- Medicare payer requirements, as applicable. In the case of services not specified as inpatient-only, they are appropriately provided as inpatient services in accordance with the 2-midnight benchmark. Estimated LOS (days): 2 days is the estimated time the patient will need to remain in the hospital, assuming treatment plan goals are met and no additional complications. Post-Hospital Plan: Not yet determined Liliana Leon MD May 11, 2017 19:45
[2017-05-11 19:53] LABS: LACTIC ACID SEPSIS PROTOCOL 3.4 mmol/L (0.4-2.0)
[2017-05-11] MEDS: FAMOTIDINE 20 MG TAB PO SCH (19:58)
[2017-05-11] MEDS: SODIUM CHLORIDE 0.9% FLUSH 10 ML FLUSH IV FLUSH SCH (19:58)
[2017-05-11] MEDS: SODIUM CHLOR 0.45% 1000 ML INJ 1,000 ML IV SCH ×2 (19:58→23:26)
[2017-05-11] MEDS: ENOXAPARIN SODIUM 40 MG/0.4 ML SYRINGE SQ SCH (19:58)
[2017-05-11] MEDS: METOPROLOL TARTRATE 25 MG TAB PO SCH (20:00)
[2017-05-11 20:05] VITALS: BP 116/60; PULSE 135; RESP 19; TEMP 98.2; O2SAT 94
[2017-05-11] MEDS: metroNIDAZOLE 500 MG INJ 100 ML IV SCH (23:27)
[2017-05-11 23:30] VITALS: BP 104/58; PULSE 94; RESP 16; O2SAT 97
[2017-05-12] VITALS (8 sets, daily range): BP systolic 85–110; BP diastolic 44–60; PULSE 77–120; RESP 16–18; TEMP 98–100.5; O2SAT 95–100
[2017-05-12] MEDS: metroNIDAZOLE 500 MG INJ 100 ML IV SCH (05:58)
[2017-05-12] MEDS: LEVOTHYROXINE SODIUM 25 MCG TAB PO SCH (05:58)
[2017-05-12 08:00] LABS: AUTOMATED NEUTROPHIL # 3.6 TH/MM3 (1.8-7.7); BASOPHIL % 0.6 % (0.0-2.0); EOSINOPHIL # 0.1 TH/MM3 (0-0.4); EOSINOPHIL % 1.8 % (0.0-4.0); HEMATOCRIT 22.6 % (35.0-46.0); HEMOGLOBIN 7.6 GM/DL (11.6-15.3); LYMPH % 11.7 % (9.0-44.0); LYMPHOCYTE # 0.6 TH/MM3 (1.0-4.8); MEAN CELL VOLUME 96.7 FL (80.0-100.0); MEAN CORPUSCULAR HEMOGLOBIN 32.4 PG (27.0-34.0); MEAN CORPUSCULAR HGB CONC 33.4 % (32.0-36.0); MONO % 10.3 % (0.0-8.0); MONOCYTE # 0.5 TH/MM3 (0-0.9); NEUT % 75.6 % (16.0-70.0); PLATELET COUNT 134 TH/MM3 (150-450); RED BLOOD COUNT 2.34 MIL/MM3 (4.00-5.30); RED CELL DISTRIBUTION WIDTH 19.2 % (11.6-17.2); WHITE BLOOD COUNT 4.7 TH/MM3 (4.0-11.0)
[2017-05-12 08:17] LABS: BICARBONATE 19.6 MEQ/L (21.0-32.0); CALCIUM 7.4 MG/DL (8.5-10.1); CREATININE 0.73 MG/DL (0.50-1.00)
[2017-05-12 08:38] LABS: CALCIUM-PROTEIN CORRECTED 8.5 MG/DL (8.5-10.1); TOTAL PROTEIN 5.1 GM/DL (6.4-8.2)
[2017-05-12] MEDS: SODIUM CHLORIDE 0.9% FLUSH 10 ML FLUSH IV FLUSH SCH ×2 (08:48→22:33)
[2017-05-12] MEDS: VANCOMYCIN 500 MG VIAL (FOR ORAL USE ONLY) PO SCH ×2 (08:52→13:42)
[2017-05-12] MEDS: METOPROLOL TARTRATE 25 MG TAB PO SCH ×5 (08:56→22:33)
[2017-05-12] MEDS: FAMOTIDINE 20 MG TAB PO SCH ×2 (08:56→22:33)
[2017-05-12] MEDS ORDERED: PNEUMOCOCCAL POLYVALENT INJ 25 MCG/0.5 ML SYR IM ONE (09:00)
[2017-05-12] MEDS ORDERED: CIPROFLOXACIN 400 MG PREMIX 200 ML IV SCH (09:00)
[2017-05-12] MEDS ORDERED: INFLUENZA VIRUS VACCINE (QUADRIVALENT) 0.5 ML SYR IM ONE (09:00)
[2017-05-12] MEDS: FOLIC ACID 1 MG TAB PO SCH (10:48)
[2017-05-12] MEDS: PANTOPRAZOLE SOD 20 MG DELAYED RELEASE TAB PO SCH (10:51)
[2017-05-12] MEDS ORDERED: DILTIAZEM HCL 25 MG/5 ML VIAL IV ONE (11:00)
--- NOTE | 2017-05-12 11:01 | HHI.PR ---
Subjective Remarks Nursing reports that the patient is having multiple loose bowel movements still. Telemetry also was showing tachycardia up to the 140s with the patient having known A. fib despite being on her home Lopressor. Patient herself is asymptomatic. She denies any new complaints this morning; as a matter fact she only affirms when asked that her abdominal pain and her weakness and her diarrhea for which she presented w/ yesterday have resolved - leading to a suspicion of dementia. Pt is on immunosuppressants on at home for RA. Objective Vital Signs Date Time Temp Pulse Resp B/P (MAP) Pulse Ox O2 Delivery O2 Flow Rate FiO2 05/12/17 08:15 99.4 93 18 99/49 (66) 95 05/12/17 05:50 99.0 110 17 110/60 (77) 96 05/12/17 00:30 100.5 120 16 105/57 (73) 95 05/11/17 23:30 94 16 104/58 (73) 97 Room Air 05/11/17 20:05 98.2 135 19 116/60 (78) 94 Room Air 05/11/17 17:22 17 100 Room Air 05/11/17 17:22 100 Room Air 05/11/17 17:03 97.8 118 16 99/59 (72) 100 Room Air 05/11/17 16:55 118 17 100 Room Air 05/11/17 14:49 98.9 112 18 155/103 (120) 96 Room Air I/O 05/11/17 05/11/17 05/11/17 05/12/17 05/12/17 05/12/17 07:00 15:00 23:00 07:00 15:00 23:00 Intake Total 2350 ml 100 ml 750 ml Output Total 0 ml Balance 2350 ml 100 ml 750 ml Intake Oral 100 ml IV Total 2350 ml 750 ml Output Urine Total 0 ml # Bowel Movements 0 Result Diagram: 05/12/1771405/12/17714 Objective Remarks Elderly white female, thin, awake, no acute distress Lung sounds are good and clear bilaterally Heart sounds are irregular but with a regular rate Abdomen is soft, nondistended, nontender, bowel sounds are positive A/P Assessment and Plan Possible sepsis (with tachycardia and fever of 100.5 x 1) - Her lactic acidemia is significantly improved w/ MIVF but her tachycardia is still fluctuating 90s plus which could still be a result of her A. fib - Currently on her home PO vancomycin for her original C. difficile (present prior to admission) as well as and Cipro and Flagyl for possible GI cause - I independently reviewed her chest x-ray which is unremarkable and clinically the patient does not have pneumonia - Blood cultures pending; UA negative. CT abd/pelvis is nonspecific for findings - I also independently reviewed this and see no significant constipation Abd pain - clinically improved but diarrhea - Does have pre-existing diagnosis of C. difficile but may possibly have worsening of this or superimposed concomitant viral enteritis - I would like to stop the Cipro and Flagyl given that the patient's vancomycin with the presumption that she possibly has a viral superimposed enteritis but I will consult infectious disease and let them dictate this course Anemia of CD with acute drop - Could be dilutional but will trend given the significant drop Atrial fibrillation with RVR - now pulse stable down to 70s. Fluctuating; will increase Lopressor to 3 times a day given that she did reach toxic levels of digoxin as previous therapy - She is a candidate to receive a novel oral anticoagulant such as vascular of at least 2; I will eventually dose her w/ lovenox when h/h is stabilized - holding home aspirin for same reason RA - on immunosuppressive therapy at home, will hold home meds for now given acute illness SCDs for now given drop in h/h; lovenox when stable. Nahum Valadez MD May 12, 2017 11:01
--- NOTE | 2017-05-12 14:17 | PD.CONS ---
History of Present Illness Service Infectious disease Consult Requested By Dr Valadez Reason for Consult Evaluate patient with C. difficile colitis Primary Care Physician Sb Wayne MD Diagnoses: History of Present Illness Patient seen and examined. Records reviewed. Patient is a 76-year-old female, presented to the hospital for evaluation of palpitations. She apparently has been having some diarrhea for the last 2 days. She has had 5 bouts of diarrhea per day. This usually some stool mixed with some liquid. There was no blood or mucus. She denies any significant abdominal pain. No nausea or vomiting she was getting weaker. There's been no fever or chills. She could not remember the last time she was given any antibiotic for any kind of infection. On presentation she had some low-grade temps. Her WBC is normal. He has not had any bowel movement today. Stool for C. difficile came back positive. Patient currently is on Cipro IV, and also on IV Flagyl, and oral vancomycin. CT of the abdomen and pelvis did not show any bowel wall thickening. There is some nonobstructive bowel gas pattern which may represent gastroenteritis and or ileus. Infectious disease consultation has been requested to evaluate the patient. Review of Systems Constitutional: COMPLAINS OF: Fatigue, Fever, Change in appetite, DENIES: Chills Eyes: DENIES: Eye pain Ears, nose, mouth, throat: DENIES: Nasal discharge, Oral lesions, Throat pain, Ear Pain, Sinus Pain Respiratory: DENIES: Cough, Sputum production, Shortness of breath Cardiovascular: COMPLAINS OF: Palpitations, DENIES: Chest pain, Syncope, Dyspnea on Exertion Gastrointestinal: COMPLAINS OF: Diarrhea, DENIES: Abdominal pain, Nausea, Vomiting, Difficulty Swallowing Genitourinary: DENIES: Urinary frequency, Urgency, Hematuria, Dysuria Musculoskeletal: COMPLAINS OF: Joint pain, Stiffness, Joint Swelling Integumentary: DENIES: Rash Hematologic/lymphatic: DENIES: Lymphadenopathy Immunologic/allergic: DENIES: Urticaria Neurologic: DENIES: Headache, Localized weakness Psychiatric: DENIES: Hallucinations Past Family Social History Allergies: Coded Allergies: Sulfa (Sulfonamide Antibiotics) (Verified Allergy, Severe, RASH, 04/11/17) cephalexin (Verified Allergy, Severe, RASH, 04/11/17) sulfamethoxazole (Verified Allergy, Severe, RASH, 04/11/17) trimethoprim (Verified Allergy, Severe, RASH, 04/11/17) codeine (Verified Adverse Reaction, Severe, NAUSEA, 04/11/17) Past Medical History Rheumatoid Arthritis A. fib Hypertension Past Surgical History Bilateral Cataract Surgery Hysterectomy Right Shoulder Surgery Left Ankle Surgery Reported Medications I attest that I obtained, updated or reviewed the home and current medications. Reported Meds & Active Scripts Active Levothyroxine (Levothyroxine Sodium) 25 Mcg Tab 25 Mcg PO DAILY@0600 [Megestrol Liq] 400 MG/10 ML Susp 400 Mg PO Q12H 30 Days Metoprolol Tartrate 25 Mg Tab 12.5 Mg PO Q12HR Folic Acid 1 Mg Tablet 1 Mg PO DAILY Aspirin DR (Aspirin) 81 Mg Tabdr 81 Mg PO DAILY Marinol (Dronabinol) 2.5 Mg Cap 2.5 Mg PO HS Reported Omeprazole 20 Mg Tab 20 Mg PO DAILY Famotidine 20 Mg Tab 20 Mg PO BID Leflunomide 20 Mg Tab 20 Mg PO DAILY Active Ordered Medications Current Medications Cipro Flagyl PO Vancomycin Medications (Trade) Dose Ordered Sig/Baljinder Route Start Time Stop Time Status Last Admin (Pepcid) 20 mg BID PO 05/11/17 21:00 05/12/17 08:56 (Synthroid) 25 mcg DAILY@0600 PO 05/12/17 06:00 05/12/17 05:58 Sodium Chloride 1,000 ml @ 75 mls/hr [id number] IV 05/11/17 19:30 05/11/17 23:26 (NS Flush) 2 ml UNSCH PRN IV FLUSH 05/11/17 19:15 (NS Flush) 2 ml BID IV FLUSH 05/11/17 21:00 (Tylenol) 650 mg Q4H PRN PO 05/11/17 19:15 (Lovenox Inj) 40 mg Q24H SQ 05/11/17 20:00 05/11/17 19:58 (Narcan Inj) 0.4 mg UNSCH PRN IV PUSH 05/11/17 19:15 (Milk Of Magnesia Liq) 30 ml Q12H PRN PO 05/11/17 19:15 (Senokot) 17.2 mg Q12H PRN PO 05/11/17 19:15 (Dulcolax Supp) 10 mg DAILY PRN RECTAL 05/11/17 19:15 (Lactulose Liq) 30 ml DAILY PRN PO 05/11/17 19:15 (Pill Splitter) 1 ea UNSCH PRN OTHER 05/11/17 19:30 (Morphine Inj) 2 mg Q3H PRN IV PUSH 05/11/17 19:45 Miscellaneous Information SPECIFIC LAB TO BE DRAWN:[facility]... ONCE ONCE .XX 05/13/17 17:45 05/13/17 17:46 (VANCOMYCIN for oral use only) 250 mg QID PO 05/12/17 09:00 05/12/17 13:42 Ciprofloxacin/ Dextrose 200 ml @ 200 mls/hr Q12H IV 05/12/17 09:00 05/12/17 08:48 Metronidazole 100 ml @ 100 mls/hr Q8H IV 05/11/17 23:00 05/12/17 05:58 (Lopressor) 12.5 mg Q8HR PO 05/12/17 14:00 05/12/17 13:44 (Folate) 1 mg DAILY PO 05/12/17 10:45 05/12/17 10:48 (Protonix) 20 mg DAILY PO 05/12/17 10:45 05/12/17 10:51 Family History Unremarkable Social History Lives with her daughter No smoking No alcohol abuse No illicit drugs Physical Exam Vital Signs Vital Signs Date Time Temp Pulse Resp B/P (MAP) Pulse Ox O2 Delivery O2 Flow Rate FiO2 05/12/17 11:56 98.6 108 18 95/52 (66) 99 05/12/17 08:15 99.4 93 18 99/49 (66) 95 05/12/17 05:50 99.0 110 17 110/60 (77) 96 05/12/17 00:30 100.5 120 16 105/57 (73) 95 05/11/17 23:30 94 16 104/58 (73) 97 Room Air 05/11/17 20:05 98.2 135 19 116/60 (78) 94 Room Air 05/11/17 17:22 17 100 Room Air 05/11/17 17:22 100 Room Air 05/11/17 17:03 97.8 118 16 99/59 (72) 100 Room Air 05/11/17 16:55 118 17 100 Room Air 05/11/17 14:49 98.9 112 18 155/103 (120) 96 Room Air Physical Exam GENERAL: Patient is a thin, well-developed female, awake and alert, not in respiratory distress. SKIN: Warm and dry. No generalized rash, no ecchymoses and no evidence of embolic lesions. HEAD: Atraumatic. Normocephalic. No temporal wasting, or tenderness. EYES: [place] conjunctiva. No petechia or hemorrhage. Pupils equal, round and reactive to light. Extraocular movements full and intact. No scleral icterus. No injection or drainage. EARS, NOSE AND THROAT: Nose without bleeding or purulent nasal discharge. No sinus tenderness. Mucous membranes pink and moist. No oral lesions noted. No exudate. No oral thrush. NECK: Trachea midline. Supple and not tender, no meningeal signs CARDIOVASCULAR: Regular rate and rhythm. No murmurs, rubs or gallops heard RESPIRATORY: Clear to auscultation. Breath sounds equal bilaterally. No rales , wheezing or rhonchi ABDOMEN: Soft, non-tender, nondistended. Bowel sounds present and normoactive. No guarding. No rebound. No organomegaly. EXTREMITIES: No clubbing, cyanosis, or edema. Has deformities both hands. No calf tenderness. Well perfused and warm. NEUROLOGICAL: Awake and alert. Cranial nerves grossly intact. Motor grossly within normal limits. PSYCHIATRIC: Normal affect, calm and cooperative. LINE: No evidence of infection Laboratory Laboratory Tests Test 05/11/17 16:30 05/11/17 17:20 05/11/17 18:35 05/11/17 19:20 White Blood Count 6.5 Red Blood Count 2.91 Hemoglobin 9.2 Hematocrit 28.5 Mean Corpuscular Volume 97.9 Mean Corpuscular Hemoglobin 31.4 Mean Corpuscular Hemoglobin Concent 32.1 Red Cell Distribution Width 19.6 Platelet Count 167 Mean Platelet Volume 8.3 Neutrophils (%) (Auto) 87.6 Lymphocytes (%) (Auto) 4.6 Monocytes (%) (Auto) 7.4 Eosinophils (%) (Auto) 0.1 Basophils (%) (Auto) 0.3 Neutrophils # (Auto) 5.7 Lymphocytes # (Auto) 0.3 Monocytes # (Auto) 0.5 Eosinophils # (Auto) 0.0 Basophils # (Auto) 0.0 CBC Comment DIFF FINAL Differential Comment Blood Urea Nitrogen 19 Creatinine 0.96 Random Glucose 101 Total Protein 6.6 Albumin 3.0 Calcium Level 8.3 Alkaline Phosphatase 56 Aspartate Amino Transf (AST/SGOT) 19 Alanine Aminotransferase (ALT/SGPT) 18 Total Bilirubin 0.5 Sodium Level 140 Potassium Level 4.1 Chloride Level 109 Carbon Dioxide Level 19.2 Anion Gap 12 Estimat Glomerular Filtration Rate 56 Lactic Acid Level 5.0 2.7 3.4 Lipase 63 Urine Color YELLOW Urine Turbidity CLEAR Urine pH 5.5 Urine Specific [place] 1.020 Urine Protein 30 Urine Glucose (UA) NEG Urine Ketones NEG Urine Occult Blood NEG Urine Nitrite NEG Urine Bilirubin NEG Urine Urobilinogen LESS THAN 2.0 Urine Leukocyte Esterase NEG Urine WBC 2 Urine Hyaline Casts 9 Urine Mucus FEW Microscopic Urinalysis Comment CATH-CULT NOT IND Test 05/11/17 22:24 05/12/17 07:15 Lactic Acid Level 1.6 White Blood Count 4.7 Red Blood Count 2.34 Hemoglobin 7.6 Hematocrit 22.6 Mean Corpuscular Volume 96.7 Mean Corpuscular Hemoglobin 32.4 Mean Corpuscular Hemoglobin Concent 33.4 Red Cell Distribution Width 19.2 Platelet Count 134 Mean Platelet Volume 9.0 Neutrophils (%) (Auto) 75.6 Lymphocytes (%) (Auto) 11.7 Monocytes (%) (Auto) 10.3 Eosinophils (%) (Auto) 1.8 Basophils (%) (Auto) 0.6 Neutrophils # (Auto) 3.6 Lymphocytes # (Auto) 0.6 Monocytes # (Auto) 0.5 Eosinophils # (Auto) 0.1 Basophils # (Auto) 0.0 CBC Comment DIFF FINAL Differential Comment Blood Urea Nitrogen 15 Creatinine 0.73 Random Glucose 76 Total Protein 5.1 Calcium Level 7.4 Sodium Level 139 Potassium Level 3.6 Chloride Level 109 Carbon Dioxide Level 19.6 Anion Gap 10 Estimat Glomerular Filtration Rate 77 Protein Corrected Calcium 8.5 Date/Time Source Procedure Growth Status 05/11/17 17:20 Blood Peripheral Aerobic Blood Culture - Preliminary Gram Positive Cocci Resulted 05/11/17 17:20 Blood Peripheral Anaerobic Blood Culture - Preliminary NO GROWTH IN 1 DAY Resulted Result Diagram: 05/12/17 0715 05/12/17 0715 Imaging RADIOLOGY STUDIES/FILMS REVIEWED Last Impressions Chest X-Ray 05/11/17 6018 Signed Impressions: Service Date/Time: Thursday, May 11, 2017 17:28 - CONCLUSION: 1. Minimal right lung base atelectasis. Damián Bozorgmanesh, MD Abdomen/Pelvis CT 05/11/17 0000 Signed Impressions: Service Date/Time: Thursday, May 11, 2017 17:43 - CONCLUSION: 1. Nonspecific, nonobstructive bowel gas pattern which may represent gastroenteritis and/or ileus. 2. Anasarca. 3. Small bilateral pleural effusions right greater than left. 4. Mild motion artifact degrading the images. Justo Simon MD Assessment and Plan Assessment and Plan IMPRESSION Possible C difficile colitis, seems early and mild - has not had BM today so far Low grade temps Known RA RECOMMENDATION PO Flagyl Stop other Abx Add Lactinex Try to avoid other systemic Abx Monitor progress I will follow along with you Thank you for this consultation Itzel Kendrick MD May 12, 2017 14:17
[2017-05-12] MEDS ORDERED: VANCOMYCIN INJ 750 MG in SODIUM CHLOR 0.9% 250 ML INJ 250 ML IV SCH (18:00)
[2017-05-12] MEDS: metroNIDAZOLE 500 MG TAB PO SCH ×2 (18:05→23:20)
[2017-05-12] MEDS: LACTOBACILLUS ACIDOPHILUS TAB PO SCH (18:05)
[2017-05-12] MEDS: SODIUM CHLOR 0.45% 1000 ML INJ 1,000 ML IV SCH (18:08)
[2017-05-12] MEDS: ENOXAPARIN SODIUM 40 MG/0.4 ML SYRINGE SQ SCH (22:34)
[2017-05-13] VITALS: BP 100/56; PULSE 84; RESP 20; TEMP 98.3; O2SAT 97
[2017-05-13 04:00] VITALS: BP 101/52; PULSE 70; RESP 18; TEMP 98.9; O2SAT 95
[2017-05-13] MEDS: LEVOTHYROXINE SODIUM 25 MCG TAB PO SCH (06:17)
[2017-05-13] MEDS: METOPROLOL TARTRATE 25 MG TAB PO SCH ×3 (06:18→23:54)
[2017-05-13] MEDS: metroNIDAZOLE 500 MG TAB PO SCH ×4 (06:18→23:52)
[2017-05-13] MEDS: SODIUM CHLOR 0.45% 1000 ML INJ 1,000 ML IV SCH (06:23)
[2017-05-13 08:00] VITALS: BP 106/56; PULSE 81; RESP 17; TEMP 98.8; O2SAT 100
[2017-05-13] MEDS: SODIUM CHLORIDE 0.9% FLUSH 10 ML FLUSH IV FLUSH SCH ×2 (09:00→23:53)
[2017-05-13] MEDS: LACTOBACILLUS ACIDOPHILUS TAB PO SCH ×3 (09:11→17:09)
[2017-05-13] MEDS: FAMOTIDINE 20 MG TAB PO SCH ×2 (09:11→23:53)
[2017-05-13] MEDS: PANTOPRAZOLE SOD 20 MG DELAYED RELEASE TAB PO SCH (09:11)
[2017-05-13] MEDS: FOLIC ACID 1 MG TAB PO SCH (09:11)
--- NOTE | 2017-05-13 11:27 | HHI.IDPN ---
Subjective Subjective Remarks Patient is a 76-year-old female, presented to the hospital for evaluation of palpitations. She apparently has been having some diarrhea for the last 2 days. She has had 5 bouts of diarrhea per day. This usually some stool mixed with some liquid. There was no blood or mucus. She denies any significant abdominal pain. No nausea or vomiting she was getting weaker. There's been no fever or chills. She could not remember the last time she was given any antibiotic for any kind of infection. On presentation she had some low-grade temps. Her WBC is normal. He has not had any bowel movement today. Stool for C. difficile came back positive. Patient currently is on Cipro IV, and also on IV Flagyl, and oral vancomycin. CT of the abdomen and pelvis did not show any bowel wall thickening. There is some nonobstructive bowel gas pattern which may represent gastroenteritis and or ileus. Infectious disease consultation has been requested to evaluate the patient. Notes reviewed Temps ok Stools soft No abdominal pain 2 BC now growing VRE Antibiotics Current Medications Flagyl po Medications (Trade) Dose Ordered Sig/Baljinder Route Start Time Stop Time Status Last Admin (Pepcid) 20 mg BID PO 05/11/17 21:00 05/13/17 09:11 (Synthroid) 25 mcg DAILY@0600 PO 05/12/17 06:00 05/13/17 06:17 Sodium Chloride 1,000 ml @ 75 mls/hr [id number] IV 05/11/17 19:30 05/13/17 06:23 (NS Flush) 2 ml UNSCH PRN IV FLUSH 05/11/17 19:15 (NS Flush) 2 ml BID IV FLUSH 05/11/17 21:00 05/13/17 09:00 (Tylenol) 650 mg Q4H PRN PO 05/11/17 19:15 05/12/17 23:20 (Lovenox Inj) 40 mg Q24H SQ 05/11/17 20:00 05/12/17 22:34 (Narcan Inj) 0.4 mg UNSCH PRN IV PUSH 05/11/17 19:15 (Pill Splitter) 1 ea UNSCH PRN OTHER 05/11/17 19:30 (Morphine Inj) 2 mg Q3H PRN IV PUSH 05/11/17 19:45 Miscellaneous Information SPECIFIC LAB TO BE DRAWN:[facility]... ONCE ONCE .XX 05/13/17 17:45 05/13/17 17:46 (Lopressor) 12.5 mg Q8HR PO 05/12/17 14:00 05/13/17 06:18 (Folate) 1 mg DAILY PO 05/12/17 10:45 05/13/17 09:11 (Protonix) 20 mg DAILY PO 05/12/17 10:45 05/13/17 09:11 (Flagyl) 500 mg Q6HR PO 05/12/17 18:00 05/26/17 17:59 05/13/17 06:18 (Lactinex) 1 tab TID PO 05/12/17 18:00 05/13/17 09:11 Lines PIV Past Medical History Rheumatoid Arthritis A. fib Hypertension Past Surgical History Bilateral Cataract Surgery Hysterectomy Right Shoulder Surgery Left Ankle Surgery Allergies: Coded Allergies: Sulfa (Sulfonamide Antibiotics) (Verified Allergy, Severe, RASH, 04/11/17) cephalexin (Verified Allergy, Severe, RASH, 04/11/17) sulfamethoxazole (Verified Allergy, Severe, RASH, 04/11/17) trimethoprim (Verified Allergy, Severe, RASH, 04/11/17) codeine (Verified Adverse Reaction, Severe, NAUSEA, 04/11/17) Objective . Vital Signs Date Time Temp Pulse Resp B/P (MAP) Pulse Ox O2 Delivery O2 Flow Rate FiO2 05/13/17 08:00 98.8 81 17 106/56 (73) 100 05/13/17 04:00 98.9 70 18 101/52 (68) 95 05/13/17 00:31 18 05/13/17 00:00 98.3 84 20 100/56 (71) 97 05/12/17 20:00 98.3 79 18 89/44 (59) 98 85/44 (58) 05/12/17 16:00 98.0 100 18 99/53 (68) 100 05/12/17 12:00 77 05/12/17 11:56 98.6 108 18 95/52 (66) 99 . Laboratory Tests Test 05/11/17 16:30 05/12/17 07:15 White Blood Count 6.5 TH/MM3 4.7 TH/MM3 Red Blood Count 2.91 MIL/MM3 2.34 MIL/MM3 Hemoglobin 9.2 GM/DL 7.6 GM/DL Hematocrit 28.5 % 22.6 % Mean Corpuscular Volume 97.9 FL 96.7 FL Mean Corpuscular Hemoglobin 31.4 PG 32.4 PG Mean Corpuscular Hemoglobin Concent 32.1 % 33.4 % Red Cell Distribution Width 19.6 % 19.2 % Platelet Count 167 TH/MM3 134 TH/MM3 Mean Platelet Volume 8.3 FL 9.0 FL Neutrophils (%) (Auto) 87.6 % 75.6 % Lymphocytes (%) (Auto) 4.6 % 11.7 % Monocytes (%) (Auto) 7.4 % 10.3 % Eosinophils (%) (Auto) 0.1 % 1.8 % Basophils (%) (Auto) 0.3 % 0.6 % Neutrophils # (Auto) 5.7 TH/MM3 3.6 TH/MM3 Lymphocytes # (Auto) 0.3 TH/MM3 0.6 TH/MM3 Monocytes # (Auto) 0.5 TH/MM3 0.5 TH/MM3 Eosinophils # (Auto) 0.0 TH/MM3 0.1 TH/MM3 Basophils # (Auto) 0.0 TH/MM3 0.0 TH/MM3 CBC Comment DIFF FINAL DIFF FINAL Differential Comment Laboratory Tests Test 05/11/17 16:30 05/11/17 18:35 05/11/17 19:20 05/11/17 22:24 Blood Urea Nitrogen 19 MG/DL Creatinine 0.96 MG/DL Random Glucose 101 MG/DL Total Protein 6.6 GM/DL Albumin 3.0 GM/DL Calcium Level 8.3 MG/DL Alkaline Phosphatase 56 U/L Aspartate Amino Transf (AST/SGOT) 19 U/L Alanine Aminotransferase (ALT/SGPT) 18 U/L Total Bilirubin 0.5 MG/DL Sodium Level 140 MEQ/L Potassium Level 4.1 MEQ/L Chloride Level 109 MEQ/L Carbon Dioxide Level 19.2 MEQ/L Anion Gap 12 MEQ/L Estimat Glomerular Filtration Rate 56 ML/MIN Lactic Acid Level 5.0 mmol/L 2.7 mmol/L 3.4 mmol/L 1.6 mmol/L Lipase 63 U/L Test 05/12/17 07:15 Blood Urea Nitrogen 15 MG/DL Creatinine 0.73 MG/DL Random Glucose 76 MG/DL Total Protein 5.1 GM/DL Calcium Level 7.4 MG/DL Sodium Level 139 MEQ/L Potassium Level 3.6 MEQ/L Chloride Level 109 MEQ/L Carbon Dioxide Level 19.6 MEQ/L Anion Gap 10 MEQ/L Estimat Glomerular Filtration Rate 77 ML/MIN Protein Corrected Calcium 8.5 MG/DL Microbiology Date/Time Source Procedure Growth Status 05/11/17 17:20 Blood Peripheral Aerobic Blood Culture - Preliminary Enterococcus Faecium Vre Resulted 05/11/17 17:20 Blood Peripheral Anaerobic Blood Culture - Preliminary NO GROWTH IN 2 DAYS Resulted 05/11/17 17:15 Blood Peripheral Aerobic Blood Culture - Preliminary NO GROWTH IN 2 DAYS Resulted 05/11/17 17:15 Anaerobic Blood Culture - Preliminary Enterococcus Faecium Vre Resulted Imaging Last 72 hours Impressions Chest X-Ray 05/11/17 1715 Signed Impressions: Service Date/Time: Thursday, May 11, 2017 17:28 - CONCLUSION: 1. Minimal right lung base atelectasis. Damián Jarrett MD Chest X-Ray 05/11/17 0000 Signed Impressions: Service Date/Time: Thursday, May 11, 2017 16:04 - CONCLUSION: The lungs are clear. Jay West MD Abdomen/Pelvis CT 05/11/17 0000 Signed Impressions: Service Date/Time: Thursday, May 11, 2017 17:43 - CONCLUSION: 1. Nonspecific, nonobstructive bowel gas pattern which may represent gastroenteritis and/or ileus. 2. Anasarca. 3. Small bilateral pleural effusions right greater than left. 4. Mild motion artifact degrading the images. Justo Simon MD Physical Exam GENERAL: Patient is a thin, well-developed female, awake and alert, NAD SKIN: Warm and dry. No generalized rash, no ecchymoses and no evidence of embolic lesions. HEAD: Atraumatic. Normocephalic. No temporal wasting, or tenderness. EYES: [place] conjunctiva. No petechia or hemorrhage. Pupils equal, round and reactive to light. Extraocular movements full and intact. No scleral icterus. No injection or drainage. EARS, NOSE AND THROAT: Nose without bleeding or purulent nasal discharge. No sinus tenderness. Mucous membranes pink and moist. No oral lesions noted. No exudate. No oral thrush. NECK: Trachea midline. Supple and not tender, no meningeal signs CARDIOVASCULAR: Regular rate and rhythm. No murmurs, rubs or gallops heard RESPIRATORY: Clear to auscultation. Breath sounds equal bilaterally. No rales , wheezing or rhonchi ABDOMEN: Soft, non-tender, nondistended. Bowel sounds present and normoactive. No guarding. No rebound. No organomegaly. EXTREMITIES: No clubbing, cyanosis, or edema. Has deformities both hands. No calf tenderness. Well perfused and warm. NEUROLOGICAL: Awake and alert. Cranial nerves grossly intact. Motor grossly within normal limits. PSYCHIATRIC: Normal affect, calm and cooperative. LINE: No evidence of infection Assessment & Plan Remarks IMPRESSION Diarrhea, consistency better - C diff negative 2 BC with VRE Low grade temps, better Known RA RECOMMENDATION Continue PO Flagyl for now Repeat BC Echo IV Cubicin to cover VRE Monitor progress EXplained plan to patient D/W Itzel Green MD May 13, 2017 11:27
[2017-05-13 12:23] VITALS: BP 102/52; PULSE 75; RESP 18; TEMP 98.3; O2SAT 99
[2017-05-13 12:37] LABS: AUTOMATED NEUTROPHIL # 6.3 TH/MM3 (1.8-7.7); BASOPHIL % 0.5 % (0.0-2.0); EOSINOPHIL # 0.2 TH/MM3 (0-0.4); EOSINOPHIL % 2.5 % (0.0-4.0); HEMATOCRIT 27.5 % (35.0-46.0); HEMOGLOBIN 9.2 GM/DL (11.6-15.3); LYMPHOCYTE # 0.5 TH/MM3 (1.0-4.8); MEAN CELL VOLUME 97.8 FL (80.0-100.0); MEAN CORPUSCULAR HEMOGLOBIN 32.7 PG (27.0-34.0); MEAN CORPUSCULAR HGB CONC 33.5 % (32.0-36.0); MEAN PLATELET VOLUME 9.5 FL (7.0-11.0); MONO % 4.7 % (0.0-8.0); MONOCYTE # 0.3 TH/MM3 (0-0.9); NEUT % 85.3 % (16.0-70.0); PLATELET COUNT 157 TH/MM3 (150-450); RED BLOOD COUNT 2.81 MIL/MM3 (4.00-5.30); WHITE BLOOD COUNT 7.4 TH/MM3 (4.0-11.0)
[2017-05-13] MEDS ORDERED: DAPTOmycin INJ 300 MG in SODIUM CHLORIDE 0.9% INJ 100 ML IV SCH (13:00)
--- NOTE | 2017-05-13 13:35 | EKG ---
Date Performed: 05/11/2017 Time Performed: 16:21:43 PTAGE: 76 years EKG: SINUS TACHYCARDIA LOW QRS VOLTAGE IN EXTREMITY LEADS SEPTAL MYOCARDIAL INFARCTION INFERIOR MYOCARDIAL INFARCTION Compared to previous tracing patient is no longer in atrial fibrillation. The i ntraventricular conduction delay is no longer present ABNORMAL ECG PREVIOUS TRACING : 04/11/2017 21.47 DOCTOR: Clem Lozano Interpretating Date/Time 05/13/2017 13:34:12
--- NOTE | 2017-05-13 14:58 | HHI.PR ---
Subjective Remarks Nursing reports that the patient had a formed stool last night per night nurse. Patient herself has no recollection of any bowel movement in the last 12 hours. No issues with tachycardia today. Patient denies any abdominal pain. Pt is on immunosuppressants on at home for RA. Objective Vital Signs Date Time Temp Pulse Resp B/P (MAP) Pulse Ox O2 Delivery O2 Flow Rate FiO2 05/13/17 12:23 98.3 75 18 102/52 (69) 99 05/13/17 08:00 98.8 81 17 106/56 (73) 100 05/13/17 04:00 98.9 70 18 101/52 (68) 95 05/13/17 00:31 18 05/13/17 00:00 98.3 84 20 100/56 (71) 97 05/12/17 20:00 98.3 79 18 89/44 (59) 98 85/44 (58) 05/12/17 16:00 98.0 100 18 99/53 (68) 100 I/O 05/12/17 05/12/17 05/12/17 05/13/17 05/13/17 05/13/17 07:00 15:00 23:00 07:00 15:00 23:00 Intake Total 100 ml 1850 ml 1657 ml Output Total 0 ml 800 ml Balance 100 ml 1850 ml 857 ml Intake Oral 100 ml IV Total 1850 ml 1657 ml Output Urine Total 0 ml 800 ml # Voids 4 5 # Bowel Movements 0 4 2 Result Diagram: 05/13/17 1125 05/12/17 0715 Objective Remarks Elderly white female, thin, awake, no acute distress Lung sounds are good and clear bilaterally Abdomen is soft, nondistended, nontender, bowel sounds are positive A/P Assessment and Plan Sepsis component resolved - no recurrence of any fever (original one was 100.5 about 36 hours ago) VRE Bacteremia - New problem, infectious disease starting Cubicin, greatly appreciate recommendations Diarrhea - Clinically improving, on metronidazole per infectious disease. C. difficile PCR is negative at this time. - Abdominal pain resolved Chronic anemia - Yesterday's low H&H was most likely a lab error as today's is normal Atrial fibrillation - stable rate - Continue Lopressor 3 times a day. We'll start Lovenox today given stable H&H for anticoagulation RA - on immunosuppressive therapy at home, will hold home meds for now given acute illness lovenox when stable Nahum Valadez MD May 13, 2017 14:58
[2017-05-13 17:01] VITALS: BP 105/53; PULSE 76; RESP 18; TEMP 98.5; O2SAT 100
[2017-05-13] MEDS ORDERED: PHARMACY ORDERED LAB ONE (17:45)
[2017-05-13 20:30] VITALS: BP 100/50; PULSE 80; RESP 17; TEMP 97.2; O2SAT 100
[2017-05-13] MEDS: ENOXAPARIN SODIUM 40 MG/0.4 ML SYRINGE SQ SCH (23:53)
[2017-05-14] VITALS (7 sets, daily range): BP systolic 96–108; BP diastolic 51–61; PULSE 72–78; RESP 16–20; TEMP 97.7–98.3; O2SAT 99–100
[2017-05-14] MEDS: SODIUM CHLOR 0.45% 1000 ML INJ 1,000 ML IV SCH ×3 (00:11→08:48)
[2017-05-14] MEDS: METOPROLOL TARTRATE 25 MG TAB PO SCH ×3 (06:11→21:20)
[2017-05-14] MEDS: LEVOTHYROXINE SODIUM 25 MCG TAB PO SCH (06:11)
[2017-05-14] MEDS: metroNIDAZOLE 500 MG TAB PO SCH ×3 (06:11→17:55)
--- NOTE | 2017-05-14 08:42 | HHI.PR ---
Subjective Remarks In bed feels tired. No fever or chills. No n/v/d/c. Denies chest pain or sob. Objective Vitals Vital Signs Date Time Temp Pulse Resp B/P (MAP) Pulse Ox O2 Delivery O2 Flow Rate FiO2 05/14/17 07:53 98.3 76 16 104/51 (68) 99 05/14/17 04:30 97.7 73 17 107/52 (70) 100 05/14/17 01:22 98.1 76 20 98/51 (67) 99 05/13/17 20:30 97.2 80 17 100/50 (67) 100 05/13/17 17:01 98.5 76 18 105/53 (70) 100 05/13/17 12:23 98.3 75 18 102/52 (69) 99 I/O 05/13/17 05/13/17 05/13/17 05/14/17 05/14/17 05/14/17 07:00 15:00 23:00 07:00 15:00 23:00 Intake Total 1657 ml 1000 ml 495 ml Output Total 800 ml Balance 857 ml 1000 ml 495 ml Intake Oral 120 ml IV Total 1657 ml 1000 ml 375 ml Output Urine Total 800 ml # Voids 5 1 3 # Bowel Movements 2 1 1 Result Diagram: 05/13/17 1125 05/12/17 0715 Imaging Last Impressions Chest X-Ray 05/11/17 1715 Signed Impressions: Service Date/Time: Thursday, May 11, 2017 17:28 - CONCLUSION: 1. Minimal right lung base atelectasis. Damián Jarrett MD Abdomen/Pelvis CT 05/11/17 0000 Signed Impressions: Service Date/Time: Thursday, May 11, 2017 17:43 - CONCLUSION: 1. Nonspecific, nonobstructive bowel gas pattern which may represent gastroenteritis and/or ileus. 2. Anasarca. 3. Small bilateral pleural effusions right greater than left. 4. Mild motion artifact degrading the images. Justo Simon MD Objective Remarks GENERAL: Elderly female, thin, awake, no acute distress CARDIOVASCULAR: Regular rate and rhythm. RESPIRATORY: No accessory muscle use. Clear to auscultation. Breath sounds equal bilaterally. GASTROINTESTINAL: Abdomen soft, non-tender, nondistended. Hepatic and splenic margins not palpable. MUSCULOSKELETAL: Extremities without clubbing, cyanosis, or edema. No obvious deformities. NEUROLOGICAL: Awake and alert. No obvious cranial nerve deficits. Motor grossly within normal limits. Five out of 5 muscle strength in the arms and legs. Normal speech. A/P Problem List: (1) Gastroenteritis ICD Code: K52.9 - Noninfective gastroenteritis and colitis, unspecified (2) Lactic acidosis ICD Code: E87.2 - Acidosis (3) Dehydration ICD Code: E86.0 - Dehydration (4) C. difficile colitis ICD Code: A04.72 - Enterocolitis due to Clostridium difficile, not specified as recurrent (5) A-fib ICD Code: I48.91 - Unspecified atrial fibrillation Assessment and Plan Sepsis component resolved - no recurrence of any fever (original one was 100.5 about 36 hours ago) VRE Bacteremia - New problem, infectious disease starting Cubicin, greatly appreciate recommendations Microbiology called in Cubicin resistant, DC Cubicin. Will start linezolid. Consult ID for final recommendations at DC. Repeat blood cx are NTD Diarrhea - Clinically improving, on metronidazole per infectious disease. C. difficile PCR is negative at this time. - Abdominal pain resolved Chronic anemia - Yesterday's low H&H was most likely a lab error as today's is normal Atrial fibrillation - stable rate - Continue Lopressor 3 times a day. We'll start Lovenox today given stable H&H for anticoagulation RA - on immunosuppressive therapy at home, will hold home meds for now given acute illness DVT ppx: Lovenox when stable DC plan : Poss DC 1-2 days if blood cx neg , patient on linezolid , will await ID recommendations for DC patient with VRI bacteremia. Anayeli Roth MD May 14, 2017 08:42
[2017-05-14] MEDS: PANTOPRAZOLE SOD 20 MG DELAYED RELEASE TAB PO SCH (08:53)
[2017-05-14] MEDS: FOLIC ACID 1 MG TAB PO SCH (08:53)
[2017-05-14] MEDS: SODIUM CHLORIDE 0.9% FLUSH 10 ML FLUSH IV FLUSH SCH ×2 (08:53→21:00)
[2017-05-14] MEDS: FAMOTIDINE 20 MG TAB PO SCH ×2 (08:53→21:20)
[2017-05-14] MEDS: LACTOBACILLUS ACIDOPHILUS TAB PO SCH ×3 (08:53→17:55)
[2017-05-14] MEDS ORDERED: LINEZOLID 600 MG TAB PO SCH (12:15)
--- NOTE | 2017-05-14 13:28 | HHI.IDPN ---
Subjective Subjective Remarks Patient is a 76-year-old female, presented to the hospital for evaluation of palpitations. She apparently has been having some diarrhea for the last 2 days. She has had 5 bouts of diarrhea per day. This usually some stool mixed with some liquid. There was no blood or mucus. She denies any significant abdominal pain. No nausea or vomiting she was getting weaker. There's been no fever or chills. She could not remember the last time she was given any antibiotic for any kind of infection. On presentation she had some low-grade temps. Her WBC is normal. He has not had any bowel movement today. Stool for C. difficile came back positive. Patient currently is on Cipro IV, and also on IV Flagyl, and oral vancomycin. CT of the abdomen and pelvis did not show any bowel wall thickening. There is some nonobstructive bowel gas pattern which may represent gastroenteritis and or ileus. Infectious disease consultation has been requested to evaluate the patient. Notes reviewed Temps ok Stools better Spoke with micro - VRE R to Cubicin They are repeating the test No abdominal pain 2 BC now growing VRE Antibiotics Current Medications Flagyl po Zyvox Medications (Trade) Dose Ordered Sig/Baljinder Route Start Time Stop Time Status Last Admin (Pepcid) 20 mg BID PO 05/11/17 21:00 05/14/17 08:53 (Synthroid) 25 mcg DAILY@0600 PO 05/12/17 06:00 05/14/17 06:11 Sodium Chloride 1,000 ml @ 75 mls/hr [id number] IV 05/11/17 19:30 05/14/17 08:48 (NS Flush) 2 ml UNSCH PRN IV FLUSH 05/11/17 19:15 (NS Flush) 2 ml BID IV FLUSH 05/11/17 21:00 05/13/17 23:53 (Tylenol) 650 mg Q4H PRN PO 05/11/17 19:15 05/12/17 23:20 (Lovenox Inj) 40 mg Q24H SQ 05/11/17 20:00 05/13/17 23:53 (Narcan Inj) 0.4 mg UNSCH PRN IV PUSH 05/11/17 19:15 (Pill Splitter) 1 ea UNSCH PRN OTHER 05/11/17 19:30 (Morphine Inj) 2 mg Q3H PRN IV PUSH 05/11/17 19:45 (Lopressor) 12.5 mg Q8HR PO 05/12/17 14:00 05/14/17 06:11 (Folate) 1 mg DAILY PO 05/12/17 10:45 05/14/17 08:53 (Protonix) 20 mg DAILY PO 05/12/17 10:45 05/14/17 08:53 (Flagyl) 500 mg Q6HR PO 05/12/17 18:00 05/26/17 17:59 05/14/17 06:11 (Lactinex) 1 tab TID PO 05/12/17 18:00 05/14/17 08:53 Linezolid 300 ml @ 300 mls/hr Q12H IV 05/14/17 14:00 Lines PIV Past Medical History Rheumatoid Arthritis A. fib Hypertension Past Surgical History Bilateral Cataract Surgery Hysterectomy Right Shoulder Surgery Left Ankle Surgery Allergies: Coded Allergies: Sulfa (Sulfonamide Antibiotics) (Verified Allergy, Severe, RASH, 04/11/17) cephalexin (Verified Allergy, Severe, RASH, 04/11/17) sulfamethoxazole (Verified Allergy, Severe, RASH, 04/11/17) trimethoprim (Verified Allergy, Severe, RASH, 04/11/17) codeine (Verified Adverse Reaction, Severe, NAUSEA, 04/11/17) Objective . Vital Signs Date Time Temp Pulse Resp B/P (MAP) Pulse Ox O2 Delivery O2 Flow Rate FiO2 05/14/17 11:51 98.1 76 16 96/61 (73) 100 05/14/17 07:53 98.3 76 16 104/51 (68) 99 05/14/17 04:30 97.7 73 17 107/52 (70) 100 05/14/17 01:22 98.1 76 20 98/51 (67) 99 05/13/17 20:30 97.2 80 17 100/50 (67) 100 05/13/17 17:01 98.5 76 18 105/53 (70) 100 05/14/17 05/14/17 05/15/17 15:00 23:00 07:00 # Voids 2 # Bowel Movements 2 . Laboratory Tests Test 05/13/17 11:25 White Blood Count 7.4 TH/MM3 Red Blood Count 2.81 MIL/MM3 Hemoglobin 9.2 GM/DL Hematocrit 27.5 % Mean Corpuscular Volume 97.8 FL Mean Corpuscular Hemoglobin 32.7 PG Mean Corpuscular Hemoglobin Concent 33.5 % Red Cell Distribution Width 19.0 % Platelet Count 157 TH/MM3 Mean Platelet Volume 9.5 FL Neutrophils (%) (Auto) 85.3 % Lymphocytes (%) (Auto) 7.0 % Monocytes (%) (Auto) 4.7 % Eosinophils (%) (Auto) 2.5 % Basophils (%) (Auto) 0.5 % Neutrophils # (Auto) 6.3 TH/MM3 Lymphocytes # (Auto) 0.5 TH/MM3 Monocytes # (Auto) 0.3 TH/MM3 Eosinophils # (Auto) 0.2 TH/MM3 Basophils # (Auto) 0.0 TH/MM3 CBC Comment DIFF FINAL Differential Comment Laboratory Tests Test 05/13/17 19:50 Total Creatine Kinase 76 U/L Microbiology Date/Time Source Procedure Growth Status 05/14/17 06:00 Blood Peripheral Aerobic Blood Culture Pending Received 05/14/17 06:00 Blood Peripheral Anaerobic Blood Culture Pending Received 05/13/17 13:34 Blood Peripheral Aerobic Blood Culture - Preliminary NO GROWTH IN 1 DAY Resulted 05/13/17 13:34 Blood Peripheral Anaerobic Blood Culture - Preliminary NO GROWTH IN 1 DAY Resulted 05/13/17 13:30 Blood Peripheral Aerobic Blood Culture - Preliminary NO GROWTH IN 1 DAY Resulted 05/13/17 13:30 Blood Peripheral Anaerobic Blood Culture - Preliminary NO GROWTH IN 1 DAY Resulted 05/11/17 17:20 Blood Peripheral Aerobic Blood Culture - Preliminary Enterococcus Faecium Vre Resulted 05/11/17 17:20 Blood Peripheral Anaerobic Blood Culture - Preliminary NO GROWTH IN 3 DAYS Resulted 05/11/17 17:15 Blood Peripheral Aerobic Blood Culture - Preliminary NO GROWTH IN 3 DAYS Resulted 05/11/17 17:15 Anaerobic Blood Culture - Final Enterococcus Faecium Vre Resulted Imaging Last 72 hours Impressions Chest X-Ray 05/11/17 1715 Signed Impressions: Service Date/Time: Thursday, May 11, 2017 17:28 - CONCLUSION: 1. Minimal right lung base atelectasis. Damián Jarrett MD Chest X-Ray 05/11/17 0000 Signed Impressions: Service Date/Time: Thursday, May 11, 2017 16:04 - CONCLUSION: The lungs are clear. Jay West MD Abdomen/Pelvis CT 05/11/17 0000 Signed Impressions: Service Date/Time: Thursday, May 11, 2017 17:43 - CONCLUSION: 1. Nonspecific, nonobstructive bowel gas pattern which may represent gastroenteritis and/or ileus. 2. Anasarca. 3. Small bilateral pleural effusions right greater than left. 4. Mild motion artifact degrading the images. Justo Simon MD Physical Exam GENERAL: awake and alert, NAD SKIN: Warm and dry. No generalized rash, no ecchymoses and no evidence of embolic lesions. HEAD: Atraumatic. Normocephalic. No temporal wasting, or tenderness. EYES: [place] conjunctiva. No petechia or hemorrhage. Pupils equal, round and reactive to light. Extraocular movements full and intact. No scleral icterus. EARS, NOSE AND THROAT: Nose without bleeding or purulent nasal discharge. No sinus tenderness. Mucous membranes pink and moist. No oral lesions noted. NECK: Trachea midline. Supple and not tender, no meningeal signs CARDIOVASCULAR: Regular rate and rhythm. No murmurs, rubs or gallops heard RESPIRATORY: Clear to auscultation. Breath sounds equal bilaterally. No rales , wheezing or rhonchi ABDOMEN: Soft, non-tender, nondistended. Bowel sounds present and normoactive. No guarding. No rebound. No organomegaly. EXTREMITIES: No clubbing, cyanosis, or edema. Has deformities both hands. No calf tenderness. Well perfused and warm. NEUROLOGICAL: Awake and alert. Cranial nerves grossly intact. Motor grossly within normal limits. PSYCHIATRIC: Normal affect, calm and cooperative. LINE: No evidence of infection Assessment & Plan Remarks IMPRESSION Diarrhea, consistency better - C diff negative 2 BC with VRE Low grade temps, better Known RA RECOMMENDATION Continue PO Flagyl for now Repeat BC Echo Agree with changing to Zyvox - follow CBC Await repeat testing Monitor progress Itzel Kendrick MD May 14, 2017 13:28
[2017-05-14] MEDS: LINEZOLID 600 MG PREMIX 300 ML IV SCH (14:41)
[2017-05-14] MEDS: ENOXAPARIN SODIUM 40 MG/0.4 ML SYRINGE SQ SCH (21:24)
[2017-05-15] VITALS (8 sets, daily range): BP systolic 106–133; BP diastolic 55–58; PULSE 76–105; RESP 17–19; TEMP 97.5–98.3; O2SAT 97–100
[2017-05-15] MEDS: metroNIDAZOLE 500 MG TAB PO SCH ×5 (01:42→23:54)
[2017-05-15] MEDS: LINEZOLID 600 MG PREMIX 300 ML IV SCH ×2 (01:42→13:23)
[2017-05-15] MEDS: METOPROLOL TARTRATE 25 MG TAB PO SCH ×3 (05:11→21:20)
[2017-05-15] MEDS: LEVOTHYROXINE SODIUM 25 MCG TAB PO SCH (05:11)
[2017-05-15 06:59] LABS: AUTOMATED NEUTROPHIL # 2.3 TH/MM3 (1.8-7.7); EOSINOPHIL # 0.3 TH/MM3 (0-0.4); EOSINOPHIL % 7.1 % (0.0-4.0); HEMATOCRIT 24.7 % (35.0-46.0); HEMOGLOBIN 8.2 GM/DL (11.6-15.3); LYMPH % 24.5 % (9.0-44.0); MEAN CELL VOLUME 95.8 FL (80.0-100.0); MEAN CORPUSCULAR HEMOGLOBIN 31.7 PG (27.0-34.0); MEAN CORPUSCULAR HGB CONC 33.1 % (32.0-36.0); MEAN PLATELET VOLUME 8.8 FL (7.0-11.0); MONO % 9.8 % (0.0-8.0); MONOCYTE # 0.4 TH/MM3 (0-0.9); NEUT % 57.6 % (16.0-70.0); PLATELET COUNT 150 TH/MM3 (150-450); RED BLOOD COUNT 2.58 MIL/MM3 (4.00-5.30); RED CELL DISTRIBUTION WIDTH 19.4 % (11.6-17.2); WHITE BLOOD COUNT 4.1 TH/MM3 (4.0-11.0)
[2017-05-15 07:29] LABS: BICARBONATE 20.1 MEQ/L (21.0-32.0); CALCIUM 7.1 MG/DL (8.5-10.1); CREATININE 0.77 MG/DL (0.50-1.00)
[2017-05-15 08:02] LABS: CALCIUM-PROTEIN CORRECTED 8.2 MG/DL (8.5-10.1)
[2017-05-15] MEDS: SODIUM CHLORIDE 0.9% FLUSH 10 ML FLUSH IV FLUSH SCH ×2 (09:00→21:21)
[2017-05-15] MEDS: PANTOPRAZOLE SOD 20 MG DELAYED RELEASE TAB PO SCH (09:06)
[2017-05-15] MEDS: FAMOTIDINE 20 MG TAB PO SCH ×2 (09:06→21:20)
[2017-05-15] MEDS: FOLIC ACID 1 MG TAB PO SCH (09:06)
[2017-05-15] MEDS: LACTOBACILLUS ACIDOPHILUS TAB PO SCH ×3 (09:06→17:43)
--- NOTE | 2017-05-15 13:37 | HHI.PR ---
Subjective Remarks Patient in bed, she is not eating much. Has decreased appetite. Potassium, calcium is low and replaced. As no fever or chills. No chest pain or shortness of breath no nausea or vomiting no diarrhea or constipation. Denies cough Objective Vitals Vital Signs Date Time Temp Pulse Resp B/P (MAP) Pulse Ox O2 Delivery O2 Flow Rate FiO2 05/15/17 12:43 97.9 76 17 106/58 (74) 100 05/15/17 08:27 97.5 81 17 133/56 (81) 97 05/15/17 04:00 98.3 81 17 116/58 (77) 99 05/15/17 00:00 98.2 77 18 116/55 (75) 100 05/14/17 20:00 98.3 78 18 108/53 (71) 99 05/14/17 17:05 98.0 78 16 107/53 (71) 99 I/O 05/14/17 05/14/17 05/14/17 05/15/17 05/15/17 05/15/17 07:00 15:00 23:00 07:00 15:00 23:00 Intake Total 495 ml 240 ml 240 ml Balance 495 ml 240 ml 240 ml Intake Oral 120 ml 240 ml 240 ml IV Total 375 ml # Voids 3 2 3 2 # Bowel Movements 1 2 1 0 Result Diagram: 05/15/17 0545 05/15/17 0545 Imaging Last Impressions Chest X-Ray 05/11/17 1715 Signed Impressions: Service Date/Time: Thursday, May 11, 2017 17:28 - CONCLUSION: 1. Minimal right lung base atelectasis. Damián Jarrett MD Abdomen/Pelvis CT 05/11/17 0000 Signed Impressions: Service Date/Time: Thursday, May 11, 2017 17:43 - CONCLUSION: 1. Nonspecific, nonobstructive bowel gas pattern which may represent gastroenteritis and/or ileus. 2. Anasarca. 3. Small bilateral pleural effusions right greater than left. 4. Mild motion artifact degrading the images. Justo Simon MD Objective Remarks GENERAL: Elderly female, thin, awake, no acute distress CARDIOVASCULAR: Regular rate and rhythm. RESPIRATORY: No accessory muscle use. Clear to auscultation. Breath sounds equal bilaterally. GASTROINTESTINAL: Abdomen soft, non-tender, nondistended. Hepatic and splenic margins not palpable. MUSCULOSKELETAL: Extremities without clubbing, cyanosis, or edema. No obvious deformities. NEUROLOGICAL: Awake and alert. No obvious cranial nerve deficits. Motor grossly within normal limits. Five out of 5 muscle strength in the arms and legs. Normal speech. A/P Problem List: (1) Gastroenteritis ICD Code: K52.9 - Noninfective gastroenteritis and colitis, unspecified (2) Lactic acidosis ICD Code: E87.2 - Acidosis (3) Dehydration ICD Code: E86.0 - Dehydration (4) C. difficile colitis ICD Code: A04.72 - Enterocolitis due to Clostridium difficile, not specified as recurrent (5) A-fib ICD Code: I48.91 - Unspecified atrial fibrillation Assessment and Plan Sepsis component resolved - no recurrence of any fever (original one was 100.5 about 36 hours ago) VRE Bacteremia - New problem, infectious disease starting Cubicin, greatly appreciate recommendations Microbiology called in Cubicin resistant, [place] Cubicin. Will start linezolid. Consult ID for final recommendations at [place]. Repeat blood cx are NTD Diarrhea - Clinically improving, on metronidazole per infectious disease. C. difficile PCR is negative at this time. - Abdominal pain resolved Chronic anemia - Yesterday's low H&H was most likely a lab error as today's is normal Atrial fibrillation - stable rate - Continue Lopressor 3 times a day. We'll start Lovenox today given stable H&H for anticoagulation RA - on immunosuppressive therapy at home, will hold home meds for now given acute illness DVT ppx: Lovenox when stable DC plan : Poss DC tomorrow , patient on linezolid , will await ID final recommendations for DC, patient with VRI bacteremia and daptomycin resistant, needs linezolid at [place]. Replace electrolytes and follow up BMP and mag tomorrow Anayeli Roth MD May 15, 2017 13:37
[2017-05-15] MEDS ORDERED: POTASSIUM BICARBONATE 25 MEQ EFFERVESCENT TAB PO ONE ×2 (13:45→15:30)
[2017-05-15] MEDS ORDERED: MAGNESIUM OXIDE 400 MG TAB PO ONE (13:45)
[2017-05-15] MEDS ORDERED: CALCIUM GLUCONATE INJ 1 GM in SODIUM CHLORIDE 0.9% INJ 100 ML IV ONE (13:45)
--- NOTE | 2017-05-15 15:49 | HHI.IDPN ---
Subjective Subjective Remarks Patient is a 76-year-old female, presented to the hospital for evaluation of palpitations. She apparently has been having some diarrhea for the last 2 days. She has had 5 bouts of diarrhea per day. This usually some stool mixed with some liquid. There was no blood or mucus. She denies any significant abdominal pain. No nausea or vomiting she was getting weaker. There's been no fever or chills. She could not remember the last time she was given any antibiotic for any kind of infection. On presentation she had some low-grade temps. Her WBC is normal. He has not had any bowel movement today. Stool for C. difficile came back positive. Patient currently is on Cipro IV, and also on IV Flagyl, and oral vancomycin. CT of the abdomen and pelvis did not show any bowel wall thickening. There is some nonobstructive bowel gas pattern which may represent gastroenteritis and or ileus. Infectious disease consultation has been requested to evaluate the patient. Notes reviewed Temps ok Stools better No new complaints Cubicin still susceptible but increasing RAQUEL No abdominal pain 2 BC with VRE Repeat BC negative Echo pending Antibiotics Current Medications Flagyl po Cubicin Medications (Trade) Dose Ordered Sig/Baljinder Route Start Time Stop Time Status Last Admin (Pepcid) 20 mg BID PO 05/11/17 21:00 05/15/17 09:06 (Synthroid) 25 mcg DAILY@0600 PO 05/12/17 06:00 05/15/17 05:11 Sodium Chloride 1,000 ml @ 75 mls/hr [id number] IV 05/11/17 19:30 05/14/17 08:48 (NS Flush) 2 ml UNSCH PRN IV FLUSH 05/11/17 19:15 (NS Flush) 2 ml BID IV FLUSH 05/11/17 21:00 05/15/17 09:00 (Tylenol) 650 mg Q4H PRN PO 05/11/17 19:15 05/12/17 23:20 (Lovenox Inj) 40 mg Q24H SQ 05/11/17 20:00 05/14/17 21:24 (Narcan Inj) 0.4 mg UNSCH PRN IV PUSH 05/11/17 19:15 (Pill Splitter) 1 ea UNSCH PRN OTHER 05/11/17 19:30 (Morphine Inj) 2 mg Q3H PRN IV PUSH 05/11/17 19:45 (Lopressor) 12.5 mg Q8HR PO 05/12/17 14:00 05/15/17 13:18 (Folate) 1 mg DAILY PO 05/12/17 10:45 05/15/17 09:06 (Protonix) 20 mg DAILY PO 05/12/17 10:45 05/15/17 09:06 (Flagyl) 500 mg Q6HR PO 05/12/17 18:00 05/26/17 17:59 05/15/17 13:18 (Lactinex) 1 tab TID PO 05/12/17 18:00 05/15/17 13:18 (Effer-K Eff) 50 meq DAILY PO 05/16/17 09:00 (Mag-Ox) 400 mg DAILY@1100 PO 05/16/17 11:00 05/19/17 10:59 Daptomycin 300 mg/ Sodium Chloride 100 ml @ 200 mls/hr Q24H IV 05/15/17 16:00 ox Medications (Trade) Dose Ordered Sig/Baljinder Route Start Time Stop Time Status Last Admin (Pepcid) 20 mg BID PO 05/11/17 21:00 05/14/17 08:53 (Synthroid) 25 mcg DAILY@0600 PO 05/12/17 06:00 05/14/17 06:11 Sodium Chloride 1,000 ml @ 75 mls/hr [id number] IV 05/11/17 19:30 05/14/17 08:48 (NS Flush) 2 ml UNSCH PRN IV FLUSH 05/11/17 19:15 (NS Flush) 2 ml BID IV FLUSH 05/11/17 21:00 05/13/17 23:53 (Tylenol) 650 mg Q4H PRN PO 05/11/17 19:15 05/12/17 23:20 (Lovenox Inj) 40 mg Q24H SQ 05/11/17 20:00 05/13/17 23:53 (Narcan Inj) 0.4 mg UNSCH PRN IV PUSH 05/11/17 19:15 (Pill Splitter) 1 ea UNSCH PRN OTHER 05/11/17 19:30 (Morphine Inj) 2 mg Q3H PRN IV PUSH 05/11/17 19:45 (Lopressor) 12.5 mg Q8HR PO 05/12/17 14:00 05/14/17 06:11 (Folate) 1 mg DAILY PO 05/12/17 10:45 05/14/17 08:53 (Protonix) 20 mg DAILY PO 05/12/17 10:45 05/14/17 08:53 (Flagyl) 500 mg Q6HR PO 05/12/17 18:00 05/26/17 17:59 05/14/17 06:11 (Lactinex) 1 tab TID PO 05/12/17 18:00 05/14/17 08:53 Linezolid 300 ml @ 300 mls/hr Q12H IV 05/14/17 14:00 Lines PIV Past Medical History Rheumatoid Arthritis A. fib Hypertension Past Surgical History Bilateral Cataract Surgery Hysterectomy Right Shoulder Surgery Left Ankle Surgery Allergies: Coded Allergies: Sulfa (Sulfonamide Antibiotics) (Verified Allergy, Severe, RASH, 04/11/17) cephalexin (Verified Allergy, Severe, RASH, 04/11/17) sulfamethoxazole (Verified Allergy, Severe, RASH, 04/11/17) trimethoprim (Verified Allergy, Severe, RASH, 04/11/17) codeine (Verified Adverse Reaction, Severe, NAUSEA, 04/11/17) Objective . Vital Signs Date Time Temp Pulse Resp B/P (MAP) Pulse Ox O2 Delivery O2 Flow Rate FiO2 05/15/17 12:43 97.9 76 17 106/58 (74) 100 05/15/17 08:27 97.5 81 17 133/56 (81) 97 05/15/17 04:00 98.3 81 17 116/58 (77) 99 05/15/17 00:00 98.2 77 18 116/55 (75) 100 05/14/17 20:00 98.3 78 18 108/53 (71) 99 05/14/17 17:05 98.0 78 16 107/53 (71) 99 05/15/17 05/15/17 05/16/17 15:00 23:00 07:00 Intake Total 360 ml Balance 360 ml Intake Oral 360 ml # Voids 2 # Bowel Movements 0 . Laboratory Tests Test 05/15/17 05:45 White Blood Count 4.1 TH/MM3 Red Blood Count 2.58 MIL/MM3 Hemoglobin 8.2 GM/DL Hematocrit 24.7 % Mean Corpuscular Volume 95.8 FL Mean Corpuscular Hemoglobin 31.7 PG Mean Corpuscular Hemoglobin Concent 33.1 % Red Cell Distribution Width 19.4 % Platelet Count 150 TH/MM3 Mean Platelet Volume 8.8 FL Neutrophils (%) (Auto) 57.6 % Lymphocytes (%) (Auto) 24.5 % Monocytes (%) (Auto) 9.8 % Eosinophils (%) (Auto) 7.1 % Basophils (%) (Auto) 1.0 % Neutrophils # (Auto) 2.3 TH/MM3 Lymphocytes # (Auto) 1.0 TH/MM3 Monocytes # (Auto) 0.4 TH/MM3 Eosinophils # (Auto) 0.3 TH/MM3 Basophils # (Auto) 0.0 TH/MM3 CBC Comment DIFF FINAL Differential Comment Laboratory Tests Test 05/13/17 19:50 05/15/17 05:45 Total Creatine Kinase 76 U/L 33 U/L Blood Urea Nitrogen 9 MG/DL Creatinine 0.77 MG/DL Random Glucose 108 MG/DL Total Protein 5.0 GM/DL Calcium Level 7.1 MG/DL Sodium Level 143 MEQ/L Potassium Level 2.5 MEQ/L Chloride Level 114 MEQ/L Carbon Dioxide Level 20.1 MEQ/L Anion Gap 9 MEQ/L Estimat Glomerular Filtration Rate 73 ML/MIN Protein Corrected Calcium 8.2 MG/DL Microbiology Date/Time Source Procedure Growth Status 05/14/17 06:00 Blood Peripheral Aerobic Blood Culture - Preliminary NO GROWTH IN 1 DAY Resulted 05/14/17 06:00 Blood Peripheral Anaerobic Blood Culture - Preliminary NO GROWTH IN 1 DAY Resulted 05/13/17 13:34 Blood Peripheral Aerobic Blood Culture - Preliminary NO GROWTH IN 2 DAYS Resulted 05/13/17 13:34 Blood Peripheral Anaerobic Blood Culture - Preliminary NO GROWTH IN 2 DAYS Resulted 05/13/17 13:30 Blood Peripheral Aerobic Blood Culture - Preliminary NO GROWTH IN 2 DAYS Resulted 05/13/17 13:30 Blood Peripheral Anaerobic Blood Culture - Preliminary NO GROWTH IN 2 DAYS Resulted Imaging Last 72 hours Impressions Chest X-Ray 05/11/17 1715 Signed Impressions: Service Date/Time: Thursday, May 11, 2017 17:28 - CONCLUSION: 1. Minimal right lung base atelectasis. Damián Jarrett MD Chest X-Ray 05/11/17 0000 Signed Impressions: Service Date/Time: Thursday, May 11, 2017 16:04 - CONCLUSION: The lungs are clear. Jay West MD Abdomen/Pelvis CT 05/11/17 0000 Signed Impressions: Service Date/Time: Thursday, May 11, 2017 17:43 - CONCLUSION: 1. Nonspecific, nonobstructive bowel gas pattern which may represent gastroenteritis and/or ileus. 2. Anasarca. 3. Small bilateral pleural effusions right greater than left. 4. Mild motion artifact degrading the images. Justo Simon MD Physical Exam GENERAL: awake and alert, NAD SKIN: Warm and dry. No generalized rash, no ecchymoses and no evidence of embolic lesions. HEAD: Atraumatic. Normocephalic. No temporal wasting, or tenderness. EYES: [place] conjunctiva. No petechia or hemorrhage. Pupils equal, round and reactive to light. Extraocular movements full and intact. No scleral icterus. EARS, NOSE AND THROAT: Nose without bleeding or purulent nasal discharge. No sinus tenderness. Mucous membranes pink and moist. No oral lesions noted. NECK: Trachea midline. Supple and not tender, no meningeal signs CARDIOVASCULAR: Regular rate and rhythm. No murmurs, rubs or gallops heard RESPIRATORY: Clear to auscultation. Breath sounds equal bilaterally. No rales , wheezing or rhonchi ABDOMEN: Soft, non-tender, nondistended. Bowel sounds present and normoactive. No guarding. No rebound. No organomegaly. EXTREMITIES: No clubbing, cyanosis, or edema. Has deformities both hands. No calf tenderness. Well perfused and warm. NEUROLOGICAL: Awake and alert. Cranial nerves grossly intact. Motor grossly within normal limits. PSYCHIATRIC: Normal affect, calm and cooperative. LINE: No evidence of infection Assessment & Plan Remarks IMPRESSION Diarrhea, consistency better - C diff negative 2 BC with VRE Low grade temps, better Known RA RECOMMENDATION Continue PO Flagyl for now Repeat BC Await echo Restart Cubicin If repeat BC negative and echo ok, will give Cubicin until 05/27 Monitor progress Explained plan to patient Itzel Kendrick MD May 15, 2017 15:49
[2017-05-15] MEDS: SODIUM CHLOR 0.45% 1000 ML INJ 1,000 ML IV SCH (16:50)
--- NOTE | 2017-05-15 17:06 | ECHRPT ---
Indication: endocarditis CONCLUSIONS Normal left ventricular size. Wall thickness is normal. Wall thickness is measured at the upper limits of normal. The left ventricular systolic function is mildly reduced with an estimated ejection fraction in the range of 45- 50%. Moderate to severe mid to distal septal hypokinesis. Structurally normal mitral valve. Trace to mild mitral valve regurgitation. Trileaflet aortic valve. Mild leaflet calcification. Mild aortic valve regurgitation. Structurally normal tricuspid valve. There is mild tricuspid valve regurgitation. The estimated pulmonary arterial pressure is 39 mmHg. BP: / HR: Rhythm: MEASUREMENTS (Male / Female) Normal Values Technical Quality:Good 2D ECHO LV Diastolic Diameter PLAX 3.0 cm 4.2 - 5.9 / 3.9 - 5.3 cm LV Systolic Diameter PLAX 2.7 cm IVS Diastolic Thickness 1.5 cm 0.6 - 1.0 / 0.6 - 0.9 cm LVPW Diastolic Thickness 1.0 cm 0.6 - 1.0 / 0.6 - 0.9 cm LV Relative Wall Thickness 0.8 RV Internal Dim ED PLAX 1.4 cm M-MODE Aortic Root Diameter MM 3.0 cm LA Systolic Diameter MM 2.8 cm LA Ao Ratio MM 0.9 AV Cusp Separation MM 1.8 cm DOPPLER AI Peak Velocity 356.0 cm/s AI Peak Gradient 50.7 mmHg AI Pressure Half Time 533.0 ms TR Peak Velocity 271.0 cm/s TR Peak Gradient 29.4 mmHg Right Atrial Pressure 10.0 mmHg Pulmonary Artery Systolic Pressu 39.4 mmHg Right Ventricular Systolic Press 39.4 mmHg FINDINGS LEFT VENTRICLE Normal left ventricular size. Wall thickness is normal. Wall thickness is measured at the upper limits of normal. The left ventricular systolic function is mildly reduced with an estimated ejection fraction in the range of 45- 50%. Moderate to severe mid to distal septal hypokinesis. RIGHT VENTRICLE Normal right ventricular size and systolic function. LEFT ATRIUM The left atrial size is normal. RIGHT ATRIUM The right atrial size is normal. ATRIAL SEPTUM Normal atrial septal thickness without atrial level shunting by limited color doppler interrogation. AORTA The aortic root and proximal ascending aorta are normal in size on limited imaging. MITRAL VALVE Structurally normal mitral valve. Trace to mild mitral valve regurgitation. AORTIC VALVE Trileaflet aortic valve. Mild leaflet calcification. Mild aortic valve regurgitation. TRICUSPID VALVE Structurally normal tricuspid valve. There is mild tricuspid valve regurgitation. The estimated pulmonary arterial pressure is 39 mmHg. PULMONARY VALVE No pulmonary valve regurgitation or stenosis. VESSELS The inferior vena cava is normal in size. PERICARDIUM No pericardial effusion. Zoran Beckwith MD (Electronically Signed) Final Date:15 May 2017 17:05
[2017-05-15] MEDS: DAPTOmycin INJ 300 MG in SODIUM CHLORIDE 0.9% INJ 100 ML IV SCH (17:43)
[2017-05-15] MEDS ORDERED: ONDANSETRON HCL 4 MG/2 ML VIAL IV PUSH PRN (17:45)
[2017-05-15] MEDS: ENOXAPARIN SODIUM 40 MG/0.4 ML SYRINGE SQ SCH (21:20)
[2017-05-16] VITALS (9 sets, daily range): BP systolic 101–117; BP diastolic 52–65; PULSE 75–116; RESP 17–18; TEMP 97.6–99.1; O2SAT 98–99
[2017-05-16] MEDS: METOPROLOL TARTRATE 25 MG TAB PO SCH ×3 (05:38→23:55)
[2017-05-16] MEDS: LEVOTHYROXINE SODIUM 25 MCG TAB PO SCH (05:38)
[2017-05-16] MEDS: metroNIDAZOLE 500 MG TAB PO SCH ×4 (05:38→23:55)
[2017-05-16] MEDS: SODIUM CHLOR 0.45% 1000 ML INJ 1,000 ML IV SCH ×2 (05:39→19:30)
[2017-05-16] MEDS: POTASSIUM BICARBONATE 25 MEQ EFFERVESCENT TAB PO SCH (09:00)
[2017-05-16] MEDS: SODIUM CHLORIDE 0.9% FLUSH 10 ML FLUSH IV FLUSH SCH ×2 (09:00→21:00)
[2017-05-16] MEDS: FOLIC ACID 1 MG TAB PO SCH (09:16)
[2017-05-16] MEDS: PANTOPRAZOLE SOD 20 MG DELAYED RELEASE TAB PO SCH (09:16)
[2017-05-16] MEDS: LACTOBACILLUS ACIDOPHILUS TAB PO SCH ×3 (09:16→18:39)
[2017-05-16] MEDS: FAMOTIDINE 20 MG TAB PO SCH ×2 (09:16→23:55)
--- NOTE | 2017-05-16 10:38 | HHI.PR ---
Subjective Remarks The patient is in bed she appears in not acute distress. Denies having any shortness of breath or chest pain no fever or chills overnight. Objective Vitals Vital Signs Date Time Temp Pulse Resp B/P (MAP) Pulse Ox O2 Delivery O2 Flow Rate FiO2 05/16/17 07:43 99.1 114 17 115/65 (82) 98 05/16/17 04:00 98.5 89 18 111/55 (73) 98 05/16/17 00:09 75 05/16/17 00:00 97.6 81 18 101/55 (70) 99 05/15/17 20:01 85 05/15/17 20:00 98.0 83 19 120/56 (77) 100 05/15/17 19:44 105 05/15/17 16:20 98.1 90 17 119/57 (77) 100 05/15/17 12:43 97.9 76 17 106/58 (74) 100 I/O 05/15/17 05/15/17 05/15/17 05/16/17 05/16/17 05/16/17 07:00 15:00 23:00 07:00 15:00 23:00 Intake Total 360 ml 1000 ml Output Total 3 ml Balance 360 ml 997 ml Intake Oral 360 ml IV Total 1000 ml Output Urine Total 3 ml # Voids 2 6 # Bowel Movements 0 5 2 Result Diagram: 05/15/17 0545 05/15/17 0545 Imaging Last Impressions Chest X-Ray 05/11/17 1715 Signed Impressions: Service Date/Time: Thursday, May 11, 2017 17:28 - CONCLUSION: 1. Minimal right lung base atelectasis. Damián Jarrett MD Abdomen/Pelvis CT 05/11/17 0000 Signed Impressions: Service Date/Time: Thursday, May 11, 2017 17:43 - CONCLUSION: 1. Nonspecific, nonobstructive bowel gas pattern which may represent gastroenteritis and/or ileus. 2. Anasarca. 3. Small bilateral pleural effusions right greater than left. 4. Mild motion artifact degrading the images. Justo Simon MD Objective Remarks GENERAL: Elderly female, thin, awake, no acute distress CARDIOVASCULAR: Regular rate and rhythm. RESPIRATORY: No accessory muscle use. Clear to auscultation. Breath sounds equal bilaterally. GASTROINTESTINAL: Abdomen soft, non-tender, nondistended. Hepatic and splenic margins not palpable. MUSCULOSKELETAL: Extremities without clubbing, cyanosis, or edema. No obvious deformities. NEUROLOGICAL: Awake and alert. No obvious cranial nerve deficits. Motor grossly within normal limits. Five out of 5 muscle strength in the arms and legs. Normal speech. A/P Problem List: (1) Gastroenteritis ICD Code: K52.9 - Noninfective gastroenteritis and colitis, unspecified (2) Lactic acidosis ICD Code: E87.2 - Acidosis (3) Dehydration ICD Code: E86.0 - Dehydration (4) C. difficile colitis ICD Code: A04.72 - Enterocolitis due to Clostridium difficile, not specified as recurrent (5) A-fib ICD Code: I48.91 - Unspecified atrial fibrillation Assessment and Plan Sepsis component resolved - no recurrence of any fever (original one was 100.5 about 36 hours ago) VRE Bacteremia - New problem, infectious disease starting Cubicin, greatly appreciate recommendations Microbiology called in Cubicin resistant, [place] Cubicin. Will start linezolid. Consult ID for final recommendations at [place]. Repeat blood cx are NTD If repeat BC negative and echo ok, will give Cubicin until 05/27 per ID recommendations ECHO reviewed with mild reduced EF 45%, no vegetations Diarrhea - Clinically improving, on metronidazole per infectious disease. C. difficile PCR is negative at this time. - Abdominal pain resolved Chronic anemia - Yesterday's low H&H was most likely a lab error as today's is normal Atrial fibrillation - stable rate - Continue Lopressor 3 times a day. We'll start Lovenox today given stable H&H for anticoagulation RA - on immunosuppressive therapy at home, will hold home meds for now given acute illness DVT ppx: Lovenox when stable DC plan : Plan to discharge to [facility] on obese seen IV. Discussed with Dr. Lopez , infectious disease doctor and with the case management for arrangements. Pending approval of obese seen at [facility]. Anayeli Roth MD May 16, 2017 10:38
[2017-05-16] MEDS ORDERED: DRON2.5 PO (10:43)
--- NOTE | 2017-05-16 10:46 | HHI.DS ---
Discharge Summary Admission Date May 11, 2017 at 18:35 Discharge Date: May 17, 2017 Admitting Diagnosis sepsis, (1) Gastroenteritis ICD Code: K52.9 - Noninfective gastroenteritis and colitis, unspecified (2) Lactic acidosis ICD Code: E87.2 - Acidosis (3) Dehydration ICD Code: E86.0 - Dehydration (4) C. difficile colitis ICD Code: A04.72 - Enterocolitis due to Clostridium difficile, not specified as recurrent (5) A-fib ICD Code: I48.91 - Unspecified atrial fibrillation Procedures none Brief History - From Admission This is a 76-year-old female with a PMH of Rheumatoid Arthritis, A. fib, HTN and C. difficile Colitis who presented to the ER with complaints of generalized weakness, abdominal pain and diarrhea starting this morning. No associated nausea or vomiting. Denies fever or chills. No alleviating/exacerbating factors. Recent admit 04/11-04/18/17, found to have Pancytopenia s/p eval by Heme/Onc and C Diff + w/ improvement in labs. D/c'd to SNF on Vanc PO. Digoxin discontinued secondary to supratherapeutic levels, s/p eval by Dr. Acosta. Returns now w/ generalized weakness and recurrent diarrhea. On arrival , BP 155/103, HR 112, O2 sat 96% on RA. Afebrile. CBC at baseline. Chemistry unremarkable except for GFR 56, previously 120 on 04/16/17. Lactic Acid 5.0. CXR with minimal right lung base atelectasis. CT Abd/Pelvis w/ nonobstructive bowel gas pattern may represent gastroenteritis and or ileus. Small bilateral pleural effusions. S/p Blood Cultures, Vanc/Zosyn in ER. CBC/BMP: 05/15/17 0545 05/15/17 0545 Significant Findings Laboratory Tests Test 05/13/17 11:25 05/13/17 19:50 05/15/17 05:45 Red Blood Count 2.81 MIL/MM3 (4.00-5.30) 2.58 MIL/MM3 (4.00-5.30) Hemoglobin 9.2 GM/DL (11.6-15.3) 8.2 GM/DL (11.6-15.3) Hematocrit 27.5 % (35.0-46.0) 24.7 % (35.0-46.0) Red Cell Distribution Width 19.0 % (11.6-17.2) 19.4 % (11.6-17.2) Neutrophils (%) (Auto) 85.3 % (16.0-70.0) Lymphocytes (%) (Auto) 7.0 % (9.0-44.0) Lymphocytes # (Auto) 0.5 TH/MM3 (1.0-4.8) Monocytes (%) (Auto) 9.8 % (0.0-8.0) Eosinophils (%) (Auto) 7.1 % (0.0-4.0) Random Glucose 108 MG/DL (74-106) Total Protein 5.0 GM/DL (6.4-8.2) Calcium Level 7.1 MG/DL (8.5-10.1) Potassium Level 2.5 MEQ/L (3.5-5.1) Chloride Level 114 MEQ/L (98-107) Carbon Dioxide Level 20.1 MEQ/L (21.0-32.0) Estimat Glomerular Filtration Rate 73 ML/MIN (>89) Protein Corrected Calcium 8.2 MG/DL (8.5-10.1) Imaging Last Impressions Chest X-Ray 05/16/17 0000 Signed Impressions: Service Date/Time: Tuesday, May 16, 2017 15:32 - CONCLUSION: 1. Right-sided PICC line has its tip at the junction of the superior vena cava right atrium. 2. Mild pulmonary vascular congestion bilaterally. Ezequiel Ohara MD Abdomen/Pelvis CT 05/11/17 0000 Signed Impressions: Service Date/Time: Thursday, May 11, 2017 17:43 - CONCLUSION: 1. Nonspecific, nonobstructive bowel gas pattern which may represent gastroenteritis and/or ileus. 2. Anasarca. 3. Small bilateral pleural effusions right greater than left. 4. Mild motion artifact degrading the images. Justo Simon MD PE at Discharge GENERAL: Elderly female, thin, awake, no acute distress CARDIOVASCULAR: Regular rate and rhythm. RESPIRATORY: No accessory muscle use. Clear to auscultation. Breath sounds equal bilaterally. GASTROINTESTINAL: Abdomen soft, non-tender, nondistended. Hepatic and splenic margins not palpable. MUSCULOSKELETAL: Extremities without clubbing, cyanosis, or edema. No obvious deformities. NEUROLOGICAL: Awake and alert. No obvious cranial nerve deficits. Motor grossly within normal limits. Five out of 5 muscle strength in the arms and legs. Normal speech. Hospital Course Sepsis component resolved - no recurrence of any fever VRE Bacteremia - New problem, infectious disease starting Cubicin, greatly appreciate recommendations Microbiology called in Cubicin resistant, [place] Cubicin. Will start linezolid. Consult ID for final recommendations at [facility]. Daptomycin- Cubicin 300 mg IV daily Stop Treatment: May 27, 2017 PICC Line placed Weekly Labs: Creatinine, Serum CK Levels ECHO reviewed with mild reduced EF 45%, no vegetations Diarrhea - Clinically improving, on metronidazole per infectious disease. C. difficile PCR is negative at this time. - Abdominal pain resolved Chronic anemia - Yesterday's low H&H was most likely a lab error as today's is normal Atrial fibrillation - stable rate - Continue Lopressor 3 times a day. We'll start Lovenox today given stable H&H for anticoagulation RA - on immunosuppressive therapy at home, will hold home meds for now given acute illness DVT ppx: Lovenox when stable DC plan : Discharge to SNF on IV abx. Daptomycin- Cubicin 300 mg IV daily Stop Treatment: May 27, 2017 PICC Line placed Weekly Labs: Creatinine, Serum CK Levels Pt Condition on Discharge: Stable Discharge Disposition: Discharge to SNF Discharge Time: > 30 minutes Discharge Instructions DIET: Follow Instructions for: Heart Healthy Diet Activities you can perform: Regular-No Restrictions Follow up Referrals: Infectious Disease - 1 Week with Jaimie Parikh MD PCP Follow-up - 2-3 Days New Medications: Daptomycin Inj (Daptomycin Inj) 500 Mg Vial 300 MG IV EVERY OTHER DAY for Infection for 10 Days, BAG 0 Refills last dose 05/27/17 Continued Medications: Aspirin DR (Aspirin DR) 81 Mg Tabdr 81 MG PO DAILY for prevent stroke, #30 TAB Dronabinol (Marinol) 2.5 Mg Cap 2.5 MG PO HS for increase appetite, #30 CAP (This prescription has been renewed) Famotidine (Famotidine) 20 Mg Tab 20 MG PO BID, #60 TAB 0 Refills Folic Acid (Folic Acid) 1 Mg Tablet 1 MG PO DAILY for Build Red Blood Cells, #30 TAB Leflunomide (Leflunomide) 20 Mg Tab 20 MG PO DAILY, TAB Levothyroxine (Levothyroxine) 25 Mcg Tab 25 MCG PO DAILY@0600 for Thyroid, #30 TAB Metoprolol Tartrate (Metoprolol Tartrate) 25 Mg Tab 12.5 MG PO Q12HR for Regulate Heart Beat, #60 TAB Omeprazole (Omeprazole) 20 Mg Tab 20 MG PO DAILY, #30 TAB 0 Refills [Megestrol Liq] () 400 MG/10 ML SUSP 400 MG PO Q12H for appetite stimulant for 30 Days Anayeli Roth MD May 16, 2017 10:46
--- NOTE | 2017-05-16 13:30 | HHI.IDPN ---
Subjective Subjective Remarks Patient is a 76-year-old female, presented to the hospital for evaluation of palpitations. She apparently has been having some diarrhea for the last 2 days. She has had 5 bouts of diarrhea per day. This usually some stool mixed with some liquid. There was no blood or mucus. She denies any significant abdominal pain. No nausea or vomiting she was getting weaker. There's been no fever or chills. She could not remember the last time she was given any antibiotic for any kind of infection. On presentation she had some low-grade temps. Her WBC is normal. He has not had any bowel movement today. Stool for C. difficile came back positive. Patient currently is on Cipro IV, and also on IV Flagyl, and oral vancomycin. CT of the abdomen and pelvis did not show any bowel wall thickening. There is some nonobstructive bowel gas pattern which may represent gastroenteritis and or ileus. Infectious disease consultation has been requested to evaluate the patient. Notes reviewed Temps ok D/W CM Looking at [facility] for D/C No new (+) BC No new complaints Cubicin still susceptible but increasing RAQUEL Antibiotics Current Medications Flagyl po Cubicin Medications (Trade) Dose Ordered Sig/Baljinder Route Start Time Stop Time Status Last Admin (Pepcid) 20 mg BID PO 05/11/17 21:00 05/16/17 09:16 (Synthroid) 25 mcg DAILY@0600 PO 05/12/17 06:00 05/16/17 05:38 Sodium Chloride 1,000 ml @ 75 mls/hr [id number] IV 05/11/17 19:30 05/16/17 05:39 (NS Flush) 2 ml UNSCH PRN IV FLUSH 05/11/17 19:15 (NS Flush) 2 ml BID IV FLUSH 05/11/17 21:00 05/15/17 21:21 (Tylenol) 650 mg Q4H PRN PO 05/11/17 19:15 05/12/17 23:20 (Lovenox Inj) 40 mg Q24H SQ 05/11/17 20:00 05/15/17 21:20 (Narcan Inj) 0.4 mg UNSCH PRN IV PUSH 05/11/17 19:15 (Pill Splitter) 1 ea UNSCH PRN OTHER 05/11/17 19:30 (Morphine Inj) 2 mg Q3H PRN IV PUSH 05/11/17 19:45 (Lopressor) 12.5 mg Q8HR PO 05/12/17 14:00 05/16/17 05:38 (Folate) 1 mg DAILY PO 05/12/17 10:45 05/16/17 09:16 (Protonix) 20 mg DAILY PO 05/12/17 10:45 05/16/17 09:16 (Flagyl) 500 mg Q6HR PO 05/12/17 18:00 05/26/17 17:59 05/16/17 05:38 (Lactinex) 1 tab TID PO 05/12/17 18:00 05/16/17 09:16 (Effer-K Eff) 50 meq DAILY PO 05/16/17 09:00 (Mag-Ox) 400 mg DAILY@1100 PO 05/16/17 11:00 05/19/17 10:59 Daptomycin 300 mg/ Sodium Chloride 100 ml @ 200 mls/hr Q24H IV 05/15/17 16:00 05/15/17 17:43 (Zofran Inj) 4 mg Q6H PRN IV PUSH 05/15/17 17:45 Lines PIV Past Medical History Rheumatoid Arthritis A. fib Hypertension Past Surgical History Bilateral Cataract Surgery Hysterectomy Right Shoulder Surgery Left Ankle Surgery Allergies: Coded Allergies: Sulfa (Sulfonamide Antibiotics) (Verified Allergy, Severe, RASH, 04/11/17) cephalexin (Verified Allergy, Severe, RASH, 04/11/17) sulfamethoxazole (Verified Allergy, Severe, RASH, 04/11/17) trimethoprim (Verified Allergy, Severe, RASH, 04/11/17) codeine (Verified Adverse Reaction, Severe, NAUSEA, 04/11/17) Objective . Vital Signs Date Time Temp Pulse Resp B/P (MAP) Pulse Ox O2 Delivery O2 Flow Rate FiO2 05/16/17 11:35 98.4 108 18 106/57 (73) 98 05/16/17 07:43 99.1 114 17 115/65 (82) 98 05/16/17 04:00 98.5 89 18 111/55 (73) 98 05/16/17 00:09 75 05/16/17 00:00 97.6 81 18 101/55 (70) 99 05/15/17 20:01 85 05/15/17 20:00 98.0 83 19 120/56 (77) 100 05/15/17 19:44 105 05/15/17 16:20 98.1 90 17 119/57 (77) 100 . Laboratory Tests Test 05/15/17 05:45 White Blood Count 4.1 TH/MM3 Red Blood Count 2.58 MIL/MM3 Hemoglobin 8.2 GM/DL Hematocrit 24.7 % Mean Corpuscular Volume 95.8 FL Mean Corpuscular Hemoglobin 31.7 PG Mean Corpuscular Hemoglobin Concent 33.1 % Red Cell Distribution Width 19.4 % Platelet Count 150 TH/MM3 Mean Platelet Volume 8.8 FL Neutrophils (%) (Auto) 57.6 % Lymphocytes (%) (Auto) 24.5 % Monocytes (%) (Auto) 9.8 % Eosinophils (%) (Auto) 7.1 % Basophils (%) (Auto) 1.0 % Neutrophils # (Auto) 2.3 TH/MM3 Lymphocytes # (Auto) 1.0 TH/MM3 Monocytes # (Auto) 0.4 TH/MM3 Eosinophils # (Auto) 0.3 TH/MM3 Basophils # (Auto) 0.0 TH/MM3 CBC Comment DIFF FINAL Differential Comment Laboratory Tests Test 05/15/17 05:45 Blood Urea Nitrogen 9 MG/DL Creatinine 0.77 MG/DL Random Glucose 108 MG/DL Total Protein 5.0 GM/DL Calcium Level 7.1 MG/DL Sodium Level 143 MEQ/L Potassium Level 2.5 MEQ/L Chloride Level 114 MEQ/L Carbon Dioxide Level 20.1 MEQ/L Anion Gap 9 MEQ/L Estimat Glomerular Filtration Rate 73 ML/MIN Protein Corrected Calcium 8.2 MG/DL Total Creatine Kinase 33 U/L Microbiology Date/Time Source Procedure Growth Status 05/14/17 06:00 Blood Peripheral Aerobic Blood Culture - Preliminary NO GROWTH IN 2 DAYS Resulted 05/14/17 06:00 Blood Peripheral Anaerobic Blood Culture - Preliminary NO GROWTH IN 2 DAYS Resulted 05/13/17 13:34 Blood Peripheral Aerobic Blood Culture - Preliminary NO GROWTH IN 3 DAYS Resulted 05/13/17 13:34 Blood Peripheral Anaerobic Blood Culture - Preliminary NO GROWTH IN 3 DAYS Resulted 05/13/17 13:30 Blood Peripheral Aerobic Blood Culture - Preliminary NO GROWTH IN 3 DAYS Resulted 05/13/17 13:30 Blood Peripheral Anaerobic Blood Culture - Preliminary NO GROWTH IN 3 DAYS Resulted Imaging Last 72 hours Impressions Chest X-Ray 05/11/17 1715 Signed Impressions: Service Date/Time: Thursday, May 11, 2017 17:28 - CONCLUSION: 1. Minimal right lung base atelectasis. Damián Jarrett MD Chest X-Ray 05/11/17 0000 Signed Impressions: Service Date/Time: Thursday, May 11, 2017 16:04 - CONCLUSION: The lungs are clear. Jay West MD Abdomen/Pelvis CT 05/11/17 0000 Signed Impressions: Service Date/Time: Thursday, May 11, 2017 17:43 - CONCLUSION: 1. Nonspecific, nonobstructive bowel gas pattern which may represent gastroenteritis and/or ileus. 2. Anasarca. 3. Small bilateral pleural effusions right greater than left. 4. Mild motion artifact degrading the images. Justo Simon MD Physical Exam GENERAL: awake and alert, NAD SKIN: Warm and dry. No generalized rash, no ecchymoses and no evidence of embolic lesions. HEAD: Atraumatic. Normocephalic. No temporal wasting, or tenderness. EYES: [place] conjunctiva. No petechia or hemorrhage. Pupils equal, round and reactive to light. Extraocular movements full and intact. No scleral icterus. EARS, NOSE AND THROAT: Nose without bleeding or purulent nasal discharge. No sinus tenderness. Mucous membranes pink and moist. No oral lesions noted. NECK: Trachea midline. Supple and not tender, no meningeal signs CARDIOVASCULAR: Regular rate and rhythm. No murmurs, rubs or gallops heard RESPIRATORY: Clear to auscultation. Breath sounds equal bilaterally. No rales , wheezing or rhonchi ABDOMEN: Soft, non-tender, nondistended. Bowel sounds present and normoactive. No guarding. No rebound. No organomegaly. EXTREMITIES: No clubbing, cyanosis, or edema. Has deformities both hands. No calf tenderness. Well perfused and warm. NEUROLOGICAL: Awake and alert. Cranial nerves grossly intact. Motor grossly within normal limits. PSYCHIATRIC: Normal affect, calm and cooperative. LINE: No evidence of infection Assessment & Plan Remarks IMPRESSION Diarrhea, consistency better - C diff negative 2 BC with VRE Low grade temps, better Known RA RECOMMENDATION Continue PO Flagyl for now, give 14 days Continue Cubicin, give till May 27 OK to arrange D/C D/W CM [facility],Itzel G MD May 16, 2017 13:30
--- NOTE | 2017-05-16 13:32 | HHI.FF ---
Infusion Therapy Location of Infusion Therapy: [facility] Infusion Therapy Order Patient Information Patient Weight 49 kg Diagnosis: Diagnosis VRE bacteremia Coded Allergies: Sulfa (Sulfonamide Antibiotics) (Verified Allergy, Severe, RASH, 04/11/17) cephalexin (Verified Allergy, Severe, RASH, 04/11/17) sulfamethoxazole (Verified Allergy, Severe, RASH, 04/11/17) trimethoprim (Verified Allergy, Severe, RASH, 04/11/17) codeine (Verified Adverse Reaction, Severe, NAUSEA, 04/11/17) Administer Medication Daptomycin Cubicin 300 mg IV daily Stop Treatment: May 27, 2017 Additional Information Venous access: PICC Line Additional Instructions [x] Peripheral flush and dressing changes per protocol [x] Implanted port and central liner installer: * Implanted port: 10 ml Normal Saline followed by 5 ml Heparin 100 units/ml Heparin flush after each use and monthly to maintain. [] May leave port accessed during therapy. [] May leave peripheral site accessed for duration of therapy. [x] If patient has SOB or respiratory distress, check oxygen saturation. If less than 90% or clinical signs of respiratory distress, administer oxygen at 2 L/min. via nasal cannula and notify physician. [x] Anaphylaxis/Reaction orders: * Stop infusion. * Keep IV line open with saline flush. * Notify physician. * Monitor vital signs every 15 minutes until symptoms resolve. * Check Oxygen saturation; Oxygen at 2 L/min. via nasal cannula if less than 90% or clinical signs of respiratory distress. * Administer diphenhydramine (Benadryl) 25 mg IV STAT, (unless patient has received as pre-med). May repeat once, if necessary. * Solu-Cortef 250 mg IVP over 30-60 seconds, use 100 mg vials for each dissolution. * Epinephrine (1mg/1 ml) 0.3 mg subcutaneously or IVP now with any signs of respiratory distress. * Check with physician for new additional pre-med orders if patient is re- challenged or re-treated. [x] May remove PICC line when treatment complete, after confirming with Physician. [x] If the patient is admitted to the hospital, the ED, or transferred via [facility] , complete transfer form including medication reconciliation order sheet. Laboratory Tests Weekly Labs: Creatinine, Serum CK Levels (labs May 22 - copy to wy) Itzel Kendrick MD May 16, 2017 13:32
--- NOTE | 2017-05-16 16:05 | RADRPT ---
EXAM DATE/TIME: 05/16/2017 15:32 [facility] COMPARISON: CHEST SINGLE AP, May 11, 2017, 17:28. INDICATIONS : Post PICC line placement. MEDICAL HISTORY : Cardiovascular disease. Gastroesophageal reflux disease. A Fib. SURGICAL HISTORY : Hysterectomy. ENCOUNTER: Initial ACUITY: 1 day PAIN SCORE: 0/10 LOCATION: Bilateral chest FINDINGS: A right-sided PICC line has its tip at the junction of the superior vena cava and right atrium. Mild pulmonary vascular congestion is likely. The heart is stable. Degenerative changes and scoliosis of t he thoracolumbar spine are noted. CONCLUSION: 1. Right-sided PICC line has its tip at the junction of the superior vena cava right atrium. 2. Mild pulmonary vascular congestion bilaterally. Ezequiel Ohara MD on May 16, 2017 at 16:01 Board Certified Radiologist. This report was verified electronically.
[2017-05-16] MEDS: DAPTOmycin INJ 300 MG in SODIUM CHLORIDE 0.9% INJ 100 ML IV SCH (18:38)
[2017-05-16] MEDS: MAGNESIUM OXIDE 400 MG TAB PO SCH (18:39)
[2017-05-16 22:00] LABS: BICARBONATE 22.6 MEQ/L (21.0-32.0); CALCIUM 7.6 MG/DL (8.5-10.1); CREATININE 0.59 MG/DL (0.50-1.00); MAGNESIUM 1.8 MG/DL (1.5-2.5)
[2017-05-16] MEDS: ENOXAPARIN SODIUM 40 MG/0.4 ML SYRINGE SQ SCH (23:55)
[2017-05-17] VITALS (8 sets, daily range): BP systolic 109–124; BP diastolic 56–63; PULSE 73–113; RESP 18; TEMP 97.8–98.6; O2SAT 99–100
[2017-05-17 04:37] LABS: AUTOMATED NEUTROPHIL # 1.1 TH/MM3 (1.8-7.7); BASOPHIL % 1.1 % (0.0-2.0); EOSINOPHIL # 0.3 TH/MM3 (0-0.4); EOSINOPHIL % 8.6 % (0.0-4.0); HEMOGLOBIN 7.9 GM/DL (11.6-15.3); LYMPH % 41.5 % (9.0-44.0); LYMPHOCYTE # 1.3 TH/MM3 (1.0-4.8); MEAN CELL VOLUME 94.9 FL (80.0-100.0); MEAN CORPUSCULAR HEMOGLOBIN 32.6 PG (27.0-34.0); MEAN CORPUSCULAR HGB CONC 34.4 % (32.0-36.0); MEAN PLATELET VOLUME 8.5 FL (7.0-11.0); MONO % 13.8 % (0.0-8.0); MONOCYTE # 0.4 TH/MM3 (0-0.9); PLATELET COUNT 146 TH/MM3 (150-450); RED BLOOD COUNT 2.43 MIL/MM3 (4.00-5.30); RED CELL DISTRIBUTION WIDTH 19.3 % (11.6-17.2); WHITE BLOOD COUNT 3.2 TH/MM3 (4.0-11.0)
[2017-05-17 05:07] LABS: BICARBONATE 23.1 MEQ/L (21.0-32.0); CALCIUM 7.3 MG/DL (8.5-10.1); CREATININE 0.53 MG/DL (0.50-1.00); MAGNESIUM 1.8 MG/DL (1.5-2.5)
[2017-05-17 05:33] LABS: CALCIUM-PROTEIN CORRECTED 8.4 MG/DL (8.5-10.1); TOTAL PROTEIN 5.1 GM/DL (6.4-8.2)
[2017-05-17] MEDS: metroNIDAZOLE 500 MG TAB PO SCH ×2 (06:19→11:50)
[2017-05-17] MEDS: LEVOTHYROXINE SODIUM 25 MCG TAB PO SCH (06:19)
[2017-05-17] MEDS: METOPROLOL TARTRATE 25 MG TAB PO SCH ×2 (06:19→13:49)
[2017-05-17] MEDS: SODIUM CHLORIDE 0.9% FLUSH 10 ML FLUSH IV FLUSH SCH (09:00)
[2017-05-17] MEDS: POTASSIUM BICARBONATE 25 MEQ EFFERVESCENT TAB PO SCH (09:23)
[2017-05-17] MEDS: PANTOPRAZOLE SOD 20 MG DELAYED RELEASE TAB PO SCH (09:23)
[2017-05-17] MEDS: FOLIC ACID 1 MG TAB PO SCH (09:23)
[2017-05-17] MEDS: LACTOBACILLUS ACIDOPHILUS TAB PO SCH ×2 (09:23→11:50)
[2017-05-17] MEDS: FAMOTIDINE 20 MG TAB PO SCH (09:23)
[2017-05-17] MEDS: SODIUM CHLOR 0.45% 1000 ML INJ 1,000 ML IV SCH (09:28)
--- NOTE | 2017-05-17 10:00 | HHI.PR ---
Subjective Remarks In bed appears in nad. No n/v/d/c. No fevers or chills. Denies chest pain or sob. Objective Vitals Vital Signs Date Time Temp Pulse Resp B/P (MAP) Pulse Ox O2 Delivery O2 Flow Rate FiO2 05/17/17 07:43 98.1 85 18 124/58 (80) 100 05/17/17 05:16 98.6 113 18 113/59 (77) 99 05/17/17 03:55 85 05/17/17 00:59 98.4 90 18 116/63 (80) 99 05/17/17 00:00 90 05/16/17 21:13 116 05/16/17 21:12 98.7 92 18 105/52 (69) 99 05/16/17 20:00 115 05/16/17 15:47 98.6 110 18 117/59 (78) 98 05/16/17 11:35 98.4 108 18 106/57 (73) 98 I/O 05/16/17 05/16/17 05/16/17 05/17/17 05/17/17 05/17/17 07:00 15:00 23:00 07:00 15:00 23:00 Intake Total 1000 ml 480 ml Output Total 3 ml Balance 997 ml 480 ml Intake Oral 480 ml IV Total 1000 ml Output Urine Total 3 ml # Voids 1 1 # Bowel Movements 2 1 Result Diagram: 05/17/17 0425 05/17/17 0425 Imaging Last Impressions Chest X-Ray 05/16/17 0000 Signed Impressions: Service Date/Time: Tuesday, May 16, 2017 15:32 - CONCLUSION: 1. Right-sided PICC line has its tip at the junction of the superior vena cava right atrium. 2. Mild pulmonary vascular congestion bilaterally. Ezequiel Ohara MD Abdomen/Pelvis CT 05/11/17 0000 Signed Impressions: Service Date/Time: Thursday, May 11, 2017 17:43 - CONCLUSION: 1. Nonspecific, nonobstructive bowel gas pattern which may represent gastroenteritis and/or ileus. 2. Anasarca. 3. Small bilateral pleural effusions right greater than left. 4. Mild motion artifact degrading the images. Justo Simon MD Objective Remarks GENERAL: Elderly female, thin, awake, no acute distress CARDIOVASCULAR: Regular rate and rhythm. RESPIRATORY: No accessory muscle use. Clear to auscultation. Breath sounds equal bilaterally. GASTROINTESTINAL: Abdomen soft, non-tender, nondistended. Hepatic and splenic margins not palpable. MUSCULOSKELETAL: Extremities without clubbing, cyanosis, or edema. No obvious deformities. NEUROLOGICAL: Awake and alert. No obvious cranial nerve deficits. Motor grossly within normal limits. Five out of 5 muscle strength in the arms and legs. Normal speech. A/P Problem List: (1) Gastroenteritis ICD Code: K52.9 - Noninfective gastroenteritis and colitis, unspecified (2) Lactic acidosis ICD Code: E87.2 - Acidosis (3) Dehydration ICD Code: E86.0 - Dehydration (4) C. difficile colitis ICD Code: A04.72 - Enterocolitis due to Clostridium difficile, not specified as recurrent (5) A-fib ICD Code: I48.91 - Unspecified atrial fibrillation Assessment and Plan Sepsis component resolved - no recurrence of any fever VRE Bacteremia - New problem, infectious disease starting Cubicin, greatly appreciate recommendations Microbiology called in Cubicin resistant, [facility] Cubicin. Will start linezolid. Consult ID for final recommendations at [facility]. Repeat blood cx are NTD If repeat BC negative and echo ok, will give Cubicin until 05/27 per ID recommendations ECHO reviewed with mild reduced EF 45%, no vegetations Diarrhea - Clinically improving, on metronidazole per infectious disease. C. difficile PCR is negative at this time. - Abdominal pain resolved Chronic anemia - Yesterday's low H&H was most likely a lab error as today's is normal Atrial fibrillation - stable rate - Continue Lopressor 3 times a day. We'll start Lovenox today given stable H&H for anticoagulation RA - on immunosuppressive therapy at home, will hold home meds for now given acute illness DVT ppx: Lovenox when stable DC plan : Plan to discharge to [facility] on obese seen IV. Discussed with Dr. Lopez , infectious disease doctor and with the case management for arrangements. Pending approval of obese seen at [facility]. Anayeli Roth MD May 17, 2017 10:00
[2017-05-17] MEDS: MAGNESIUM OXIDE 400 MG TAB PO SCH (10:27)
[2017-05-17] MEDS: DAPTOmycin INJ 300 MG in SODIUM CHLORIDE 0.9% INJ 100 ML IV SCH (15:09)
[2017-05-18] MEDS ORDERED: DAPT250I IV (16:13)
== END 2017-05-17 17:21 | DRG 872 ==
LOC: NEPE 14:47 → NEDA 18:35 → N05B 23:54
PROVIDERS: ADMIT Hospitalist; ATTEND Hospitalist
DX: A41.9 Sepsis, unspecified organism (principal); E87.2 Acidosis; I48.91 Unspecified atrial fibrillation; E86.0 Dehydration; D63.8 Anemia in other chronic diseases classified elsewhere; K21.9 Gastro-esophageal reflux disease without esophagitis; I10 Essential (primary) hypertension; K52.9 Noninfective gastroenteritis and colitis, unspecified; M06.9 Rheumatoid arthritis, unspecified; Z23 Encounter for immunization; R00.0 Tachycardia, unspecified; Z90.710 Acquired absence of both cervix and uterus
CPT/HCPCS: 36569; 71010; 71020; 71045; 74177; 76937; 80048; 80053; 81001; 82550; 83605; 83690; 83735; 84155; 85025; 87040; 87077; 87186; 87205; 87493; 90686; 90732; 93005; 93306; 96361; 96365; 96375; J0610; J0744; J0878; J1650; J2020; J2543; J3370; J7030; J7050; Q2038; Q9967